=== PATIENT | male | born 1970 | race Caucasian/White ===

== ENCOUNTER → 2017-04-24 | Outpatient (REF) | payer MEDICARE ==
[~2017-04-24] MED LIST: AMLO-99 PO; AMOX500T10 PO; ASPI-1471 PO; ATOR40TA69 PO; ATR80PT PO; BUSP10TA95 PO; CITA-139 PO; DIPH0.5D21 IM; ENAL1TAB35 PO; LEVO-85 PO; LISI-374 PO; LISI20TA29 PO; LORA-1455 PO; METF-410 PO; METO25TA93 PO; OMEP-125 PO; OMEP-137 PO; ONDA4TAB PO; ONDA4TAB97 PO; OXYC-865 PO; PANT40TA65 PO; PRED20TA6 PO; RANI-324 PO; RANI150C17 PO; SUCR1TAB85 PO
[2017-04-24 21:10] LABS: PLATELET COUNT, AUTOMATED 229 K/uL (150-450)
== END ==
PROVIDERS: ATTEND Physician Assistant Medical
DX: R19.7 Diarrhea, unspecified (principal)
CPT/HCPCS: 82040; 82247; 82310; 82374; 82435; 82565; 82947; 84075; 84132; 84155; 84295; 84450; 84460; 84520; 85025

== ENCOUNTER → 2017-05-02 | Outpatient (CLI) | payer MEDICARE | LOC: RESP 19:40 | PROVIDERS: ATTEND Nurse Practitioner Primary Care | DX: G47.33 Obstructive sleep apnea (adult) (pediatric) (principal); E66.9 Obesity, unspecified ==

== ENCOUNTER → 2017-06-02 | Outpatient (CLI) | payer MEDICARE ==
[~2017-06-02] MED LIST changes: +DICL100G39 TOP; +DULO30CA6 PO
== END ==
LOC: RESP 20:12
PROVIDERS: ATTEND Nurse Practitioner Primary Care
DX: G47.33 Obstructive sleep apnea (adult) (pediatric) (principal); G47.61 Periodic limb movement disorder; E66.9 Obesity, unspecified

== ENCOUNTER → 2017-06-16 | Outpatient (CLI) | payer MEDICARE ==
[~2017-06-16] MED LIST changes: +METO-253 PO; +TRAM-420 PO
== END ==
LOC: RESP 19:46
PROVIDERS: ATTEND Nurse Practitioner Primary Care
DX: G47.33 Obstructive sleep apnea (adult) (pediatric) (principal); G47.61 Periodic limb movement disorder; E66.9 Obesity, unspecified

== ENCOUNTER 2017-06-22 19:41 | Emergency (ER) | payer MEDICARE ==
[~2017-06-22 19:41] MED LIST changes: -TRAM-420 PO
--- NOTE | 2017-06-22 19:43 | ER Report ---
History and Physical Time Seen By MD: 19:43 HPI/ROS CHIEF COMPLAINT: Back pain, chest pain HISTORY OF PRESENT ILLNESS: 46-year-old male presents ambulatory to the ER complaining of back pain and chest pain. Patient ate at [employer] this morning had a sausage and a biscuit. Patient had 3 episodes of vomiting and back pain earlier today. He developed chest pain this evening. He has no diaphoresis, shortness of breath or nausea. He was admitted down in [place] several days ago for an extensive evaluation for chest pain including a treadmill which was unremarkable. Patient denies dysuria, frequency or hematuria. Patient states she's been having diarrhea all week. He denies fever or chills. REVIEW OF SYSTEMS: Respiratory: No cough, no dyspnea. Cardiovascular: As above Gastrointestinal: As above Musculoskeletal: As above Allergies: Uncoded Allergies: raghavaise (Allergy, Unknown, 03/26/17) Home Meds Active Scripts Ondansetron Hcl (ZOFRAN) 4 Mg Tablet, 4 MG PO Q6H Y for NAUSEA/VOMITING, #12 Prov:WIL SIMMONS DO 06/22/17 Tramadol Hcl (TRAMADOL HCL) 50 Mg Tablet, 1 TAB PO Q6H Y for PAIN, #15 MG TAKE ONE TO TWO TABLETS BY MOUTH EVERY FOUR TO SIX HOURS NEEDED Prov:WIL SIMMONS DO 06/22/17 Buspirone Hcl (BUSPIRONE HCL) 10 Mg Tablet, 1 TAB PO Q8H, #90 TAB 1 Refill Prov:STEVE PEREZ DNP, FNP-BC 05/29/17 Atorvastatin (LIPITOR) 80 Mg Tab, 1 TAB PO QDAY for 90 Days, #90 TAB 1 Refill Prov:STEVE PEREZ DNP, FNP-BC 05/29/17 Duloxetine HCl (Duloxetine HCl) 30 Mg Capsule.dr, 1 CAP PO DAILY for 90 Days, # 90 CAP 0 Refills Prov:STEVE PEREZ DNP, FNP-BC 05/23/17 Diclofenac Sodium 1% Gel (VOLTAREN 1% GEL) 100 Gm Gel..gram., 4 G TOP QID Y for PAIN, #1 TUB 3 Refills Prov:STEVE PEREZ DNP, FNP-BC 05/23/17 Lisinopril (LISINOPRIL) 20 Mg Tablet, 1 TAB PO QDAY for 90 Days, #90 TAB 1 Refill Prov:STEVE PEREZ DNP, [facility] 03/26/17 Reported Medications Metoprolol Tartrate (METOPROLOL TARTRATE) 25 Mg Tablet, 100 MG PO BID, TAB 06/22/17 Ranitidine Hcl (ZANTAC) 150 Mg Tablet, 1 TAB PO BID, TAB 03/26/17 Amlodipine Besylate (AMLODIPINE BESYLATE) 10 Mg Tablet, 1 TAB PO QDAY, TAB 03/22/17 Aspirin (ASPIR 81) 81 Mg Tablet.dr, 81 MG PO QDAY, TAB 03/13/16 Discontinued Reported Medications Omeprazole (OMEPRAZOLE) 20 Mg Capsule.dr, 1 CAP PO BID, CAP 03/26/17 Discontinued Scripts Metoprolol Tartrate (METOPROLOL TARTRATE) 50 Mg Tab, 1 TAB PO BID, #90 TAB Prov:STEVE PEREZ [facility], [facility] 06/18/17 Reviewed Nurses Notes: Yes Old Medical Records Reviewed: Yes Hx Smoking: Yes (1/2 ppd) Smoking Status: Current: Every Day Smoker Hx Substance Use Disorder: Yes Hx Alcohol Use: Yes Constitutional Vital Sign - Last 24 Hours 06/22/17 06/22/17 06/22/17 06/22/17 19:41 19:45 19:45 19:56 Temp 98.2 Pulse ??? 85 79 Resp 20 16 B/P (MAP) 137/93 137/93 (108) Pulse Ox 88 93 O2 Delivery Room Air 06/22/17 06/22/17 06/22/17 06/22/17 20:00 20:11 20:26 20:30 Pulse 87 72 Resp 17 6 B/P (MAP) 118/89 (99) 128/91 (103) Pulse Ox 93 91 06/22/17 06/22/17 06/22/17 20:41 20:56 20:58 Pulse 68 72 85 Resp 13 27 16 B/P (MAP) 132/85 (101) Pulse Ox 94 95 95 O2 Delivery Room Air Physical Exam General Appearance: The patient is alert, has no immediate need for airway protection and no current signs of toxicity. Vital signs stable, afebrile, pulse ox normal HEENT: Pupils equal and round no injection. Oropharynx without redness or exudate, mucous. Membranes are moist Respiratory: Chest is non tender, lungs are clear to auscultation. No chest wall tenderness Cardiac: regular rate and rhythm Gastrointestinal: Abdomen is soft and non tender, no masses, bowel sounds normal. Musculoskeletal: Neck: Neck is supple and non tender. No lymphadenopathy, no JVD Extremities have full range of motion and are non tender. No edema, no calf tenderness Skin: No rashes or lesions. DIFFERENTIAL DIAGNOSIS: After history and physical exam differential diagnosis was considered for chest pain including but not limited to myocardial ischemia, pericarditis pulmonary embolus, chest wall pain, pleural inflammation and pulmonary infectious causes. Additionallyback pain including but not limited to muscular pain, herniated disc, spine fracture, intra-abdominal causes and urinary tract infection. Medical Decision Making Data Points Result Diagram: 06/22/17194706/22/171947 Laboratory Hematology Test 06/22/17 19:48 Red Blood Count 5.69 M/uL (4.00-5.60) Mean Corpuscular Volume 85.1 fL (80.0-96.0) Mean Corpuscular Hemoglobin 29.0 pg (26.0-33.0) Mean Corpuscular Hemoglobin Concent 34.1 g/dL (32.0-36.0) Red Cell Distribution Width 14.2 % (11.5-14.5) Mean Platelet Volume 8.1 fL (7.2-11.1) Neutrophils (%) (Auto) 50.7 % (39.4-72.5) Lymphocytes (%) (Auto) 40.5 % (17.6-49.6) Monocytes (%) (Auto) 5.6 % (4.1-12.4) Eosinophils (%) (Auto) 2.7 % (0.4-6.7) Basophils (%) (Auto) 0.5 % (0.3-1.4) Nucleated RBC Relative Count (auto) 0.1 /100WBC Neutrophils # (Auto) 3.7 K/uL (2.0-7.4) Lymphocytes # (Auto) 2.9 K/uL (1.3-3.6) Monocytes # (Auto) 0.4 K/uL (0.3-1.0) Eosinophils # (Auto) 0.2 K/uL (0.0-0.5) Basophils # (Auto) 0.0 K/uL (0.0-0.1) Nucleated RBC Absolute Count (auto) 0.01 K/uL D-Dimer Quantitative (PE/DVT) < 0.27 ug/ml (0-0.50) Sodium Level 139 mmol/L (137-145) Potassium Level 3.5 mmol/L (3.5-5.0) Chloride Level 102 mmol/L (98-107) Carbon Dioxide Level 24 mmol/L (22-30) Blood Urea Nitrogen 15 mg/dl (9-21) Creatinine 1.10 mg/dl (0.66-1.25) Glomerular Filtration Rate Calc > 60.0 Random Glucose 168 mg/dl (75-110) Calcium Level 9.4 mg/dl (8.4-10.2) Total Bilirubin 0.3 mg/dl (0.2-1.3) Aspartate Amino Transf (AST/SGOT) 29 U/L (0-35) Alanine Aminotransferase (ALT/SGPT) 76 U/L (0-56) Alkaline Phosphatase 186 U/L (0-126) Troponin I 0.013 ng/ml B-Type Natriuretic Peptide 13 pg/ml (0-100) Total Protein 8.3 gm/dl (6.3-8.2) Albumin 4.4 g/dl (3.5-5.0) Amylase Level 72 U/L (0-110) Lipase 243 U/L (23-300) Chemistry Test 06/22/17 19:48 White Blood Count 7.2 k/uL (4.5-11.0) Red Blood Count 5.69 M/uL (4.00-5.60) Hemoglobin 16.5 g/dL (14.0-18.0) Hematocrit 48.4 % (42.0-52.0) Mean Corpuscular Volume 85.1 fL (80.0-96.0) Mean Corpuscular Hemoglobin 29.0 pg (26.0-33.0) Mean Corpuscular Hemoglobin Concent 34.1 g/dL (32.0-36.0) Red Cell Distribution Width 14.2 % (11.5-14.5) Platelet Count 239 K/uL (150-450) Mean Platelet Volume 8.1 fL (7.2-11.1) Neutrophils (%) (Auto) 50.7 % (39.4-72.5) Lymphocytes (%) (Auto) 40.5 % (17.6-49.6) Monocytes (%) (Auto) 5.6 % (4.1-12.4) Eosinophils (%) (Auto) 2.7 % (0.4-6.7) Basophils (%) (Auto) 0.5 % (0.3-1.4) Nucleated RBC Relative Count (auto) 0.1 /100WBC Neutrophils # (Auto) 3.7 K/uL (2.0-7.4) Lymphocytes # (Auto) 2.9 K/uL (1.3-3.6) Monocytes # (Auto) 0.4 K/uL (0.3-1.0) Eosinophils # (Auto) 0.2 K/uL (0.0-0.5) Basophils # (Auto) 0.0 K/uL (0.0-0.1) Nucleated RBC Absolute Count (auto) 0.01 K/uL D-Dimer Quantitative (PE/DVT) < 0.27 ug/ml (0-0.50) Glomerular Filtration Rate Calc > 60.0 Calcium Level 9.4 mg/dl (8.4-10.2) Total Bilirubin 0.3 mg/dl (0.2-1.3) Aspartate Amino Transf (AST/SGOT) 29 U/L (0-35) Alanine Aminotransferase (ALT/SGPT) 76 U/L (0-56) Alkaline Phosphatase 186 U/L (0-126) Troponin I 0.013 ng/ml B-Type Natriuretic Peptide 13 pg/ml (0-100) Total Protein 8.3 gm/dl (6.3-8.2) Albumin 4.4 g/dl (3.5-5.0) Amylase Level 72 U/L (0-110) Lipase 243 U/L (23-300) Coagulation Test 06/22/17 19:48 D-Dimer Quantitative (PE/DVT) < 0.27 ug/ml EKG/Imaging EKG Interpretation 12 lead EK Rhythm: normal sinus rhythm [place]: normal QRS: normal ST segments: normal, no evidence of ischemia or dysrhythmia Imaging X-ray: Single view portable chest x-ray was obtained. I viewed the images myself on the PACS system. My interpretation of the images is: Infiltrate, no effusion, normal mediastinum. The radiologist interpretation had no clinically significant variation from this interpretation. ED Course/Re-evaluation Clinical Indication for ER IV: IV Access ED Course Patient was admitted to an examination room. H&P was done. The differential diagnoses was considered. Patient with both chest and abdominal pain. Patient was having diarrhea for a week. He now has several episodes of vomiting after eating at [employer] this morning. Patient's being followed by cardiology. Patient's treated with fentanyl, Toradol and Zofran. He feels much better. Diagnostic evaluation shows normal laboratory studies except for an elevated alkaline phosphatase goes back several months. Patient reports no right upper quadrant pain. Patient be discharged home on tramadol for pain and Zofran for nausea. He is advised to follow-up with primary care for an outpatient ultrasound of his right upper quadrant. Decision to Disposition Date: Jun 22, 2017 Decision to Disposition Time: 20:49 Depart Departure Latest Vital Signs Vital Signs Date Time Temp Pulse Resp B/P (MAP) Pulse Ox O2 Delivery O2 Flow Rate FiO2 06/22/17 20:58 85 16 132/85 (101) 95 Room Air 06/22/17 19:45 98.2 Impression: Primary Impression: Chest pain Additional Impressions: Back pain History of gastroesophageal reflux (GERD) Elevated alkaline phosphatase level Condition: Improved Disposition: HOME OR SELF-CARE Referrals: STEVE PEREZ DNP, [facility] (PCP) New Scripts Ondansetron Hcl (ZOFRAN) 4 Mg Tablet 4 MG PO Q6H Y for NAUSEA/VOMITING, #12 Prov: WIL SIMMONS DO 06/22/17 Tramadol Hcl (TRAMADOL HCL) 50 Mg Tablet 1 TAB PO Q6H Y for PAIN, #15 MG TAKE ONE TO TWO TABLETS BY MOUTH EVERY FOUR TO SIX HOURS NEEDED Prov: WIL SIMMONS DO 06/22/17 Patient Instructions: Back Pain (ED), Chest Pain (ED) Additional Instructions: Follow-up with your primary care physician for outpatient ultrasound of your right upper quadrant to rule out gallstones Problem Qualifiers Primary Impression: Chest pain Chest pain type: unspecified Qualified Codes: R07.9 - Chest pain, unspecified Additional Impressions: Back pain Back pain location: back pain in unspecified location Chronicity: acute Back pain laterality: unspecified Qualified Codes: M54.9 - Dorsalgia, unspecified WIL SIMMONS DO Jun 22, 2017 19:43
[2017-06-22] MEDS ORDERED: ONDANSETRON 4 MG/2 ML VIAL IVP ONE (19:50)
[2017-06-22] MEDS ORDERED: ASPIRIN 81 MG CHEW PO ONE (19:50)
[2017-06-22] MEDS ORDERED: KETOROLAC 30 MG/ML VIAL IVP ONE (19:50)
[2017-06-22] MEDS ORDERED: fentaNYL CITR 100 MCG/2 ML AMP IVP ONE (19:50)
[2017-06-22] MEDS ORDERED: METO25TA93 PO (19:55)
--- NOTE | 2017-06-22 19:57 | EKG ---
FACILITY: [facility] PATIENT NAME: BRAD ARITA : [id number] MR: [id number] V: [id number] EXAM DATE: ORDERING PHYSICIAN: WIL SIMMONS TECHNOLOGIST: Daniel Caraballo Reason : Blood Pressure : / mmHG Vent. Rate : 077 BPM Atrial Rate : 077 BPM P-R Int : 148 ms QRS Dur : 090 ms QT Int : 390 ms P-R-T Axes : 048 012 036 degrees QTc Int : 441 ms Normal sinus rhythm Normal ECG When compared with ECG of 07-APR-2017 17:01, Relatively unchanged Confirmed by RABIA ZHU ([id number]) on 06/23/2017 6:42:52 AM Referred By: Confirmed By:RABIA ZHU
[2017-06-22 20:01] LABS: PLATELET COUNT, AUTOMATED 239 K/uL (150-450)
--- NOTE | 2017-06-22 20:32 | RADIOLOGY IMAGING REPORT ---
FACILITY: [facility] - [place] PATIENT NAME: Alfonzo Villatoro : 1970 MR: [id number] V: [id number] EXAM DATE: ORDERING PHYSICIAN: WIL SIMMONS TECHNOLOGIST: Location: [facility] - [place] Patient: Alfonzo Villatoro : 1970 Visit/Account:[id number] Date of Sevice: 06/22/2017 CHEST SINGLE AP Indication: Chest pain.. Comparison: 04/07/2017. Findings: Cardiomediastinal silhouette and pulmonary vessels within normal limits. There is no focal infiltrate or lobar consolidation. No pneumothorax or pleural effusion. No nodule. Upper abdomen is unremarkable. No acute bony abnormality. IMPRESSION: 1. No acute cardiopulmonary process. Report Dictated By: Vasile Barroso at 06/22/2017 8:26 PM Report E-Signed By: Vasile Barroso at 06/22/2017 8:28 PM WSN:[id number]
[2017-06-22] MEDS ORDERED: ONDA4TAB97 PO (20:52)
[2017-06-22] MEDS ORDERED: TRAM-420 PO (20:52)
[2017-06-22 20:58] VITALS: BP 132/85
== END 2017-06-22 21:00 | disposition home or self-care (01) ==
LOC: ER 19:55
DX: R07.89 Other chest pain (principal); M54.9 Dorsalgia, unspecified; K21.9 Gastro-esophageal reflux disease without esophagitis; R79.89 Other specified abnormal findings of blood chemistry
CPT/HCPCS: 71045; 82150; 83690; 83880; 84484; 85025; 85379; 93005; 96374; 96375; 99284; A9270; J1885; J2405; J3010; 82040; 82247; 82310; 82374; 82435; 82565; 82947; 84075; 84132; 84155; 84295; 84450; 84460; 84520

== ENCOUNTER 2017-07-31 23:53 | Emergency (ER) | payer MEDICARE ==
[~2017-07-31 23:53] MED LIST changes: -ATOR40TA24 PO; -CLOP75TA43 PO; -NITR0.4T3 SL; -PROM-110 PO; +RANI-324 PO; -RANI-366 PO
--- NOTE | 2017-08-01 00:02 | ER Report ---
History and Physical Time Seen By MD: 00:01 Hx. of Stated Complaint: PT REPORTS CHEST PAIN THAT STARTED ABOUT 30 MINUTES AGO. PT GIVEN ASA EN ROUTE BY EMS. PT STATES THAT PAIN HAS NOT CHANGED. HPI/ROS CHIEF COMPLAINT: chest pain HISTORY OF PRESENT ILLNESS: This is a 47 year old male. He is having chest pain. Started about 1 hour ago. Has vomiting as well. He has been drinking earlier this evening, but not a large amount. Resting when he started having the chest pain. Substernal, nonradiating. No shortness of breath. No fevers or chills. He has an appointment with his mental retardation aide this week on Sunday. He has had stents in the past. He is still smoking. Allergies: Uncoded Allergies: mayonnaise (Allergy, Unknown, 03/26/17) Home Meds Active Scripts Diclofenac Sodium 1% Gel (VOLTAREN 1% GEL) 100 Gm Gel..gram., 4 G TOP QID Y for PAIN, #1 TUB 3 Refills Prov:STEVE PEREZ DNP [facility] 07/16/17 Citalopram Hydrobromide (CITALOPRAM HBR) 40 Mg Tablet, 1 TAB PO QDAY for 90 Days , #90 TAB 3 Refills Prov:STEVE PEREZ DNP [facility] 07/16/17 Tramadol Hcl (TRAMADOL HCL) 50 Mg Tablet, 1-2 TAB PO BID Y for PAIN, #120 TAB 0 Refills Prov:STEVE PEREZ DNP [facility] 07/16/17 Buspirone Hcl (BUSPIRONE HCL) 10 Mg Tablet, 1 TAB PO Q8H, #90 TAB 1 Refill Prov:STEVE PEREZ DNP [facility] 05/29/17 Atorvastatin (LIPITOR) 80 Mg Tab, 1 TAB PO QDAY for 90 Days, #90 TAB 1 Refill Prov:STEVE PEREZ DNP [facility] 05/29/17 Lisinopril (LISINOPRIL) 20 Mg Tablet, 1 TAB PO QDAY for 90 Days, #90 TAB 1 Refill Prov:STEVE PEREZ DNP [facility] 03/26/17 Reported Medications Metoprolol Tartrate (METOPROLOL TARTRATE) 25 Mg Tablet, 100 MG PO BID, TAB 3//18 Ranitidine Hcl (ZANTAC) 150 Mg Tablet, 1 TAB PO BID, TAB 03/26/17 Amlodipine Besylate (AMLODIPINE BESYLATE) 10 Mg Tablet, 1 TAB PO QDAY, TAB 03/22/17 Aspirin (ASPIR 81) 81 Mg Tablet.dr, 81 MG PO QDAY, TAB 03/13/16 Reviewed Nurses Notes: Yes Hx Smoking: Yes (1/2 ppd) Smoking Status: Current: Every Day Smoker Hx Substance Use Disorder: Yes Hx Alcohol Use: Yes Constitutional Vital Sign - Last 24 Hours 07/31/17 08/01/17 08/01/17 08/01/17 23:56 00:10 00:25 00:30 Temp 98.2 Pulse 81 83 83 84 Resp 16 9 11 11 B/P (MAP) 126/43 115/84 (94) Pulse Ox 96 97 97 98 O2 Delivery Room Air 08/01/17 08/01/17 08/01/17 08/01/17 01:00 01:15 01:30 02:00 Pulse 92 91 88 Resp 17 13 25 14 B/P (MAP) 129/90 (103) 160/106 (124) Pulse Ox 98 90 94 O2 Delivery Room Air Physical Exam General Appearance: The patient is alert. No acute distress. Eyes: Pupils are equal, round. No pallor, injection or icterus. ENT: Mucous membranes are moist. Normal oral mucosa. Posterior oropharynx is normal. Neck: Supple and non tender. Respiratory: Lungs are clear to auscultation. Cardiovascular: Regular rate and rhythm. No murmurs, gallops or rubs. Normal capillary refill. Gastrointestinal: Abdomen is soft with diffuse discomfort. Nondistended. No costovertebral angle tenderness with percussion. Neurological: Alert and oriented x3. Skin: Warm and dry. DIFFERENTIAL DIAGNOSIS: After history and physical exam, differential diagnosis was considered for chest pain including but not limited to myocardial ischemia, pericarditis pulmonary embolus, chest wall pain, pleural inflammation and pulmonary infectious causes. Medical Decision Making Data Points Result Diagram: 08/01/17 0001 08/01/17 0001 Laboratory Hematology Test 08/01/17 00:01 Red Blood Count 5.84 M/uL (4.00-5.60) Mean Corpuscular Volume 85.3 fL (80.0-96.0) Mean Corpuscular Hemoglobin 29.6 pg (26.0-33.0) Mean Corpuscular Hemoglobin Concent 34.7 g/dL (32.0-36.0) Red Cell Distribution Width 14.1 % (11.5-14.5) Mean Platelet Volume 8.2 fL (7.2-11.1) Neutrophils (%) (Auto) 65.3 % (39.4-72.5) Lymphocytes (%) (Auto) 29.2 % (17.6-49.6) Monocytes (%) (Auto) 4.9 % (4.1-12.4) Eosinophils (%) (Auto) 0.2 % (0.4-6.7) Basophils (%) (Auto) 0.4 % (0.3-1.4) Nucleated RBC Relative Count (auto) 0.0 /100WBC Neutrophils # (Auto) 6.7 K/uL (2.0-7.4) Lymphocytes # (Auto) 3.0 K/uL (1.3-3.6) Monocytes # (Auto) 0.5 K/uL (0.3-1.0) Eosinophils # (Auto) 0.0 K/uL (0.0-0.5) Basophils # (Auto) 0.0 K/uL (0.0-0.1) Nucleated RBC Absolute Count (auto) 0.00 K/uL Sodium Level 142 mmol/L (137-145) Potassium Level 3.7 mmol/L (3.5-5.0) Chloride Level 100 mmol/L (98-107) Carbon Dioxide Level 22 mmol/L (22-30) Blood Urea Nitrogen 15 mg/dl (9-21) Creatinine 1.70 mg/dl (0.66-1.25) Glomerular Filtration Rate Calc 43.1 Random Glucose 109 mg/dl (75-110) Calcium Level 9.5 mg/dl (8.4-10.2) Total Bilirubin 0.4 mg/dl (0.2-1.3) Aspartate Amino Transf (AST/SGOT) 50 U/L (0-35) Alanine Aminotransferase (ALT/SGPT) 68 U/L (0-56) Alkaline Phosphatase 202 U/L (0-126) Troponin I < 0.012 ng/ml B-Type Natriuretic Peptide 24 pg/ml (0-100) Total Protein 8.5 gm/dl (6.3-8.2) Albumin 4.7 g/dl (3.5-5.0) Amylase Level 76 U/L (0-110) Lipase 248 U/L (23-300) Chemistry Test 08/01/17 00:01 White Blood Count 10.3 k/uL (4.5-11.0) Red Blood Count 5.84 M/uL (4.00-5.60) Hemoglobin 17.3 g/dL (14.0-18.0) Hematocrit 49.8 % (42.0-52.0) Mean Corpuscular Volume 85.3 fL (80.0-96.0) Mean Corpuscular Hemoglobin 29.6 pg (26.0-33.0) Mean Corpuscular Hemoglobin Concent 34.7 g/dL (32.0-36.0) Red Cell Distribution Width 14.1 % (11.5-14.5) Platelet Count 222 K/uL (150-450) Mean Platelet Volume 8.2 fL (7.2-11.1) Neutrophils (%) (Auto) 65.3 % (39.4-72.5) Lymphocytes (%) (Auto) 29.2 % (17.6-49.6) Monocytes (%) (Auto) 4.9 % (4.1-12.4) Eosinophils (%) (Auto) 0.2 % (0.4-6.7) Basophils (%) (Auto) 0.4 % (0.3-1.4) Nucleated RBC Relative Count (auto) 0.0 /100WBC Neutrophils # (Auto) 6.7 K/uL (2.0-7.4) Lymphocytes # (Auto) 3.0 K/uL (1.3-3.6) Monocytes # (Auto) 0.5 K/uL (0.3-1.0) Eosinophils # (Auto) 0.0 K/uL (0.0-0.5) Basophils # (Auto) 0.0 K/uL (0.0-0.1) Nucleated RBC Absolute Count (auto) 0.00 K/uL Glomerular Filtration Rate Calc 43.1 Calcium Level 9.5 mg/dl (8.4-10.2) Total Bilirubin 0.4 mg/dl (0.2-1.3) Aspartate Amino Transf (AST/SGOT) 50 U/L (0-35) Alanine Aminotransferase (ALT/SGPT) 68 U/L (0-56) Alkaline Phosphatase 202 U/L (0-126) Troponin I < 0.012 ng/ml B-Type Natriuretic Peptide 24 pg/ml (0-100) Total Protein 8.5 gm/dl (6.3-8.2) Albumin 4.7 g/dl (3.5-5.0) Amylase Level 76 U/L (0-110) Lipase 248 U/L (23-300) EKG/Imaging EKG Interpretation 12 lead EKG: Rhythm: normal sinus rhythm, rate 94 [place]: normal QRS: Prolonged QT ST segments: Nonspecific, no ST elevation or depression noted. Imaging CHEST SINGLE AP 08/01/2017 00:17 hours. HISTORY: Sudden onset of chest pain. History of 4 cardiac stents. COMPARISON: 06/22/2017 and studies dating to 03/13/2016. TECHNIQUE: Portable AP view of the chest. FINDINGS: Tubes/lines/hardware: There are external chest leads. Pulmonary: Lungs are clear. There is no pneumothorax or pleural effusion. Cardiomediastinal: Cardiac and mediastinal silhouettes are within normal limits. Bones/soft tissues: No acute osseous abnormality. The visible abdomen is normal. IMPRESSION: 1. No acute cardiopulmonary process. Report Dictated By: Jerri Martinez at 08/01/2017 12:52 AM ED Course/Re-evaluation Clinical Indication for ER IV: Hydration, IV Access ED Course Gave a liter of normal saline and Zofran. Still vomiting. Gave Phenergan and vomiting is improved. His liver function tests are elevated but normal amylase and lipase. Negative troponin and no sign of heart attack. This appears to be gastritis related to his alcohol consumption tonight. He will follow-up with Cardiology later this week. Decision to Disposition Date: Aug 01, 2017 Decision to Disposition Time: 01:49 Depart Departure Latest Vital Signs Vital Signs Date Time Temp Pulse Resp B/P (MAP) Pulse Ox O2 Delivery O2 Flow Rate FiO2 08/01/17 02:00 88 14 94 Room Air 08/01/17 01:30 160/106 (124) 07/31/17 23:56 98.2 Impression: Primary Impression: Gastritis due to alcohol without hemorrhage Condition: Improved Disposition: HOME OR SELF-CARE Referrals: CHRIS,STEVE A DNP, [facility] (PCP) Patient Instructions: Diet for Stomach Ulcers and Gastritis (ED), Gastritis (ED ) Additional Instructions: Avoid alcohol. See instructions for diet associated with gastritis. Take Zofran 4mg, one every 6 hours as needed for nausea or vomiting. Take Phenergan 25mg, one every 8 hours as needed for nausea or vomiting. Please follow-up with primary care and cardiology as planned. Problem Qualifiers Primary Impression: Gastritis due to alcohol without hemorrhage Chronicity: acute Qualified Codes: K29.20 - Alcoholic gastritis without bleeding ASHANTI OCHOA MD Aug 01, 2017 00:02
[2017-08-01] MEDS ORDERED: NS(*) 0.9% 1000 ML BAG 1,000 ML IV ONE (00:17)
[2017-08-01] MEDS ORDERED: ONDANSETRON 4 MG/2 ML VIAL IVP ONE ×2 (00:20→00:40)
[2017-08-01] MEDS ORDERED: MORPHINE 4 MG/ML SDV IVP ONE (00:20)
[2017-08-01] MEDS ORDERED: ASPIRIN 81 MG CHEW PO ONE (00:20)
[2017-08-01 00:26] LABS: PLATELET COUNT, AUTOMATED 222 K/uL (150-450)
[2017-08-01] MEDS ORDERED: PROMETHAZINE 25 MG/ML 1 ML AMP IVP ONE (00:55)
--- NOTE | 2017-08-01 00:58 | RADIOLOGY IMAGING REPORT ---
FACILITY: [facility] PATIENT NAME: Alfonzo Villatoro : 1970 MR: [id number] V: [id number] EXAM DATE: ORDERING PHYSICIAN: ASHANTI OCHOA TECHNOLOGIST: Location: [facility] - [place] Patient: Alfonzo Villatoro : 1970 Visit/Account:[id number] Date of Sevice: 08/01/2017 CHEST SINGLE AP 08/01/2017 00:17 hours. HISTORY: Sudden onset of chest pain. History of 4 cardiac stents. COMPARISON: 06/22/2017 and studies dating to 03/13/2016. TECHNIQUE: Portable AP view of the chest. FINDINGS: Tubes/lines/hardware: There are external chest leads. Pulmonary: Lungs are clear. There is no pneumothorax or pleural effusion. Cardiomediastinal: Cardiac and mediastinal silhouettes are within normal limits. Bones/soft tissues: No acute osseous abnormality. The visible abdomen is normal. IMPRESSION: 1. No acute cardiopulmonary process. Report Dictated By: Jerri Martinez at 08/01/2017 12:52 AM Report E-Signed By: Jerri Martinez at 08/01/2017 12:53 AM WSN:[id number]
[2017-08-01 01:30] VITALS: BP 160/106
--- NOTE | 2017-08-01 01:31 | EKG ---
[place] [facility] [place] NAME: BRAD ARITA : [id number] MR: [id number] V: [id number] EXAM DATE: ORDERING PHYSICIAN: ASHANTI OCHOA TECHNOLOGIST: THIAGO Caraballo Reason : CARDIAC Blood Pressure : / mmHG Vent. Rate : 094 BPM Atrial Rate : 094 BPM P-R Int : 144 ms QRS Dur : 082 ms QT Int : 386 ms P-R-T Axes : 053 047 035 degrees QTc Int : 482 ms Sinus rhythm Prolonged QT Abnormal ECG When compared with ECG of 22-JUN-2017 19:44, No significant change was found Confirmed by ELISA RODRIGES ([id number]) on 08/01/2017 6:41:02 AM Referred By: Confirmed By:ELISA RODRIGES
[2017-08-01] MEDS ORDERED: ONDANSETRON 4 MG ODT TH SL ONE (01:50)
[2017-08-01] MEDS ORDERED: PROMETHAZINE HCL 25 MG TAB TH 2 TAB/BOTTLE PO ONE (01:50)
== END 2017-08-01 02:02 | disposition home or self-care (01) ==
LOC: ER 23:59
DX: K29.20 Alcoholic gastritis without bleeding (principal); R94.31 Abnormal electrocardiogram [ECG] [EKG]; F17.200 Nicotine dependence, unspecified, uncomplicated
CPT/HCPCS: 71045; 82150; 83690; 83880; 84484; 85025; 93005; 96361; 96374; 96375; 96376; 99284; J2405; J2550; J7030; Q0162; 82040; 82247; 82310; 82374; 82435; 82565; 82947; 84075; 84132; 84155; 84295; 84450; 84460; 84520; S0119

== ENCOUNTER → 2017-07-31 | Outpatient (CLI) | payer MEDICARE ==
[~2017-07-31] MED LIST changes: +ATOR40TA24 PO; +CITA-141 PO; +CLOP75TA43 PO; +NITR0.4T3 SL; +PROM-110 PO; -RANI-324 PO; +RANI-366 PO; +TRAM-420 PO
== END ==
LOC: AMB 23:33
PROVIDERS: ATTEND Nurse Practitioner
DX: R07.9 Chest pain, unspecified (principal); R06.02 Shortness of breath
CPT/HCPCS: A0425; A0427

== ENCOUNTER 2017-08-02 17:19 | Emergency (ER) | payer MEDICARE ==
[~2017-08-02 17:19] MED LIST changes: -ATOR40TA24 PO; -CLOP75TA43 PO; -NITR0.4T3 SL; -PROM-110 PO; +RANI-324 PO; -RANI-366 PO
--- NOTE | 2017-08-02 17:26 | ER Report ---
History and Physical Time Seen By MD: 17:25 HPI/ROS CHIEF COMPLAINT: Chest pain HISTORY OF PRESENT ILLNESS: 47-year-old male with an extensive history of coronary artery disease, status post 4 stents at sudden onset of chest pain 45 minutes prior to arrival. He describes a sharp substernal pain without radiation. He notes diaphoresis, nausea and shortness of breath. He was seen here 2 days ago with a similar presentation. Although his EKG and troponins were unremarkable. He was discharged home to follow-up with his corrosion engineer, Dr. Silver. EMS administered aspirin and nitroglycerin sublingual without improvement of his pain. The EKG that was transmitted by buttermaker continuous churn shows diffuse ST depression approximately 3 mm. On arrival. EKG shows similar changes. Comparison to previous EKG from [address] depression throughout the V leads and in V2 and aVF as well as ST elevation in aVR. STEMI protocol will be initiated. Call was placed to [facility] REVIEW OF SYSTEMS: Respiratory: No cough, no dyspnea. Cardiovascular: As above Gastrointestinal: No vomiting, no abdominal pain. Musculoskeletal: No back pain. Allergies: Uncoded Allergies: mayonnaise (Allergy, Unknown, 03/26/17) Home Meds Active Scripts Diclofenac Sodium 1% Gel (VOLTAREN 1% GEL) 100 Gm Gel..gram., 4 G TOP QID Y for PAIN, #1 TUB 3 Refills Prov:STEVE PEREZ DNP, FNP-BC 07/16/17 Citalopram Hydrobromide (CITALOPRAM HBR) 40 Mg Tablet, 1 TAB PO QDAY for 90 Days , #90 TAB 3 Refills Prov:STEVE PEREZ DNP, FNP-BC 07/16/17 Tramadol Hcl (TRAMADOL HCL) 50 Mg Tablet, 1-2 TAB PO BID Y for PAIN, #120 TAB 0 Refills Prov:STEVE PEREZ DNP, FNP-BC 07/16/17 Buspirone Hcl (BUSPIRONE HCL) 10 Mg Tablet, 1 TAB PO Q8H, #90 TAB 1 Refill Prov:STEVE PEREZ DNP, FNP-BC 05/29/17 Atorvastatin (LIPITOR) 80 Mg Tab, 1 TAB PO QDAY for 90 Days, #90 TAB 1 Refill Prov:STEVE PEREZ DNP, FNP-BC 05/29/17 Lisinopril (LISINOPRIL) 20 Mg Tablet, 1 TAB PO QDAY for 90 Days, #90 TAB 1 Refill Prov:STEVE PEREZ [facility] 03/26/17 Reported Medications Metoprolol Tartrate (METOPROLOL TARTRATE) 25 Mg Tablet, 100 MG PO BID, TAB 06/22/17 Ranitidine Hcl (ZANTAC) 150 Mg Tablet, 1 TAB PO BID, TAB 03/26/17 Amlodipine Besylate (AMLODIPINE BESYLATE) 10 Mg Tablet, 1 TAB PO QDAY, TAB 03/22/17 Aspirin (ASPIR 81) 81 Mg Tablet.dr, 81 MG PO QDAY, TAB 03/13/16 Past Medical/Surgical History Past Medical History Cardiovascular: Reports hx of: coronary artery disease (4 stents) hyperlipidemia hypertension Respiratory: Reports hx of: sleep apnea (CPAP) Gastrointestinal: Reports hx of: GERD Psychiatric: Reports hx of: anxiety depression panic attacks Reviewed Nurses Notes: Yes Old Medical Records Reviewed: Yes Hx Smoking: Yes (1/2 ppd) Smoking Status: Current: Every Day Smoker Hx Substance Use Disorder: Yes Hx Alcohol Use: Yes Constitutional Vital Sign - Last 24 Hours 08/02/17 08/02/17 08/02/17 08/02/17 17:19 17:20 17:24 17:28 Temp 98.9 Pulse 136 139 150 Resp 8 11 20 B/P (MAP) ???/??? (5502) 128/103 (111) Pulse Ox 98 97 97 O2 Delivery Nasal Cannula 08/02/17 08/02/17 08/02/17 08/02/17 17:28 17:29 17:33 17:34 Pulse 141 132 Resp 17 19 B/P (MAP) 87/70 (76) 102/58 (73) Pulse Ox 97 98 08/02/17 08/02/17 08/02/17 08/02/17 17:39 17:40 17:44 17:49 Pulse 121 126 114 Resp 12 16 24 B/P (MAP) 119/76 (90) Pulse Ox 97 97 99 08/02/17 08/02/17 08/02/17 08/02/17 17:50 17:54 17:59 18:00 Pulse 114 110 Resp 15 23 B/P (MAP) 126/85 (99) 123/77 (92) Pulse Ox 99 100 08/02/17 08/02/17 08/02/17 08/02/17 18:04 18:09 18:09 18:10 Pulse 116 112 Resp 10 14 B/P (MAP) 120/84 (96) Pulse Ox 100 97 O2 Flow Rate 2.0 08/02/17 08/02/17 08/02/17 08/02/17 18:14 18:19 18:23 18:24 Pulse 116 129 134 Resp 7 9 B/P (MAP) 113/77 (89) 98/77 (84) Pulse Ox 97 96 08/02/17 08/02/17 08/02/17 08/02/17 18:29 18:30 18:34 18:39 Pulse 132 135 135 Resp 11 12 10 B/P (MAP) 97/74 (82) Pulse Ox 95 95 95 08/02/17 08/02/17 08/02/17 08/02/17 18:40 18:44 18:49 18:50 Pulse 137 134 Resp 11 8 B/P (MAP) 99/67 (78) 94/79 (84) Pulse Ox 96 96 08/02/17 08/02/17 08/02/17 08/02/17 18:54 18:59 19:00 19:04 Pulse 134 132 134 Resp 10 14 6 B/P (MAP) 91/69 (76) Pulse Ox 95 97 96 08/02/17 08/02/17 08/02/17 08/02/17 19:09 19:10 19:14 19:19 Pulse 126 130 129 Resp 13 9 9 B/P (MAP) 85/46 (59) Pulse Ox 96 95 96 08/02/17 08/02/17 19:20 19:24 Pulse 131 Resp 9 B/P (MAP) 95/54 (68) Pulse Ox 95 Physical Exam General Appearance: The patient is alert, has no immediate need for airway protection and no current signs of toxicity. Moderate distress, slightly pale appearing, diaphoretic Eyes: Pupils equal and round no injection. Respiratory: Chest is non tender, lungs are clear to auscultation. No chest wall tenderness Cardiac: regular rate and rhythm Gastrointestinal: Abdomen is soft and non tender, no masses, bowel sounds normal. Musculoskeletal: Neck: Neck is supple and non tender. No JVD, no lymphadenopathy Extremities have full range of motion and are non tender. No edema, no calf tenderness Skin: No rashes or lesions. DIFFERENTIAL DIAGNOSIS: After history and physical exam differential diagnosis was considered for chest pain including but not limited to myocardial ischemia, pericarditis pulmonary embolus, chest wall pain, pleural inflammation and pulmonary infectious causes. Medical Decision Making Data Points Result Diagram: 08/02/17 1720 08/02/17 1720 Laboratory Hematology Test 08/02/17 17:20 Red Blood Count 5.82 M/uL (4.00-5.60) Mean Corpuscular Volume 84.3 fL (80.0-96.0) Mean Corpuscular Hemoglobin 29.7 pg (26.0-33.0) Mean Corpuscular Hemoglobin Concent 35.2 g/dL (32.0-36.0) Red Cell Distribution Width 14.0 % (11.5-14.5) Mean Platelet Volume 8.4 fL (7.2-11.1) Neutrophils (%) (Auto) 68.4 % (39.4-72.5) Lymphocytes (%) (Auto) 25.8 % (17.6-49.6) Monocytes (%) (Auto) 5.4 % (4.1-12.4) Eosinophils (%) (Auto) 0.1 % (0.4-6.7) Basophils (%) (Auto) 0.3 % (0.3-1.4) Nucleated RBC Relative Count (auto) 0.1 /100WBC Neutrophils # (Auto) 9.9 K/uL (2.0-7.4) Lymphocytes # (Auto) 3.7 K/uL (1.3-3.6) Monocytes # (Auto) 0.8 K/uL (0.3-1.0) Eosinophils # (Auto) 0.0 K/uL (0.0-0.5) Basophils # (Auto) 0.0 K/uL (0.0-0.1) Nucleated RBC Absolute Count (auto) 0.01 K/uL D-Dimer Quantitative (PE/DVT) 3.00 ug/ml (0-0.50) Sodium Level 141 mmol/L (137-145) Potassium Level 3.1 mmol/L (3.5-5.0) Chloride Level 99 mmol/L (98-107) Carbon Dioxide Level 21 mmol/L (22-30) Blood Urea Nitrogen 18 mg/dl (9-21) Creatinine 1.20 mg/dl (0.66-1.25) Glomerular Filtration Rate Calc > 60.0 Random Glucose 121 mg/dl (75-110) Calcium Level 9.5 mg/dl (8.4-10.2) Total Bilirubin 1.0 mg/dl (0.2-1.3) Aspartate Amino Transf (AST/SGOT) 45 U/L (0-35) Alanine Aminotransferase (ALT/SGPT) 52 U/L (0-56) Alkaline Phosphatase 219 U/L (0-126) Troponin I < 0.012 ng/ml B-Type Natriuretic Peptide 55 pg/ml (0-100) Total Protein 8.2 gm/dl (6.3-8.2) Albumin 4.4 g/dl (3.5-5.0) Chemistry Test 08/02/17 17:20 White Blood Count 14.5 k/uL (4.5-11.0) Red Blood Count 5.82 M/uL (4.00-5.60) Hemoglobin 17.3 g/dL (14.0-18.0) Hematocrit 49.1 % (42.0-52.0) Mean Corpuscular Volume 84.3 fL (80.0-96.0) Mean Corpuscular Hemoglobin 29.7 pg (26.0-33.0) Mean Corpuscular Hemoglobin Concent 35.2 g/dL (32.0-36.0) Red Cell Distribution Width 14.0 % (11.5-14.5) Platelet Count 229 K/uL (150-450) Mean Platelet Volume 8.4 fL (7.2-11.1) Neutrophils (%) (Auto) 68.4 % (39.4-72.5) Lymphocytes (%) (Auto) 25.8 % (17.6-49.6) Monocytes (%) (Auto) 5.4 % (4.1-12.4) Eosinophils (%) (Auto) 0.1 % (0.4-6.7) Basophils (%) (Auto) 0.3 % (0.3-1.4) Nucleated RBC Relative Count (auto) 0.1 /100WBC Neutrophils # (Auto) 9.9 K/uL (2.0-7.4) Lymphocytes # (Auto) 3.7 K/uL (1.3-3.6) Monocytes # (Auto) 0.8 K/uL (0.3-1.0) Eosinophils # (Auto) 0.0 K/uL (0.0-0.5) Basophils # (Auto) 0.0 K/uL (0.0-0.1) Nucleated RBC Absolute Count (auto) 0.01 K/uL D-Dimer Quantitative (PE/DVT) 3.00 ug/ml (0-0.50) Glomerular Filtration Rate Calc > 60.0 Calcium Level 9.5 mg/dl (8.4-10.2) Total Bilirubin 1.0 mg/dl (0.2-1.3) Aspartate Amino Transf (AST/SGOT) 45 U/L (0-35) Alanine Aminotransferase (ALT/SGPT) 52 U/L (0-56) Alkaline Phosphatase 219 U/L (0-126) Troponin I < 0.012 ng/ml B-Type Natriuretic Peptide 55 pg/ml (0-100) Total Protein 8.2 gm/dl (6.3-8.2) Albumin 4.4 g/dl (3.5-5.0) Coagulation Test 08/02/17 17:20 D-Dimer Quantitative (PE/DVT) 3.00 ug/ml EKG/Imaging EKG Interpretation 12 lead EKG: Rhythm: Sinus tachycardia, rate 130s Ideal: normal QRS: Normal ST segments:Diffuse ST depression of 2-3 mm throughout the V leads V2 through V6 with reciprocal ST elevation in aVR. There is ST depression in 2 and aVF, comparison to previous EKG 2 days ago for 03/10. There is significant ST changes throughout Repeat EKG 12 lead EK Rhythm: Sinus tachycardia, rate 150 bpm Ideal: normal QRS: normal ST segments: There is partial resolution of the ST depression in the V leads Repeat EKG 12 lead EK Rhythm: Sinus tachycardia, rate 134 Ideal: normal QRS: normal ST segments: Residual ST depressions still present in V2 through V6 and 2 and aVF Imaging X-ray: Single view portable chest x-ray was obtained. I viewed the images myself on the PACS system. My interpretation of the images is: Lung contreras are clear, there is no infiltrate, there is no mediastinal widening, comparison to previous chest x-ray at 0023, no significant change. The radiologist interpretation had no clinically significant variation from this interpretation. ED Course/Re-evaluation Clinical Indication for ER IV: Hydration, IV Access ED Course Patient was admitted to an examination room by EMS. H&P was done. The differential diagnoses was considered. On arrival. Patient's EKG has obvious ST changes that her not present on his previous EKG. Patient appears to be having a posterior HI with extensive ST depressions throughout V2 through V6. It's not present on his EKG from 08/01/17. Patient stated that his primary care corrosion engineer Dr. Franco had anticipated possibly doing a repeat catheterization if he continued to have chest pain. He has significant EKG changes today to treat him as a STEMI. A call was placed to cardiology phone technician at [facility]. I spoke with Dr. Wahl who advised treatment as a STEMI. Patient will be flown to their location. A portable chest x-ray was performed. Patient has no mediastinal widening to suggest aortic dissection. The checklist for contraindications for thrombolic therapy was reviewed with the patient. He's had trouble lytics before. He was started on a heparin drip, nitroglycerin drip. He was given Plavix 300 mg by mouth. He received aspirin by EMS. He'll be transported by air ambulance to [facility] for urgent evaluation by cardiology. Unfortunately, the air ambulance was unable to make it here due to bad weather and had to turn back. He was then transferred by ground ambulance with an RN from our department monitoring his strips. 08/02/2017 5:30:02 pm case was discussed with Dr. Wahl corrosion engineer at [facility] who accepts the patient for transfer to her facility. We will initiate STEMI protocol Decision to Disposition Date: Aug 02, 2017 Decision to Disposition Time: 17:37 Critical Care Time I spent a total of 60 minutes of critical care time in obtaining history, performing a physical exam, bedside monitoring of interventions, collecting and interpreting tests and discussion with consultants but not including time spent performing procedures. Depart Departure Latest Vital Signs Vital Signs Date Time Temp Pulse Resp B/P (MAP) Pulse Ox O2 Delivery O2 Flow Rate FiO2 08/02/17 19:24 131 9 95 08/02/17 19:20 95/54 (68) 08/02/17 18:09 2.0 08/02/17 17:28 98.9 Nasal Cannula Impression: Primary Impression: STEMI (ST elevation myocardial infarction) Additional Impressions: History of coronary artery disease History of coronary artery stent placement Condition: Improved Disposition: XFER TO [facility] Referrals: STEVE PEREZ DNP, SHIM PLUG CUTTER-BC (PCP) Problem Qualifiers Primary Impression: STEMI (ST elevation myocardial infarction) Involved coronary artery: unspecified coronary artery Qualified Codes: I21.3 - ST elevation (STEMI) myocardial infarction of unspecified site WIL SIMMONS DO Aug 02, 2017 17:26
[2017-08-02] MEDS ORDERED: STEMI KIT(*) 1 EA ONE (17:33)
[2017-08-02] MEDS ORDERED: MORPHINE 2 MG/ML SYR IVP ONE ×2 (17:35→23:50)
[2017-08-02] MEDS ORDERED: HEPARIN (PORC) 5000 UN/ML VIAL IVP ONE (17:35)
[2017-08-02] MEDS ORDERED: TENECTEPLASE 50 MG KIT IVP ONE (17:35)
[2017-08-02] MEDS ORDERED: CLOPIDOGREL BISULFATE 75MG TAB PO ONE (17:35)
[2017-08-02 17:41] LABS: PLATELET COUNT, AUTOMATED 229 K/uL (150-450)
[2017-08-02] MEDS ORDERED: HEPARIN* SOD/D5W 25000 U/500ML 500 ML IV ONE (17:43)
[2017-08-02] MEDS ORDERED: NITROGLYCERIN 5 MG/ML VIAL 50 MG in D5W(*) 250 ML BAG 250 ML IVPB ONE (17:50)
[2017-08-02] MEDS ORDERED: NITROGLYCERN* 50 MG/D5W 250 ML 250 ML ONE (17:52)
--- NOTE | 2017-08-02 18:06 | RADIOLOGY IMAGING REPORT ---
FACILITY: [facility] PATIENT NAME: Alfonzo Villatoro : 1970 MR: [id number] V: [id number] EXAM DATE: ORDERING PHYSICIAN: WIL SIMMONS TECHNOLOGIST: Location: [facility] [place] Patient: Alfonzo Villatoro : 1970 Visit/Account:[id number] Date of Sevice: 08/02/2017 CHEST SINGLE AP HISTORY: Chest pain for 1 hour. COMPARISON: Chest x-ray August 01, 2017. FINDINGS: Cardiomediastinal contours: The heart size is stable. Lungs and pleura: There is no new infiltrate. There is no pleural effusion or lymphadenopathy. Bones/soft tissues: Again noted is a healed rib fracture on the right side involving the seventh rib. IMPRESSION: No active disease in the chest. Report Dictated By: Byron Ornelas MD at 08/02/2017 6:02 PM Report E-Signed By: Byron Ornelas MD at 08/02/2017 6:03 PM WSN:[id number]
--- NOTE | 2017-08-02 18:10 | EKG ---
FACILITY: [facility] PATIENT NAME: BRAD ARITA : [id number] MR: [id number] V: [id number] EXAM DATE: ORDERING PHYSICIAN: WIL SIMMONS TECHNOLOGIST: TIM Test Reason : CP Blood Pressure : / mmHG Vent. Rate : 139 BPM Atrial Rate : 139 BPM P-R Int : 118 ms QRS Dur : 076 ms QT Int : 306 ms P-R-T Axes : 071 067 047 degrees QTc Int : [address] elevation aVR, ST depression chest leads as well as leads I, II and aVF Acute posterior RI Abnormal ECG No previous ECGs available Confirmed by EVETTE LEON ([id number]) on 08/02/2017 7:37:47 PM Referred By: HONORIO Confirmed By:EVETTE LEON
[2017-08-02] MEDS ORDERED: METOPROLOL TART 5 MG/5 ML VIAL IVP ONE (19:10)
[2017-08-02 19:20] VITALS: BP 95/54
[2017-08-02] MEDS ORDERED: MORPHINE 2 MG/ML SYR ONE ×2 (19:23→19:24)
--- NOTE | 2017-08-02 19:39 | EKG ---
FACILITY: [facility] PATIENT NAME: BRAD ARITA : [id number] MR: [id number] V: [id number] EXAM DATE: ORDERING PHYSICIAN: WIL SIMMONS TECHNOLOGIST: Daniel Caraballo Reason : Blood Pressure : / mmHG Vent. Rate : 134 BPM Atrial Rate : 134 BPM P-R Int : 124 ms QRS Dur : 074 ms QT Int : 308 ms P-R-T Axes : 069 069 052 degrees QTc Int : [address] elevation aVR, ST depression chest leads, lead I, II and aVF Acute posterior [place] Abnormal ECG When compared with ECG of 02-AUG-2017 17:13, No significant change was found Confirmed by EVETTE LEON ([id number]) on 08/02/2017 7:39:24 PM Referred By: Confirmed By:EVETTE LEON
--- NOTE | 2017-08-02 19:40 | EKG ---
FACILITY: [facility] - [place] PATIENT NAME: BRAD ARITA : [id number] MR: [id number] V: [id number] EXAM DATE: ORDERING PHYSICIAN: WIL SIMMONS TECHNOLOGIST: TIM Test Reason : REPAEAT Blood Pressure : / mmHG Vent. Rate : 115 BPM Atrial Rate : 115 BPM P-R Int : 124 ms QRS Dur : 078 ms QT Int : 362 ms P-R-T Axes : 067 072 055 degrees QTc Int : 500 ms Sinus tachycardia Slight ST elevation aVR, ST depression in chest leads and lead II Possible posterior ischemia Abnormal ECG No previous ECGs available Confirmed by EVETTE LEON ([id number]) on 08/02/2017 7:41:21 PM Referred By: LEONEL Confirmed By:EVETTE LEON
== END 2017-08-02 19:40 | disposition short-term general hospital (02) ==
LOC: ER 17:23
DX: I21.3 ST elevation (STEMI) myocardial infarction of unspecified site (principal); I25.810 Atherosclerosis of coronary artery bypass graft(s) without angina pectoris; I10 Essential (primary) hypertension
CPT/HCPCS: 71045; 83880; 84484; 85025; 85379; 93005; 96365; 96375; 99291; A9270; J1644; J2270; J3101; J3490; J7060; 82040; 82247; 82310; 82374; 82435; 82565; 82947; 84075; 84132; 84155; 84295; 84450; 84460; 84520; 96366; 96368; 99285

== ENCOUNTER → 2017-08-02 | Outpatient (CLI) | payer MEDICARE ==
[~2017-08-02] MED LIST changes: +ATOR40TA24 PO; +CLOP75TA43 PO; +NITR0.4T3 SL; +PROM-110 PO; -RANI-324 PO; +RANI-366 PO
== END ==
LOC: AMB 19:23
PROVIDERS: ATTEND Nurse Practitioner
DX: I21.3 ST elevation (STEMI) myocardial infarction of unspecified site (principal)
CPT/HCPCS: A0425; A0434; A0888

== ENCOUNTER → 2017-08-02 | Outpatient (CLI) | payer MEDICARE | LOC: AMB 16:48 | PROVIDERS: ATTEND Nurse Practitioner | DX: R07.89 Other chest pain (principal); R06.82 Tachypnea, not elsewhere classified; R00.0 Tachycardia, unspecified | CPT/HCPCS: A0425; A0427 ==

== ENCOUNTER 2017-08-04 20:29 | Emergency (ER) | payer MEDICARE ==
--- NOTE | 2017-08-04 20:33 | ER Report ---
History and Physical Time Seen By MD: 20:32 HPI/ROS CHIEF COMPLAINT: Chest pain and vomiting HISTORY OF PRESENT ILLNESS: 47-year-old male with an extensive history of coronary artery disease, status post 5 stents. Patient's most recent STEMI occurred a few days ago on 08/02/17. He received thrombolytics and was transferred to [facility]. He underwent coronary artery catheterization and stent placement for a posterior wall PA. Tonight. Patient developed vomiting and chest discomfort. He presents to the ER for evaluation. He thinks his symptoms are related to GERD and not his cardiac disease. He states he brother be safe than sorry. REVIEW OF SYSTEMS: Respiratory: No cough, no dyspnea. Cardiovascular: As above Gastrointestinal: As above Musculoskeletal: No back pain. Allergies: Uncoded Allergies: raghavaise (Allergy, Unknown, 03/26/17) Home Meds Active Scripts Ondansetron (ZOFRAN ODT) 4 Mg Tab.rapdis, 4 MG PO every 6 hours Y for NAUSEA/ VOMITING, #10 TAB TAKE 1 TABLET BY MOUTH EVERY 12 HOURS Prov:WIL SIMMONS DO 08/04/17 Promethazine Hcl (PROMETHAZINE HCL) 25 Mg Tablet, 25 MG PO Q4H Y for NAUSEA/ VOMITING, #14 TAB Prov:WIL SIMMONS DO 08/04/17 Oxycodone Hcl/Acetaminophen (PERCOCET 5-325 MG TABLET) 1 Each Tablet, 1 EACH PO Q4-6H Y for PAIN, #20 Prov:WIL SIMMONS DO 08/04/17 Diclofenac Sodium 1% Gel (VOLTAREN 1% GEL) 100 Gm Gel..gram., 4 G TOP QID Y for PAIN, #1 TUB 3 Refills Prov:STEVE PEREZ DNP, FNP-BC 07/16/17 Citalopram Hydrobromide (CITALOPRAM HBR) 40 Mg Tablet, 1 TAB PO QDAY for 90 Days , #90 TAB 3 Refills Prov:STEVE PEREZ DNP, FNP-BC 07/16/17 Tramadol Hcl (TRAMADOL HCL) 50 Mg Tablet, 1-2 TAB PO BID Y for PAIN, #120 TAB 0 Refills Prov:STEVE PEREZ DNP, FNP-BC 07/16/17 Buspirone Hcl (BUSPIRONE HCL) 10 Mg Tablet, 1 TAB PO Q8H, #90 TAB 1 Refill Prov:STEVE PEREZ DNP, [facility]- 05/29/17 Reported Medications Lisinopril (LISINOPRIL) 40 Mg Tablet, 40 MG PO QDAY, TAB 08/04/17 Atorvastatin Calcium (LIPITOR) 40 Mg Tablet, 1 TAB PO QDAY, TAB 08/04/17 Nitroglycerin (NITROGLYCERIN) 0.4 Mg Tab.subl, 0.4 MG SL Q5MIN 08/04/17 Clopidogrel Bisulfate (PLAVIX) 75 Mg Tablet, 1 TAB PO QDAY, TAB 08/04/17 Metoprolol Tartrate (METOPROLOL TARTRATE) 25 Mg Tablet, 100 MG PO BID, TAB 06/22/17 Ranitidine Hcl (ZANTAC) 150 Mg Tablet, 1 TAB PO BID, TAB 03/26/17 Amlodipine Besylate (AMLODIPINE BESYLATE) 10 Mg Tablet, 1 TAB PO QDAY, TAB 03/22/17 Aspirin (ASPIR 81) 81 Mg Tablet.dr, 81 MG PO QDAY, TAB 03/13/16 Discontinued Scripts Atorvastatin (LIPITOR) 80 Mg Tab, 1 TAB PO QDAY for 90 Days, #90 TAB 1 Refill Prov:STEVE PEREZ DNP, [facility]- 05/29/17 Lisinopril (LISINOPRIL) 20 Mg Tablet, 1 TAB PO QDAY for 90 Days, #90 TAB 1 Refill Prov:STEVE PEREZ DNP, [facility]- 03/26/17 Reviewed Nurses Notes: Yes Old Medical Records Reviewed: Yes Hx Smoking: Yes (1/2 ppd) Smoking Status: Current: Every Day Smoker Hx Substance Use Disorder: Yes Hx Alcohol Use: Yes Constitutional Vital Sign - Last 24 Hours 08/04/17 08/04/17 08/04/17 08/04/17 20:34 21:11 21:14 21:19 Temp 98.7 Pulse 112 80 Resp 24 11 B/P (MAP) 155/110 157/98 (117) 159/89 (112) Pulse Ox 99 95 O2 Delivery Room Air 08/04/17 08/04/17 08/04/17 08/04/17 21:29 21:30 21:35 21:40 Pulse 84 80 71 Resp 16 11 18 B/P (MAP) 165/94 (117) Pulse Ox 96 96 95 08/04/17 08/04/17 08/04/17 08/04/17 21:55 22:10 22:25 22:30 Pulse 74 75 74 71 Resp 16 21 17 16 Pulse Ox 99 96 95 97 08/04/17 08/04/17 08/04/17 08/04/17 23:03 23:15 23:20 23:35 Pulse 80 103 87 Resp 19 18 B/P (MAP) 137/101 (113) Pulse Ox 96 95 97 08/04/17 08/05/17 08/05/17 23:50 00:05 00:20 Pulse 76 72 76 Resp 20 Pulse Ox 97 94 Physical Exam General Appearance: patient is alert, has no immediate need for airway protection and no current signs of toxicity.. Vital signs stable, afebrile Eyes: Pupils equal and round no injection. Respiratory: Chest is non tender, lungs are clear to auscultation. No chest wall tenderness Cardiac: regular rate and rhythm Gastrointestinal: Abdomen is soft and non tender, no masses, bowel sounds normal. Musculoskeletal: Neck: Neck is supple and non tender. Extremities have full range of motion and are non tender. Skin: No rashes or lesions. DIFFERENTIAL DIAGNOSIS: After history and physical exam differential diagnosis was considered for chest pain including but not limited to myocardial ischemia, pericarditis pulmonary embolus, chest wall pain, pleural inflammation, Jackie syndrome and pulmonary infectious causes. Medical Decision Making Data Points Result Diagram: 08/04/17209908/04/172099 Laboratory Hematology Test 08/04/17 21:00 08/04/17 23:59 Red Blood Count 4.54 M/uL (4.00-5.60) Mean Corpuscular Volume 84.7 fL (80.0-96.0) Mean Corpuscular Hemoglobin 29.8 pg (26.0-33.0) Mean Corpuscular Hemoglobin Concent 35.2 g/dL (32.0-36.0) Red Cell Distribution Width 13.8 % (11.5-14.5) Mean Platelet Volume 8.2 fL (7.2-11.1) Neutrophils (%) (Auto) 56.9 % (39.4-72.5) Lymphocytes (%) (Auto) 35.8 % (17.6-49.6) Monocytes (%) (Auto) 5.8 % (4.1-12.4) Eosinophils (%) (Auto) 0.9 % (0.4-6.7) Basophils (%) (Auto) 0.6 % (0.3-1.4) Nucleated RBC Relative Count (auto) 0.0 /100WBC Neutrophils # (Auto) 4.6 K/uL (2.0-7.4) Lymphocytes # (Auto) 2.9 K/uL (1.3-3.6) Monocytes # (Auto) 0.5 K/uL (0.3-1.0) Eosinophils # (Auto) 0.1 K/uL (0.0-0.5) Basophils # (Auto) 0.0 K/uL (0.0-0.1) Nucleated RBC Absolute Count (auto) 0.00 K/uL Sodium Level 140 mmol/L (137-145) Potassium Level 3.0 mmol/L (3.5-5.0) Chloride Level 100 mmol/L (98-107) Carbon Dioxide Level 25 mmol/L (22-30) Blood Urea Nitrogen 17 mg/dl (9-21) Creatinine 1.00 mg/dl (0.66-1.25) Glomerular Filtration Rate Calc > 60.0 Random Glucose 120 mg/dl (75-110) Calcium Level 9.0 mg/dl (8.4-10.2) Total Bilirubin 0.5 mg/dl (0.2-1.3) Aspartate Amino Transf (AST/SGOT) 34 U/L (0-35) Alanine Aminotransferase (ALT/SGPT) 48 U/L (0-56) Alkaline Phosphatase 157 U/L (0-126) B-Type Natriuretic Peptide 34 pg/ml (0-100) Total Protein 7.3 gm/dl (6.3-8.2) Albumin 3.9 g/dl (3.5-5.0) Amylase Level < 30 U/L (0-110) Lipase 227 U/L (23-300) Troponin I 0.640 ng/ml Chemistry Test 08/04/17 21:00 08/04/17 23:59 White Blood Count 8.1 k/uL (4.5-11.0) Red Blood Count 4.54 M/uL (4.00-5.60) Hemoglobin 13.5 g/dL (14.0-18.0) Hematocrit 38.4 % (42.0-52.0) Mean Corpuscular Volume 84.7 fL (80.0-96.0) Mean Corpuscular Hemoglobin 29.8 pg (26.0-33.0) Mean Corpuscular Hemoglobin Concent 35.2 g/dL (32.0-36.0) Red Cell Distribution Width 13.8 % (11.5-14.5) Platelet Count 184 K/uL (150-450) Mean Platelet Volume 8.2 fL (7.2-11.1) Neutrophils (%) (Auto) 56.9 % (39.4-72.5) Lymphocytes (%) (Auto) 35.8 % (17.6-49.6) Monocytes (%) (Auto) 5.8 % (4.1-12.4) Eosinophils (%) (Auto) 0.9 % (0.4-6.7) Basophils (%) (Auto) 0.6 % (0.3-1.4) Nucleated RBC Relative Count (auto) 0.0 /100WBC Neutrophils # (Auto) 4.6 K/uL (2.0-7.4) Lymphocytes # (Auto) 2.9 K/uL (1.3-3.6) Monocytes # (Auto) 0.5 K/uL (0.3-1.0) Eosinophils # (Auto) 0.1 K/uL (0.0-0.5) Basophils # (Auto) 0.0 K/uL (0.0-0.1) Nucleated RBC Absolute Count (auto) 0.00 K/uL Glomerular Filtration Rate Calc > 60.0 Calcium Level 9.0 mg/dl (8.4-10.2) Total Bilirubin 0.5 mg/dl (0.2-1.3) Aspartate Amino Transf (AST/SGOT) 34 U/L (0-35) Alanine Aminotransferase (ALT/SGPT) 48 U/L (0-56) Alkaline Phosphatase 157 U/L (0-126) B-Type Natriuretic Peptide 34 pg/ml (0-100) Total Protein 7.3 gm/dl (6.3-8.2) Albumin 3.9 g/dl (3.5-5.0) Amylase Level < 30 U/L (0-110) Lipase 227 U/L (23-300) Troponin I 0.640 ng/ml EKG/Imaging EKG Interpretation 12 lead EK Rhythm: normal sinus rhythm [place]: normal QRS: normal ST segments: normal, nonspecific ST changes, prolonged QT, comparison to previous EKG dated 08/02/[address] depression in V2 through V6, reciprocal changes in the limb leads have resolved Imaging X-ray: Chest x-ray was obtained. I viewed the images myself on the PACS system. My interpretation of the images is: No infiltrate, no effusion, normal mediastinum. The radiologist interpretation had no clinically significant variation from this interpretation. ED Course/Re-evaluation Clinical Indication for ER IV: Hydration, IV Access ED Course Patient was admitted to an examination room. H&P was done. The differential diagnosis was considered. Patient status post angioplasty with stent placement 2 days ago. He also received thrombolytics. He gets discharged earlier today. His EKG shows no evidence of ischemic changes. There are some residual changes left over from his cardiac event. Patient developed vomiting and chest pain tonight. He states the pain feels different than his cardiac pain from a couple days ago. He notes no diaphoresis or shortness of breath. He has a mildly elevated troponin that I suspect is due to washout. We'll repeat a 3 hour troponin. His 3 hour troponin is slightly elevated. However, I think it is within laboratory sampling variation. Case was discussed with cardiology on- call, who agreed with low-dose ibuprofen for post ischemic syndrome inflammation. 08/05/2017 1:01:34 am case discussed with cardiology on-call, Dr. Abdi at [facility] who concurs that this is likely troponin washout. There is no evidence of new ischemia. She advises ibuprofen. A low-dose short-term for a couple of days for inflammatory pain relief. Decision to Disposition Date: Aug 04, 2017 Decision to Disposition Time: 21:08 Depart Departure Latest Vital Signs Vital Signs Date Time Temp Pulse Resp B/P (MAP) Pulse Ox O2 Delivery O2 Flow Rate FiO2 08/05/17 00:20 76 94 08/04/17 23:50 20 08/04/17 23:03 137/101 (113) 08/04/17 20:34 98.7 Room Air Impression: Primary Impression: Non-cardiac chest pain Additional Impressions: Vomiting Jackie's syndrome Condition: Improved Disposition: HOME OR SELF-CARE Referrals: CHRIS,STEVE A DNP, [facility] [employer]ER-BC (PCP) New Scripts Ondansetron (ZOFRAN ODT) 4 Mg Tab.rapdis 4 MG PO every 6 hours Y for NAUSEA/VOMITING, #10 TAB TAKE 1 TABLET BY MOUTH EVERY 12 HOURS Prov: WIL SIMMONS DO 08/04/17 Promethazine Hcl (PROMETHAZINE HCL) 25 Mg Tablet 25 MG PO Q4H Y for NAUSEA/VOMITING, #14 TAB Prov: WIL SIMMONS DO 08/04/17 Oxycodone Hcl/Acetaminophen (PERCOCET 5-325 MG TABLET) 1 Each Tablet 1 EACH PO Q4-6H Y for PAIN, #20 Prov: WIL SIMMONS DO 08/04/17 Patient Instructions: Chest Pain (ED) Additional Instructions: Do not take tramadol and Percocet with in 4 hours of each other Take ibuprofen 200 mg 2 tablets twice daily with food for only 2 days then discontinue Follow-up with your magnetic healer as planned Return to the ER for any worsening Problem Qualifiers Additional Impressions: Vomiting Vomiting type: unspecified Vomiting Intractability: unspecified Nausea presence: unspecified Qualified Codes: R11.10 - Vomiting, unspecified WIL SIMMONS DO Aug 04, 2017 20:33
[2017-08-04] MEDS ORDERED: NS(*) 0.9% 1000 ML BAG 1,000 ML IV ONE (20:34)
[2017-08-04] MEDS ORDERED: ONDANSETRON 4 MG/2 ML VIAL IVP ONE (20:35)
[2017-08-04] MEDS ORDERED: fentaNYL CITR 100 MCG/2 ML AMP IVP ONE (20:35)
--- NOTE | 2017-08-04 20:40 | EKG ---
[place] [facility] [place] NAME: BRAD ARITA : [id number] MR: [id number] V: [id number] EXAM DATE: ORDERING PHYSICIAN: WIL SIMMONS TECHNOLOGIST: Daniel Caraballo Reason : Blood Pressure : / mmHG Vent. Rate : 097 BPM Atrial Rate : 097 BPM P-R Int : 126 ms QRS Dur : 076 ms QT Int : 396 ms P-R-T Axes : 048 032 047 degrees QTc Int : 502 ms Normal sinus rhythm Nonspecific ST and T wave abnormality Prolonged QT Abnormal ECG When compared with ECG of 02-AUG-2017 18:57, Nonspecific T wave abnormality now evident in Inferior leads Confirmed by EFE BOB ([id number]) on 08/05/2017 6:34:51 AM Referred By: Confirmed By:EFE BOB
[2017-08-04] MEDS ORDERED: ATOR40TA24 PO (20:42)
[2017-08-04] MEDS ORDERED: NITR0.4T3 SL (20:42)
[2017-08-04] MEDS ORDERED: CLOP75TA43 PO (20:42)
[2017-08-04 21:09] LABS: PLATELET COUNT, AUTOMATED 184 K/uL (150-450)
[2017-08-04] MEDS ORDERED: PROMETHAZINE 25 MG/ML 1 ML AMP IVP ONE (21:10)
[2017-08-04] MEDS ORDERED: LISI-374 PO (21:36)
--- NOTE | 2017-08-04 22:17 | RADIOLOGY IMAGING REPORT ---
FACILITY: [facility] PATIENT NAME: Alfonzo Villatoro : 1970 MR: [id number] V: [id number] EXAM DATE: ORDERING PHYSICIAN: WIL SIMMONS TECHNOLOGIST: Location: [facility] Patient: Alfonzo Villatoro : 1970 Visit/Account:[id number] Date of Sevice: 08/04/2017 CHEST SINGLE AP History: Chest pain Comparison 08/02/2017. FINDINGS: Lungs are clear, no effusion. No pneumothorax. Heart size within normal limits. Mediastinal contour w ithin normal limits. IMPRESSION: No evidence of acute cardiopulmonary disease. Report Dictated By: Sravan Turner MD at 08/04/2017 10:10 PM Report E-Signed By: Sravan Turner MD at 08/04/2017 10:11 PM WSN:[id number]
[2017-08-04] MEDS ORDERED: OXYC-865 PO (22:24)
[2017-08-04] MEDS ORDERED: ONDA4TAB PO (22:24)
[2017-08-04] MEDS ORDERED: PROM-110 PO (22:24)
[2017-08-04] MEDS ORDERED: oxyCODONE/ACETAMIN 5/325MG TH 2 TAB/BOTTLE PO ONE (22:30)
[2017-08-04] MEDS ORDERED: PROMETHAZINE HCL 25 MG TAB TH 2 TAB/BOTTLE PO ONE (22:30)
[2017-08-04 23:03] VITALS: BP 137/101
== END 2017-08-05 01:04 | disposition home or self-care (01) ==
LOC: ER 20:41
DX: R07.89 Other chest pain (principal); R11.10 Vomiting, unspecified; I24.1 Dressler's syndrome; R94.31 Abnormal electrocardiogram [ECG] [EKG]
CPT/HCPCS: 36415; 71045; 82150; 83690; 83880; 84484; 85025; 93005; 99284; J2550; J3010; J7030; 82040; 82247; 82310; 82374; 82435; 82565; 82947; 84075; 84132; 84155; 84295; 84450; 84460; 84520; J2405

== ENCOUNTER 2017-09-21 10:00 | Outpatient (RCR) | payer MEDICARE ==
[2017-08-22 10:47] VITALS: BP 138/90
[2017-08-22 10:49] VITALS: BP 118/80
--- NOTE | 2017-08-22 11:40 | CARDIAC REHAB PLAN OF CARE ---
Physician: Patient is being seen: [radha REYESPBS] Therapist: [radha [email or web address]] Medical Diagnosis: Treatment Diagnosis: Date of Onset: Date of Initial Evaluation: Date patient was last seen: Number of treatments: Number of cancellations/No Shows: [*] INTERVENTIONS: SHORT TERM GOALS Short Term Goals Due Date: 09/22/17 Short Term Goals: 47 year old male phase II patient comes to cardiac rehab after an August 02, 2017 STEMI, with 1 stent placed (LAD). 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 The first stent was placed when patient was age 32. 12-lead ECG on record shows a sinus rhythm with abnormal R-wave progression, early transition, minimal ST depression in anterolateral leads and borderline prolonged QT interval. Cardiac rehab ECG exercise evaluation will take place on August 27, 2017. Previous injuries to the left knee and right ankle will alter the exercise protocol for cardiac rehab. Patient is unable to do the 6-min walk today, and his exercise protocol will include the recumbent bike and Nu-step which was tolerated well. Short term goals will be to consistently achieve 150 minutes each week of a moderate level (3.0-6.0 METs) of cardio exercise, and add in weight resistance at least twice a week. Patient also needs to adjust current diet to follow a heart healthy diet plan (education information provided). 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 Starting the exercise protocol and making the dietary changes should also encourage weight loss toward his healthy BMI max of 195 pounds. Patient is 6'2", 256 pounds. Half-Way Goals Met: Half-Way Goals Not Met Due To: PATIENT'S GOALS Patient Goals Due Date: 09/22/17 Patient Goals: Patient goals are to learn how to improve cardiac and overall health. Patient Goals Met: Patient has started by stopping smoking, and alcohol consumption. Patient Goals Not Met Due To: Cardiac Rehabilitation Plan of Care Comment: Cardiac rehab staff will monitor, record, and evaluate vitals, ECG, and exercise results to provide the best plan of care for the patient throughout the 36 visit phase II program. CR staff will motivate and educate the patient during visits for rehab. JEREMY
[2017-08-27 13:28] VITALS: BP_SYST 104; BP_SYST 122; BP_DIAS 70; BP_DIAS 88
[2017-08-29 13:48] VITALS: BP_SYST 120; BP_SYST 132; BP_DIAS 82; BP_DIAS 84
[2017-09-03 12:55] VITALS: BP_SYST 116; BP_SYST 128; BP_DIAS 71; BP_DIAS 78
[2017-09-05 13:05] VITALS: BP_SYST 116; BP_SYST 128; BP_DIAS 76
[2017-09-07 16:42] VITALS: BP 126/78
[2017-09-07 16:43] VITALS: BP 110/70
[2017-09-19 12:48] VITALS: BP_SYST 118; BP_SYST 128; BP_DIAS 80; BP_DIAS 84
[~2017-09-21 10:00] MED LIST changes: +ATOR40TA24 PO; -CITA-139 PO; +CITA-145 PO; +CLOP75TA43 PO; -DIPH0.5D21 IM; +DIPH0.5S4 IM; +HYDR-385 PO; -METF-410 PO; +METF-411 PO; +NITR0.4T3 SL; +PROM-110 PO; -RANI-324 PO; +RANI-366 PO
[2017-09-21 13:09] VITALS: BP 138/104
[2017-09-21 13:12] VITALS: BP 122/80
[2017-09-27] MEDS ORDERED: LISI20TA29 PO (16:47)
[2017-10-15] MEDS ORDERED: HYDR-385 PO ×2 (16:58→16:59)
[2017-10-15] MEDS ORDERED: METO-257 PO (17:03)
--- NOTE | 2017-10-19 17:51 | CARDIAC REHAB PLAN OF CARE ---
Physician: Linus Patient is being seen: Wayne Coreas Medical Diagnosis: STEMI, Stent x 5 Date of Initial Evaluation: August 22, 2017 SHORT TERM GOALS Short Term Goals Due Date: 11/18/17 Short Term Goals: 47 year old male phase II patient comes to cardiac rehab after an August 02, 2017 STEMI, with 1 stent placed (LAD). 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 The first stent was placed when patient was age 32. 12-lead ECG on record shows a sinus rhythm with abnormal R-wave progression, early transition, minimal ST depression in anterolateral leads and borderline prolonged QT interval. Cardiac rehab ECG exercise evaluation will take place on August 27, 2017. Previous injuries to the left knee and right ankle will alter the exercise protocol for cardiac rehab. Patient is unable to do the 6-min walk today, and his exercise protocol will include the recumbent bike and Nu-step which was tolerated well. Short term goals will be to consistently achieve 150 minutes each week of a moderate level (3.0-6.0 METs) of cardio exercise, and add in weight resistance at least twice a week. Patient also needs to adjust current diet to follow a heart healthy diet plan (education information provided). Short Term Goals Met: Patient has made 8 visits for cardiac rehab and tolerating up to 50 minutes of moderate level (3.0-6.0 METs) cardio exercise, followed by weight resistance exercise. During exericse SPO2 levels were maintained in the 90's on room air, and the home mission worker showed a NSR-ST without ectopy and rates of 85-101. Short Term Goals Not Met Due To: Patient's last visit was September 21, 2017. SHELTER GOALS Half-Way Goal Due Date: 12/19/17 Weatherseal Technician Goals: ios software engineer goals are to be consistent with achieving the exercise protocol each week, and making those dietary adjustments towards a heart healthy diet. senior living goals are also focused on remaining smoke free, and reducing alcohol consumption. Weatherseal Technician Goals Met: Patients initial 8 visits were good with progress made in starting increase intensity and duration of exercise. Weatherseal Technician Goals Not Met Due To: Patients attendance has been poor, with his last visit on September 21, 2017. PATIENT'S GOALS Patient Goals Due Date: 11/18/17 Patient Goals: Patient goals are to improve cardiac and overall health, and to remain tobacco free. Patient would also like to lose weight. Patient Goals Met: Patient has started by stopping smoking, and alcohol consumption. Patient Goals Not Met Due To: Cardiac Rehabilitation Plan of Care Comment: The cardiac rehab staff will continue to monitor, record, and evaluate vitals throughout the 36 visit phase II program. If the patient returns to the program CR staff will return to the original exercise goals with the patient. JEREMY
== END 2017-09-21 18:00 | disposition home or self-care (01) ==
LOC: CARD 10:00
PROVIDERS: ATTEND Internal Medicine Cardiovascular Disease
DX: I25.2 Old myocardial infarction (principal); Z95.5 Presence of coronary angioplasty implant and graft; F41.9 Anxiety disorder, unspecified; F33.9 Major depressive disorder, recurrent, unspecified; I10 Essential (primary) hypertension; F17.210 Nicotine dependence, cigarettes, uncomplicated
CPT/HCPCS: 93797; 93798

== ENCOUNTER 2017-09-25 17:14 | Emergency (ER) | payer MEDICARE ==
--- NOTE | 2017-09-25 17:19 | ER Report ---
History and Physical Time Seen By MD: 17:19 (ADA DAVILA DO) HPI/ROS CHIEF COMPLAINT: chest pain HISTORY OF PRESENT ILLNESS: Pt started today with chest pain at 1pm. Pt states the pain is sharp and then became dull but it is back to sharp. Pain is substernal. No change with position. No change with eating. Pain is worse with deep breath. Pt had a heart attack 08/02/2017 and had lytics and a cath with stenting. Pt states that he has had pain since the stenting but this was different. came in to be checked. pt has been using asa and plavix as prescribed. no cough. REVIEW OF SYSTEMS: Constitutional: No fever, no chills. Eyes: No discharge. ENT: No sore throat. Cardiovascular: + chest pain, no palpitations, + pleuritic chest pain Respiratory: No cough, no shortness of breath. Gastrointestinal: No abdominal pain, no vomiting. Genitourinary: No hematuria. Musculoskeletal: No back pain. Skin: No rashes. Neurological: No headache. (ADA DAVILA DO) Allergies: Uncoded Allergies: mayoaminaaise (Allergy, Unknown, 03/26/17) Home Meds Active Scripts Hydrocodone Bit/Acetaminophen (HYDROCODON-ACETAMINOPHEN 5-325) 1 Each Tablet, 1 TAB PO TID Y for PAIN, #90 TAB 0 Refills Prov:STEEV PEREZ DNP, FNP-BC 09/14/17 Buspirone Hcl (BUSPIRONE HCL) 10 Mg Tablet, 1 TAB PO Q8H, #90 TAB 5 Refills Prov:STEVE PEREZ DNP, FNP-BC 09/07/17 Diclofenac Sodium 1% Gel (VOLTAREN 1% GEL) 100 Gm Gel..gram., 4 G TOP QID Y for PAIN, #1 TUB 3 Refills Prov:STEVE PEREZ DNP, FNP-BC 07/16/17 Citalopram Hydrobromide (CITALOPRAM HBR) 40 Mg Tablet, 1 TAB PO QDAY for 90 Days , #90 TAB 3 Refills Prov:STEVE PEREZ DNP, FNP-BC 07/16/17 Reported Medications Lisinopril (LISINOPRIL) 40 Mg Tablet, 40 MG PO QDAY, TAB 08/04/17 Atorvastatin Calcium (LIPITOR) 40 Mg Tablet, 1 TAB PO QDAY, TAB 08/04/17 Nitroglycerin (NITROGLYCERIN) 0.4 Mg Tab.subl, 0.4 MG SL Q5MIN 08/04/17 Clopidogrel Bisulfate (PLAVIX) 75 Mg Tablet, 1 TAB PO QDAY, TAB 08/04/17 Metoprolol Tartrate (METOPROLOL TARTRATE) 25 Mg Tablet, 100 MG PO BID, TAB 06/22/17 Ranitidine Hcl (ZANTAC) 150 Mg Tablet, 1 TAB PO BID, TAB 03/26/17 Amlodipine Besylate (AMLODIPINE BESYLATE) 10 Mg Tablet, 1 TAB PO QDAY, TAB 03/22/17 Aspirin (ASPIR 81) 81 Mg Tablet.dr, 81 MG PO QDAY, TAB 03/13/16 Past Medical/Surgical History pmhx: anxiety, gerd, sleep apnea, cad, hyperlipid, htn, VA, depression and panic attacks Pshx: ptca (ADA DAVILA DO) Reviewed Nurses Notes: Yes Old Medical Records Reviewed: Yes (ADA DAVILA DO) Hx Smoking: Yes (1/2 ppd) Smoking Status: Current: Every Day Smoker Hx Substance Use Disorder: Yes Hx Alcohol Use: Yes (ADA DAVILA DO) Constitutional Vital Sign - Last 24 Hours 09/25/17 09/25/17 09/25/17 09/25/17 17:15 17:21 17:29 17:30 Temp 98.7 Pulse 79 78 Resp 16 17 B/P (MAP) 140/94 140/94 (109) 131/95 (107) Pulse Ox 95 94 O2 Delivery Room Air 09/25/17 09/25/17 09/25/17 09/25/17 17:44 17:59 18:00 18:20 Pulse 78 72 77 Resp 25 13 14 B/P (MAP) 129/87 (101) Pulse Ox 94 93 93 09/25/17 09/25/17 09/25/17 09/25/17 18:30 18:35 18:40 19:00 Pulse 69 63 Resp 12 12 B/P (MAP) 130/94 (106) 124/91 (102) Pulse Ox 94 94 09/25/17 09/25/17 09/25/17 09/25/17 19:10 19:25 19:30 19:40 Pulse 69 63 71 Resp 11 11 19 B/P (MAP) 121/89 (100) Pulse Ox 95 95 93 09/25/17 09/25/17 09/25/17 09/25/17 19:55 20:00 20:10 20:25 Pulse 65 72 72 B/P (MAP) 129/93 (105) Pulse Ox 94 94 95 09/25/17 09/25/17 09/25/17 09/25/17 20:30 20:35 20:50 21:00 Pulse 62 61 B/P (MAP) 137/81 (99) 142/93 (109) Pulse Ox 93 94 09/25/17 09/25/17 09/25/17 09/25/17 21:05 21:20 21:30 21:35 Pulse 71 66 67 B/P (MAP) 78/59 (65) 113/94 (100) Pulse Ox 96 95 96 (WIL MORAES DO) Physical Exam General Appearance: The patient is alert, has no immediate need for airway protection and no signs of toxicity. Eyes: Pupils equal and round no pallor or injection, EOMI ENT: no pharyngeal erythema or exudates, Mucous membranes are moist, TM are nl b/l Respiratory: There are no retractions, lungs are clear to auscultation. Cardiovascular: Regular rate and rhythm. pulses are equal and symmetrical, + anterior chest wall tenderness bl Gastrointestinal: Abdomen is soft and non tender, no masses, bowel sounds normal, no guarding, no rigidity or rebound Neurological: Cranial nerves II-XII grossly intact, no sensory or motor loss Skin: Warm and dry, no rashes. Musculoskeletal: Neck is supple non tender, no vertebral tenderness Extremities are nontender, non swollen and have full range of motion. DIFFERENTIAL DIAGNOSIS: After history and physical exam differential diagnosis was considered for pe, pleurisy, mi, cad, gerd, pud, dresslers syndrome (GIOVANNI,ADA V DO) Medical Decision Making Data Points Result Diagram: 09/25/17 1730 09/25/17 1730 Laboratory Hematology Test 09/25/17 17:30 09/25/17 21:00 Red Blood Count 5.13 M/uL (4.00-5.60) Mean Corpuscular Volume 84.3 fL (80.0-96.0) Mean Corpuscular Hemoglobin 29.1 pg (26.0-33.0) Mean Corpuscular Hemoglobin Concent 34.5 g/dL (32.0-36.0) Red Cell Distribution Width 14.2 % (11.5-14.5) Mean Platelet Volume 7.6 fL (7.2-11.1) Neutrophils (%) (Auto) 39.8 % (39.4-72.5) Lymphocytes (%) (Auto) 51.0 % (17.6-49.6) Monocytes (%) (Auto) 6.1 % (4.1-12.4) Eosinophils (%) (Auto) 2.3 % (0.4-6.7) Basophils (%) (Auto) 0.8 % (0.3-1.4) Nucleated RBC Relative Count (auto) 0.0 /100WBC Neutrophils # (Auto) 3.1 K/uL (2.0-7.4) Lymphocytes # (Auto) 3.9 K/uL (1.3-3.6) Monocytes # (Auto) 0.5 K/uL (0.3-1.0) Eosinophils # (Auto) 0.2 K/uL (0.0-0.5) Basophils # (Auto) 0.1 K/uL (0.0-0.1) Nucleated RBC Absolute Count (auto) 0.00 K/uL D-Dimer Quantitative (PE/DVT) 0.36 ug/ml (0-0.50) Sodium Level 138 mmol/L (137-145) Potassium Level 3.5 mmol/L (3.5-5.0) Chloride Level 104 mmol/L (98-107) Carbon Dioxide Level 22 mmol/L (22-30) Blood Urea Nitrogen 18 mg/dl (9-21) Creatinine 1.10 mg/dl (0.66-1.25) Glomerular Filtration Rate Calc > 60.0 Random Glucose 98 mg/dl (75-110) Calcium Level 9.2 mg/dl (8.4-10.2) Total Bilirubin 0.3 mg/dl (0.2-1.3) Aspartate Amino Transf (AST/SGOT) 32 U/L (0-35) Alanine Aminotransferase (ALT/SGPT) 54 U/L (0-56) Alkaline Phosphatase 146 U/L (0-126) Total Protein 7.6 gm/dl (6.3-8.2) Albumin 4.3 g/dl (3.5-5.0) Troponin I < 0.012 ng/ml Chemistry Test 09/25/17 17:30 09/25/17 21:00 White Blood Count 7.7 k/uL (4.5-11.0) Red Blood Count 5.13 M/uL (4.00-5.60) Hemoglobin 14.9 g/dL (14.0-18.0) Hematocrit 43.3 % (42.0-52.0) Mean Corpuscular Volume 84.3 fL (80.0-96.0) Mean Corpuscular Hemoglobin 29.1 pg (26.0-33.0) Mean Corpuscular Hemoglobin Concent 34.5 g/dL (32.0-36.0) Red Cell Distribution Width 14.2 % (11.5-14.5) Platelet Count 228 K/uL (150-450) Mean Platelet Volume 7.6 fL (7.2-11.1) Neutrophils (%) (Auto) 39.8 % (39.4-72.5) Lymphocytes (%) (Auto) 51.0 % (17.6-49.6) Monocytes (%) (Auto) 6.1 % (4.1-12.4) Eosinophils (%) (Auto) 2.3 % (0.4-6.7) Basophils (%) (Auto) 0.8 % (0.3-1.4) Nucleated RBC Relative Count (auto) 0.0 /100WBC Neutrophils # (Auto) 3.1 K/uL (2.0-7.4) Lymphocytes # (Auto) 3.9 K/uL (1.3-3.6) Monocytes # (Auto) 0.5 K/uL (0.3-1.0) Eosinophils # (Auto) 0.2 K/uL (0.0-0.5) Basophils # (Auto) 0.1 K/uL (0.0-0.1) Nucleated RBC Absolute Count (auto) 0.00 K/uL D-Dimer Quantitative (PE/DVT) 0.36 ug/ml (0-0.50) Glomerular Filtration Rate Calc > 60.0 Calcium Level 9.2 mg/dl (8.4-10.2) Total Bilirubin 0.3 mg/dl (0.2-1.3) Aspartate Amino Transf (AST/SGOT) 32 U/L (0-35) Alanine Aminotransferase (ALT/SGPT) 54 U/L (0-56) Alkaline Phosphatase 146 U/L (0-126) Total Protein 7.6 gm/dl (6.3-8.2) Albumin 4.3 g/dl (3.5-5.0) Troponin I < 0.012 ng/ml Coagulation Test 09/25/17 17:30 D-Dimer Quantitative (PE/DVT) 0.36 ug/ml (WIL MORAES DO) EKG/Imaging EKG Interpretation nsr @ [address] wave changes (ADA DAVILA DO) Imaging X-ray: Single view chest x-ray was obtained. I viewed the images myself on the PACS system. My interpretation of the images is: No infiltrate, no effusion, normal mediastinum., Comparison to previous chest x-ray , no significant change. The radiologist interpretation had no clinically significant variation from this interpretation. (WIL MORAES DO) ED Course/Re-evaluation ED Course 09/25/2017 5:57:40 pm Initial labs are stable. WIll keep pt for second troponin. PTs pain improved with fentanyl. Signed out to dr. Moraes pending the troponin (ADA DAVILA DO) ED Course Care assumed at shift change from Dr. Guzman with a 2nd. Diagnostic troponin pending at 2100. Patient with previous history of coronary artery disease, status post recent VA approximately 2 months ago. A 2nd troponin returned unremarkable. 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 He's advised ibuprofen 200 mg 3 times a day. 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 Decision to Disposition Date: Sep 25, 2017 Decision to Disposition Time: 21:26 (WIL MORAES DO) Depart Departure Latest Vital Signs Vital Signs Date Time Temp Pulse Resp B/P (MAP) Pulse Ox O2 Delivery O2 Flow Rate FiO2 09/25/17 21:35 67 113/94 (100) 96 09/25/17 19:40 19 09/25/17 17:15 98.7 Room Air (WIL MORAES DO) Impression: Primary Impression: Chest pain Additional Impressions: Jackie's syndrome History of coronary artery disease Condition: Improved Disposition: HOME OR SELF-CARE Referrals: STEVE PEREZ DNP, SHEET CUTTING OPERATOR-BC (PCP) Patient Instructions: Chest Pain (ED) Additional Instructions: Take ibuprofen 200 mg 1-2 tablets 3 times a day with food Follow-up with your railroad auditor if unimproved in 2-3 days Problem Qualifiers Primary Impression: Chest pain Chest pain type: unspecified Qualified Codes: R07.9 - Chest pain, unspecified ADA DAVILA V DO Sep 25, 2017 17:19 WIL MORAES DO Sep 25, 2017 18:33
[2017-09-25] MEDS ORDERED: fentaNYL CITR 100 MCG/2 ML AMP IVP ONE (17:25)
--- NOTE | 2017-09-25 17:33 | EKG ---
FACILITY: [facility] [place] PATIENT NAME: BRAD ARITA : [id number] MR: [id number] V: [id number] EXAM DATE: ORDERING PHYSICIAN: ADA DAVILA TECHNOLOGIST: JESSICA Caraballo Reason : CP Blood Pressure : / mmHG Vent. Rate : 079 BPM Atrial Rate : 079 BPM P-R Int : 140 ms QRS Dur : 080 ms QT Int : 388 ms P-R-T Axes : 056 035 034 degrees QTc Int : 444 ms Normal sinus rhythm Nonspecific ST abnormality Abnormal ECG When compared with ECG of 04-AUG-2017 20:31, ST no longer depressed in Anterior leads Nonspecific T wave abnormality, improved in Inferior leads QT has shortened Confirmed by EFE BOB ([id number]) on 09/26/2017 6:30:20 AM Referred By: JERMAINE BLACKWOOD Confirmed By:EFE BOB
[2017-09-25 17:37] LABS: PLATELET COUNT, AUTOMATED 228 K/uL (150-450)
[2017-09-25] MEDS ORDERED: KETOROLAC 30 MG/ML VIAL IVP ONE (18:00)
--- NOTE | 2017-09-25 18:49 | RADIOLOGY IMAGING REPORT ---
FACILITY: [facility] - [place] PATIENT NAME: Alfonzo Villatoro : 1970 MR: [id number] V: [id number] EXAM DATE: ORDERING PHYSICIAN: ADA DAVILA TECHNOLOGIST: [place] [facility] [place]: Alfonzo Villatoro : 1970 Visit/Account:[id number] Date of Sevice: 09/25/2017 CHEST SINGLE AP INDICATION: Chest Pain COMPARISON: 08/04/2017 FINDINGS: Heart size within normal limits. There is no focal infiltrate or lobar consolidation. There is no pneumothorax or pleural effusion. IMPRESSION: 1. No acute cardiopulmonary process. Report Dictated By: Alberto Doran at 09/25/2017 6:44 PM Report E-Signed By: Alberto Doran at 09/25/2017 6:45 PM WSN:[id number]
[2017-09-25] MEDS ORDERED: HYDROmorphone* 1 MG/ML 1 MG/ML ML IVP ONE (19:15)
[2017-09-25 21:35] VITALS: BP 113/94
[2017-09-27] MEDS ORDERED: LISI20TA29 PO (16:47)
== END 2017-09-25 21:41 | disposition home or self-care (01) ==
LOC: ER 17:23
DX: R07.89 Other chest pain (principal); I24.1 Dressler's syndrome; I25.10 Atherosclerotic heart disease of native coronary artery without angina pectoris; F17.210 Nicotine dependence, cigarettes, uncomplicated; R94.31 Abnormal electrocardiogram [ECG] [EKG]
CPT/HCPCS: 71045; 84484; 85025; 85379; 93005; 96374; 96375; 99284; J1170; J1885; J3010; 82040; 82247; 82310; 82374; 82435; 82565; 82947; 84075; 84132; 84155; 84295; 84450; 84460; 84520

== ENCOUNTER 2017-10-12 16:36 | Emergency (ER) | payer MEDICARE ==
--- NOTE | 2017-10-12 16:38 | ER Report ---
History and Physical Time Seen By MD: 16:37 (LEX MONTAÑO DO) HPI/ROS CHIEF COMPLAINT: Chest pain, extremity paresthesias HISTORY OF PRESENT ILLNESS: Patient is a 47-year-old male with a history of myocardial infarction here with complaints of chest pain similar to prior episodes which is located in the mid chest which started approximately 1600 hrs. patient reports that the chest pain as midsternal in origin and radiates to the left chest. He also complains of extremity paresthesias which started yesterday evening and is new and is intermittent approximately every 30 minutes. Chest pain has been constant since I'm of onset. Patient to take his medications including aspirin, beta blockers. Patient did not take nitroglycerin prior to arrival. Patient reports that he has a total of 5 stents however his 1st heart attack was in July. Patient does complain of mild shortness of breath and admits to smoking proximally half a pack a day. Denies fevers, abdominal pain, nausea, vomiting. REVIEW OF SYSTEMS: Constitutional: No fever, no chills. Eyes: No discharge. ENT: No sore throat. Cardiovascular: + severe chest pain, no palpitations. Respiratory: No cough, + shortness of breath. Gastrointestinal: No abdominal pain, no vomiting. Genitourinary: No hematuria. Musculoskeletal: No back pain. Skin: No rashes. Neurological: No headache. (LEX MONTAÑO DO) Allergies: Uncoded Allergies: mayoaminaaise (Allergy, Unknown, 03/26/17) Home Meds Active Scripts Lisinopril (LISINOPRIL) 20 Mg Tablet, 1 TAB PO QDAY, #90 TAB 2 Refills Prov:STEVE PEREZ DNP, FNP-BC 09/27/17 Hydrocodone Bit/Acetaminophen (HYDROCODON-ACETAMINOPHEN 5-325) 1 Each Tablet, 1 TAB PO TID Y for PAIN, #90 TAB 0 Refills Prov:STEVE PEREZ DNP, FNP-BC 09/14/17 Buspirone Hcl (BUSPIRONE HCL) 10 Mg Tablet, 1 TAB PO Q8H, #90 TAB 5 Refills Prov:STEVE PEREZ DNP, FNP-BC 09/07/17 Diclofenac Sodium 1% Gel (VOLTAREN 1% GEL) 100 Gm Gel..gram., 4 G TOP QID Y for PAIN, #1 TUB 3 Refills Prov:STEVE PEREZ DNP, [facility]- 07/16/17 Citalopram Hydrobromide (CITALOPRAM HBR) 40 Mg Tablet, 1 TAB PO QDAY for 90 Days , #90 TAB 3 Refills Prov:STEVE PEREZ DNP, [facility]- 07/16/17 Reported Medications Atorvastatin Calcium (LIPITOR) 40 Mg Tablet, 1 TAB PO QDAY, TAB 08/04/17 Nitroglycerin (NITROGLYCERIN) 0.4 Mg Tab.subl, 0.4 MG SL Q5MIN 08/04/17 Clopidogrel Bisulfate (PLAVIX) 75 Mg Tablet, 1 TAB PO QDAY, TAB 08/04/17 Metoprolol Tartrate (METOPROLOL TARTRATE) 25 Mg Tablet, 100 MG PO BID, TAB 06/22/17 Ranitidine Hcl (ZANTAC) 150 Mg Tablet, 1 TAB PO BID, TAB 03/26/17 Amlodipine Besylate (AMLODIPINE BESYLATE) 10 Mg Tablet, 1 TAB PO QDAY, TAB 03/22/17 Aspirin (ASPIR 81) 81 Mg Tablet.dr, 81 MG PO QDAY, TAB 03/13/16 Hx Smoking: Yes (1/2 ppd) Smoking Status: Current: Every Day Smoker Hx Substance Use Disorder: Yes Hx Alcohol Use: Yes (LEX MONTAÑO DO) Constitutional Vital Sign - Last 24 Hours 10/12/17 10/12/17 10/12/17 10/12/17 16:40 16:51 16:59 17:06 Pulse 76 80 91 Resp 8 B/P (MAP) 159/93 114/92 (99) 133/96 (108) Pulse Ox 95 99 99 O2 Delivery Room Air 10/12/17 10/12/17 10/12/17 10/12/17 17:06 17:21 17:23 17:30 Pulse 89 84 Resp 17 8 B/P (MAP) 125/77 (93) 113/70 (84) Pulse Ox 94 10/12/17 10/12/17 10/12/17 10/12/17 17:36 17:40 17:50 17:51 Pulse 90 96 Resp 14 9 B/P (MAP) 110/68 (82) 111/71 (84) Pulse Ox 94 95 10/12/17 10/12/17 10/12/17 10/12/17 18:00 18:06 18:10 18:20 Pulse 88 Resp 10 B/P (MAP) 104/82 (89) 106/84 (91) 107/73 (84) Pulse Ox 93 10/12/17 10/12/17 10/12/17 10/12/17 18:21 18:30 18:35 18:40 Pulse 83 80 Resp 15 19 B/P (MAP) 114/78 (90) 103/66 (78) Pulse Ox 93 95 10/12/17 10/12/17 10/12/17 10/12/17 18:50 19:00 19:05 19:10 Pulse 77 83 Resp 13 10 B/P (MAP) 111/74 (86) 106/81 (89) 107/75 (86) Pulse Ox 93 95 10/12/17 10/12/17 10/12/17 10/12/17 19:20 19:30 19:35 19:40 Pulse 77 77 Resp 17 17 B/P (MAP) 104/73 (83) 92/71 (78) 111/67 (82) Pulse Ox 95 94 10/12/17 10/12/17 10/12/17 10/12/17 19:50 20:00 20:05 20:10 Pulse 75 71 Resp 13 15 B/P (MAP) 109/72 (84) 105/75 (85) 109/71 (84) Pulse Ox 94 94 10/12/17 10/12/17 20:20 20:30 Pulse 71 Resp 12 B/P (MAP) 113/83 (93) 111/75 (87) Pulse Ox 92 (DONASHANTI ESCOBAR MD) Physical Exam General Appearance: The patient is alert, has no immediate need for airway protection and no signs of toxicity. Anxious appearing, moderate distress secondary to pain Eyes: Pupils equal and round no pallor or injection. ENT, Mouth: Mucous membranes are moist. Respiratory: There are no retractions, lungs are clear to auscultation. Cardiovascular: Regular rate and rhythm. Gastrointestinal: Abdomen is soft and non tender, no masses, bowel sounds normal. Neurological: No focal neurological deficits, moving all extremities spontaneously Skin: Warm and dry, no rashes. Musculoskeletal: Neck is supple non tender. Extremities are nontender, nonswollen and have full range of motion. DIFFERENTIAL DIAGNOSIS: After history and physical exam differential diagnosis was considered for chest pain including but not limited to myocardial ischemia, pericarditis pulmonary embolus, chest wall pain, pleural inflammation and pulmonary infectious causes. (LEX MONTAÑO DO) Medical Decision Making Data Points Result Diagram: 10/12/17 1644 10/12/17 1644 Laboratory Hematology Test 10/12/17 16:44 10/12/17 19:59 Red Blood Count 5.55 M/uL (4.00-5.60) Mean Corpuscular Volume 84.8 fL (80.0-96.0) Mean Corpuscular Hemoglobin 29.4 pg (26.0-33.0) Mean Corpuscular Hemoglobin Concent 34.7 g/dL (32.0-36.0) Red Cell Distribution Width 14.6 % (11.5-14.5) Mean Platelet Volume 8.0 fL (7.2-11.1) Neutrophils (%) (Auto) 53.9 % (39.4-72.5) Lymphocytes (%) (Auto) 36.7 % (17.6-49.6) Monocytes (%) (Auto) 7.7 % (4.1-12.4) Eosinophils (%) (Auto) 0.8 % (0.4-6.7) Basophils (%) (Auto) 0.9 % (0.3-1.4) Nucleated RBC Relative Count (auto) 0.0 /100WBC Neutrophils # (Auto) 5.3 K/uL (2.0-7.4) Lymphocytes # (Auto) 3.6 K/uL (1.3-3.6) Monocytes # (Auto) 0.8 K/uL (0.3-1.0) Eosinophils # (Auto) 0.1 K/uL (0.0-0.5) Basophils # (Auto) 0.1 K/uL (0.0-0.1) Nucleated RBC Absolute Count (auto) 0.00 K/uL Prothrombin Time 12.7 seconds (12.0-14.4) Prothromb Time International Ratio 0.96 Activated Partial Thromboplast Time 26 seconds (23-35) Sodium Level 140 mmol/L (137-145) Potassium Level 3.5 mmol/L (3.5-5.0) Chloride Level 103 mmol/L (98-107) Carbon Dioxide Level 22 mmol/L (22-30) Blood Urea Nitrogen 15 mg/dl (9-21) Creatinine 1.00 mg/dl (0.66-1.25) Glomerular Filtration Rate Calc > 60.0 Random Glucose 87 mg/dl (75-110) Calcium Level 9.7 mg/dl (8.4-10.2) Total Bilirubin 0.5 mg/dl (0.2-1.3) Aspartate Amino Transf (AST/SGOT) 52 U/L (0-35) Alanine Aminotransferase (ALT/SGPT) 68 U/L (0-56) Alkaline Phosphatase 164 U/L (0-126) B-Type Natriuretic Peptide 39 pg/ml (0-100) Total Protein 8.7 g/dl (6.3-8.2) Albumin 4.6 g/dl (3.5-5.0) Troponin I < 0.012 ng/ml Chemistry Test 10/12/17 16:44 10/12/17 19:59 White Blood Count 9.8 k/uL (4.5-11.0) Red Blood Count 5.55 M/uL (4.00-5.60) Hemoglobin 16.3 g/dL (14.0-18.0) Hematocrit 47.0 % (42.0-52.0) Mean Corpuscular Volume 84.8 fL (80.0-96.0) Mean Corpuscular Hemoglobin 29.4 pg (26.0-33.0) Mean Corpuscular Hemoglobin Concent 34.7 g/dL (32.0-36.0) Red Cell Distribution Width 14.6 % (11.5-14.5) Platelet Count 251 K/uL (150-450) Mean Platelet Volume 8.0 fL (7.2-11.1) Neutrophils (%) (Auto) 53.9 % (39.4-72.5) Lymphocytes (%) (Auto) 36.7 % (17.6-49.6) Monocytes (%) (Auto) 7.7 % (4.1-12.4) Eosinophils (%) (Auto) 0.8 % (0.4-6.7) Basophils (%) (Auto) 0.9 % (0.3-1.4) Nucleated RBC Relative Count (auto) 0.0 /100WBC Neutrophils # (Auto) 5.3 K/uL (2.0-7.4) Lymphocytes # (Auto) 3.6 K/uL (1.3-3.6) Monocytes # (Auto) 0.8 K/uL (0.3-1.0) Eosinophils # (Auto) 0.1 K/uL (0.0-0.5) Basophils # (Auto) 0.1 K/uL (0.0-0.1) Nucleated RBC Absolute Count (auto) 0.00 K/uL Prothrombin Time 12.7 seconds (12.0-14.4) Prothromb Time International Ratio 0.96 Activated Partial Thromboplast Time 26 seconds (23-35) Glomerular Filtration Rate Calc > 60.0 Calcium Level 9.7 mg/dl (8.4-10.2) Total Bilirubin 0.5 mg/dl (0.2-1.3) Aspartate Amino Transf (AST/SGOT) 52 U/L (0-35) Alanine Aminotransferase (ALT/SGPT) 68 U/L (0-56) Alkaline Phosphatase 164 U/L (0-126) B-Type Natriuretic Peptide 39 pg/ml (0-100) Total Protein 8.7 g/dl (6.3-8.2) Albumin 4.6 g/dl (3.5-5.0) Troponin I < 0.012 ng/ml Coagulation Test 10/12/17 16:44 Prothrombin Time 12.7 seconds Prothromb Time International Ratio 0.96 Activated Partial Thromboplast Time 26 seconds (DONASHANTI ESCOBAR MD) EKG/Imaging EKG Interpretation 12 lead EKG: Normal sinus rhythm rate 81 QT interval 476 Rhythm: normal sinus rhythm [place]: normal QRS: normal ST segments: normal Monitor Interpretation: Normal Sinus Rhythm (LEX MONTAÑO DO) ED Course/Re-evaluation ED Course Patient is a 47-year-old male here with a complaint of chest pain which started approximately one hour ago as well as all 4 extremity paresthesias which started last evening. Chest pain has been constant, is similar to prior episodes during which he had a myocardial infarction in July. His total of 5 stents placed in the past. He reports that the chest pain starts in the midsternal distribution and radiates to the left chest associated with shortness of breath. Patient has a history of hypertension hyperlipidemia, smoking. Patient did not take his nitroglycerin this morning and was given nitroglycerin tablet shortly after arrival. He was also given nebulizer treatment as well as fentanyl for symptom management. Initial troponin was undetectable (approximately) 1 hour post chest pain onset. 2nd set ordered for 1999. EKG showed now ischemic changes or ST elevations. (LEX MONTAÑO DO) ED Course Discussed this patient with Dr. Montaño at shift change. Patient was waiting on a repeat troponin which was negative. Reviewed this with the patient. He will follow-up with his primary care provider. We talked about alternatives for pain control. 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 Decision to Disposition Date: Oct 12, 2017 Decision to Disposition Time: 20:39 (ASHANTI OCHOA MD) Depart Departure Latest Vital Signs Vital Signs Date Time Temp Pulse Resp B/P (MAP) Pulse Ox O2 Delivery O2 Flow Rate FiO2 10/12/17 20:30 111/75 (87) 10/12/17 20:20 71 12 92 10/12/17 16:40 Room Air (ASHANTI OCHOA MD) Impression: Primary Impression: Chest pain Condition: Improved Disposition: HOME OR SELF-CARE Referrals: STEVE PEREZ DNP, FUEL QUALITY TECH-BC (PCP) Patient Instructions: Chest Pain (ED), Chest Wall Pain (ED) Additional Instructions: chest pain of uncertain etiology, but we were able to determine that there is no sign of a heart attack. Follow-up with your regular doctor on Sunday. No changes in your regular medications. You can try some Aleve for a few days, but would recommend no longer than this. Problem Qualifiers Primary Impression: Chest pain Chest pain type: unspecified Qualified Codes: R07.9 - Chest pain, unspecified LEX MONTAÑO DO Oct 12, 2017 16:38 ASHANTI OCHOA MD Oct 12, 2017 18:09
[2017-10-12] MEDS ORDERED: ALBUTEROL/IPRATROPIUM 3 ML NEB NEB ONE (16:50)
[2017-10-12] MEDS ORDERED: fentaNYL CITR 100 MCG/2 ML AMP IVP ONE (16:50)
[2017-10-12] MEDS ORDERED: ASPIRIN 81 MG CHEW PO ONE (16:50)
[2017-10-12 16:57] LABS: PLATELET COUNT, AUTOMATED 251 K/uL (150-450)
[2017-10-12] MEDS: NITROGLYCERIN 0.4 MG SUBL SL SCH ×3 (17:04→17:49)
[2017-10-12 17:07] LABS: INR 0.96
--- NOTE | 2017-10-12 17:17 | EKG ---
[place] [facility] [place] NAME: BRAD ARITA : [id number] MR: [id number] V: [id number] EXAM DATE: ORDERING PHYSICIAN: LEX CARO TECHNOLOGIST: MARY Caraballo Reason : CHEST PAIN Blood Pressure : / mmHG Vent. Rate : 081 BPM Atrial Rate : 081 BPM P-R Int : 140 ms QRS Dur : 084 ms QT Int : 410 ms P-R-T Axes : 049 005 024 degrees QTc Int : 476 ms Normal sinus rhythm Prolonged QT Abnormal ECG No previous ECGs available Confirmed by EFE BOB ([id number]) on 10/13/2017 6:34:49 AM Referred By: GORDO Confirmed By:EFE BOB
[2017-10-12] MEDS ORDERED: HYDROmorphone* 1 MG/ML 1 MG/ML ML IVP ONE (17:40)
--- NOTE | 2017-10-12 18:06 | RADIOLOGY IMAGING REPORT ---
FACILITY: [facility] - [place] PATIENT NAME: Alfonzo Villatoro : 1970 MR: [id number] V: [id number] EXAM DATE: ORDERING PHYSICIAN: LEX CARO TECHNOLOGIST: Location: [facility] Patient: Alfonzo Villatoro : 1970 Visit/Account:[id number] Date of Sevice: 10/12/2017 2 VIEWS CHEST INDICATION: Chest pain radiating down to the right abdomen. COMPARISON: 09/25/2017. FINDINGS: Cardiomediastinal silhouette and pulmonary vessels within normal limits. There is no focal infiltrate or lobar consolidation. There is no pneumothorax or pleural effusion. No nodule. Upper abdomen is unremarkable. No acute bony abnormality. IMPRESSION: 1. No acute cardiopulmonary process. Report Dictated By: Vasile Barroso at 10/12/2017 6:01 PM Report E-Signed By: Vasile Barroso at 10/12/2017 6:03 PM WSN:[id number]
[2017-10-12 20:30] VITALS: BP 111/75
[2017-10-15] MEDS ORDERED: HYDR-385 PO ×2 (16:58→16:59)
[2017-10-15] MEDS ORDERED: METO-257 PO (17:03)
== END 2017-10-12 20:52 | disposition home or self-care (01) ==
LOC: ER 16:43
DX: R07.89 Other chest pain (principal)
CPT/HCPCS: 71046; 83880; 84484; 85025; 85610; 85730; 93005; 94640; 99284; A9270; J1170; J3010; J7620; 82040; 82247; 82310; 82374; 82435; 82565; 82947; 84075; 84132; 84155; 84295; 84450; 84460; 84520

== ENCOUNTER → 2017-10-15 | Outpatient (CLI) | payer MEDICARE ==
[~2017-10-15] MED LIST changes: +METO-257 PO
== END ==
LOC: LAB 11:17
PROVIDERS: ATTEND Nurse Practitioner Primary Care
DX: R20.2 Paresthesia of skin (principal)
CPT/HCPCS: 36415; 82040; 82247; 82310; 82374; 82435; 82565; 82607; 82947; 84075; 84132; 84155; 84295; 84443; 84450; 84460; 84520; 85651; 86038; 86430

== ENCOUNTER 2017-10-24 17:21 | Emergency (ER) | payer MEDICARE ==
--- NOTE | 2017-10-24 17:37 | ER Report ---
History and Physical Time Seen By MD: 17:24 HPI/ROS CHIEF COMPLAINT: Chest pain HISTORY OF PRESENT ILLNESS: This is a 47-year-old male, well-known to the emergency department who presents for chest pain. Patient states about 20-30 minutes prior to [place] developed some left anterior chest pain, he states it's sharp in nature and intermittent. Patient states he took 2 nitroglycerin with no relief. Patient denies headaches. Patient states that this morning he had nausea, vomiting and diarrhea. Nobody else in the house is ill. Does have a known history of MIs and stent placement. No fevers or chills. REVIEW OF SYSTEMS: Constitutional: No fever, no chills. Eyes: No discharge. ENT: No sore throat. Cardiovascular: As above. Respiratory: As above. Gastrointestinal: As above. Genitourinary: No hematuria. Musculoskeletal: No back pain. Skin: No rashes. Neurological: No headache. Allergies: Uncoded Allergies: raghavai (Allergy, Unknown, 03/26/17) Home Meds Active Scripts Metoprolol Tartrate (METOPROLOL TARTRATE) 100 Mg Tablet, 1 TAB PO BID for 90 Days, #180 TAB 1 Refill Prov:STEVE PEREZ DNP, FNP-BC 10/15/17 Hydrocodone Bit/Acetaminophen (HYDROCODON-ACETAMINOPHEN 5-325) 1 Each Tablet, 1- 2 TAB PO BID Y for PAIN, #120 TAB 0 Refills Prov:STEVE PEREZ DNP, FNP-BC 10/15/17 Lisinopril (LISINOPRIL) 20 Mg Tablet, 1 TAB PO QDAY, #90 TAB 2 Refills Prov:STEVE PEREZ DNP, FNP-BC 09/27/17 Buspirone Hcl (BUSPIRONE HCL) 10 Mg Tablet, 1 TAB PO Q8H, #90 TAB 5 Refills Prov:STEVE PEREZ DNP, FNP-BC 09/07/17 Diclofenac Sodium 1% Gel (VOLTAREN 1% GEL) 100 Gm Gel..gram., 4 G TOP QID Y for PAIN, #1 TUB 3 Refills Prov:STEVE PEREZ DNP, FNP-BC 07/16/17 Citalopram Hydrobromide (CITALOPRAM HBR) 40 Mg Tablet, 1 TAB PO QDAY for 90 Days , #90 TAB 3 Refills Prov:STEVE PEREZ DNP, ORDNANCE HANDLER-BC 07/16/17 Reported Medications Atorvastatin Calcium (LIPITOR) 40 Mg Tablet, 1 TAB PO QDAY, TAB 08/04/17 Nitroglycerin (NITROGLYCERIN) 0.4 Mg Tab.subl, 0.4 MG SL Q5MIN 08/04/17 Clopidogrel Bisulfate (PLAVIX) 75 Mg Tablet, 1 TAB PO QDAY, TAB 08/04/17 Ranitidine Hcl (ZANTAC) 150 Mg Tablet, 1 TAB PO BID, TAB 03/26/17 Amlodipine Besylate (AMLODIPINE BESYLATE) 10 Mg Tablet, 1 TAB PO QDAY, TAB 03/22/17 Aspirin (ASPIR 81) 81 Mg Tablet.dr, 81 MG PO QDAY, TAB 03/13/16 Past Medical/Surgical History The patient has a past medical and surgical history of heart attack, angina, cardiac catheterization with stent placement, hypertension, hypercholesterolemia , arthritis in her legs, knees and ankles, left knee fracture poor dentition, multiple teeth missing, depression, panic attacks, anxiety. Reviewed Nurses Notes: Yes Hx Smoking: Yes (1/2 ppd) Smoking Status: Current: Every Day Smoker Hx Substance Use Disorder: Yes Hx Alcohol Use: Yes Constitutional Vital Sign - Last 24 Hours 10/24/17 17:24 Pulse 97 Resp 26 B/P (MAP) 106/63 Pulse Ox 96 O2 Delivery Room Air Physical Exam General Appearance: The patient is alert, has no immediate need for airway protection and no signs of toxicity. Eyes: Pupils equal and round no pallor or injection. ENT, Mouth: Mucous membranes are moist. Respiratory: There are no retractions, lungs are clear to auscultation. Cardiovascular: Regular rate and rhythm, no murmurs, clicks or rubs. Gastrointestinal: Abdomen is soft and non tender, no masses, bowel sounds normal. Neurological: Alert and oriented 4. Moving all extremities. Following all commands. No focal neuro deficits. Skin: Warm and dry, no rashes. Musculoskeletal: Neck is supple non tender. Extremities are nontender, nonswollen and have full range of motion. DIFFERENTIAL DIAGNOSIS: After history and physical exam differential diagnosis was considered for chest pain including but not limited to myocardial ischemia, pericarditis pulmonary embolus, chest wall pain, pleural inflammation and pulmonary infectious causes. Medical Decision Making Data Points Result Diagram: 10/24/17 1733 10/24/17 1733 Laboratory Hematology Test 10/24/17 17:33 10/24/17 20:36 Red Blood Count 5.55 M/uL (4.00-5.60) Mean Corpuscular Volume 84.7 fL (80.0-96.0) Mean Corpuscular Hemoglobin 29.0 pg (26.0-33.0) Mean Corpuscular Hemoglobin Concent 34.3 g/dL (32.0-36.0) Red Cell Distribution Width 14.8 % (11.5-14.5) Mean Platelet Volume 7.9 fL (7.2-11.1) Neutrophils (%) (Auto) 55.9 % (39.4-72.5) Lymphocytes (%) (Auto) 37.1 % (17.6-49.6) Monocytes (%) (Auto) 4.9 % (4.1-12.4) Eosinophils (%) (Auto) 0.9 % (0.4-6.7) Basophils (%) (Auto) 1.2 % (0.3-1.4) Nucleated RBC Relative Count (auto) 0.1 /100WBC Neutrophils # (Auto) 5.3 K/uL (2.0-7.4) Lymphocytes # (Auto) 3.5 K/uL (1.3-3.6) Monocytes # (Auto) 0.5 K/uL (0.3-1.0) Eosinophils # (Auto) 0.1 K/uL (0.0-0.5) Basophils # (Auto) 0.1 K/uL (0.0-0.1) Nucleated RBC Absolute Count (auto) 0.01 K/uL Sodium Level 138 mmol/L (137-145) Potassium Level 3.6 mmol/L (3.5-5.0) Chloride Level 101 mmol/L (98-107) Carbon Dioxide Level 22 mmol/L (22-30) Blood Urea Nitrogen 17 mg/dl (9-21) Creatinine 1.10 mg/dl (0.66-1.25) Glomerular Filtration Rate Calc > 60.0 Random Glucose 100 mg/dl (75-110) Calcium Level 9.4 mg/dl (8.4-10.2) Total Bilirubin 0.6 mg/dl (0.2-1.3) Aspartate Amino Transf (AST/SGOT) 30 U/L (0-35) Alanine Aminotransferase (ALT/SGPT) 33 U/L (0-56) Alkaline Phosphatase 158 U/L (0-126) Total Protein 8.3 g/dl (6.3-8.2) Albumin 4.6 g/dl (3.5-5.0) Troponin I < 0.012 ng/ml Chemistry Test 10/24/17 17:33 10/24/17 20:36 White Blood Count 9.5 k/uL (4.5-11.0) Red Blood Count 5.55 M/uL (4.00-5.60) Hemoglobin 16.1 g/dL (14.0-18.0) Hematocrit 47.0 % (42.0-52.0) Mean Corpuscular Volume 84.7 fL (80.0-96.0) Mean Corpuscular Hemoglobin 29.0 pg (26.0-33.0) Mean Corpuscular Hemoglobin Concent 34.3 g/dL (32.0-36.0) Red Cell Distribution Width 14.8 % (11.5-14.5) Platelet Count 257 K/uL (150-450) Mean Platelet Volume 7.9 fL (7.2-11.1) Neutrophils (%) (Auto) 55.9 % (39.4-72.5) Lymphocytes (%) (Auto) 37.1 % (17.6-49.6) Monocytes (%) (Auto) 4.9 % (4.1-12.4) Eosinophils (%) (Auto) 0.9 % (0.4-6.7) Basophils (%) (Auto) 1.2 % (0.3-1.4) Nucleated RBC Relative Count (auto) 0.1 /100WBC Neutrophils # (Auto) 5.3 K/uL (2.0-7.4) Lymphocytes # (Auto) 3.5 K/uL (1.3-3.6) Monocytes # (Auto) 0.5 K/uL (0.3-1.0) Eosinophils # (Auto) 0.1 K/uL (0.0-0.5) Basophils # (Auto) 0.1 K/uL (0.0-0.1) Nucleated RBC Absolute Count (auto) 0.01 K/uL Glomerular Filtration Rate Calc > 60.0 Calcium Level 9.4 mg/dl (8.4-10.2) Total Bilirubin 0.6 mg/dl (0.2-1.3) Aspartate Amino Transf (AST/SGOT) 30 U/L (0-35) Alanine Aminotransferase (ALT/SGPT) 33 U/L (0-56) Alkaline Phosphatase 158 U/L (0-126) Total Protein 8.3 g/dl (6.3-8.2) Albumin 4.6 g/dl (3.5-5.0) Troponin I < 0.012 ng/ml EKG/Imaging EKG Interpretation 12 lead EKG: Time of EKG 1725. Rhythm: Normal sinus rhythm, ventricular rate 85 bpm. [place]: normal QRS: normal ST segments: No ST depression or elevation identified. No significant changes from the 10/12/2017 EKG. 12 lead EKG: Time of repeat EKG 2025. Rhythm: Normal sinus rhythm, ventricular rate 77 bpm. [place]: normal QRS: normal ST segments: No ST depression or elevation identified. No changes from the 1725 EKG. Imaging Location: [facility] Patient: Alfonzo Villatoro : 1970 Visit/Account:[id number] Date of Sevice: 10/24/2017 2 VIEWS CHEST INDICATION: Chest pain, shortness breath, history of cardiac attack. History of smoking. COMPARISON: 10/12/2017. FINDINGS: Cardiomediastinal silhouette and pulmonary vessels within normal limits. Cardiac stent is visualized. There is no focal infiltrate or lobar consolidation. There is no pneumothorax or pleural effusion. No nodule. Upper abdomen is unremarkable. No acute bony abnormality. IMPRESSION: 1. No acute cardiopulmonary process. Report Dictated By: Vasile Barroso at 10/24/2017 6:04 PM Report E-Signed By: Vasile Barroso at 10/24/2017 6:06 PM WSN:[id number] ED Course/Re-evaluation Clinical Indication for ER IV: IV Access ED Course The patient was admitted to room. A history and physical were obtained. Differential diagnoses were considered. An IV was started. Patient was given 2 mg IV morphine 2. A CBC, CMP, troponin were obtained. Lab studies are unremarkable. Troponin negative. EKG showing normal sinus rhythm. Two-view chest x-ray negative for any acute cardiopulmonary process. I did review these results with patient. I did a repeat EKG showing no changes from the previous EKG. Repeat troponin was negative. I reviewed the repeat EKG and troponin results with the patient and his . Patient was relieved. Patient had no other questions or concerns at this time. Patient was pain free at this time. Patient had no other questions or concerns and was discharged home. I did encourage the patient to make a follow-up appointment with his primary care provider and/or cardiology either the end of this week or next week. Patient was encouraged to return to the ED for any other concerns or worsening symptoms. Decision to Disposition Date: Oct 24, 2017 Decision to Disposition Time: 21:10 Depart Departure Latest Vital Signs Vital Signs Date Time Temp Pulse Resp B/P (MAP) Pulse Ox O2 Delivery O2 Flow Rate FiO2 10/24/17 17:24 97 26 106/63 96 Room Air Impression: Primary Impression: Chest pain of unknown etiology Condition: Improved Disposition: HOME OR SELF-CARE Referrals: STEVE PEREZ DNP, ORDNANCE HANDLER-BC (PCP) Patient Instructions: Chest Pain (ED) Additional Instructions: I am unsure what's causing your chest pain however it does not appear that your heart is causing your discomfort today. Drink plenty of water. Get plenty of rest. Be sure to follow-up with your watch inspector for reevaluation of your chest pain , within one week. Follow-up with your primary care provider as scheduled. Return to the emergency department for any other concerns or worsening symptoms. RUTH RIVERA ORDNANCE HANDLER-BC Oct 24, 2017 17:37
[2017-10-24] MEDS ORDERED: ASPIRIN 81 MG CHEW PO ONE (17:40)
[2017-10-24] MEDS ORDERED: ONDANSETRON 4 MG/2 ML VIAL IVP ONE (17:40)
[2017-10-24 17:43] LABS: PLATELET COUNT, AUTOMATED 257 K/uL (150-450)
--- NOTE | 2017-10-24 18:04 | EKG ---
FAC[place] [facility] [place]IENT NAME: BRAD ARITA : [id number] MR: [id number] V: [id number] EXAM DATE: ORDERING PHYSICIAN: RUTH RIVERA TECHNOLOGIST: DOMINIQUE Caraballo Reason : CP Blood Pressure : / mmHG Vent. Rate : 085 BPM Atrial Rate : 085 BPM P-R Int : 134 ms QRS Dur : 078 ms QT Int : 400 ms P-R-T Axes : 059 042 035 degrees QTc Int : 476 ms Sinus rhythm Possible left atrial enlargement Nonspecific ST findings lateral leads Slightly prolonged QT interval Confirmed by ELISA RODRIGES ([id number]) on 10/25/2017 5:42:51 AM Referred By: HONORIO Confirmed By:ELISA RODRIGES
--- NOTE | 2017-10-24 18:10 | RADIOLOGY IMAGING REPORT ---
FACILITY: [facility] - [place] PATIENT NAME: Alfonzo Villatoro : 1970 MR: [id number] V: [id number] EXAM DATE: ORDERING PHYSICIAN: RUTH RIVERA TECHNOLOGIST: Location: [facility] Patient: Alfonzo Villatoro : 1970 Visit/Account:[id number] Date of Sevice: 10/24/2017 2 VIEWS CHEST INDICATION: Chest pain, shortness breath, history of cardiac attack. History of smoking. COMPARISON: 10/12/2017. FINDINGS: Cardiomediastinal silhouette and pulmonary vessels within normal limits. Cardiac stent is visualized. There is no focal infiltrate or lobar consolidation. There is no pneumothorax or pleural effusion. No nodule. Upper abdomen is unremarkable. No acute bony abnormality. IMPRESSION: 1. No acute cardiopulmonary process. Report Dictated By: Vasile Barroso at 10/24/2017 6:04 PM Report E-Signed By: Vasile Barroso at 10/24/2017 6:06 PM WSN:[id number]
[2017-10-24] MEDS ORDERED: MORPHINE 2 MG/ML SYR IVP ONE ×2 (18:25→20:25)
[2017-10-24 21:00] VITALS: BP 116/94
--- NOTE | 2017-10-24 22:00 | EKG ---
FACILITY: [facility] - [place] PATIENT NAME: BRAD ARITA : [id number] MR: [id number] V: [id number] EXAM DATE: ORDERING PHYSICIAN: RUTH RIVERA TECHNOLOGIST: THIAGO Test Reason : REPEAT EKG Blood Pressure : / mmHG Vent. Rate : 077 BPM Atrial Rate : 077 BPM P-R Int : 132 ms QRS Dur : 080 ms QT Int : 422 ms P-R-T Axes : 047 023 023 degrees QTc Int : 477 ms Sinus rhythm Possible left atrial enlargement Slightly prolonged QT interval Confirmed by ELISA RODRIGES ([id number]) on 10/25/2017 5:45:15 AM Referred By: Confirmed By:ELISA RODRIGES
== END 2017-10-24 21:22 | disposition home or self-care (01) ==
LOC: ER 17:24
DX: R07.9 Chest pain, unspecified (principal); F17.210 Nicotine dependence, cigarettes, uncomplicated
CPT/HCPCS: 36415; 71046; 84484; 85025; 93005; 96374; 96375; 96376; 99284; A9270; J2270; J2405; 82040; 82247; 82310; 82374; 82435; 82565; 82947; 84075; 84132; 84155; 84295; 84450; 84460; 84520

== ENCOUNTER 2017-11-04 05:37 | Emergency (ER) | payer MEDICARE ==
[~2017-11-04 05:37] MED LIST changes: -GABA-549 PO
--- NOTE | 2017-11-04 05:41 | ER Report ---
History and Physical Time Seen By MD: 05:38 (WIL MORAES DO) HPI/ROS CHIEF COMPLAINT: Chest pain HISTORY OF PRESENT ILLNESS: 47-year-old male with a known history of coronary artery disease, status post stenting placement 5. Patient last had an episode with a posterior wall AK and recently thrombolytics several months ago. He was transferred down to [facility]. Patient woke up with sudden onset of chest pain similar to that pain that he describes as a cardiac ischemia. He had 45 minutes of pain, which she notes is 10 out of 10 substernal and heavy in nature. EMS arrived and gave him aspirin and several nitroglycerin with little improvement of his symptoms. Patient notes no diaphoresis or shortness of breath. Patient denies leg swelling or calf pain. Patient was just seen here in the ER on October 24 with serial troponins that were negative. REVIEW OF SYSTEMS: Respiratory: No cough, no dyspnea. Cardiovascular: As above Gastrointestinal: No vomiting, no abdominal pain. Musculoskeletal: No back pain. (WIL MORAES DO) Allergies: Uncoded Allergies: mayonnaise (Allergy, Unknown, 03/26/17) Home Meds Active Scripts Metoprolol Tartrate (METOPROLOL TARTRATE) 100 Mg Tablet, 1 TAB PO BID for 90 Days, #180 TAB 1 Refill Prov:STEVE PEREZ DNP, FNP-BC 10/15/17 Hydrocodone Bit/Acetaminophen (HYDROCODON-ACETAMINOPHEN 5-325) 1 Each Tablet, 1- 2 TAB PO BID Y for PAIN, #120 TAB 0 Refills Prov:STEVE PEREZ DNP, FNP-BC 10/15/17 Lisinopril (LISINOPRIL) 20 Mg Tablet, 1 TAB PO QDAY, #90 TAB 2 Refills Prov:STEVE PEREZ DNP, FNP-BC 09/27/17 Buspirone Hcl (BUSPIRONE HCL) 10 Mg Tablet, 1 TAB PO Q8H, #90 TAB 5 Refills Prov:STEVE PREEZ DNP, FNP-BC 09/07/17 Diclofenac Sodium 1% Gel (VOLTAREN 1% GEL) 100 Gm Gel..gram., 4 G TOP QID Y for PAIN, #1 TUB 3 Refills Prov:STEVE PEREZ DNP, FNP-BC 3/26/18 Citalopram Hydrobromide (CITALOPRAM HBR) 40 Mg Tablet, 1 TAB PO QDAY for 90 Days , #90 TAB 3 Refills Prov:STEVE PEREZ [facility], BIOMEDICAL ELECTRONICS TECHNICIAN-BC 07/16/17 Reported Medications Atorvastatin Calcium (LIPITOR) 40 Mg Tablet, 1 TAB PO QDAY, TAB 08/04/17 Nitroglycerin (NITROGLYCERIN) 0.4 Mg Tab.subl, 0.4 MG SL Q5MIN 08/04/17 Clopidogrel Bisulfate (PLAVIX) 75 Mg Tablet, 1 TAB PO QDAY, TAB 08/04/17 Ranitidine Hcl (ZANTAC) 150 Mg Tablet, 1 TAB PO BID, TAB 03/26/17 Amlodipine Besylate (AMLODIPINE BESYLATE) 10 Mg Tablet, 1 TAB PO QDAY, TAB 03/22/17 Aspirin (ASPIR 81) 81 Mg Tablet.dr, 81 MG PO QDAY, TAB 03/13/16 Past Medical/Surgical History The patient has a past medical and surgical history of heart attack, angina, cardiac catheterization with stent placement 5, last stent was July 2017, hypertension, hypercholesterolemia, arthritis in her legs, knees and ankles, left knee fracture poor dentition, multiple teeth missing, depression, panic attacks, anxiety. (WIL MORAES DO) Reviewed Nurses Notes: Yes Old Medical Records Reviewed: Yes (WIL MORAES DO) Hx Smoking: Yes (1/2 ppd) Smoking Status: Current: Every Day Smoker Hx Substance Use Disorder: Yes Hx Alcohol Use: Yes (WIL MORAES DO) Constitutional Vital Sign - Last 24 Hours 11/04/17 11/04/17 11/04/17 11/04/17 05:39 05:41 05:52 06:00 Temp 98.1 Pulse 84 83 Resp 14 9 B/P (MAP) 103/64 103/64 (77) 103/72 (82) Pulse Ox 98 96 O2 Delivery Room Air 11/04/17 11/04/17 11/04/17 11/04/17 06:07 06:22 07:00 07:30 Pulse 75 74 67 72 Resp 12 12 10 13 B/P (MAP) 105/72 (83) 115/75 (88) Pulse Ox 89 95 92 94 11/04/17 11/04/17 11/04/17 11/04/17 08:00 08:30 09:00 09:30 Pulse 67 66 66 70 Resp 10 16 19 B/P (MAP) 115/75 (88) 115/71 (86) 117/76 (90) Pulse Ox 94 93 90 11/04/17 11/04/17 11/04/17 09:55 10:00 10:05 Pulse 72 73 Resp 15 11 8 B/P (MAP) 120/82 (95) Pulse Ox 87 92 92 Intake and Output 11/04/17 11/04/17 11/05/17 15:00 23:00 07:00 Intake Total 1000 ml Balance 1000 ml ([facility] Physical Exam General Appearance: The patient is alert, has no immediate need for airway protection and no current signs of toxicity. Vital signs stable, afebrile, pulse ox normal Eyes: Pupils equal and round no injection. Respiratory: Chest is non tender, lungs are clear to auscultation. No chest wall tenderness on palpation Cardiac: regular rate and rhythm, no murmur Gastrointestinal: Abdomen is soft and non tender, no masses, bowel sounds normal. Musculoskeletal: Neck: Neck is supple and non tender. Extremities have full range of motion and are non tender. Skin: No rashes or lesions. DIFFERENTIAL DIAGNOSIS: After history and physical exam differential diagnosis was considered for chest pain including but not limited to myocardial ischemia, pericarditis pulmonary embolus, chest wall pain, pleural inflammation and pulmonary infectious causes. (WIL MORAES DO) Medical Decision Making Data Points Result Diagram: 11/04/17 0540 11/04/17 0540 Laboratory Hematology Test 11/04/17 05:40 11/04/17 09:11 Red Blood Count 5.52 M/uL (4.00-5.60) Mean Corpuscular Volume 84.7 fL (80.0-96.0) Mean Corpuscular Hemoglobin 29.7 pg (26.0-33.0) Mean Corpuscular Hemoglobin Concent 35.0 g/dL (32.0-36.0) Red Cell Distribution Width 15.1 % (11.5-14.5) Mean Platelet Volume 7.9 fL (7.2-11.1) Neutrophils (%) (Auto) 44.0 % (39.4-72.5) Lymphocytes (%) (Auto) 48.8 % (17.6-49.6) Monocytes (%) (Auto) 5.7 % (4.1-12.4) Eosinophils (%) (Auto) 0.9 % (0.4-6.7) Basophils (%) (Auto) 0.6 % (0.3-1.4) Nucleated RBC Relative Count (auto) 0.1 /100WBC Neutrophils # (Auto) 3.6 K/uL (2.0-7.4) Lymphocytes # (Auto) 4.0 K/uL (1.3-3.6) Monocytes # (Auto) 0.5 K/uL (0.3-1.0) Eosinophils # (Auto) 0.1 K/uL (0.0-0.5) Basophils # (Auto) 0.1 K/uL (0.0-0.1) Nucleated RBC Absolute Count (auto) 0.01 K/uL Sodium Level 145 mmol/L (137-145) Potassium Level 3.6 mmol/L (3.5-5.0) Chloride Level 104 mmol/L (98-107) Carbon Dioxide Level 24 mmol/L (22-30) Blood Urea Nitrogen 15 mg/dl (9-21) Creatinine 1.20 mg/dl (0.66-1.25) Glomerular Filtration Rate Calc > 60.0 Random Glucose 128 mg/dl (75-110) Calcium Level 8.9 mg/dl (8.4-10.2) Total Bilirubin 0.3 mg/dl (0.2-1.3) Aspartate Amino Transf (AST/SGOT) 58 U/L (0-35) Alanine Aminotransferase (ALT/SGPT) 80 U/L (0-56) Alkaline Phosphatase 150 U/L (0-126) B-Type Natriuretic Peptide 24 pg/ml (0-100) Total Protein 8.4 g/dl (6.3-8.2) Albumin 4.8 g/dl (3.5-5.0) Troponin I < 0.012 ng/ml Chemistry Test 11/04/17 05:40 11/04/17 09:11 White Blood Count 8.2 k/uL (4.5-11.0) Red Blood Count 5.52 M/uL (4.00-5.60) Hemoglobin 16.4 g/dL (14.0-18.0) Hematocrit 46.8 % (42.0-52.0) Mean Corpuscular Volume 84.7 fL (80.0-96.0) Mean Corpuscular Hemoglobin 29.7 pg (26.0-33.0) Mean Corpuscular Hemoglobin Concent 35.0 g/dL (32.0-36.0) Red Cell Distribution Width 15.1 % (11.5-14.5) Platelet Count 251 K/uL (150-450) Mean Platelet Volume 7.9 fL (7.2-11.1) Neutrophils (%) (Auto) 44.0 % (39.4-72.5) Lymphocytes (%) (Auto) 48.8 % (17.6-49.6) Monocytes (%) (Auto) 5.7 % (4.1-12.4) Eosinophils (%) (Auto) 0.9 % (0.4-6.7) Basophils (%) (Auto) 0.6 % (0.3-1.4) Nucleated RBC Relative Count (auto) 0.1 /100WBC Neutrophils # (Auto) 3.6 K/uL (2.0-7.4) Lymphocytes # (Auto) 4.0 K/uL (1.3-3.6) Monocytes # (Auto) 0.5 K/uL (0.3-1.0) Eosinophils # (Auto) 0.1 K/uL (0.0-0.5) Basophils # (Auto) 0.1 K/uL (0.0-0.1) Nucleated RBC Absolute Count (auto) 0.01 K/uL Glomerular Filtration Rate Calc > 60.0 Calcium Level 8.9 mg/dl (8.4-10.2) Total Bilirubin 0.3 mg/dl (0.2-1.3) Aspartate Amino Transf (AST/SGOT) 58 U/L (0-35) Alanine Aminotransferase (ALT/SGPT) 80 U/L (0-56) Alkaline Phosphatase 150 U/L (0-126) B-Type Natriuretic Peptide 24 pg/ml (0-100) Total Protein 8.4 g/dl (6.3-8.2) Albumin 4.8 g/dl (3.5-5.0) Troponin I < 0.012 ng/ml ([facility]) EKG/Imaging EKG Interpretation 12 lead EK Rhythm: normal sinus rhythm Manly: normal QRS: QT prolongation ST segments: normal, comparison to previous EKG dated 11/04/79, no significant change Imaging X-ray: Single view portable chest x-ray was obtained. I viewed the images myself on the PACS system. My interpretation of the images is: No infiltrate, no effusion, normal mediastinum., Comparison to previous chest x-ray dated , no significant change. The radiologist interpretation had no clinically significant variation from this interpretation. (WIL MORAES DO) EKG Interpretation 12 lead EKG: At 08:36 hours Rhythm: normal sinus rhythm Manly: normal QRS: Prolonged QT ST segments: Nonspecific flattening, No ST elevation or depression (ASHANTI NASH MD) ED Course/Re-evaluation Clinical Indication for ER IV: IV Access ED Course 1. The differential diagnoses was considered. On arrival, patient's initial EKG shows no evidence of ischemia. Patient's well-known to me from previous visits. I did transfer him with an acute AK after thrombolytic therapy in July to [facility]. Patient's 1st troponin returns unremarkable. He is medicated with Toradol and Dilaudid. His pains under control. He has a little improvement with nitroglycerin at home. I think patient will require history are troponin and then will be cleared to go home. He was here proximal 10 days ago with similar presentation. Care is turned over to Dr. Nash at shift change (WIL MORAES DO) ED Course I assumed care of this patient at sign out this morning at shift change from Dr. Moraes. This is a 47-year-old male with history of coronary artery disease with chest pain. Initial workup is negative and initial troponin is negative. At sign out, he is currently waiting for repeat troponin. Repeat Troponin was negative. EKG unchanged, no signs of ischemia. Pain also with sharp and worsening with deep breaths. Suspect pleuritic versus chest wall pain. Decision to Disposition Date: Nov 04, 2017 Decision to Disposition Time: 09:58 (ASHANTI NASH MD) Depart Departure Latest Vital Signs Vital Signs Date Time Temp Pulse Resp B/P (MAP) Pulse Ox O2 Delivery O2 Flow Rate FiO2 11/04/17 10:05 8 120/82 (95) 92 11/04/17 10:00 73 11/04/17 05:39 98.1 Room Air (ASHANTI NASH MD) Impression: Primary Impression: Non-cardiac chest pain Condition: Improved Disposition: HOME OR SELF-CARE Referrals: STEVE PEREZ DNP, BIOMEDICAL ELECTRONICS TECHNICIAN-BC (PCP) Patient Instructions: Chest Pain (ED), Pleurisy (ED) Additional Instructions: Workup did not show any sign of heart attack, blood clot or other serious condition. We suspect that you have inflammation in the lining of the lungs called pleurisy. No changes to medications. You can try Ibuprofen 200mg over the counter tablets, take 3-4 tablets every 8 hours as needed for pain for the next 2-3 days. WIL MORAES DO Nov 04, 2017 05:41 ASHANTI NASH MD Nov 04, 2017 07:17
[2017-11-04] MEDS ORDERED: HYDROmorphone* 1 MG/ML 1 MG/ML ML IVP ONE ×2 (05:45→08:05)
[2017-11-04] MEDS ORDERED: KETOROLAC 30 MG/ML VIAL IVP ONE (05:45)
[2017-11-04] MEDS ORDERED: EMS NS 0.9%(*) 1000 ML BAG 1,000 ML IV ONE (06:05)
[2017-11-04 06:10] LABS: PLATELET COUNT, AUTOMATED 251 K/uL (150-450)
--- NOTE | 2017-11-04 06:36 | EKG ---
FACILITY: [facility] PATIENT NAME: BRAD ARITA : [id number] MR: [id number] V: [id number] EXAM DATE: ORDERING PHYSICIAN: WIL SIMMONS TECHNOLOGIST: SIA Test Reason : CHEST PAIN Blood Pressure : / mmHG Vent. Rate : 085 BPM Atrial Rate : 085 BPM P-R Int : 144 ms QRS Dur : 084 ms QT Int : 410 ms P-R-T Axes : 050 042 033 degrees QTc Int : 487 ms Normal sinus rhythm Prolonged QT Abnormal ECG Confirmed by EVETTE LEON ([id number]) on 11/04/2017 6:48:46 AM Referred By: Confirmed By:EVETTE LEON
--- NOTE | 2017-11-04 06:48 | RADIOLOGY IMAGING REPORT ---
FACILITY: [facility] PATIENT NAME: Alfonzo Villatoro : 1970 MR: [id number] V: [id number] EXAM DATE: ORDERING PHYSICIAN: WIL SIMMONS TECHNOLOGIST: Location: [facility] [place] Patient: Alfonzo Villatoro : 1970 Visit/Account:[id number] Date of Sevice: 11/04/2017 HISTORY: Chest pain DATE: 11/04/2017 5:41 AM TECHNIQUE: CHEST SINGLE AP COMPARISON: Chest radiograph October 24, 2017 FINDINGS: The cardiomediastinal silhouette is of normal size and contour. No pleural effusion. No pne umothorax. No consolidation. The lungs are adequately expanded. IMPRESSION: Normal chest. Report Dictated By: Jeanette Toscano MD at 11/04/2017 6:43 AM Report E-Signed By: Jeanette Toscano MD at 11/04/2017 6:44 AM WSN:[id number]
--- NOTE | 2017-11-04 08:42 | EKG ---
FACILITY: [facility] [place] PATIENT NAME: BRAD ARITA : [id number] MR: [id number] V: [id number] EXAM DATE: ORDERING PHYSICIAN: ASHANTI OCHOA TECHNOLOGIST: MARY Caraballo Reason : REPEAT Blood Pressure : / mmHG Vent. Rate : 067 BPM Atrial Rate : 067 BPM P-R Int : 144 ms QRS Dur : 086 ms QT Int : 460 ms P-R-T Axes : 042 020 019 degrees QTc Int : 486 ms Sinus rhythm Prolonged QT Abnormal ECG When compared with ECG of 04-NOV-2017 05:41, No significant change was found Confirmed by ELISA RODRIGES ([id number]) on 11/04/2017 5:22:04 PM Referred By: DON Confirmed By:ELISA RODRIGES
[2017-11-04 10:05] VITALS: BP 120/82
[2017-11-06] MEDS ORDERED: GABA-549 PO (14:31)
== END 2017-11-04 10:08 | disposition home or self-care (01) ==
LOC: ER 05:43
DX: R07.89 Other chest pain (principal); R94.31 Abnormal electrocardiogram [ECG] [EKG]
CPT/HCPCS: 36415; 83880; 84484; 85025; 93005; 96361; 96374; 96375; 96376; 99284; J1170; J1885; 71045; 82040; 82247; 82310; 82374; 82435; 82565; 82947; 84075; 84132; 84155; 84295; 84450; 84460; 84520

== ENCOUNTER → 2017-11-04 | Outpatient (CLI) | payer MEDICARE ==
[~2017-11-04] MED LIST changes: +GABA-549 PO
== END ==
LOC: AMB 05:27
PROVIDERS: ATTEND Nurse Practitioner
DX: R07.9 Chest pain, unspecified (principal)

== ENCOUNTER 2017-12-06 21:33 | Emergency (ER) | payer MEDICARE ==
[~2017-12-06 21:33] MED LIST changes: +GABA-549 PO
--- NOTE | 2017-12-06 21:38 | ER Report ---
History and Physical Time Seen By MD: 21:37 HPI/ROS CHIEF COMPLAINT: Chest pain HISTORY OF PRESENT ILLNESS: This is a 47 year old male. He started having chest pain about 1300 today. Had vomiting about an hour prior to coming to the hospital. Has had some diarrhea and mild lower left abdominal pain as well. No fevers noted. Pain in chest came on at rest, on the left side and left shoulder , somewhat worse with deep breaths, tight feeling with a spasming component. History of CAD with [place] earlier this year. Nothing made the pain worse or better. Out of nitro, so did not try this. Allergies: Uncoded Allergies: mayonnaise (Allergy, Unknown, 03/26/17) Home Meds Active Scripts Ondansetron (ZOFRAN ODT) 4 Mg Tab.rapdis, 4 MG PO Q6H Y for NAUSEA/VOMITING, # 20 TAB.PERRY 0 Refills Prov:ASHANTI OCHOA MD 12/07/17 Ketorolac Tromethamine (KETOROLAC TROMETHAMINE) 10 Mg Tab, 10 MG PO Q6H Y for PAIN, #12 TAB 0 Refills Prov:ASHANTI OCHOA MD 12/07/17 Hydrocodone Bit/Acetaminophen (HYDROCODON-ACETAMINOPHEN 5-325) 1 Each Tablet, 1 EACH PO Q4H Y for PAIN, #12 TAB 0 Refills Prov:ASHANTI OCHOA MD 12/07/17 Hydrocodone Bit/Acetaminophen (HYDROCODON-ACETAMINOPHEN 5-325) 1 Each Tablet, 1- 2 TAB PO BID Y for PAIN, #120 TAB 0 Refills Prov:SP CID MD 11/15/17 Gabapentin (GABAPENTIN) 300 Mg Capsule, 1 CAP PO TID, #90 CAPSULE 0 Refills Start 300 mg by mouth daily x1 day. Then 300 mg by mouth twice daily x1 day. Then 300 mg by mouth three times daily. Prov:STEVE PEREZ DNP, FNP-BC 11/06/17 Metoprolol Tartrate (METOPROLOL TARTRATE) 100 Mg Tablet, 1 TAB PO BID for 90 Days, #180 TAB 1 Refill Prov:STEVE PEREZ DNP, FNP-BC 10/15/17 Lisinopril (LISINOPRIL) 20 Mg Tablet, 1 TAB PO QDAY, #90 TAB 2 Refills Prov:STEVE PEREZ DNP, FNP-BC 09/27/17 Buspirone Hcl (BUSPIRONE HCL) 10 Mg Tablet, 1 TAB PO Q8H, #90 TAB 5 Refills Prov:CHRISSTEVE DNP [facility] 09/07/17 Diclofenac Sodium 1% Gel (VOLTAREN 1% GEL) 100 Gm Gel..gram., 4 G TOP QID Y for PAIN, #1 TUB 3 Refills Prov:CHRISSTEVE DNP [facility] 07/16/17 Citalopram Hydrobromide (CITALOPRAM HBR) 40 Mg Tablet, 1 TAB PO QDAY for 90 Days , #90 TAB 3 Refills Prov:CHRISSTEVE HUNTER DNP [facility] 07/16/17 Reported Medications Atorvastatin Calcium (LIPITOR) 40 Mg Tablet, 1 TAB PO QDAY, TAB 08/04/17 Nitroglycerin (NITROGLYCERIN) 0.4 Mg Tab.subl, 0.4 MG SL Q5MIN 08/04/17 Clopidogrel Bisulfate (PLAVIX) 75 Mg Tablet, 1 TAB PO QDAY, TAB 08/04/17 Ranitidine Hcl (ZANTAC) 150 Mg Tablet, 1 TAB PO BID, TAB 03/26/17 Amlodipine Besylate (AMLODIPINE BESYLATE) 10 Mg Tablet, 1 TAB PO QDAY, TAB 03/22/17 Aspirin (ASPIR 81) 81 Mg Tablet.dr, 81 MG PO QDAY, TAB 03/13/16 Reviewed Nurses Notes: Yes Hx Smoking: Yes (1/2 ppd) Smoking Status: Current: Every Day Smoker Hx Substance Use Disorder: Yes Hx Alcohol Use: Yes Constitutional Vital Sign - Last 24 Hours 12/06/17 12/06/17 12/06/17 12/06/17 21:35 21:48 22:09 22:13 Temp 98.1 Pulse 94 89 Resp 18 9 B/P (MAP) 130/77 111/72 (85) Pulse Ox 95 97 O2 Delivery Room Air O2 Flow Rate 2.0 12/06/17 12/06/17 12/06/17 12/06/17 22:18 22:30 22:33 22:48 Pulse 83 84 84 Resp 12 11 16 B/P (MAP) 103/75 (84) Pulse Ox 97 96 96 8/16/18 12/06/17 12/06/17 12/06/17 23:00 23:03 23:18 23:30 Pulse 91 84 Resp 11 22 B/P (MAP) 94/71 (79) 93/59 (70) Pulse Ox 96 95 12/06/17 12/06/17 12/07/17 12/07/17 23:35 23:50 00:00 00:05 Pulse 85 85 89 Resp 14 40 26 B/P (MAP) 99/66 (77) Pulse Ox 95 95 96 12/07/17 12/07/17 00:20 00:35 Pulse 86 85 Resp 12 16 B/P (MAP) 148/85 (106) Pulse Ox 93 92 O2 Delivery Room Air Physical Exam General Appearance: The patient is alert. No acute distress. Eyes: Pupils are equal, round. No pallor, injection or icterus. ENT: Mucous membranes are moist. Normal oral mucosa. Posterior oropharynx is normal. Neck: Supple and non tender. Respiratory: Lungs are clear to auscultation. Cardiovascular: Regular rate and rhythm. No murmurs, gallops or rubs. Normal capillary refill. No edema. Gastrointestinal: Abdomen is soft, tender in lower left abdomen. Nondistended. No rebound or guarding. Normal active bowel sounds. No costovertebral angle tenderness with percussion. Neurological: Alert and oriented x3. Skin: Warm and dry. No rashes. Musculoskeletal: No tenderness in palpation of the thoracic and lumbar spine. DIFFERENTIAL DIAGNOSIS: After history and physical exam, differential diagnosis was considered for chest pain including but not limited to myocardial ischemia, pericarditis pulmonary embolus, chest wall pain, pleural inflammation and pulmonary infectious causes. Medical Decision Making Data Points Result Diagram: 12/06/17214412/06/172144 Laboratory Hematology Test 12/06/17 21:45 Red Blood Count 5.27 M/uL (4.00-5.60) Mean Corpuscular Volume 83.6 fL (80.0-96.0) Mean Corpuscular Hemoglobin 29.5 pg (26.0-33.0) Mean Corpuscular Hemoglobin Concent 35.2 g/dL (32.0-36.0) Red Cell Distribution Width 15.6 % (11.5-14.5) Mean Platelet Volume 7.8 fL (7.2-11.1) Neutrophils (%) (Auto) 75.0 % (39.4-72.5) Lymphocytes (%) (Auto) 20.7 % (17.6-49.6) Monocytes (%) (Auto) 3.9 % (4.1-12.4) Eosinophils (%) (Auto) 0.0 % (0.4-6.7) Basophils (%) (Auto) 0.4 % (0.3-1.4) Nucleated RBC Relative Count (auto) 0.0 /100WBC Neutrophils # (Auto) 4.9 K/uL (2.0-7.4) Lymphocytes # (Auto) 1.4 K/uL (1.3-3.6) Monocytes # (Auto) 0.3 K/uL (0.3-1.0) Eosinophils # (Auto) 0.0 K/uL (0.0-0.5) Basophils # (Auto) 0.0 K/uL (0.0-0.1) Nucleated RBC Absolute Count (auto) 0.00 K/uL Sodium Level 140 mmol/L (137-145) Potassium Level 3.3 mmol/L (3.5-5.0) Chloride Level 103 mmol/L (98-107) Carbon Dioxide Level 20 mmol/L (22-30) Blood Urea Nitrogen 17 mg/dl (9-21) Creatinine 1.20 mg/dl (0.66-1.25) Glomerular Filtration Rate Calc > 60.0 Random Glucose 129 mg/dl (75-110) Calcium Level 9.5 mg/dl (8.4-10.2) Total Bilirubin 0.2 mg/dl (0.2-1.3) Aspartate Amino Transf (AST/SGOT) 33 U/L (0-35) Alanine Aminotransferase (ALT/SGPT) 68 U/L (0-56) Alkaline Phosphatase 111 U/L (0-126) Troponin I < 0.012 ng/ml Total Protein 7.6 g/dl (6.3-8.2) Albumin 4.6 g/dl (3.5-5.0) Chemistry Test 12/06/17 21:45 White Blood Count 6.5 k/uL (4.5-11.0) Red Blood Count 5.27 M/uL (4.00-5.60) Hemoglobin 15.5 g/dL (14.0-18.0) Hematocrit 44.1 % (42.0-52.0) Mean Corpuscular Volume 83.6 fL (80.0-96.0) Mean Corpuscular Hemoglobin 29.5 pg (26.0-33.0) Mean Corpuscular Hemoglobin Concent 35.2 g/dL (32.0-36.0) Red Cell Distribution Width 15.6 % (11.5-14.5) Platelet Count 247 K/uL (150-450) Mean Platelet Volume 7.8 fL (7.2-11.1) Neutrophils (%) (Auto) 75.0 % (39.4-72.5) Lymphocytes (%) (Auto) 20.7 % (17.6-49.6) Monocytes (%) (Auto) 3.9 % (4.1-12.4) Eosinophils (%) (Auto) 0.0 % (0.4-6.7) Basophils (%) (Auto) 0.4 % (0.3-1.4) Nucleated RBC Relative Count (auto) 0.0 /100WBC Neutrophils # (Auto) 4.9 K/uL (2.0-7.4) Lymphocytes # (Auto) 1.4 K/uL (1.3-3.6) Monocytes # (Auto) 0.3 K/uL (0.3-1.0) Eosinophils # (Auto) 0.0 K/uL (0.0-0.5) Basophils # (Auto) 0.0 K/uL (0.0-0.1) Nucleated RBC Absolute Count (auto) 0.00 K/uL Glomerular Filtration Rate Calc > 60.0 Calcium Level 9.5 mg/dl (8.4-10.2) Total Bilirubin 0.2 mg/dl (0.2-1.3) Aspartate Amino Transf (AST/SGOT) 33 U/L (0-35) Alanine Aminotransferase (ALT/SGPT) 68 U/L (0-56) Alkaline Phosphatase 111 U/L (0-126) Troponin I < 0.012 ng/ml Total Protein 7.6 g/dl (6.3-8.2) Albumin 4.6 g/dl (3.5-5.0) EKG/Imaging EKG Interpretation 12 lead EKG: Rhythm: normal sinus rhythm, rate 90 Lagrange: normal QRS: normal ST segments: normal Imaging ACUTE ABDOMEN SERIES 3 VIEW HISTORY: Chest pain and left-sided abdominal pain. History of [place] in July. COMPARISON: Most recent chest x-ray is 11/04/2017. Most recent abdominal series of 10/27/2016. TECHNIQUE: PA upright view of the chest, AP supine and AP upright views of the abdomen. Chest: There is stable linear scarring or atelectasis at the left lateral lung base. Right lung is clear. The cardiac and mediastinal silhouettes are within normal limits. Bones and soft tissues are unremarkable. Abdomen: The distribution of bowel gas is normal, with bowel in all four quadrants as well as centrally. No free air. No dilated loops of bowel. No acute osseous abnormality. IMPRESSION: 1. No acute cardiopulmonary process. 2. Unremarkable bowel gas pattern without obstruction. Report Dictated By: Jerri Martinez at 12/06/2017 11:15 PM ED Course/Re-evaluation Clinical Indication for ER IV: Hydration, IV Access ED Course Labs are unremarkable, troponin negative. EKG and chest x-ray/abdominal series negative as well. Reviewed these findings with the patient. Given of symptoms, this appears to be viral syndrome. Conservative management as instructed. Decision to Disposition Date: Dec 07, 2017 Decision to Disposition Time: 00:20 Depart Departure Latest Vital Signs Vital Signs Date Time Temp Pulse Resp B/P (MAP) Pulse Ox O2 Delivery O2 Flow Rate FiO2 12/07/17 00:35 85 16 148/85 (106) 92 Room Air 12/06/17 22:09 2.0 12/06/17 21:35 98.1 Impression: Primary Impression: Chest pain Additional Impression: Viral syndrome Condition: Improved Disposition: HOME OR SELF-CARE Referrals: STEVE PEREZ DNP, ASSISTANT PROFESSOR OF BUSINESS-BC (PCP) New Scripts Ondansetron (ZOFRAN ODT) 4 Mg Tab.rapdis 4 MG PO Q6H Y for NAUSEA/VOMITING, #20 TAB.PERRY 0 Refills Prov: ASHANTI OCHOA MD 12/07/17 Ketorolac Tromethamine (KETOROLAC TROMETHAMINE) 10 Mg Tab 10 MG PO Q6H Y for PAIN, #12 TAB 0 Refills Prov: ASHANTI OCHOA MD 12/07/17 Hydrocodone Bit/Acetaminophen (HYDROCODON-ACETAMINOPHEN 5-325) 1 Each Tablet 1 EACH PO Q4H Y for PAIN, #12 TAB 0 Refills Prov: ASHANTI OCHOA MD 12/07/17 Patient Instructions: Viral Syndrome (ED) Additional Instructions: With your chest pain associated with the cough and diarrhea, we suspect that the pain is from a viral syndrome. Rest and increase fluids. Chest pain is likely inflammatory in nature, so will have you take an anti- inflammatory called Toradol. Take Toradol 10mg, one every 6 hours as needed for pain. Take Zofran 4mg, one every 6 hours as needed for nausea. Take Lortab 5/325, one every 4 hours as needed for severe pain. Problem Qualifiers Primary Impression: Chest pain Chest pain type: unspecified Qualified Codes: R07.9 - Chest pain, unspecified ASHANTI OCHOA MD Dec 06, 2017 21:37
[2017-12-06 21:57] LABS: PLATELET COUNT, AUTOMATED 247 K/uL (150-450)
--- NOTE | 2017-12-06 22:07 | EKG ---
FACILITY: [facility] PATIENT NAME: BRAD ARITA : [id number] MR: [id number] V: [id number] EXAM DATE: ORDERING PHYSICIAN: ASHANTI OCHOA TECHNOLOGIST: JOE Caraballo Reason : Blood Pressure : / mmHG Vent. Rate : 090 BPM Atrial Rate : 090 BPM P-R Int : 138 ms QRS Dur : 084 ms QT Int : 378 ms P-R-T Axes : 050 020 020 degrees QTc Int : 462 ms Sinus rhythm Prolonged QT interval Similar to previous EKGs Confirmed by ELISA RODRIGES ([id number]) on 12/07/2017 6:38:01 AM Referred By: Confirmed By:ELISA RODRIGES
[2017-12-06] MEDS ORDERED: ONDANSETRON 4 MG/2 ML VIAL IVP ONE (22:30)
[2017-12-06] MEDS ORDERED: NS(*) 0.9% 1000 ML BAG 1,000 ML IV ONE (22:30)
[2017-12-06] MEDS ORDERED: MORPHINE 4 MG/ML SDV IVP ONE (22:30)
[2017-12-06] MEDS ORDERED: KETOROLAC 30 MG/ML VIAL IVP ONE (23:15)
--- NOTE | 2017-12-06 23:21 | RADIOLOGY IMAGING REPORT ---
FACILITY: [facility] [place] PATIENT NAME: Alfonzo Villatoro : 1970 MR: [id number] V: [id number] EXAM DATE: ORDERING PHYSICIAN: ASHANTI OCHOA TECHNOLOGIST: Location: [facility] Patient: Alfonzo Villatoro : 1970 Visit/Account:[id number] Date of Sevice: 12/06/2017 ACUTE ABDOMEN SERIES 3 VIEW HISTORY: Chest pain and left-sided abdominal pain. History of [place] in July. COMPARISON: Most recent chest x-ray is 11/04/2017. Most recent abdominal series of 10/27/2016. TECHNIQUE: PA upright view of the chest, AP supine and AP upright views of the abdomen. Chest: There is stable linear scarring or atelectasis at the left lateral lung base. Right lung is cl ear. The cardiac and mediastinal silhouettes are within normal limits. Bones and soft tissues are unr emarkable. Abdomen: The distribution of bowel gas is normal, with bowel in all four quadrants as well as central ly. No free air. No dilated loops of bowel. No acute osseous abnormality. IMPRESSION: 1. No acute cardiopulmonary process. 2. Unremarkable bowel gas pattern without obstruction. Report Dictated By: Jerri Martinez at 12/06/2017 11:15 PM Report E-Signed By: Jerri Martinez at 12/06/2017 11:17 PM WSN:[id number]
[2017-12-07] MEDS ORDERED: ACET/HYDROC 5/325MG TH ER ONLY 2 TAB/BOTTLE PO ONE (00:20)
[2017-12-07] MEDS ORDERED: ONDANSETRON 4 MG ODT TH SL ONE (00:20)
[2017-12-07] MEDS ORDERED: KETOROLAC TROM 10 MG TAB TH PO ONE (00:20)
[2017-12-07] MEDS ORDERED: LOR5/325 PO (00:23)
[2017-12-07] MEDS ORDERED: ONDA4TAB PO (00:23)
[2017-12-07] MEDS ORDERED: KET10 PO (00:23)
[2017-12-07 00:35] VITALS: BP 148/85
[2017-12-08] MEDS ORDERED: LOR5/325 PO (20:34)
[2017-12-08] MEDS ORDERED: PROM-110 PO (20:34)
== END 2017-12-07 00:32 | disposition home or self-care (01) ==
LOC: ER 21:38
DX: B34.9 Viral infection, unspecified (principal); R07.9 Chest pain, unspecified; I25.10 Atherosclerotic heart disease of native coronary artery without angina pectoris; I25.2 Old myocardial infarction; F17.200 Nicotine dependence, unspecified, uncomplicated; Z79.82 Long term (current) use of aspirin; Z79.899 Other long term (current) drug therapy
CPT/HCPCS: 74022; 84484; 85025; 93005; 96374; 96375; 99284; J1885; J2270; J2405; J7030; Q0162; 82040; 82247; 82310; 82374; 82435; 82565; 82947; 84075; 84132; 84155; 84295; 84450; 84460; 84520; S0119

== ENCOUNTER 2017-12-08 18:03 | Emergency (ER) | payer MEDICARE ==
[~2017-12-08 18:03] MED LIST changes: +KET10 PO; +LOR5/325 PO
--- NOTE | 2017-12-08 18:15 | ER Report ---
History and Physical Time Seen By MD: 18:14 Hx. of Stated Complaint: PT REPORTS L SIDED CHEST PAIN, SHOULDER AND HEAD, NAUSEA HPI/ROS CHIEF COMPLAINT: chest pain, headache HISTORY OF PRESENT ILLNESS: This is a 47 year old male. He was seen two nights ago here in the ER on my shift. I diagnosed him with a viral syndrome. He continues to have some chest pressure, dizziness, mild cough, and some diarrhea with some upset stomach. Developed a headache and the chest pressure remains. We had him taking Toradol and Zofran. The medicines have not been helping much. He has no further abdominal pain. Headache is in the temples and around the back of the head/neck area. Pain in the shoulders as well. Allergies: Uncoded Allergies: mayonnaise (Allergy, Unknown, 03/26/17) Home Meds Active Scripts Promethazine Hcl (PROMETHAZINE HCL) 25 Mg Tablet, 25 MG PO Q8H Y for NAUSEA/ VOMITING, #20 TAB 0 Refills Prov:ASHANTI OCHOA MD 12/08/17 Hydrocodone Bit/Acetaminophen (HYDROCODON-ACETAMINOPHEN 5-325) 1 Each Tablet, 1 EACH PO Q4H Y for PAIN, #12 TAB 0 Refills Prov:ASHANTI OCHOA MD 12/08/17 Ondansetron (ZOFRAN ODT) 4 Mg Tab.rapdis, 4 MG PO Q6H Y for NAUSEA/VOMITING, # 20 TAB.PERRY 0 Refills Prov:ASHANTI OCHOA MD 12/07/17 Ketorolac Tromethamine (KETOROLAC TROMETHAMINE) 10 Mg Tab, 10 MG PO Q6H Y for PAIN, #12 TAB 0 Refills Prov:ASHANTI OCHOA MD 12/07/17 Hydrocodone Bit/Acetaminophen (HYDROCODON-ACETAMINOPHEN 5-325) 1 Each Tablet, 1 EACH PO Q4H Y for PAIN, #12 TAB 0 Refills Prov:ASHANTI OCHOA MD 12/07/17 Hydrocodone Bit/Acetaminophen (HYDROCODON-ACETAMINOPHEN 5-325) 1 Each Tablet, 1- 2 TAB PO BID Y for PAIN, #120 TAB 0 Refills Prov:SP CID MD 11/15/17 Gabapentin (GABAPENTIN) 300 Mg Capsule, 1 CAP PO TID, #90 CAPSULE 0 Refills Start 300 mg by mouth daily x1 day. Then 300 mg by mouth twice daily x1 day. Then 300 mg by mouth three times daily. Prov:STEVE PEREZ DNP [facility] 11/06/17 Metoprolol Tartrate (METOPROLOL TARTRATE) 100 Mg Tablet, 1 TAB PO BID for 90 Days, #180 TAB 1 Refill Prov:CHRISSTEVE HUNTER DNP [facility] 10/15/17 Lisinopril (LISINOPRIL) 20 Mg Tablet, 1 TAB PO QDAY, #90 TAB 2 Refills Prov:STEVE PEREZ DNP [facility] 09/27/17 Buspirone Hcl (BUSPIRONE HCL) 10 Mg Tablet, 1 TAB PO Q8H, #90 TAB 5 Refills Prov:STEVE PEREZ DNP [facility] 09/07/17 Diclofenac Sodium 1% Gel (VOLTAREN 1% GEL) 100 Gm Gel..gram., 4 G TOP QID Y for PAIN, #1 TUB 3 Refills Prov:STEVE PEREZ DNP [facility] 07/16/17 Citalopram Hydrobromide (CITALOPRAM HBR) 40 Mg Tablet, 1 TAB PO QDAY for 90 Days , #90 TAB 3 Refills Prov:STEVE PEREZ DNP [facility] 07/16/17 Reported Medications Atorvastatin Calcium (LIPITOR) 40 Mg Tablet, 1 TAB PO QDAY, TAB 08/04/17 Nitroglycerin (NITROGLYCERIN) 0.4 Mg Tab.subl, 0.4 MG SL Q5MIN 08/04/17 Clopidogrel Bisulfate (PLAVIX) 75 Mg Tablet, 1 TAB PO QDAY, TAB 08/04/17 Ranitidine Hcl (ZANTAC) 150 Mg Tablet, 1 TAB PO BID, TAB 03/26/17 Amlodipine Besylate (AMLODIPINE BESYLATE) 10 Mg Tablet, 1 TAB PO QDAY, TAB 03/22/17 Aspirin (ASPIR 81) 81 Mg Tablet.dr, 81 MG PO QDAY, TAB 03/13/16 Reviewed Nurses Notes: Yes Hx Smoking: Yes (1/2 ppd) Smoking Status: Current: Every Day Smoker Hx Substance Use Disorder: Yes Hx Alcohol Use: Yes Constitutional Vital Sign - Last 24 Hours 12/08/17 12/08/17 12/08/17 12/08/17 18:03 18:08 18:18 18:30 Temp 97.8 Pulse 78 80 Resp 18 14 B/P (MAP) 130/92 130/92 (105) 135/82 (99) Pulse Ox 98 98 O2 Delivery Room Air 12/08/17 12/08/17 12/08/17 12/08/17 18:33 18:45 18:45 18:48 Pulse 74 77 77 75 Resp 16 12 12 8 Pulse Ox 96 98 98 95 12/08/17 12/08/17 12/08/17 12/08/17 19:00 19:00 19:30 19:45 Pulse 72 72 72 70 Resp 7 7 6 8 B/P (MAP) 144/87 (106) 144/87 123/99 Pulse Ox 93 93 94 96 12/08/17 12/08/17 12/08/17 12/08/17 20:00 20:15 20:30 20:45 Pulse 69 70 69 64 Resp 8 12 12 13 B/P (MAP) 133/87 133/80 Pulse Ox 94 96 94 96 12/08/17 20:49 Pulse 85 Resp 16 B/P (MAP) 133/80 (97) Pulse Ox 95 O2 Delivery Room Air Physical Exam General Appearance: The patient is alert. No acute distress. Eyes: Pupils are equal, round. No pallor, injection or icterus. ENT: Mucous membranes are moist. Normal oral mucosa. Posterior oropharynx is normal. Neck: Supple and non tender. No lymphadenopathy. Respiratory: Lungs are clear to auscultation. Cardiovascular: Regular rate and rhythm. No murmurs, gallops or rubs. Normal capillary refill. Gastrointestinal: Abdomen is soft and non tender. Nondistended. Normal active bowel sounds. Neurological: Alert and oriented x3. Skin: Warm and dry. Musculoskeletal: Reproducible discomfort with palpation of neck and base of skull. Some paraspinous muscle pain. Some pain in the shoulders/trapezius area. DIFFERENTIAL DIAGNOSIS: After history and physical exam, differential diagnosis was considered for patient with continued chest pain, appears still likely to be viral syndrome given the multiple problems he is having, now with headache and pain in the neck and shoulder areas as well. Medical Decision Making Data Points Result Diagram: 12/08/172 12/08/17 1812 Laboratory Hematology Test 12/08/17 18:12 Red Blood Count 5.88 M/uL (4.00-5.60) Mean Corpuscular Volume 83.9 fL (80.0-96.0) Mean Corpuscular Hemoglobin 29.3 pg (26.0-33.0) Mean Corpuscular Hemoglobin Concent 34.9 g/dL (32.0-36.0) Red Cell Distribution Width 15.6 % (11.5-14.5) Mean Platelet Volume 8.2 fL (7.2-11.1) Neutrophils (%) (Auto) 69.6 % (39.4-72.5) Lymphocytes (%) (Auto) 25.7 % (17.6-49.6) Monocytes (%) (Auto) 4.4 % (4.1-12.4) Eosinophils (%) (Auto) 0.1 % (0.4-6.7) Basophils (%) (Auto) 0.2 % (0.3-1.4) Nucleated RBC Relative Count (auto) 0.0 /100WBC Neutrophils # (Auto) 7.9 K/uL (2.0-7.4) Lymphocytes # (Auto) 2.9 K/uL (1.3-3.6) Monocytes # (Auto) 0.5 K/uL (0.3-1.0) Eosinophils # (Auto) 0.0 K/uL (0.0-0.5) Basophils # (Auto) 0.0 K/uL (0.0-0.1) Nucleated RBC Absolute Count (auto) 0.00 K/uL Erythrocyte Sedimentation Rate 19 mm/HOUR (0-15) D-Dimer Quantitative (PE/DVT) 0.32 ug/ml (0-0.50) Sodium Level 137 mmol/L (137-145) Potassium Level 3.3 mmol/L (3.5-5.0) Chloride Level 98 mmol/L (98-107) Carbon Dioxide Level 28 mmol/L (22-30) Blood Urea Nitrogen 21 mg/dl (9-21) Creatinine 1.00 mg/dl (0.66-1.25) Glomerular Filtration Rate Calc > 60.0 Random Glucose 128 mg/dl (75-110) Calcium Level 9.5 mg/dl (8.4-10.2) Total Bilirubin 0.5 mg/dl (0.2-1.3) Aspartate Amino Transf (AST/SGOT) 64 U/L (0-35) Alanine Aminotransferase (ALT/SGPT) 100 U/L (0-56) Alkaline Phosphatase 121 U/L (0-126) Troponin I < 0.012 ng/ml C-Reactive Protein < 0.5 mg/dl (<1.0) B-Type Natriuretic Peptide 106 pg/ml (0-100) Total Protein 8.0 g/dl (6.3-8.2) Albumin 4.6 g/dl (3.5-5.0) Chemistry Test 12/08/17 18:12 White Blood Count 11.4 k/uL (4.5-11.0) Red Blood Count 5.88 M/uL (4.00-5.60) Hemoglobin 17.2 g/dL (14.0-18.0) Hematocrit 49.4 % (42.0-52.0) Mean Corpuscular Volume 83.9 fL (80.0-96.0) Mean Corpuscular Hemoglobin 29.3 pg (26.0-33.0) Mean Corpuscular Hemoglobin Concent 34.9 g/dL (32.0-36.0) Red Cell Distribution Width 15.6 % (11.5-14.5) Platelet Count 275 K/uL (150-450) Mean Platelet Volume 8.2 fL (7.2-11.1) Neutrophils (%) (Auto) 69.6 % (39.4-72.5) Lymphocytes (%) (Auto) 25.7 % (17.6-49.6) Monocytes (%) (Auto) 4.4 % (4.1-12.4) Eosinophils (%) (Auto) 0.1 % (0.4-6.7) Basophils (%) (Auto) 0.2 % (0.3-1.4) Nucleated RBC Relative Count (auto) 0.0 /100WBC Neutrophils # (Auto) 7.9 K/uL (2.0-7.4) Lymphocytes # (Auto) 2.9 K/uL (1.3-3.6) Monocytes # (Auto) 0.5 K/uL (0.3-1.0) Eosinophils # (Auto) 0.0 K/uL (0.0-0.5) Basophils # (Auto) 0.0 K/uL (0.0-0.1) Nucleated RBC Absolute Count (auto) 0.00 K/uL Erythrocyte Sedimentation Rate 19 mm/HOUR (0-15) D-Dimer Quantitative (PE/DVT) 0.32 ug/ml (0-0.50) Glomerular Filtration Rate Calc > 60.0 Calcium Level 9.5 mg/dl (8.4-10.2) Total Bilirubin 0.5 mg/dl (0.2-1.3) Aspartate Amino Transf (AST/SGOT) 64 U/L (0-35) Alanine Aminotransferase (ALT/SGPT) 100 U/L (0-56) Alkaline Phosphatase 121 U/L (0-126) Troponin I < 0.012 ng/ml C-Reactive Protein < 0.5 mg/dl (<1.0) B-Type Natriuretic Peptide 106 pg/ml (0-100) Total Protein 8.0 g/dl (6.3-8.2) Albumin 4.6 g/dl (3.5-5.0) Coagulation Test 12/08/17 18:12 D-Dimer Quantitative (PE/DVT) 0.32 ug/ml EKG/Imaging EKG Interpretation 12 lead EKG: Rhythm: normal sinus rhythm, rate 73 [place]: normal QRS: normal ST segments: normal Imaging EXAMINATION: Head CT without intravenous contrast HISTORY: Dizziness, headache, chest pain. COMPARISON: None. TECHNIQUE: Contiguous axial images were obtained from the skull base to the vertex without intravenous contrast. Sagittal and coronal reformatted images are also submitted. One of the following dose optimization techniques was utilized in the performance of this exam: Automated exposure control; adjustment of the mA and/ or kV according to the patient's size; or use of an iterative reconstruction technique. Specific details can be referenced in the facility's radiology CT exam operational policy. FINDINGS: Brain and intracranial structures: Ventricles, sulci, and cisterns are normal in size. Weinstein-white matter differentiation is maintained. No midline shift, acute hemorrhage, acute infarct, or mass. Calvarium / scalp: Negative. Skull base / visualized face: Leftward deviation of the anterior nasal septum. Visualized sinuses / orbits: Negative. IMPRESSION: No acute intracranial abnormality. Report Dictated By: Juarez Bell MD at 12/08/2017 7:34 PM EXAMINATION: Chest radiographs 2 views HISTORY: Dizziness, headache, chest pain. COMPARISON: 11/04/2017. FINDINGS: PA and lateral views of the chest are submitted. Lines/tubes: Coronary artery stent. Lungs/pleura: No focal consolidation or pleural effusion. Pulmonary vascularity is within normal limits. No evidence of pneumothorax. Heart: Normal heart size. Mediastinum: Negative. Bony structures/body wall: Chronic healed fracture deformity of the right seventh rib. IMPRESSION: No radiographic evidence of acute cardiopulmonary disease. Report Dictated By: Juarez Bell MD at 12/08/2017 7:58 PM ED Course/Re-evaluation Clinical Indication for ER IV: Hydration, IV Access ED Course Minimal improvement in the headache and shoulder pain with morphine 4 mg IV. Nausea improved with Phenergan 12.5 mg IV. He received a liter of normal saline. Head CT and chest x-ray negative. Labs unremarkable. Still feel this is viral syndrome. Conservative management. We'll send him home with some Lortab and Phenergan in addition to Toradol and Zofran Simmons. Decision to Disposition Date: Dec 08, 2017 Decision to Disposition Time: 20:32 Depart Departure Latest Vital Signs Vital Signs Date Time Temp Pulse Resp B/P (MAP) Pulse Ox O2 Delivery O2 Flow Rate FiO2 12/08/17 20:49 85 16 133/80 (97) 95 Room Air 12/08/17 18:03 97.8 Impression: Primary Impression: Viral syndrome Additional Impression: Headache Condition: Improved Disposition: HOME OR SELF-CARE Referrals: STEVE PEREZ DNP, [employer] (PCP) New Scripts Promethazine Hcl (PROMETHAZINE HCL) 25 Mg Tablet 25 MG PO Q8H Y for NAUSEA/VOMITING, #20 TAB 0 Refills Prov: ASHANTI OCHOA MD 12/08/17 Hydrocodone Bit/Acetaminophen (HYDROCODON-ACETAMINOPHEN 5-325) 1 Each Tablet 1 EACH PO Q4H Y for PAIN, #12 TAB 0 Refills Prov: ASHANTI OCHOA MD 12/08/17 Patient Instructions: Acute Headache (ED), Viral Syndrome (ED) Additional Instructions: Rest and increase fluid intake for the next few days. You can still use the Zofran and Toradol given at the ER the other night. Lortab 5/325, one every 4 hours as needed for pain. Phenergan 25 mg, one every 6 hours as needed for nausea or headache pain. Problem Qualifiers Additional Impression: Headache Headache type: unspecified Headache chronicity pattern: acute headache Intractability: not intractable Qualified Codes: R51 - Headache ASHANTI OCHOA MD Dec 08, 2017 18:15
[2017-12-08] MEDS ORDERED: MORPHINE 4 MG/ML SDV IVP ONE (18:25)
[2017-12-08] MEDS ORDERED: NS(*) 0.9% 1000 ML BAG 1,000 ML IV ONE (18:25)
[2017-12-08] MEDS ORDERED: PROMETHAZINE 25 MG/ML 1 ML AMP IVP ONE (18:25)
--- NOTE | 2017-12-08 18:31 | EKG ---
FACILITY: [facility] PATIENT NAME: BRAD ARITA : [id number] MR: [id number] V: [id number] EXAM DATE: ORDERING PHYSICIAN: ASHANTI OCHOA TECHNOLOGIST: MARY Caraballo Reason : CHEST PAIN Blood Pressure : / mmHG Vent. Rate : 073 BPM Atrial Rate : 073 BPM P-R Int : 126 ms QRS Dur : 080 ms QT Int : 410 ms P-R-T Axes : 053 029 032 degrees QTc Int : 451 ms Normal sinus rhythm Normal ECG When compared with ECG of 06-DEC-2017 21:44, Previous ECG has undetermined rhythm, needs review Confirmed by EVETTE LEON ([id number]) on 12/09/2017 6:36:31 AM Referred By: DON Confirmed By:EVETTE LEON
[2017-12-08 18:41] LABS: PLATELET COUNT, AUTOMATED 275 K/uL (150-450)
--- NOTE | 2017-12-08 19:42 | RADIOLOGY IMAGING REPORT ---
FACILITY: [facility] [place] PATIENT NAME: Alfonzo Villatoro : 1970 MR: [id number] V: [id number] EXAM DATE: ORDERING PHYSICIAN: ASHANTI OCHOA TECHNOLOGIST: Location: [facility] Patient: Alfonzo Villatoro : 1970 Visit/Account:[id number] Date of Sevice: 12/08/2017 EXAMINATION: Head CT without intravenous contrast HISTORY: Dizziness, headache, chest pain. COMPARISON: None. TECHNIQUE: Contiguous axial images were obtained from the skull base to the vertex without intraven ous contrast. Sagittal and coronal reformatted images are also submitted. One of the following dose optimization techniques was utilized in the performance of this exam: Autom ated exposure control; adjustment of the mA and/or kV according to the patient's size; or use of an i terative reconstruction technique. Specific details can be referenced in the facility's radiology C T exam operational policy. FINDINGS: Brain and intracranial structures: Ventricles, sulci, and cisterns are normal in size. Weinstein-white ma tter differentiation is maintained. No midline shift, acute hemorrhage, acute infarct, or mass. Calvarium / scalp: Negative. Skull base / visualized face: Leftward deviation of the anterior nasal septum. Visualized sinuses / orbits: Negative. IMPRESSION: No acute intracranial abnormality. Report Dictated By: Juarez Bell MD at 12/08/2017 7:34 PM Report E-Signed By: Juarez Bell MD at 12/08/2017 7:39 PM WSN:[id number]
--- NOTE | 2017-12-08 20:03 | RADIOLOGY IMAGING REPORT ---
FACILITY: [facility] PATIENT NAME: Alfonzo Villatoro : 1970 MR: [id number] V: [id number] EXAM DATE: ORDERING PHYSICIAN: ASHANTI OCHOA TECHNOLOGIST: Location: [facility] [place] Patient: Alfonzo Villatoro : 1970 Visit/Account:[id number] Date of Sevice: 12/08/2017 EXAMINATION: Chest radiographs 2 views HISTORY: Dizziness, headache, chest pain. COMPARISON: 11/04/2017. FINDINGS: PA and lateral views of the chest are submitted. Lines/tubes: Coronary artery stent. Lungs/pleura: No focal consolidation or pleural effusion. Pulmonary vascularity is within normal patel its. No evidence of pneumothorax. Heart: Normal heart size. Mediastinum: Negative. Bony structures/body wall: Chronic healed fracture deformity of the right seventh rib. IMPRESSION: No radiographic evidence of acute cardiopulmonary disease. Report Dictated By: Juarez Bell MD at 12/08/2017 7:58 PM Report E-Signed By: Juarez Bell MD at 12/08/2017 8:00 PM WSN:[id number]
[2017-12-08] MEDS ORDERED: APAP/HYDROCODONE 325/5 TAB PO ONE (20:30)
[2017-12-08] MEDS ORDERED: LOR5/325 PO (20:34)
[2017-12-08] MEDS ORDERED: PROM-110 PO (20:34)
[2017-12-08] MEDS ORDERED: ACET/HYDROC 5/325MG TH ER ONLY 2 TAB/BOTTLE PO ONE (20:35)
[2017-12-08] MEDS ORDERED: PROMETHAZINE HCL 25 MG TAB TH 2 TAB/BOTTLE PO ONE (20:35)
[2017-12-08 20:49] VITALS: BP 133/80
== END 2017-12-08 21:02 | disposition home or self-care (01) ==
LOC: ER 18:14
DX: B34.9 Viral infection, unspecified (principal); R51 Headache; F17.210 Nicotine dependence, cigarettes, uncomplicated; R07.9 Chest pain, unspecified
CPT/HCPCS: 70450; 71046; 83880; 84484; 85025; 85379; 85651; 86140; 93005; 96361; 96374; 96375; 99284; A9270; J2270; J2550; J7030; 82040; 82247; 82310; 82374; 82435; 82565; 82947; 84075; 84132; 84155; 84295; 84450; 84460; 84520

== ENCOUNTER → 2017-12-12 | Outpatient (CLI) | payer MEDICARE | LOC: LAB 14:27 | PROVIDERS: ATTEND Nurse Practitioner Primary Care | DX: R73.01 Impaired fasting glucose (principal) | CPT/HCPCS: 36415; 83036 ==

== ENCOUNTER 2017-12-17 16:53 | Emergency (ER) | payer MEDICARE ==
[2017-12-17 16:59] VITALS: BP 103/81
--- NOTE | 2017-12-17 17:04 | ER Report ---
History and Physical Time Seen By MD: 17:05 Hx. of Stated Complaint: CHEST PAIN AND SHORTNESS OF BREATH FOR LAST COUPLE OF HOURS HPI/ROS CHIEF COMPLAINT: Chest pain HISTORY OF PRESENT ILLNESS: This is a 47-year-old male with a known history of CAD and MIs presents to the emergency department for chest pain. Patient states that he had cardiac rehabilitation this morning which went well, the only difference that he noticed today was he walked 15 laps around the small track in the cardiac rehabilitation Center other net nothing new. Patient states he felt fine after this. Then approximately 2 hours prior to arrival he began to have some left-sided anterior chest pain, the pain is now radiating to his left back. He did have some nausea no vomiting. No visual changes. Patient states he does have some diarrhea. No recent fevers or chills. No headaches. No shortness of breath. REVIEW OF SYSTEMS: Constitutional: No fever, no chills. Eyes: No discharge. ENT: No sore throat. Cardiovascular: As above. Respiratory: No cough, no shortness of breath. Gastrointestinal: No abdominal pain, no vomiting. Genitourinary: No hematuria. Musculoskeletal: No back pain. Skin: No rashes. Neurological: No headache. Allergies: Uncoded Allergies: raghavaise (Allergy, Unknown, 03/26/17) Home Meds Active Scripts Hydrocodone Bit/Acetaminophen (HYDROCODON-ACETAMINOPHEN 5-325) 1 Each Tablet, 1- 2 TAB PO BID PRN for PAIN, #120 TAB 0 Refills Prov:STEVE PEREZ DNP, FNP-BC 12/12/17 Metoprolol Tartrate (METOPROLOL TARTRATE) 100 Mg Tablet, 1 TAB PO BID for 90 Days, #180 TAB 1 Refill Prov:STEVE PEREZ DNP, FNP-BC 10/15/17 Lisinopril (LISINOPRIL) 20 Mg Tablet, 1 TAB PO QDAY, #90 TAB 2 Refills Prov:STEVE PEREZ DNP, FNP-BC 09/27/17 Buspirone Hcl (BUSPIRONE HCL) 10 Mg Tablet, 1 TAB PO Q8H, #90 TAB 5 Refills Prov:STEVE PEREZ DNP, FNP-BC 09/07/17 Diclofenac Sodium 1% Gel (VOLTAREN 1% GEL) 100 Gm Gel..gram., 4 G TOP QID PRN for PAIN, #1 TUB 3 Refills Prov:STEVE PEREZ DNP, FNP-BC 07/16/17 Citalopram Hydrobromide (CITALOPRAM HBR) 40 Mg Tablet, 1 TAB PO QDAY for 90 Days, #90 TAB 3 Refills Prov:STEVE PEREZ DNP, FNP-BC 07/16/17 Reported Medications Atorvastatin Calcium (LIPITOR) 40 Mg Tablet, 1 TAB PO QDAY, TAB 08/04/17 Nitroglycerin (NITROGLYCERIN) 0.4 Mg Tab.subl, 0.4 MG SL Q5MIN 08/04/17 Clopidogrel Bisulfate (PLAVIX) 75 Mg Tablet, 1 TAB PO QDAY, TAB 08/04/17 Ranitidine Hcl (ZANTAC) 150 Mg Tablet, 1 TAB PO BID, TAB 03/26/17 Amlodipine Besylate (AMLODIPINE BESYLATE) 10 Mg Tablet, 1 TAB PO QDAY, TAB 03/22/17 Aspirin (ASPIR 81) 81 Mg Tablet.dr, 81 MG PO QDAY, TAB 03/13/16 Discontinued Scripts Promethazine Hcl (PROMETHAZINE HCL) 25 Mg Tablet, 25 MG PO Q8H PRN for NAUSEA/VOMITING, #20 TAB 0 Refills Prov:ASHANTI OCHOA MD 12/08/17 Ondansetron (ZOFRAN ODT) 4 Mg Tab.rapdis, 4 MG PO Q6H PRN for NAUSEA/VOMITING, #20 TAB.PERRY 0 Refills Prov:ASHANTI OCHOA MD 12/07/17 Ketorolac Tromethamine (KETOROLAC TROMETHAMINE) 10 Mg Tab, 10 MG PO Q6H PRN for PAIN, #12 TAB 0 Refills Prov:ASHANTI OCHOA MD 12/07/17 Hydrocodone Bit/Acetaminophen (HYDROCODON-ACETAMINOPHEN 5-325) 1 Each Tablet, 1 EACH PO Q4H PRN for PAIN, #12 TAB 0 Refills Prov:ASHANTI OCHOA MD 12/07/17 Gabapentin (GABAPENTIN) 300 Mg Capsule, 1 CAP PO TID, #90 CAPSULE 0 Refills Start 300 mg by mouth daily x1 day. Then 300 mg by mouth twice daily x1 day. Then 300 mg by mouth three times daily. Prov:STEVE PEREZ DNP, FNP- 11/06/17 Past Medical/Surgical History The patient has a past medical and surgical history of 5 cardiac stents, heart attack, angina, hypertension, hypercholesterolemia, GERD, restless leg syndrome, arthritis, left knee fracture, multiple missing teeth, depression, anxiety and p anic disorder, Reviewed Nurses Notes: Yes Hx Smoking: Yes (1/2 ppd) Smoking Status: Current: Every Day Smoker Hx Substance Use Disorder: Yes Hx Alcohol Use: Yes Constitutional Vital Sign - Last 24 Hours 12/17/17 16:59 Temp 98.2 Pulse 85 Resp 16 B/P (MAP) 103/81 Pulse Ox 95 Physical Exam General Appearance: The patient is alert, has no immediate need for airway protection and no signs of toxicity. Eyes: Pupils equal and round no pallor or injection. ENT, Mouth: Mucous membranes are dry. Respiratory: There are no retractions, lungs are clear to auscultation. Cardiovascular: Regular rate and rhythm, no murmurs, clicks or rubs. Gastrointestinal: Abdomen is soft and non tender, no masses, bowel sounds normal. Neurological: Alert and oriented 4. Moving all extremities. Following all commands. No focal neuro deficits. Skin: Warm and dry, no rashes. Musculoskeletal: Neck is supple non tender. Extremities are nontender, nonswollen and have full range of motion. DIFFERENTIAL DIAGNOSIS: After history and physical exam differential diagnosis was considered for chest pain including but not limited to myocardial ischemia, pericarditis pulmonary embolus, chest wall pain, pleural inflammation and pulmonary infectious causes. Medical Decision Making Data Points Result Diagram: 12/17/17 1700 12/17/17 1700 Laboratory Hematology Test 12/17/17 17:00 12/17/17 20:22 Red Blood Count 5.19 M/uL (4.00-5.60) Mean Corpuscular Volume 85.2 fL (80.0-96.0) Mean Corpuscular Hemoglobin 29.8 pg (26.0-33.0) Mean Corpuscular Hemoglobin Concent 34.9 g/dL (32.0-36.0) Red Cell Distribution Width 16.1 % (11.5-14.5) Mean Platelet Volume 8.1 fL (7.2-11.1) Neutrophils (%) (Auto) 49.6 % (39.4-72.5) Lymphocytes (%) (Auto) 40.0 % (17.6-49.6) Monocytes (%) (Auto) 9.0 % (4.1-12.4) Eosinophils (%) (Auto) 0.9 % (0.4-6.7) Basophils (%) (Auto) 0.5 % (0.3-1.4) Nucleated RBC Relative Count (auto) 0.1 /100WBC Neutrophils # (Auto) 4.3 K/uL (2.0-7.4) Lymphocytes # (Auto) 3.5 K/uL (1.3-3.6) Monocytes # (Auto) 0.8 K/uL (0.3-1.0) Eosinophils # (Auto) 0.1 K/uL (0.0-0.5) Basophils # (Auto) 0.0 K/uL (0.0-0.1) Nucleated RBC Absolute Count (auto) 0.01 K/uL Sodium Level 139 mmol/L (137-145) Potassium Level 3.5 mmol/L (3.5-5.0) Chloride Level 106 mmol/L (98-107) Carbon Dioxide Level 22 mmol/L (22-30) Blood Urea Nitrogen 24 mg/dl (9-21) Creatinine 1.30 mg/dl (0.66-1.25) Glomerular Filtration Rate Calc 58.7 Random Glucose 99 mg/dl (75-110) Calcium Level 9.0 mg/dl (8.4-10.2) Total Bilirubin 0.4 mg/dl (0.2-1.3) Aspartate Amino Transf (AST/SGOT) 38 U/L (0-35) Alanine Aminotransferase (ALT/SGPT) 56 U/L (0-56) Alkaline Phosphatase 117 U/L (0-126) Total Protein 7.2 g/dl (6.3-8.2) Albumin 4.3 g/dl (3.5-5.0) Troponin I < 0.012 ng/ml Chemistry Test 12/17/17 17:00 12/17/17 20:22 White Blood Count 8.6 k/uL (4.5-11.0) Red Blood Count 5.19 M/uL (4.00-5.60) Hemoglobin 15.4 g/dL (14.0-18.0) Hematocrit 44.2 % (42.0-52.0) Mean Corpuscular Volume 85.2 fL (80.0-96.0) Mean Corpuscular Hemoglobin 29.8 pg (26.0-33.0) Mean Corpuscular Hemoglobin Concent 34.9 g/dL (32.0-36.0) Red Cell Distribution Width 16.1 % (11.5-14.5) Platelet Count 222 K/uL (150-450) Mean Platelet Volume 8.1 fL (7.2-11.1) Neutrophils (%) (Auto) 49.6 % (39.4-72.5) Lymphocytes (%) (Auto) 40.0 % (17.6-49.6) Monocytes (%) (Auto) 9.0 % (4.1-12.4) Eosinophils (%) (Auto) 0.9 % (0.4-6.7) Basophils (%) (Auto) 0.5 % (0.3-1.4) Nucleated RBC Relative Count (auto) 0.1 /100WBC Neutrophils # (Auto) 4.3 K/uL (2.0-7.4) Lymphocytes # (Auto) 3.5 K/uL (1.3-3.6) Monocytes # (Auto) 0.8 K/uL (0.3-1.0) Eosinophils # (Auto) 0.1 K/uL (0.0-0.5) Basophils # (Auto) 0.0 K/uL (0.0-0.1) Nucleated RBC Absolute Count (auto) 0.01 K/uL Glomerular Filtration Rate Calc 58.7 Calcium Level 9.0 mg/dl (8.4-10.2) Total Bilirubin 0.4 mg/dl (0.2-1.3) Aspartate Amino Transf (AST/SGOT) 38 U/L (0-35) Alanine Aminotransferase (ALT/SGPT) 56 U/L (0-56) Alkaline Phosphatase 117 U/L (0-126) Total Protein 7.2 g/dl (6.3-8.2) Albumin 4.3 g/dl (3.5-5.0) Troponin I < 0.012 ng/ml EKG/Imaging EKG Interpretation 12 lead EKG: Time of EKG 170. Rhythm: Sinus rhythm, ventricular rate 82bpm. Roby: normal QRS: normal ST segments: No ST elevation or depression identified. No significant changes from the 12/09/1999 12 lead EKG: Time of repeat EKG 2014. Rhythm: Sinus bradycardia, ventricular rate 57 bpm. Roby: normal QRS: normal ST segments: No ST depression or elevation identified however slightly different morphology and aVL and aVF, aVL showing flattened T waves, aVF showing more pronounced T-wave, no signs of ischemia. Imaging Location: [facility] - [place], [place] Patient: Alfonzo Villatoro : 1970 Visit/Account:[id number] Date of Sevice: 12/17/2017 Technique: CHEST PA AND LAT HISTORY: Chest Pain COMPARISON: Chest radiographs December 08, 2017 Findings: The lungs are clear. No pleural effusion or pneumothorax. The cardiomediastinal silhouette is unchanged. Impression: 1. No acute cardiopulmonary process. Report Dictated By: Jorge Laurent DO at 12/17/2017 6:19 PM Report E-Signed By: Jorge Laurent DO at 12/17/2017 6:20 PM [id number] ED Course/Re-evaluation Clinical Indication for ER IV: Hydration, IV Access ED Course The patient was admitted to room. A history physical obtained. Differential diagnoses were considered. IV was started. A CBC, CMP, troponin were obtained. CBC unremarkable, chemistry showing BUN 24, creatinine 1.30. 1st troponin negative. The creatinine has been elevated beyond 1.30 previously. Patient was given a 500 mL normal saline bolus. I did review the lab results with the patient. Two-view chest x-ray showing no acute cardiopulmonary process. The repeat troponin was negative, repeat EKG unchanged other than fine T waves in aVL, more pronounced T-wave in aVF however no signs of ischemia. I did review these results with the patient and his . Patient was relieved. Patient states the pain has resolved. Patient denies any other needs at this time. I did tell the patient that he does need to keep his follow-up appointment with his matcher offbearer and also talked to cardiac rehabilitation this week about the number of lapse he is currently walking. Patient expressed understanding and was discharged home. Decision to Disposition Date: Dec 17, 2017 Decision to Disposition Time: 21:04 Depart Departure Latest Vital Signs Vital Signs Date Time Temp Pulse Resp B/P (MAP) Pulse Ox O2 Delivery O2 Flow Rate FiO2 12/17/17 16:59 98.2 85 16 103/81 95 Impression: Primary Impression: Chest pain Condition: Improved Disposition: HOME OR SELF-CARE Referrals: STEVE PEREZ DNP, EDITORIAL WRITER- (PCP) Patient Instructions: Chest Pain (ED) Additional Instructions: Continue taking your current medications. Follow-up with your matcher offbearer as scheduled. Follow-up with your primary care provider as scheduled. Drink plenty of water. Get plenty of rest. Return to the emergency department for any concerns or worsening symptoms. Problem Qualifiers Primary Impression: Chest pain Chest pain type: unspecified Qualified Codes: R07.9 - Chest pain, unspecified RUTH RIVERA EDITORIAL WRITER- Dec 17, 2017 17:05
[2017-12-17] MEDS ORDERED: NS(*) 0.9% 500 ML BAG 500 ML IV ONE (17:12)
[2017-12-17] MEDS ORDERED: ONDANSETRON 4 MG/2 ML VIAL IVP ONE (17:15)
[2017-12-17] MEDS ORDERED: NITROGLYCERIN OINT 1 GM PKT TP ONE (17:15)
[2017-12-17] MEDS ORDERED: ASPIRIN 81 MG CHEW PO ONE (17:15)
--- NOTE | 2017-12-17 17:36 | EKG ---
FACILITY: [facility] [place] PATIENT NAME: BRAD ARITA : [id number] MR: [id number] V: [id number] EXAM DATE: ORDERING PHYSICIAN: RUTH RIVERA TECHNOLOGIST: DONAVON Test Reason : CHEST PAIN Blood Pressure : / mmHG Vent. Rate : 082 BPM Atrial Rate : 082 BPM P-R Int : 130 ms QRS Dur : 080 ms QT Int : 388 ms P-R-T Axes : 057 029 023 degrees QTc Int : 453 ms Normal sinus rhythm ST abnormality, possible digitalis effect Abnormal ECG When compared with ECG of 08-DEC-2017 18:06, No significant change was found Confirmed by Roger Nava ([id number]) on 12/18/2017 7:44:56 AM Referred By: MODE Confirmed By:Roger Ventura
[2017-12-17 17:48] LABS: PLATELET COUNT, AUTOMATED 222 K/uL (150-450)
[2017-12-17] MEDS ORDERED: MORPHINE 4 MG/ML SDV IVP ONE (18:10)
--- NOTE | 2017-12-17 18:23 | RADIOLOGY IMAGING REPORT ---
FACILITY: [facility] [place] PATIENT NAME: Alfonzo Villatoro : 1970 MR: [id number] V: [id number] EXAM DATE: ORDERING PHYSICIAN: RUTH RIVERA TECHNOLOGIST: Location: [facility] Patient: lAfonzo Villatoro : 1970 Visit/Account:[id number] Date of Sevice: 12/17/2017 Technique: CHEST PA AND LAT HISTORY: Chest Pain COMPARISON: Chest radiographs December 08, 2017 Findings: The lungs are clear. No pleural effusion or pneumothorax. The cardiomediastinal silhouett e is unchanged. Impression: 1. No acute cardiopulmonary process. Report Dictated By: Jorge Laurent DO at 12/17/2017 6:19 PM Report E-Signed By: Jorge Laurent DO at 12/17/2017 6:20 PM [id number]
--- NOTE | 2017-12-17 22:28 | EKG ---
FACILITY: [facility] PATIENT NAME: BRAD ARITA : [id number] MR: [id number] V: [id number] EXAM DATE: ORDERING PHYSICIAN: RUTH RIVERA TECHNOLOGIST: SIA Test Reason : CHEST PAIN Blood Pressure : / mmHG Vent. Rate : 057 BPM Atrial Rate : 057 BPM P-R Int : 134 ms QRS Dur : 082 ms QT Int : 464 ms P-R-T Axes : 062 061 061 degrees QTc Int : 451 ms Sinus bradycardia Otherwise normal ECG When compared with ECG of 17-DEC-2017 17:03, No significant change was found Confirmed by Roger Nava ([id number]) on 12/18/2017 7:46:03 AM Referred By: Confirmed By:Roger Ventura
[2017-12-19] MEDS ORDERED: AMLO-99 PO (14:21)
== END 2017-12-17 21:27 | disposition home or self-care (01) ==
LOC: ER 17:08
DX: R07.9 Chest pain, unspecified (principal); F17.210 Nicotine dependence, cigarettes, uncomplicated
CPT/HCPCS: 36415; 71046; 84484; 85025; 93005; 96361; 96374; 96375; 99284; A9270; J2270; J2405; J7040; 82040; 82247; 82310; 82374; 82435; 82565; 82947; 84075; 84132; 84155; 84295; 84450; 84460; 84520; 96360

== ENCOUNTER 2018-01-07 09:00 | Outpatient (RCR) | payer MEDICARE ==
[2017-11-26 13:18] VITALS: BP 124/84
[2017-11-26 13:19] VITALS: BP 134/80
[2017-11-28 13:21] VITALS: BP_SYST 118; BP_SYST 130; BP_DIAS 70; BP_DIAS 90
[2017-12-03 12:46] VITALS: BP 128/90
[2017-12-03 12:47] VITALS: BP 120/66
[2017-12-17 13:04] VITALS: BP 132/86
[2017-12-17 13:05] VITALS: BP 112/68
[2018-01-02 13:34] VITALS: BP 148/90
[2018-01-02 13:35] VITALS: BP 120/80
[~2018-01-07 09:00] MED LIST changes: +ACET-2031 PO; +AMLO-113 PO; -AMLO-99 PO; -METF-411 PO; +METF-450 PO
[2018-01-07 11:22] VITALS: BP 134/98
[2018-01-07 11:23] VITALS: BP 142/104
[2018-01-11] MEDS ORDERED: HYDR-389 PO (09:32)
[2018-01-11] MEDS ORDERED: PNEI IJ (10:00)
[2018-02-11] MEDS ORDERED: ONDA8TAB94 PO (08:39)
[2018-02-11] MEDS ORDERED: HYDR-389 PO (08:39)
== END 2018-02-24 ==
LOC: CARD 09:00
PROVIDERS: ATTEND Nurse Practitioner Primary Care
DX: I25.2 Old myocardial infarction (principal); I25.10 Atherosclerotic heart disease of native coronary artery without angina pectoris
CPT/HCPCS: 93798

== ENCOUNTER 2018-01-07 10:44 | Emergency (ER) | payer MEDICARE ==
[2018-01-07] MEDS ORDERED: NS(*) 0.9% 1000 ML BAG 1,000 ML IV ONE (11:02)
[2018-01-07] MEDS ORDERED: ASPIRIN 81 MG CHEW CHEW ONE (11:05)
[2018-01-07 11:10] LABS: PLATELET COUNT, AUTOMATED 292 K/uL (150-450)
[2018-01-07] MEDS ORDERED: NITROGLYCERIN OINT 1 GM PKT TP ONE (11:15)
--- NOTE | 2018-01-07 11:15 | ER Report ---
History and Physical Time Seen By MD: 11:12 Hx. of Stated Complaint: CHEST PAIN SOB DIZZY HPI/ROS CHIEF COMPLAINT: Chest pain HISTORY OF PRESENT ILLNESS: Patient is a 47-year-old male who had an heart attack with stenting in July of this year. He was initially seen here at this facility and transferred down to [place] where he was stented. Patient was in cardiac rehabilitation today riding a bicycle and developed chest pain and pressure along with some dizziness. This occurred approximately 20 minutes into his exercise. He denies any fever or infectious type symptoms. He does report mild nausea. Patient was actually seen here on December 17 for similar type situation. He was at cardiac rehabilitation and was walking and walked longer than usual developed similar symptoms. He was seen in our emergency department here and ruled out with negative delta troponins REVIEW OF SYSTEMS: Constitutional: No fever, no chills. Eyes: No discharge. ENT: No sore throat. Cardiovascular: Chest pain, no palpitations Respiratory: No cough, no shortness of breath. Gastrointestinal: No abdominal pain, no vomiting. Genitourinary: No hematuria. Musculoskeletal: No back pain. Skin: No rashes. Neurological: No headache. Dizziness Allergies: Uncoded Allergies: mayonnaise (Allergy, Unknown, 03/26/17) Home Meds Active Scripts Acetaminophen (ACETAMINOPHEN) 325 Mg Tablet, 1 TAB PO Q6H PRN for PAIN, #90 TAB 0 Refills 1 tab PO QAM prn pain. 1-2 tab PO noon prn pain. 1 tab PO QHS prn pain. Prov:STEVE PEREZ DNP, FNP-BC 12/27/17 Buspirone Hcl (BUSPIRONE HCL) 10 Mg Tablet, 1 TAB PO Q8H, #90 TAB 5 Refills Prov:STEVE PEREZ DNP, FNP-BC 12/21/17 Amlodipine Besylate (AMLODIPINE BESYLATE) 10 Mg Tablet, 1 TAB PO QDAY, #90 TAB 4 Refills Prov:STEVE PEREZ DNP, FNP-BC 12/19/17 Hydrocodone Bit/Acetaminophen (HYDROCODON-ACETAMINOPHEN 5-325) 1 Each Tablet, 1- 2 TAB PO BID PRN for PAIN, #120 TAB 0 Refills Prov:STEVE PEREZ DNP, FNP-BC 12/12/17 Metoprolol Tartrate (METOPROLOL TARTRATE) 100 Mg Tablet, 1 TAB PO BID for 90 Days, #180 TAB 1 Refill Prov:STEVE PEREZ Ching [facility] 10/15/17 Lisinopril (LISINOPRIL) 20 Mg Tablet, 1 TAB PO QDAY, #90 TAB 2 Refills Prov:STEVE PEREZ Ching [facility] 09/27/17 Diclofenac Sodium 1% Gel (VOLTAREN 1% GEL) 100 Gm Gel..gram., 4 G TOP QID PRN for PAIN, #1 TUB 3 Refills Prov:STEVE PEREZ Ching [facility] 07/16/17 Citalopram Hydrobromide (CITALOPRAM HBR) 40 Mg Tablet, 1 TAB PO QDAY for 90 Days, #90 TAB 3 Refills Prov:STEVE PEREZ Ching [facility] 07/16/17 Reported Medications Atorvastatin Calcium (LIPITOR) 40 Mg Tablet, 1 TAB PO QDAY, TAB 08/04/17 Nitroglycerin (NITROGLYCERIN) 0.4 Mg Tab.subl, 0.4 MG SL Q5MIN 08/04/17 Clopidogrel Bisulfate (PLAVIX) 75 Mg Tablet, 1 TAB PO QDAY, TAB 08/04/17 Ranitidine Hcl (ZANTAC) 150 Mg Tablet, 1 TAB PO BID, TAB 03/26/17 Aspirin (ASPIR 81) 81 Mg Tablet.dr, 81 MG PO QDAY, TAB 03/13/16 Past Medical/Surgical History The patient has a past medical and surgical history of 5 cardiac stents, heart attack, angina, hypertension, hypercholesterolemia, GERD, restless leg syndrome, arthritis, left knee fracture, multiple missing teeth, depression, anxiety and panic disorder, Hx Smoking: Yes (1/2 ppd) Smoking Status: Current: Every Day Smoker Hx Substance Use Disorder: Yes Hx Alcohol Use: Yes Constitutional Vital Sign - Last 24 Hours 01/07/18 10:49 Temp 97.9 Pulse 100 Resp 25 B/P (MAP) 181/174 Pulse Ox 98 O2 Delivery Room Air Physical Exam General/Constitutional: Patient is awake, alert, nontoxic and in no acute respiratory distress. Head: Normocephalic and atraumatic. Eyes: Conjunctival clear, Ears:External canals are clear. Tympanic membranes are clear with normal landmarks and light reflex. Nares: No rhinorrhea or bleeding. Turbinates are pink and moist. Oropharyngeal: Mucous membranes are moist. Neck: Supple, no adenopathy. Cardiovascular: Heart is regular rate and rhythm without audible murmurs, rubs or gallops. Pulmonary: Lungs are clear to auscultation bilaterally. There are no wheezes, rales, or rhonchi. Chest rise is symmetrical Abdomen: Soft, nontender, no guarding or peritoneal signs. Extremities: No gross deformities, No peripheral cyanosis. Able to move all 4 extremities. Neuro: Alert and oriented X3, Skin: No rashes, skin is warm dry and well perfused. Medical Decision Making Data Points Result Diagram: 01/07/18 1053 01/07/18 1053 Laboratory Hematology Test 01/07/18 10:53 01/07/18 16:07 Red Blood Count 5.77 M/uL (4.00-5.60) Mean Corpuscular Volume 86.6 fL (80.0-96.0) Mean Corpuscular Hemoglobin 29.6 pg (26.0-33.0) Mean Corpuscular Hemoglobin Concent 34.2 g/dL (32.0-36.0) Red Cell Distribution Width 15.8 % (11.5-14.5) Mean Platelet Volume 7.9 fL (7.2-11.1) Neutrophils (%) (Auto) 55.2 % (39.4-72.5) Lymphocytes (%) (Auto) 36.5 % (17.6-49.6) Monocytes (%) (Auto) 6.2 % (4.1-12.4) Eosinophils (%) (Auto) 0.9 % (0.4-6.7) Basophils (%) (Auto) 1.2 % (0.3-1.4) Nucleated RBC Relative Count (auto) 0.0 /100WBC Neutrophils # (Auto) 5.5 K/uL (2.0-7.4) Lymphocytes # (Auto) 3.6 K/uL (1.3-3.6) Monocytes # (Auto) 0.6 K/uL (0.3-1.0) Eosinophils # (Auto) 0.1 K/uL (0.0-0.5) Basophils # (Auto) 0.1 K/uL (0.0-0.1) Nucleated RBC Absolute Count (auto) 0.00 K/uL Prothrombin Time 12.2 seconds (12.0-14.4) Prothromb Time International Ratio 0.91 Activated Partial Thromboplast Time 25 seconds (23-35) Sodium Level 139 mmol/L (137-145) Potassium Level 3.8 mmol/L (3.5-5.0) Chloride Level 103 mmol/L (98-107) Carbon Dioxide Level 18 mmol/L (22-30) Blood Urea Nitrogen 14 mg/dl (9-21) Creatinine 1.20 mg/dl (0.66-1.25) Glomerular Filtration Rate Calc > 60.0 Random Glucose 100 mg/dl (75-110) Calcium Level 9.8 mg/dl (8.4-10.2) Total Bilirubin 0.5 mg/dl (0.2-1.3) Aspartate Amino Transf (AST/SGOT) 39 U/L (0-35) Alanine Aminotransferase (ALT/SGPT) 70 U/L (0-56) Alkaline Phosphatase 129 U/L (0-126) B-Type Natriuretic Peptide 24 pg/ml (0-100) Total Protein 8.4 g/dl (6.3-8.2) Albumin 4.7 g/dl (3.5-5.0) Troponin I < 0.012 ng/ml Chemistry Test 01/07/18 10:53 01/07/18 16:07 White Blood Count 10.0 k/uL (4.5-11.0) Red Blood Count 5.77 M/uL (4.00-5.60) Hemoglobin 17.1 g/dL (14.0-18.0) Hematocrit 49.9 % (42.0-52.0) Mean Corpuscular Volume 86.6 fL (80.0-96.0) Mean Corpuscular Hemoglobin 29.6 pg (26.0-33.0) Mean Corpuscular Hemoglobin Concent 34.2 g/dL (32.0-36.0) Red Cell Distribution Width 15.8 % (11.5-14.5) Platelet Count 292 K/uL (150-450) Mean Platelet Volume 7.9 fL (7.2-11.1) Neutrophils (%) (Auto) 55.2 % (39.4-72.5) Lymphocytes (%) (Auto) 36.5 % (17.6-49.6) Monocytes (%) (Auto) 6.2 % (4.1-12.4) Eosinophils (%) (Auto) 0.9 % (0.4-6.7) Basophils (%) (Auto) 1.2 % (0.3-1.4) Nucleated RBC Relative Count (auto) 0.0 /100WBC Neutrophils # (Auto) 5.5 K/uL (2.0-7.4) Lymphocytes # (Auto) 3.6 K/uL (1.3-3.6) Monocytes # (Auto) 0.6 K/uL (0.3-1.0) Eosinophils # (Auto) 0.1 K/uL (0.0-0.5) Basophils # (Auto) 0.1 K/uL (0.0-0.1) Nucleated RBC Absolute Count (auto) 0.00 K/uL Prothrombin Time 12.2 seconds (12.0-14.4) Prothromb Time International Ratio 0.91 Activated Partial Thromboplast Time 25 seconds (23-35) Glomerular Filtration Rate Calc > 60.0 Calcium Level 9.8 mg/dl (8.4-10.2) Total Bilirubin 0.5 mg/dl (0.2-1.3) Aspartate Amino Transf (AST/SGOT) 39 U/L (0-35) Alanine Aminotransferase (ALT/SGPT) 70 U/L (0-56) Alkaline Phosphatase 129 U/L (0-126) B-Type Natriuretic Peptide 24 pg/ml (0-100) Total Protein 8.4 g/dl (6.3-8.2) Albumin 4.7 g/dl (3.5-5.0) Troponin I < 0.012 ng/ml Coagulation Test 01/07/18 10:53 Prothrombin Time 12.2 seconds Prothromb Time International Ratio 0.91 Activated Partial Thromboplast Time 25 seconds EKG/Imaging EKG Interpretation 01/07/2018 11:35:40 am EKG shows normal sinus rhythm with no significant ST segment or T-wave abnormalities. Ventricular rate is 84 bpm. Monitor Interpretation: Normal Sinus Rhythm Imaging FACILITY: [facility] PATIENT NAME: Alfonzo Villatoro : 1970 MR: [id number] V: [id number] EXAM DATE: [id number] ORDERING PHYSICIAN: KWABENA CATALAN TECHNOLOGIST: Location: [facility] Patient: Alfonzo Villatoro : 1970 Visit/Account:[id number] Date of Sevice: 01/07/2018 Exam type: CHEST PA AND LAT History: CP Comparison: December 17, 2017. Findings: The lungs appear free of acute effusions, infiltrates or edema. There is no evidence of a pneumothorax or pneumomediastinum. The cardiac silhouette is normal in size. On the lateral view there suggestion of a coronary artery stent. There are old right-sided rib fractures. IMPRESSION: 1. No acute cardiopulmonary process is seen Report Dictated By: Marifer Houston MD at 01/07/2018 11:59 AM Report E-Signed By: Marifer Houston MD at 01/07/2018 12:01 PM [id number] ED Course/Re-evaluation ED Course 01/07/2018 11:36:01 am plan at this time will be cardiac workup with delta troponin at the 4 hour window. Patient will be given aspirin and nitroglycerin. We will monitor in the emergency department. 01/07/2018 1:14:27 pm patient doing well and pain free at this time. We will repeat cardiac enzymes at 4:00. If negative we'll likely discharge home. 01/07/2018 4:40:31 pm repeat troponin has returned and is also negative. We will discharge the patient home and have him follow-up with his primary care provider Decision to Disposition Date: Jan 07, 2018 Decision to Disposition Time: 16:40 Depart Departure Latest Vital Signs Vital Signs Date Time Temp Pulse Resp B/P (MAP) Pulse Ox O2 Delivery O2 Flow Rate FiO2 01/07/18 10:49 97.9 100 25 181/174 98 Room Air Impression: Primary Impression: Non-cardiac chest pain Condition: Improved Disposition: HOME OR SELF-CARE Referrals: STEVE PEREZ DNP, PURCHASING COORDINATOR-BC (PCP) 1 Week For recheck of chest pain Patient Instructions: Noncardiac Chest Pain (ED) Additional Instructions: If you develop chest pain, chest pain with shortness of breath at any time you should return to the emergency department for reevaluation. KWABENA CATALAN MD Jan 07, 2018 11:15
--- NOTE | 2018-01-07 11:22 | EKG ---
FACILITY: [facility] PATIENT NAME: BRAD ARITA : [id number] MR: [id number] V: [id number] EXAM DATE: ORDERING PHYSICIAN: KWABENA CATALAN TECHNOLOGIST: JESSICA Caraballo Reason : CARDIAC Blood Pressure : / mmHG Vent. Rate : 094 BPM Atrial Rate : 094 BPM P-R Int : 124 ms QRS Dur : 076 ms QT Int : 390 ms P-R-T Axes : 054 015 020 degrees QTc Int : 487 ms Normal sinus rhythm Prolonged QT Abnormal ECG When compared with ECG of 17-DEC-2017 20:15, Vent. rate has increased BY 37 BPM Confirmed by EFE BOB ([id number]) on 01/07/2018 8:15:14 PM Referred By: Confirmed By:EFE BOB
[2018-01-07 11:29] LABS: INR 0.91
--- NOTE | 2018-01-07 12:05 | RADIOLOGY IMAGING REPORT ---
FACILITY: [facility] - [place] PATIENT NAME: Alfonzo Villatoro : 1970 MR: [id number] V: [id number] EXAM DATE: [id number] ORDERING PHYSICIAN: KWABENA CATALAN TECHNOLOGIST: [place] [facility] [place] Alfonzo Villatoro : 1970 Visit/Account:[id number] Date of Sevice: 01/07/2018 Exam type: CHEST PA AND LAT History: CP Comparison: December 17, 2017. Findings: The lungs appear free of acute effusions, infiltrates or edema. There is no evidence of a pneumothor ax or pneumomediastinum. The cardiac silhouette is normal in size. On the lateral view there sugges tion of a coronary artery stent. There are old right-sided rib fractures. IMPRESSION: 1. No acute cardiopulmonary process is seen Report Dictated By: Marifer Houston MD at 01/07/2018 11:59 AM Report E-Signed By: Marifer Houston MD at 01/07/2018 12:01 PM WSN:YOLANDE
[2018-01-07] MEDS ORDERED: MORPHINE 4 MG/ML SDV IVP ONE (12:15)
[2018-01-07] MEDS ORDERED: HYDROMORPHONE HCL 1 MG/ML SYRINGE IVP ONE (13:55)
[2018-01-07 16:00] VITALS: BP 114/71
== END 2018-01-07 16:47 | disposition home or self-care (01) ==
LOC: ER 10:52
DX: R07.89 Other chest pain (principal); R94.31 Abnormal electrocardiogram [ECG] [EKG]; F17.210 Nicotine dependence, cigarettes, uncomplicated
CPT/HCPCS: 36415; 71046; 83880; 84484; 85025; 85610; 85730; 93005; 96361; 96374; 96375; 99284; A9270; J1170; J2270; J7030; 82040; 82247; 82310; 82374; 82435; 82565; 82947; 84075; 84132; 84155; 84295; 84450; 84460; 84520

== ENCOUNTER → 2018-01-16 | Outpatient (CLI) | payer MEDICARE ==
[~2018-01-16] MED LIST changes: +HYDR-389 PO; +PNEI IJ
== END ==
LOC: AUD 14:00
PROVIDERS: ATTEND Otolaryngology
DX: H91.93 Unspecified hearing loss, bilateral (principal)
CPT/HCPCS: 92557

== ENCOUNTER → 2018-02-05 | Outpatient (CLI) | payer MEDICARE ==
[2018-02-05 10:23] LABS: LDL CHOLESTEROL 50 mg/dl
== END ==
LOC: LAB 08:15
PROVIDERS: ATTEND Internal Medicine Cardiovascular Disease
DX: I25.10 Atherosclerotic heart disease of native coronary artery without angina pectoris (principal)
CPT/HCPCS: 36415; 82040; 82247; 82310; 82374; 82435; 82465; 82565; 82947; 83718; 84075; 84132; 84155; 84295; 84450; 84460; 84478; 84520

== ENCOUNTER 2018-02-08 14:21 | Emergency (ER) | payer MEDICARE ==
--- NOTE | 2018-02-08 14:31 | ER Report ---
History and Physical Time Seen By MD: 14:28 Hx. of Stated Complaint: PT REPORTS L SIDE CHEST PAIN, TOOK 3 NITRO WITH NO RELIEF. SOB. HPI/ROS CHIEF COMPLAINT: Chest pain HISTORY OF PRESENT ILLNESS: This is a 47-year-old male, with a history of CAD, stent placement who presents to emergency department for chest pain. Patient states that at 12:00 today while he was moving some boxes developed some left- sided chest pain. He took 3 nitroglycerin with no relief. Did have some shortness of breath, continues to "have some shortness of breath". Mild nausea no vomiting. No diaphoresis. No significant visual changes. He did state that he was a little bit dizzy during his "episode" however that has since then resolved. No recent fevers or chills. No headaches. No dysuria. No diarrhea. REVIEW OF SYSTEMS: Constitutional: No fever, no chills. Eyes: No discharge. ENT: No sore throat. Cardiovascular: As above. Respiratory: As above. Gastrointestinal: As above. Genitourinary: No hematuria. Musculoskeletal: No back pain. Skin: No rashes. Neurological: As above. Allergies: Uncoded Allergies: mayoaminaaise (Allergy, Unknown, 03/26/17) Home Meds Active Scripts Acetaminophen/Hydrocodone (HYDROCODON-ACETAMINOPH 7.5-325) 1 Each Ea, 1 TAB PO 3-4XD PRN for PAIN, #120 EA 0 Refills Prov:STEVE PEREZ DNP [employer]-[facility] 01/11/18 Acetaminophen (ACETAMINOPHEN) 325 Mg Tablet, 1 TAB PO Q6H PRN for PAIN, #90 TAB 0 Refills 1 tab PO QAM prn pain. 1-2 tab PO noon prn pain. 1 tab PO QHS prn pain. Prov:STEVE PEREZ DNP [employer] 12/27/17 Buspirone Hcl (BUSPIRONE HCL) 10 Mg Tablet, 1 TAB PO Q8H, #90 TAB 5 Refills Prov:STEVE PEREZ DNP [employer] 12/21/17 Amlodipine Besylate (AMLODIPINE BESYLATE) 10 Mg Tablet, 1 TAB PO QDAY, #90 TAB 4 Refills Prov:STEVE PEREZ DNP [facility] 12/19/17 Metoprolol Tartrate (METOPROLOL TARTRATE) 100 Mg Tablet, 1 TAB PO BID for 90 Days, #180 TAB 1 Refill Prov:STEVE PEREZ Ching [facility] 10/15/17 Lisinopril (LISINOPRIL) 20 Mg Tablet, 1 TAB PO QDAY, #90 TAB 2 Refills Prov:PERI PEREZChing Flower DNP, [facility] 09/27/17 Diclofenac Sodium 1% Gel (VOLTAREN 1% GEL) 100 Gm Gel..gram., 4 G TOP QID PRN for PAIN, #1 TUB 3 Refills Prov:CHRISSTEVE Flower DNP [facility] 07/16/17 Citalopram Hydrobromide (CITALOPRAM HBR) 40 Mg Tablet, 1 TAB PO QDAY for 90 Days, #90 TAB 3 Refills Prov:GEO PEREZUMBERTO Flower DNP [facility] 07/16/17 Reported Medications Atorvastatin Calcium (LIPITOR) 40 Mg Tablet, 1 TAB PO QDAY, TAB 08/04/17 Nitroglycerin (NITROGLYCERIN) 0.4 Mg Tab.subl, 0.4 MG SL Q5MIN 08/04/17 Clopidogrel Bisulfate (PLAVIX) 75 Mg Tablet, 1 TAB PO QDAY, TAB 08/04/17 Ranitidine Hcl (ZANTAC) 150 Mg Tablet, 1 TAB PO BID, TAB 03/26/17 Aspirin (ASPIR 81) 81 Mg Tablet.dr, 81 MG PO QDAY, TAB 03/13/16 Past Medical/Surgical History the patient has a past medical and surgical history of myocardial infarction, 5 stents, angina, cardiac catheterization, hypertension, hypercholesterolemia, SILVA D, C4 bone spurs, arthritis, left knee injury, missing multiple teeth, depression, panic attacks, right ankle surgery. Reviewed Nurses Notes: Yes Hx Smoking: Yes (1/2 ppd) Smoking Status: Current: Every Day Smoker Hx Substance Use Disorder: Yes Hx Alcohol Use: Yes Constitutional Vital Sign - Last 24 Hours 02/08/18 02/08/18 02/08/18 02/08/18 14:21 14:24 14:25 14:36 Pulse ??? 80 80 Resp 18 18 B/P (MAP) 118/84 118/84 (95) Pulse Ox 95 97 O2 Delivery Room Air 10/19/02/08/18 02/08/18 02/08/18 14:51 15:00 15:06 15:20 Pulse 74 72 Resp 13 8 B/P (MAP) ???/??? (1665) 107/86 (93) Pulse Ox 96 94 02/08/18 02/08/18 02/08/18 02/08/18 15:21 15:36 15:40 15:51 Pulse 70 65 68 Resp 10 17 7 B/P (MAP) 122/73 (89) Pulse Ox 94 94 95 02/08/18 02/08/18 02/08/18 02/08/18 16:03 16:06 16:11 16:20 Pulse 68 64 Resp 9 17 B/P (MAP) 114/88 (97) 126/92 (103) Pulse Ox 96 94 02/08/18 02/08/18 02/08/18 02/08/18 16:26 16:40 16:41 16:56 Pulse 66 66 67 Resp 10 15 9 B/P (MAP) 121/76 (91) Pulse Ox 95 94 97 02/08/18 02/08/18 17:00 17:11 Pulse 67 Resp 16 B/P (MAP) 123/78 (93) Pulse Ox 95 Physical Exam General Appearance: The patient is alert, has no immediate need for airway protection and no signs of toxicity. Eyes: Pupils equal and round no pallor or injection. ENT, Mouth: Mucous membranes are moist. Respiratory: There are no retractions, lungs are clear to auscultation. Cardiovascular: Regular rate and rhythm, no murmurs, clicks or rubs. Gastrointestinal: Abdomen is soft and non tender, no masses, bowel sounds normal. Neurological: Alert and oriented 4. Moving all extremities. Following all commands. No focal neuro deficits. Skin: Warm and dry, no rashes. Musculoskeletal: Neck is supple non tender. Extremities are nontender, nonswollen and have full range of motion. DIFFERENTIAL DIAGNOSIS: After history and physical exam differential diagnosis was considered for chest pain including but not limited to myocardial ischemia, pericarditis pulmonary embolus, chest wall pain, pleural inflammation and pulmonary infectious causes. Medical Decision Making Data Points Result Diagram: 02/08/18 0000 02/08/18 0000 Laboratory Hematology Test 02/08/18 00:00 02/08/18 16:03 Red Blood Count 5.19 M/uL (4.00-5.60) Mean Corpuscular Volume 87.2 fL (80.0-96.0) Mean Corpuscular Hemoglobin 30.0 pg (26.0-33.0) Mean Corpuscular Hemoglobin Concent 34.5 g/dL (32.0-36.0) Red Cell Distribution Width 15.0 % (11.5-14.5) Mean Platelet Volume 8.0 fL (7.2-11.1) Neutrophils (%) (Auto) 51.4 % (39.4-72.5) Lymphocytes (%) (Auto) 40.8 % (17.6-49.6) Monocytes (%) (Auto) 4.9 % (4.1-12.4) Eosinophils (%) (Auto) 2.0 % (0.4-6.7) Basophils (%) (Auto) 0.9 % (0.3-1.4) Nucleated RBC Relative Count (auto) 0.0 /100WBC Neutrophils # (Auto) 3.7 K/uL (2.0-7.4) Lymphocytes # (Auto) 2.9 K/uL (1.3-3.6) Monocytes # (Auto) 0.3 K/uL (0.3-1.0) Eosinophils # (Auto) 0.1 K/uL (0.0-0.5) Basophils # (Auto) 0.1 K/uL (0.0-0.1) Nucleated RBC Absolute Count (auto) 0.00 K/uL Sodium Level 139 mmol/L (137-145) Potassium Level 3.8 mmol/L (3.5-5.0) Chloride Level 105 mmol/L (98-107) Carbon Dioxide Level 24 mmol/L (22-30) Blood Urea Nitrogen 17 mg/dl (9-21) Creatinine 1.20 mg/dl (0.66-1.25) Glomerular Filtration Rate Calc > 60.0 Random Glucose 106 mg/dl (75-110) Calcium Level 9.0 mg/dl (8.4-10.2) Total Bilirubin 0.4 mg/dl (0.2-1.3) Aspartate Amino Transf (AST/SGOT) 22 U/L (0-35) Alanine Aminotransferase (ALT/SGPT) 41 U/L (0-56) Alkaline Phosphatase 115 U/L (0-126) Total Protein 7.4 g/dl (6.3-8.2) Albumin 4.1 g/dl (3.5-5.0) Troponin I < 0.012 ng/ml Chemistry Test 02/08/18 00:00 02/08/18 16:03 White Blood Count 7.1 k/uL (4.5-11.0) Red Blood Count 5.19 M/uL (4.00-5.60) Hemoglobin 15.6 g/dL (14.0-18.0) Hematocrit 45.2 % (42.0-52.0) Mean Corpuscular Volume 87.2 fL (80.0-96.0) Mean Corpuscular Hemoglobin 30.0 pg (26.0-33.0) Mean Corpuscular Hemoglobin Concent 34.5 g/dL (32.0-36.0) Red Cell Distribution Width 15.0 % (11.5-14.5) Platelet Count 238 K/uL (150-450) Mean Platelet Volume 8.0 fL (7.2-11.1) Neutrophils (%) (Auto) 51.4 % (39.4-72.5) Lymphocytes (%) (Auto) 40.8 % (17.6-49.6) Monocytes (%) (Auto) 4.9 % (4.1-12.4) Eosinophils (%) (Auto) 2.0 % (0.4-6.7) Basophils (%) (Auto) 0.9 % (0.3-1.4) Nucleated RBC Relative Count (auto) 0.0 /100WBC Neutrophils # (Auto) 3.7 K/uL (2.0-7.4) Lymphocytes # (Auto) 2.9 K/uL (1.3-3.6) Monocytes # (Auto) 0.3 K/uL (0.3-1.0) Eosinophils # (Auto) 0.1 K/uL (0.0-0.5) Basophils # (Auto) 0.1 K/uL (0.0-0.1) Nucleated RBC Absolute Count (auto) 0.00 K/uL Glomerular Filtration Rate Calc > 60.0 Calcium Level 9.0 mg/dl (8.4-10.2) Total Bilirubin 0.4 mg/dl (0.2-1.3) Aspartate Amino Transf (AST/SGOT) 22 U/L (0-35) Alanine Aminotransferase (ALT/SGPT) 41 U/L (0-56) Alkaline Phosphatase 115 U/L (0-126) Total Protein 7.4 g/dl (6.3-8.2) Albumin 4.1 g/dl (3.5-5.0) Troponin I < 0.012 ng/ml EKG/Imaging EKG Interpretation 12 lead EKG: Time of EKG 1439. Rhythm: Normal sinus rhythm, ventricular rate 76 bpm. [place]: normal QRS: normal ST segments: No ST depression or elevation identified. No significant changes from the 01/08/2000 12 lead EKG: Time a repeat EKG 1608. Rhythm: Normal sinus rhythm, ventricular rate 65 bpm. [place]: normal QRS: normal ST segments: No ST depression or elevation identified. No changes from the 1439 EKG. Imaging Location: [facility] Patient: Alfonzo Villatoro : 1970 Visit/Account:[id number] Date of Sevice: 02/08/2018 Exam type: CHEST PA AND LAT History: Chest pain Comparison: January 07, 2018. Findings: The lungs are free of acute effusions, infiltrates or edema. There is no evidence of a pneumothorax or pneumomediastinum. Cardiac silhouette is normal in size. The visualized bones are unremarkable for age. IMPRESSION: 1. No acute cardiopulmonary process is seen Report Dictated By: Marifer Houston MD at 02/08/2018 3:08 PM Report E-Signed By: Marifer Houston MD at 02/08/2018 3:10 PM WSN:[email or web address] ED Course/Re-evaluation Clinical Indication for ER IV: Hydration, IV Access ED Course The patient was admitted to room. His pupils were obtained. Torrential diagnoses were considered. An IV was started. A 500 mL normal saline bolus was given. A CBC, CMP and troponin were obtained. Studies unremarkable. Negative troponin. Negative two-view chest x-ray. EKG showing normal sinus rhythm. Repeat troponin was negative. Patient was given 4 mg IV morphine which did not relieve the pain, patient was given 30 mg IV Toradol which did relieve the discomfort. I did review all the laboratory studies, EKG and chest x-ray with the patient, I did tell him that this is likely muscular in nature due to his recent moving efforts. Patient X rest understanding. I did recommend that he follows up with his primary care provider within one week for reevaluation. Return to the ER for any concerns or worsening symptoms. Patient X rest understanding and was discharged home. 02/08/2018 5:09:10 pm the patient had a resolution of his pain with the Toradol. Decision to Disposition Date: Feb 08, 2018 Decision to Disposition Time: 17:08 Depart Departure Latest Vital Signs Vital Signs Date Time Temp Pulse Resp B/P (MAP) Pulse Ox O2 Delivery O2 Flow Rate FiO2 02/08/18 17:11 67 16 95 02/08/18 17:00 123/78 (93) 02/08/18 14:24 Room Air Impression: Primary Impression: Non-cardiac chest pain Condition: Improved Disposition: HOME OR SELF-CARE Referrals: STEVE PEREZ DNP, [employer] (PCP) 1 Week Patient Instructions: Chest Pain (ED), Chest Wall Pain (ED) Additional Instructions: Your blood work and EKG's are normal today. Your chest x-ray is normal. Continue with your current medications. Be sure to drink plenty of water. This chest pain the chair experiencing could be secondary to the recent moving activity. I do however recommend that she follow-up with your primary care provider within one to 2 weeks for reevaluation. Return to the emergency department for any other concerns worsening symptoms. RUTH RIVERA-BC Feb 08, 2018 14:31
[2018-02-08] MEDS ORDERED: ASPIRIN 81 MG CHEW PO ONE (14:35)
[2018-02-08] MEDS ORDERED: NS(*) 0.9% 500 ML BAG 500 ML IV ONE (14:35)
[2018-02-08] MEDS ORDERED: MORPHINE 4 MG/ML SDV IVP ONE (14:50)
--- NOTE | 2018-02-08 14:58 | EKG ---
FACILITY: [facility] - [place] PATIENT NAME: BRAD ARITA : [id number] MR: [id number] V: [id number] EXAM DATE: ORDERING PHYSICIAN: RUTH RIVERA TECHNOLOGIST: DONAVON Test Reason : CHEST PAIN Blood Pressure : / mmHG Vent. Rate : 076 BPM Atrial Rate : 076 BPM P-R Int : 136 ms QRS Dur : 078 ms QT Int : 422 ms P-R-T Axes : 047 021 014 degrees QTc Int : 474 ms Normal sinus rhythm Normal ECG When compared with ECG of 07-JAN-2018 10:52, No significant change was found Confirmed by EFE BOB ([id number]) on 02/08/2018 7:40:05 PM Referred By: RUTH Confirmed By:EFE BOB
[2018-02-08 15:02] LABS: PLATELET COUNT, AUTOMATED 238 K/uL (150-450)
--- NOTE | 2018-02-08 15:14 | RADIOLOGY IMAGING REPORT ---
FACILITY: [facility] PATIENT NAME: Alfonzo Villatoro : 1970 MR: [id number] V: [id number] EXAM DATE: ORDERING PHYSICIAN: RUTH RIVERA TECHNOLOGIST: Location: [facility] [place] Patient: Alfonzo Villatoro : 1970 Visit/Account:[id number] Date of Sevice: 02/08/2018 Exam type: CHEST PA AND LAT History: Chest pain Comparison: January 07, 2018. Findings: The lungs are free of acute effusions, infiltrates or edema. There is no evidence of a pneumothorax or pneumomediastinum. Cardiac silhouette is normal in size. The visualized bones are unremarkable f or age. IMPRESSION: 1. No acute cardiopulmonary process is seen Report Dictated By: Marifer Houston MD at 02/08/2018 3:08 PM Report E-Signed By: Marifer Houston MD at 02/08/2018 3:10 PM WSN:YOLANDE
--- NOTE | 2018-02-08 16:40 | EKG ---
FACILITY: [facility] PATIENT NAME: BRAD ARITA : [id number] MR: [id number] V: [id number] EXAM DATE: ORDERING PHYSICIAN: RUTH RIVERA TECHNOLOGIST: DONAVON Test Reason : CHEST PAIN Blood Pressure : / mmHG Vent. Rate : 065 BPM Atrial Rate : 065 BPM P-R Int : 140 ms QRS Dur : 082 ms QT Int : 450 ms P-R-T Axes : 051 015 012 degrees QTc Int : 468 ms Normal sinus rhythm Normal ECG When compared with ECG of 08-FEB-2018 14:39, No significant change was found Confirmed by EFE BOB ([id number]) on 02/08/2018 7:40:21 PM Referred By: GIOVANNI Confirmed By:EFE BOB
[2018-02-08] MEDS ORDERED: KETOROLAC 30 MG/ML VIAL IVP ONE (16:45)
[2018-02-08 17:00] VITALS: BP 123/78
== END 2018-02-08 17:22 | disposition home or self-care (01) ==
LOC: ER 14:32
DX: R07.89 Other chest pain (principal)
CPT/HCPCS: 36415; 71046; 84484; 85025; 93005; 96361; 96374; 96375; 99284; A9270; J1885; J2270; J7040; 82040; 82247; 82310; 82374; 82435; 82565; 82947; 84075; 84132; 84155; 84295; 84450; 84460; 84520

== ENCOUNTER 2018-04-07 20:00 | Emergency (ER) | payer MEDICARE ==
[~2018-04-07 20:00] MED LIST changes: +ONDA8TAB94 PO; +OXYC-373 PO; +SILD20TA PO
--- NOTE | 2018-04-07 20:08 | ER Report ---
History and Physical Time Seen By : 20:07 HPI/ROS CHIEF COMPLAINT: Chest pain HISTORY OF PRESENT ILLNESS: 47-year-old male presents ambulatory to the ER complaining of chest pain. Patient notes sudden onset 30 minutes prior to arrival. He describes sharp substernal chest pain without radiation. Patient with a known history of coronary artery disease, status post 5 stent placements. Patient has chronic pain syndrome. He is taking 3-4 hydrocodone per day for chronic pain relief. Patient denies GERD symptoms. She denies fever chills shortness of breath. He denies diaphoresis or nausea. Patient states his pain is dissimilar to his previous cardiac episodes. [place] patient for transfer him with a STEMI REVIEW OF SYSTEMS: Respiratory: No cough, no dyspnea. Cardiovascular: As above Gastrointestinal: No vomiting, no abdominal pain. Musculoskeletal: No back pain. Allergies: Uncoded Allergies: raghavaise (Allergy, Unknown, 03/26/17) Home Meds Active Scripts Sildenafil Citrate (SILDENAFIL) 20 Mg Tablet, 20 MG PO when necessary for 30 Days, #30 CAP 3 Refills Take 2-5 tablets orally as needed Prov:SIM FABIAN MD 04/04/18 Oxycodone Hcl/Acetaminophen (OXYCODONE-ACETAMINOPHEN 5-325) 1 Each Tablet, 1 TAB PO 3-4XD PRN for PAIN, #120 TAB 0 Refills Prov:STEVE PEREZ DNP, FNP-BC 03/13/18 Ondansetron (ZOFRAN ODT) 8 Mg Tab.rapdis, 1 TAB PO Q12H PRN for NAUSEA, #8 TAB 3 Refills Prov:STEVE PEREZ DNP, FNP-BC 02/11/18 Acetaminophen (ACETAMINOPHEN) 325 Mg Tablet, 1 TAB PO Q6H PRN for PAIN, #90 TAB 0 Refills 1 tab PO QAM prn pain. 1-2 tab PO noon prn pain. 1 tab PO QHS prn pain. Prov:STEVE PEREZ DNP, FNP-BC 12/27/17 Buspirone Hcl (BUSPIRONE HCL) 10 Mg Tablet, 1 TAB PO Q8H, #90 TAB 5 Refills Prov:STEVE PEREZ DNP, FNP-BC 12/21/17 Amlodipine Besylate (AMLODIPINE BESYLATE) 10 Mg Tablet, 1 TAB PO QDAY, #90 TAB 4 [facility] 12/19/17 Metoprolol Tartrate (METOPROLOL TARTRATE) 100 Mg Tablet, 1 TAB PO BID for 90 Days, #180 TAB 1 Refill Prov:STEVE PEREZ Ching [facility] 10/15/17 Lisinopril (LISINOPRIL) 20 Mg Tablet, 1 TAB PO QDAY, #90 TAB 2 Refills Prov:STEVE PEREZ [facility] 09/27/17 Diclofenac Sodium 1% Gel (VOLTAREN 1% GEL) 100 Gm Gel..gram., 4 G TOP QID PRN for PAIN, #1 TUB 3 Refills Prov:STEVE PEREZ [facility] 07/16/17 Citalopram Hydrobromide (CITALOPRAM HBR) 40 Mg Tablet, 1 TAB PO QDAY for 90 Day s, #90 TAB 3 Refills Prov:STEVE PEREZ [facility] 07/16/17 Reported Medications Atorvastatin Calcium (LIPITOR) 40 Mg Tablet, 1 TAB PO QDAY, TAB 08/04/17 Nitroglycerin (NITROGLYCERIN) 0.4 Mg Tab.subl, 0.4 MG SL Q5MIN 08/04/17 Clopidogrel Bisulfate (PLAVIX) 75 Mg Tablet, 1 TAB PO QDAY, TAB 08/04/17 Ranitidine Hcl (ZANTAC) 150 Mg Tablet, 1 TAB PO BID, TAB 03/26/17 Aspirin (ASPIR 81) 81 Mg Tablet.dr, 81 MG PO QDAY, TAB 03/13/16 Past Medical/Surgical History Coronary artery disease, status post stent placement 5, hyperlipidemia, hypertension, myocardial infarction 1 in July 2017, sleep apnea, GERD, anxiety, depression, panic attacks, chronic pain syndrome Reviewed Nurses Notes: Yes Old Medical Records Reviewed: Yes Hx Smoking: Yes (1/2 ppd) Smoking Status: Current: Every Day Smoker Hx Substance Use Disorder: Yes Hx Alcohol Use: Yes Constitutional Vital Sign - Last 24 Hours 04/07/18 04/07/18 04/07/18 04/07/18 20:08 20:08 20:30 21:00 Temp 97.7 Pulse 85 81 75 Resp 18 15 49 B/P (MAP) 134/97 134/97 (109) 141/93 (109) 130/86 (101) Pulse Ox 96 95 94 O2 Delivery Room Air 04/07/18 04/07/18 04/07/18 04/07/18 21:30 21:35 22:00 22:05 Pulse 72 72 70 Resp 24 25 14 B/P (MAP) 126/80 (95) 126/83 (97) Pulse Ox 94 94 92 04/07/18 04/07/18 04/07/18 04/07/18 22:30 22:35 22:40 23:00 Pulse 62 63 Resp 24 12 B/P (MAP) 115/73 (87) 113/74 (87) Pulse Ox 93 94 04/07/18 04/07/18 04/07/18 04/07/18 23:10 23:30 23:40 23:45 Pulse 59 60 60 Resp 15 21 11 B/P (MAP) 113/65 (81) Pulse Ox 93 93 93 04/08/18 04/08/18 04/08/18 00:00 00:15 00:24 Pulse 60 Resp 35 B/P (MAP) 112/67 (82) 118/76 (90) Pulse Ox 93 Physical Exam Vital signs stable, afebrile, pulse ox normal General Appearance: The patient is alert, has no immediate need for airway protection and no current signs of toxicity. HEENT: Pupils equal and round no injection. TMs normal, oropharynx without redness or exudate, mucous. Membranes are moist Respiratory: Chest is non tender, lungs are clear to auscultation. Positive chest wall tenderness on compression Cardiac: regular rate and rhythm Gastrointestinal: Abdomen is soft and non tender, no masses, bowel sounds normal. Musculoskeletal: Neck: Neck is supple and non tender. Extremities have full range of motion and are non tender. No edema, no calf tenderness Skin: No rashes or lesions. DIFFERENTIAL DIAGNOSIS: After history and physical exam differential diagnosis was considered for chest pain including but not limited to myocardial ischemia, pericarditis pulmonary embolus, chest wall pain, pleural inflammation and pulmonary infectious causes. Medical Decision Making Data Points Result Diagram: 04/07/18201904/07/182019 Laboratory Hematology Test 04/07/18 20:20 04/07/18 23:23 Red Blood Count 5.37 M/uL (4.00-5.60) Mean Corpuscular Volume 86.1 fL (80.0-96.0) Mean Corpuscular Hemoglobin 29.9 pg (26.0-33.0) Mean Corpuscular Hemoglobin Concent 34.7 g/dL (32.0-36.0) Red Cell Distribution Width 14.2 % (11.5-14.5) Mean Platelet Volume 8.1 fL (7.2-11.1) Neutrophils (%) (Auto) 55.5 % (39.4-72.5) Lymphocytes (%) (Auto) 36.2 % (17.6-49.6) Monocytes (%) (Auto) 6.3 % (4.1-12.4) Eosinophils (%) (Auto) 1.3 % (0.4-6.7) Basophils (%) (Auto) 0.7 % (0.3-1.4) Nucleated RBC Relative Count (auto) 0.0 /100WBC Neutrophils # (Auto) 4.7 K/uL (2.0-7.4) Lymphocytes # (Auto) 3.0 K/uL (1.3-3.6) Monocytes # (Auto) 0.5 K/uL (0.3-1.0) Eosinophils # (Auto) 0.1 K/uL (0.0-0.5) Basophils # (Auto) 0.1 K/uL (0.0-0.1) Nucleated RBC Absolute Count (auto) 0.00 K/uL Sodium Level 141 mmol/L (137-145) Potassium Level 3.6 mmol/L (3.5-5.0) Chloride Level 108 mmol/L (98-107) Carbon Dioxide Level 23 mmol/L (22-30) Blood Urea Nitrogen 19 mg/dl (9-21) Creatinine 1.00 mg/dl (0.66-1.25) Glomerular Filtration Rate Calc > 60.0 Random Glucose 120 mg/dl (75-110) Calcium Level 9.3 mg/dl (8.4-10.2) Total Bilirubin 0.1 mg/dl (0.2-1.3) Aspartate Amino Transf (AST/SGOT) 28 U/L (0-35) Alanine Aminotransferase (ALT/SGPT) 43 U/L (0-56) Alkaline Phosphatase 145 U/L (0-126) B-Type Natriuretic Peptide 32 pg/ml (0-100) Total Protein 7.7 g/dl (6.3-8.2) Albumin 4.2 g/dl (3.5-5.0) Troponin I < 0.012 ng/ml Chemistry Test 04/07/18 20:20 04/07/18 23:23 White Blood Count 8.4 k/uL (4.5-11.0) Red Blood Count 5.37 M/uL (4.00-5.60) Hemoglobin 16.0 g/dL (14.0-18.0) Hematocrit 46.2 % (42.0-52.0) Mean Corpuscular Volume 86.1 fL (80.0-96.0) Mean Corpuscular Hemoglobin 29.9 pg (26.0-33.0) Mean Corpuscular Hemoglobin Concent 34.7 g/dL (32.0-36.0) Red Cell Distribution Width 14.2 % (11.5-14.5) Platelet Count 221 K/uL (150-450) Mean Platelet Volume 8.1 fL (7.2-11.1) Neutrophils (%) (Auto) 55.5 % (39.4-72.5) Lymphocytes (%) (Auto) 36.2 % (17.6-49.6) Monocytes (%) (Auto) 6.3 % (4.1-12.4) Eosinophils (%) (Auto) 1.3 % (0.4-6.7) Basophils (%) (Auto) 0.7 % (0.3-1.4) Nucleated RBC Relative Count (auto) 0.0 /100WBC Neutrophils # (Auto) 4.7 K/uL (2.0-7.4) Lymphocytes # (Auto) 3.0 K/uL (1.3-3.6) Monocytes # (Auto) 0.5 K/uL (0.3-1.0) Eosinophils # (Auto) 0.1 K/uL (0.0-0.5) Basophils # (Auto) 0.1 K/uL (0.0-0.1) Nucleated RBC Absolute Count (auto) 0.00 K/uL Glomerular Filtration Rate Calc > 60.0 Calcium Level 9.3 mg/dl (8.4-10.2) Total Bilirubin 0.1 mg/dl (0.2-1.3) Aspartate Amino Transf (AST/SGOT) 28 U/L (0-35) Alanine Aminotransferase (ALT/SGPT) 43 U/L (0-56) Alkaline Phosphatase 145 U/L (0-126) B-Type Natriuretic Peptide 32 pg/ml (0-100) Total Protein 7.7 g/dl (6.3-8.2) Albumin 4.2 g/dl (3.5-5.0) Troponin I < 0.012 ng/ml ED Course/Re-evaluation ED Course Patient was admitted to an examination room. H&P was done. The differential diagnoses was considered. On conical examination. Patient with chest pain. He's immediate EKG shows no evidence of ischemic changes and no change from his previous EKG dated 02/08/18. Patient is treated with IV morphine for his pain. He is given aspirin. His diagnostic studies show normal troponin and a normal chest x-ray. Patient's observed for a repeat troponin at 3 hours. Patient was medicated for additional pain relief with Toradol 30 mg IV and morphine 4 mg IV. His repeat 3 hour troponin is unremarkable. Patient advised to follow-up with his primary care doc if unimproved early next week. Decision to Disposition Date: Apr 08, 2018 Decision to Disposition Time: 00:17 Depart Departure Latest Vital Signs Vital Signs Date Time Temp Pulse Resp B/P (MAP) Pulse Ox O2 Delivery O2 Flow Rate FiO2 04/08/18 00:24 118/76 (90) 04/08/18 00:15 60 35 93 04/07/18 20:08 97.7 Room Air Impression: Primary Impression: Non-cardiac chest pain Additional Impressions: HTN (hypertension) Hyperlipemia Condition: Improved Disposition: HOME OR SELF-CARE Referrals: STEVE PEREZ DNP, [employer] (PCP) Patient Instructions: Chest Wall Pain (ED) Additional Instructions: Follow-up with primary care if chest pain persists early next week Problem Qualifiers Additional Impressions: HTN (hypertension) Hypertension type: unspecified Qualified Codes: I10 - Essential (primary) hypertension Hyperlipemia Hyperlipidemia type: unspecified Qualified Codes: E78.5 - Hyperlipidemia, unspecified WIL SIMMONS DO Apr 07, 2018 20:08
[2018-04-07] MEDS ORDERED: ASPIRIN 81 MG CHEW PO ONE (20:10)
[2018-04-07] MEDS ORDERED: MORPHINE 4 MG/ML SDV IVP ONE ×2 (20:10→21:00)
[2018-04-07 20:30] LABS: PLATELET COUNT, AUTOMATED 221 K/uL (150-450)
--- NOTE | 2018-04-07 20:54 | RADIOLOGY IMAGING REPORT ---
FACILITY: [facility] [place] PATIENT NAME: Alfonzo Villatoro : 1970 MR: [id number] V: [id number] EXAM DATE: ORDERING PHYSICIAN: WIL SIMMONS TECHNOLOGIST: Location: [facility] Patient: Alfonzo Villatoro : 1970 Visit/Account:[id number] Date of Sevice: 04/07/2018 2 VIEWS CHEST INDICATION: Chest pain. COMPARISON: February 08, 2018 FINDINGS: The lungs are clear and appear mildly hyperinflated. No focal infiltrate. No effusion or pneumothorax is seen. Heart size and mediastinal contours are normal. Coronary artery stent is noted. IMPRESSION: 1. No radiographic evidence of active disease. Report Dictated By: Wes Tripp at 04/07/2018 8:49 PM Report E-Signed By: Wes Tripp at 04/07/2018 8:51 PM WSN:[id number]
[2018-04-07] MEDS ORDERED: KETOROLAC 30 MG/ML VIAL IVP ONE (21:00)
--- NOTE | 2018-04-07 21:47 | EKG ---
[place] [facility] [place] NAME: BRAD ARITA : [id number] MR: [id number] V: [id number] EXAM DATE: ORDERING PHYSICIAN: WIL SIMMONS TECHNOLOGIST: SIA Test Reason : CHEST PAIN Blood Pressure : / mmHG Vent. Rate : 079 BPM Atrial Rate : 079 BPM P-R Int : 134 ms QRS Dur : 082 ms QT Int : 402 ms P-R-T Axes : 048 038 042 degrees QTc Int : 460 ms Sinus rhythm with premature atrial complexes Nonspecific ST findings Slightly prolonged QTc Confirmed by ELISA RODRIGES ([id number]) on 04/08/2018 6:31:45 AM Referred By: Confirmed By:ELISA RODRIGES
[2018-04-08 00:24] VITALS: BP 118/76
[2018-04-09] MEDS ORDERED: OXYC-373 PO (08:56)
[2018-04-09] MEDS ORDERED: DICL100G39 TOP (08:56)
== END 2018-04-08 00:29 | disposition home or self-care (01) ==
LOC: ER 20:10
DX: R07.89 Other chest pain (principal); I10 Essential (primary) hypertension; E78.5 Hyperlipidemia, unspecified
CPT/HCPCS: 36415; 71046; 83880; 84484; 85025; 93005; 96374; 96375; 96376; 99284; A9270; J1885; J2270; 82040; 82247; 82310; 82374; 82435; 82565; 82947; 84075; 84132; 84155; 84295; 84450; 84460; 84520

== ENCOUNTER 2018-04-28 19:28 | Emergency (ER) | payer MEDICARE ==
--- NOTE | 2018-04-28 19:36 | ER Report ---
History and Physical Time Seen By MD: 19:36 HPI/ROS CHIEF COMPLAINT: chest pain HISTORY OF PRESENT ILLNESS: This is a 47 year old male. He had a little shortness of breath yesterday. Today developed pain in chest at about 1500. Describes radiation to back and mid abdomen with a throbbing quality. Has had a heart attack in the past, and was concerned that this was the cause. He went home and rested, to see if the pain would go away. No fevers or chills noted. No nausea or vomiting. No cough and breathing easily at this time. Nothing really makes the pain worse or better, pain is rated 9 on a 1-10 scale. Allergies: Uncoded Allergies: mayonnaise (Allergy, Unknown, 03/26/17) Home Meds Active Scripts Oxycodone Hcl/Acetaminophen (OXYCODONE-ACETAMINOPHEN 5-325) 1 Each Tablet, 1 TAB PO 3-4XD PRN for PAIN, #120 TAB 0 Refills Prov:STEVE PEREZ DNP, FNP-BC 04/09/18 Diclofenac Sodium 1% Gel (VOLTAREN 1% GEL) 100 Gm Gel..gram., 4 G TOP QID PRN for PAIN, #1 TUB 3 Refills Prov:STEVE PEREZ DNP, FNP-BC 04/09/18 Sildenafil Citrate (SILDENAFIL) 20 Mg Tablet, 20 MG PO when necessary for 30 Days, #30 CAP 3 Refills Take 2-5 tablets orally as needed Prov:SIM FABIAN MD 04/04/18 Ondansetron (ZOFRAN ODT) 8 Mg Tab.rapdis, 1 TAB PO Q12H PRN for NAUSEA, #8 TAB 3 Refills Prov:STEVE PEREZ DNP, FNP- 02/11/18 Acetaminophen (ACETAMINOPHEN) 325 Mg Tablet, 1 TAB PO Q6H PRN for PAIN, #90 TAB 0 Refills 1 tab PO QAM prn pain. 1-2 tab PO noon prn pain. 1 tab PO QHS prn pain. Prov:STEVE PEREZ DNP, FNP-BC 12/27/17 Buspirone Hcl (BUSPIRONE HCL) 10 Mg Tablet, 1 TAB PO Q8H, #90 TAB 5 Refills Prov:STEVE PEREZ DNP, FNP-BC 12/21/17 Amlodipine Besylate (AMLODIPINE BESYLATE) 10 Mg Tablet, 1 TAB PO QDAY, #90 TAB 4 Ref[facility] Prov[facility] 12/19/17 Metoprolol Tartrate (METOPROLOL TARTRATE) 100 Mg Tablet, 1 TAB PO BID for 90 Days, #180 TAB 1 Refill Prov:[facility] 10/15/17 Lisinopril (LISINOPRIL) 20 Mg Tablet, 1 TAB PO QDAY, #90 TAB 2 Refills Prov:[facility] 09/27/17 Citalopram Hydrobromide (CITALOPRAM HBR) 40 Mg Tablet, 1 TAB PO QDAY for 90 Days, #90 TAB 3 Refills Prov:[facility] 07/16/17 Reported Medications Atorvastatin Calcium (LIPITOR) 40 Mg Tablet, 1 TAB PO QDAY, TAB 08/04/17 Nitroglycerin (NITROGLYCERIN) 0.4 Mg Tab.subl, 0.4 MG SL Q5MIN 08/04/17 Clopidogrel Bisulfate (PLAVIX) 75 Mg Tablet, 1 TAB PO QDAY, TAB 08/04/17 Ranitidine Hcl (ZANTAC) 150 Mg Tablet, 1 TAB PO BID, TAB 03/26/17 Aspirin (ASPIR 81) 81 Mg Tablet.dr, 81 MG PO QDAY, TAB 03/13/16 Reviewed Nurses Notes: Yes Hx Smoking: Yes (1/2 ppd) Smoking Status: Current: Every Day Smoker Hx Substance Use Disorder: Yes Hx Alcohol Use: Yes Constitutional Vital Sign - Last 24 Hours 04/28/18 04/28/18 04/28/18 04/28/18 19:28 19:31 19:32 19:34 Temp 98.8 Pulse ??? 90 Resp 16 B/P (MAP) 116/104 (108) 125/88 (100) 125/88 Pulse Ox 94 O2 Delivery Room Air 04/28/18 04/28/18 04/28/18 04/28/18 19:43 19:45 19:58 20:00 Pulse 82 78 Resp 13 15 B/P (MAP) 124/91 (102) 135/67 (89) Pulse Ox 94 93 04/28/18 04/28/18 04/28/18 04/28/18 20:13 20:15 20:28 20:30 Pulse 81 ??? Resp 13 B/P (MAP) 128/85 (99) 111/77 (88) Pulse Ox 95 04/28/18 04/28/18 04/28/18 04/28/18 20:43 20:45 20:58 21:00 Pulse 79 79 Resp 16 14 B/P (MAP) 126/76 (93) 114/96 (102) Pulse Ox 92 93 04/28/18 04/28/18 04/28/18 04/28/18 21:13 21:18 21:30 21:33 Pulse 80 73 73 Resp 8 13 16 B/P (MAP) 133/88 (103) Pulse Ox 92 91 92 04/28/18 04/28/18 04/28/18 04/28/18 21:45 21:48 22:00 22:03 Pulse 76 74 Resp 37 12 B/P (MAP) 132/87 (102) 124/81 (95) Pulse Ox 91 88 04/28/18 04/28/18 04/28/18 04/28/18 22:15 22:18 22:30 22:33 Pulse 72 68 Resp 23 16 B/P (MAP) 128/76 (93) 135/80 (98) Pulse Ox 93 92 04/28/18 04/28/18 04/28/18 04/28/18 22:45 22:48 22:53 23:00 Pulse 70 71 Resp 15 19 B/P (MAP) 133/93 (106) 134/95 (108) Pulse Ox 91 91 04/28/18 04/28/18 04/28/18 23:08 23:15 23:23 Pulse 76 74 Resp 22 9 B/P (MAP) 128/81 (97) Pulse Ox 95 90 Intake and Output 04/28/18 04/28/18 04/29/18 15:00 23:00 07:00 Intake Total 1000 ml Balance 1000 ml Physical Exam General Appearance: The patient is alert. No acute distress. Eyes: Pupils are equal, round. No pallor, injection or icterus. ENT: Mucous membranes are moist. Normal oral mucosa. Posterior oropharynx is normal. Neck: Supple and non tender. Respiratory: Lungs are clear to auscultation. Cardiovascular: Regular rate and rhythm. No murmurs, gallops or rubs. Normal capillary refill. Gastrointestinal: Abdomen is soft and non tender. Nondistended. Normal active bowel sounds. Neurological: Alert and oriented x3. Skin: Warm and dry. Musculoskeletal: Extremities are nontender. No tenderness in palpation of the back/spine. Not able to reproduce chest pain with palpation. DIFFERENTIAL DIAGNOSIS: After history and physical exam, differential diagnosis was considered for chest pain including but not limited to myocardial ischemia, dissection or aneurysm, pleural inflammation and pulmonary infectious causes. Medical Decision Making Data Points Result Diagram: 04/28/18193604/28/181936 Laboratory Hematology Test 04/28/18 19:37 04/28/18 22:26 Red Blood Count 5.76 M/uL (4.00-5.60) Mean Corpuscular Volume 86.0 fL (80.0-96.0) Mean Corpuscular Hemoglobin 29.5 pg (26.0-33.0) Mean Corpuscular Hemoglobin Concent 34.3 g/dL (32.0-36.0) Red Cell Distribution Width 14.5 % (11.5-14.5) Mean Platelet Volume 8.0 fL (7.2-11.1) Neutrophils (%) (Auto) 53.2 % (39.4-72.5) Lymphocytes (%) (Auto) 37.4 % (17.6-49.6) Monocytes (%) (Auto) 7.7 % (4.1-12.4) Eosinophils (%) (Auto) 1.1 % (0.4-6.7) Basophils (%) (Auto) 0.6 % (0.3-1.4) Nucleated RBC Relative Count (auto) 0.1 /100WBC Neutrophils # (Auto) 4.9 K/uL (2.0-7.4) Lymphocytes # (Auto) 3.5 K/uL (1.3-3.6) Monocytes # (Auto) 0.7 K/uL (0.3-1.0) Eosinophils # (Auto) 0.1 K/uL (0.0-0.5) Basophils # (Auto) 0.1 K/uL (0.0-0.1) Nucleated RBC Absolute Count (auto) 0.01 K/uL Sodium Level 141 mmol/L (137-145) Potassium Level 4.0 mmol/L (3.5-5.0) Chloride Level 104 mmol/L (98-107) Carbon Dioxide Level 26 mmol/L (22-30) Blood Urea Nitrogen 18 mg/dl (9-21) Creatinine 1.30 mg/dl (0.66-1.25) Glomerular Filtration Rate Calc 58.7 Random Glucose 89 mg/dl (75-110) Calcium Level 9.7 mg/dl (8.4-10.2) Total Bilirubin 0.3 mg/dl (0.2-1.3) Aspartate Amino Transf (AST/SGOT) 37 U/L (0-35) Alanine Aminotransferase (ALT/SGPT) 50 U/L (0-56) Alkaline Phosphatase 139 U/L (0-126) B-Type Natriuretic Peptide 34 pg/ml (0-100) Total Protein 8.1 g/dl (6.3-8.2) Albumin 4.5 g/dl (3.5-5.0) Troponin I < 0.012 ng/ml Amylase Level 76 U/L (0-110) Lipase 313 U/L (23-300) Chemistry Test 04/28/18 19:37 04/28/18 22:26 White Blood Count 9.2 k/uL (4.5-11.0) Red Blood Count 5.76 M/uL (4.00-5.60) Hemoglobin 17.0 g/dL (14.0-18.0) Hematocrit 49.6 % (42.0-52.0) Mean Corpuscular Volume 86.0 fL (80.0-96.0) Mean Corpuscular Hemoglobin 29.5 pg (26.0-33.0) Mean Corpuscular Hemoglobin Concent 34.3 g/dL (32.0-36.0) Red Cell Distribution Width 14.5 % (11.5-14.5) Platelet Count 249 K/uL (150-450) Mean Platelet Volume 8.0 fL (7.2-11.1) Neutrophils (%) (Auto) 53.2 % (39.4-72.5) Lymphocytes (%) (Auto) 37.4 % (17.6-49.6) Monocytes (%) (Auto) 7.7 % (4.1-12.4) Eosinophils (%) (Auto) 1.1 % (0.4-6.7) Basophils (%) (Auto) 0.6 % (0.3-1.4) Nucleated RBC Relative Count (auto) 0.1 /100WBC Neutrophils # (Auto) 4.9 K/uL (2.0-7.4) Lymphocytes # (Auto) 3.5 K/uL (1.3-3.6) Monocytes # (Auto) 0.7 K/uL (0.3-1.0) Eosinophils # (Auto) 0.1 K/uL (0.0-0.5) Basophils # (Auto) 0.1 K/uL (0.0-0.1) Nucleated RBC Absolute Count (auto) 0.01 K/uL Glomerular Filtration Rate Calc 58.7 Calcium Level 9.7 mg/dl (8.4-10.2) Total Bilirubin 0.3 mg/dl (0.2-1.3) Aspartate Amino Transf (AST/SGOT) 37 U/L (0-35) Alanine Aminotransferase (ALT/SGPT) 50 U/L (0-56) Alkaline Phosphatase 139 U/L (0-126) B-Type Natriuretic Peptide 34 pg/ml (0-100) Total Protein 8.1 g/dl (6.3-8.2) Albumin 4.5 g/dl (3.5-5.0) Troponin I < 0.012 ng/ml Amylase Level 76 U/L (0-110) Lipase 313 U/L (23-300) EKG/Imaging EKG Interpretation 12 lead EKG: Rhythm: normal sinus rhythm, rate 86 [place]: normal QRS: normal ST segments: normal Imaging CHEST SINGLE AP Indication: Chest pain.. Comparison: 04/07/2018. Findings: Cardiomediastinal silhouette and pulmonary vessels within normal limits. There is no focal infiltrate or lobar consolidation. No pneumothorax or pleural effusion. No nodule. Upper abdomen is unremarkable. No acute bony normality. Old right rib fractures. IMPRESSION: 1. No acute cardiopulmonary process. Report Dictated By: Vasile Barroso at 04/28/2018 9:[address] angiogram chest abdomen and pelvis without and with IV contrast. INDICATION: Chest, abdomen and back pain. Evaluate for dissection. COMPARISON: CTA of the chest on 03/16/2017. CT scan pelvis on 10/27/2016. Technique: Axial CT images are obtained through the chest abdomen and pelvis prior to and after administration of 145 mL Isovue-370 IV contrast. Reformatted coronal and sagittal images were reviewed. Coronal MIP images were also obtained One of the following dose optimization techniques was utilized in the p erformance of this exam: Automated exposure control; adjustment of the mA and/or kV according to the patient's size; or use of an iterative reconstruction technique. Specific details can be referenced in the facility's radiology CT exam operational policy. FINDINGS: CT Chest: The aorta shows no aneurysm or dissection. Heart is normal size without pericardial effusion. Coronary artery calcif ications are present. The pulmonary arteries are grossly normal. The mediastinum and hilar regions show a few small lymph nodes without any enlarged lymph nodes or abnormal density. Lungs show no consolidation, pleural effusion, pneumothorax, discrete nodule or focal interstitial opacities. Airways are clear. Bony structures show no acute fractures. Old right rib fractures. No aggressive bony lesions. The chest wall shows no enlarged axillary lymph nodes or masses. CT Abdomen and Pelvis: Aorta shows mild atherosclerotic us of changes without aneurysm or dissection. The iliac and femoral arteries show no aneurysm or dissection with minimal atherosclerotic calcific changes. The mesenteric vessels are patent without focal abnormality. Single bilateral renal arteries show no focal abnormality. The liver, gallbladder, biliary system, pancreas, spleen, adrenal glands and kidneys are within normal limits. There are diverticula along the descending and sigmoid colon without pericolonic inflammation. The colon shows no other focal abnormality. Short appendix is visualized and is normal. Small bowel shows no focal normality or obstruction. The stomach is unremarkable. No free air, free fluid, fluid collections or areas of inflammation. No adenopathy. Pelvic structures visualized within normal limits. Stable anterior spinal listhesis of L5 over S1 of 10 mm due to bilateral pars defects and degenerative changes. No acute bony abnormality or aggressive bony lesion. IMPRESSION: 1. Aorta shows no aneurysm or dissection. 2. No acute cardiopulmonary disease. 3. No acute abnormality to the abdomen and pelvis. 4. Diverticulosis without radiographic indication diverticulitis. 5. Other chronic stable findings as above. Report Dictated By: Vasile Barroso at 04/28/2018 8:54 PM ED Course/Re-evaluation Clinical Indication for ER IV: Hydration, IV Access ED Course The patient was given Morphine and Zofran initially. Chest x-ray and labs negative. CTA chest/abdomen/pelvis obtained to rule out dissection or aneurysm, which was negative. Dilaudid given for pain. Lipase mild elevation. Based on labs and negative imaging, mild pancreatitis versus esophagitis would be the likely cause of pain. Recommended bland diet and rest. Continued use of his Percocet at home for pain. Decision to Disposition Date: Apr 28, 2018 Decision to Disposition Time: 23:21 Depart Departure Latest Vital Signs Vital Signs Date Time Temp Pulse Resp B/P (MAP) Pulse Ox O2 Delivery O2 Flow Rate FiO2 04/28/18 23:23 74 9 90 04/28/18 23:15 128/81 (97) 04/28/18 19:34 98.8 Room Air Impression: Primary Impression: Pancreatitis Condition: Improved Disposition: HOME OR SELF-CARE Referrals: STEVE PEREZ DNP, PACK ROOM OPERATOR-BC (PCP) Patient Instructions: Pancreatitis (ED) Additional Instructions: Mild pancreatitis or esophagitis appears to be the cause of your pain. The EKG and cardiac labs were normal. The CT scan did not show signs of problems with the great vessels in the chest and abdomen. Rest and increase fluid intake. [place] or BRAT diet, low fat diet. Take your Percocet as needed for pain. Problem Qualifiers Primary Impression: Pancreatitis Chronicity: acute Pancreatitis type: unspecified pancreatitis type Acute pancreatitis complication: no infection or necrosis Qualified Codes: K85.9 0 - Acute pancreatitis without necrosis or infection, unspecified ASHANTI OCHOA MD Apr 28, 2018 19:36
[2018-04-28] MEDS ORDERED: ASPIRIN 81 MG CHEW PO ONE (19:45)
--- NOTE | 2018-04-28 19:49 | EKG ---
FACILITY: [facility] PATIENT NAME: BRAD ARITA : [id number] MR: [id number] V: [id number] EXAM DATE: ORDERING PHYSICIAN: ASHANTI OCHOA TECHNOLOGIST: HENRIETTA Test Reason : Blood Pressure : / mmHG Vent. Rate : 086 BPM Atrial Rate : 086 BPM P-R Int : 128 ms QRS Dur : 080 ms QT Int : 388 ms P-R-T Axes : 058 033 029 degrees QTc Int : 464 ms Normal sinus rhythm Normal ECG When compared with ECG of 07-APR-2018 20:15, premature atrial complexes are no longer present Confirmed by RABIA ZHU ([id number]) on 04/28/2018 8:18:21 PM Referred By: Confirmed By:RABIA ZHU
[2018-04-28 19:55] LABS: PLATELET COUNT, AUTOMATED 249 K/uL (150-450)
[2018-04-28] MEDS ORDERED: ONDANSETRON 4 MG/2 ML VIAL IVP ONE (19:55)
[2018-04-28] MEDS ORDERED: MORPHINE 4 MG/ML SDV IVP ONE (19:55)
[2018-04-28] MEDS ORDERED: NS(*) 0.9% 50 ML BAG 50 ML ONE (20:11)
[2018-04-28] MEDS ORDERED: IOPAMIDOL 76% 75 ML INFUS BTL 0 ML ONE (20:11)
[2018-04-28] MEDS ORDERED: IOPAMIDOL 76% 150 ML INFUS BTL 150 ML ONE (20:21)
[2018-04-28] MEDS ORDERED: HYDROMORPHONE HCL 1 MG/ML SYRINGE IVP ONE ×2 (21:10→23:10)
--- NOTE | 2018-04-28 21:16 | RADIOLOGY IMAGING REPORT ---
FACILITY: [facility] PATIENT NAME: Alfonzo Villatoro : 1970 MR: [id number] V: [id number] EXAM DATE: ORDERING PHYSICIAN: ASHANTI OCHOA TECHNOLOGIST: Location: [facility] [place] Patient: Alfonzo Villatoro : 1970 Visit/Account:[id number] Date of Sevice: 04/28/2018 CT angiogram chest abdomen and pelvis without and with IV contrast. INDICATION: Chest, abdomen and back pain. Evaluate for dissection. COMPARISON: CTA of the chest on 03/16/2017. CT scan pelvis on 10/27/2016. Technique: Axial CT images are obtained through the chest abdomen and pelvis prior to and after admin istration of 145 mL Isovue-370 IV contrast. Reformatted coronal and sagittal images were reviewed. [place] MIP images were also obtained One of the following dose optimization techniques was utilized in the performance of this exam: Autom ated exposure control; adjustment of the mA and/or kV according to the patient's size; or use of an i terative reconstruction technique. Specific details can be referenced in the facility's radiology C T exam operational policy. FINDINGS: CT Chest: The aorta shows no aneurysm or dissection. Heart is normal size without pericardial effusion. Coronary artery calcifications are present. The pulmonary arteries are grossly normal. The mediastinum and hilar regions show a few small lymph node s without any enlarged lymph nodes or abnormal density. Lungs show no consolidation, pleural effusion, pneumothorax, discrete nodule or focal interstitial op acities. Airways are clear. Bony structures show no acute fractures. Old right rib fractures. No aggressive bony lesions. The chest wall shows no enlarged axillary lymph nodes or masses. CT Abdomen and Pelvis: Aorta shows mild atherosclerotic us of changes without aneurysm or dissection. The iliac and femoral arteries show no aneurysm or dissection with minimal atherosclerotic calcific changes. The mesenter ic vessels are patent without focal abnormality. Single bilateral renal arteries show no focal abnor mality. The liver, gallbladder, biliary system, pancreas, spleen, adrenal glands and kidneys are within meena l limits. There are diverticula along the descending and sigmoid colon without pericolonic inflammation. The c olon shows no other focal abnormality. Short appendix is visualized and is normal. Small bowel show s no focal normality or obstruction. The stomach is unremarkable. No free air, free fluid, fluid co llections or areas of inflammation. No adenopathy. Pelvic structures visualized within normal limit s. Stable anterior spinal listhesis of L5 over S1 of 10 mm due to bilateral pars defects and degenerativ e changes. No acute bony abnormality or aggressive bony lesion. IMPRESSION: 1. Aorta shows no aneurysm or dissection. 2. No acute cardiopulmonary disease. 3. No acute abnormality to the abdomen and pelvis. 4. Diverticulosis without radiographic indication diverticulitis. 5. Other chronic stable findings as above. Report Dictated By: Vasile Barroso at 04/28/2018 8:54 PM Report E-Signed By: Vasile Barroso at 04/28/2018 9:11 PM WSN:[id number]
--- NOTE | 2018-04-28 21:19 | RADIOLOGY IMAGING REPORT ---
FACILITY: [facility] - [place] PATIENT NAME: Alfonzo Villatoro : 1970 MR: [id number] V: [id number] EXAM DATE: ORDERING PHYSICIAN: ASHANTI OCHOA TECHNOLOGIST: [place] [facility] [place]fonzo Villatoro : 1970 Visit/Account:[id number] Date of Sevice: 04/28/2018 CHEST SINGLE AP Indication: Chest pain.. Comparison: 04/07/2018. Findings: Cardiomediastinal silhouette and pulmonary vessels within normal limits. There is no focal infiltrate or lobar consolidation. No pneumothorax or pleural effusion. No nodule. Upper abdomen is unremarkable. No acute bony normality. Old right rib fractures. IMPRESSION: 1. No acute cardiopulmonary process. Report Dictated By: Vasile Barroso at 04/28/2018 9:15 PM Report E-Signed By: Vasile Barroso at 04/28/2018 9:16 PM WSN:[id number]
[2018-04-28] MEDS ORDERED: NS(*) 0.9% 1000 ML BAG 1,000 ML IV ONE (21:30)
[2018-04-28 23:15] VITALS: BP 128/81
== END 2018-04-28 23:30 | disposition home or self-care (01) ==
LOC: ER 19:41
DX: K85.90 Acute pancreatitis without necrosis or infection, unspecified (principal)
CPT/HCPCS: 36415; 71045; 71275; 74174; 82150; 83690; 83880; 84484; 85025; 93005; 96374; 96375; 96376; 99285; A9270; J1170; J2270; J2405; J7030; J7050; Q9967; 82040; 82247; 82310; 82374; 82435; 82565; 82947; 84075; 84132; 84155; 84295; 84450; 84460; 84520

== ENCOUNTER 2018-05-03 03:46 | Emergency (ER) | payer MEDICARE ==
[~2018-05-03 03:46] MED LIST changes: -AMLO-113 PO; +AMLO-127 PO
--- NOTE | 2018-05-03 03:48 | ER Report ---
History and Physical Time Seen By MD: 03:48 HPI/ROS CHIEF COMPLAINT: Abdominal pain, vomiting HISTORY OF PRESENT ILLNESS: 47-year-old male was seen here approximately 5 days ago with abdominal pain. He was diagnosed with pancreatitis. His lipase is only mildly elevated to 313. He was having diarrhea at that time. He was discharged home and now. He's not had a bowel movement in 4 days. He is sharp, crampy lower abdominal pain in both lower quadrants. He's had continued vomiting. His symptoms of only gotten worse. He denies chest pain. He does have a history of coronary artery disease with 5 stent placements. He notes the pain radiates to his back. REVIEW OF SYSTEMS: Respiratory: No cough, no dyspnea. Cardiovascular: No chest pain, no palpitations. Gastrointestinal: As above Musculoskeletal: As above Allergies: Uncoded Allergies: mayonnaise (Allergy, Unknown, 03/26/17) Home Meds Active Scripts Ondansetron Hcl (ZOFRAN) 4 Mg Tablet, 4 MG PO Q6H PRN for NAUSEA/VOMITING, #15 Prov:WIL SIMMONS DO 05/03/18 Oxycodone Hcl/Acetaminophen (OXYCODONE-ACETAMINOPHEN 5-325) 1 Each Tablet, 1 TAB PO 3-4XD PRN for PAIN, #120 TAB 0 Refills Prov:STEVE PEREZ DNP [facility] [place] 04/09/18 Diclofenac Sodium 1% Gel (VOLTAREN 1% GEL) 100 Gm Gel..gram., 4 G TOP QID PRN for PAIN, #1 TUB 3 Refills Prov:STEVE PEREZ DNP [facility] [place] 04/09/18 Sildenafil Citrate (SILDENAFIL) 20 Mg Tablet, 20 MG PO when necessary for 30 Days, #30 CAP 3 Refills Take 2-5 tablets orally as needed Prov:SIM FABIAN MD 04/04/18 Ondansetron (ZOFRAN ODT) 8 Mg Tab.rapdis, 1 TAB PO Q12H PRN for NAUSEA, #8 TAB 3 Refills Prov:STEVE PEREZ DNP [facility] [place] 02/11/18 Acetaminophen (ACETAMINOPHEN) 325 Mg Tablet, 1 TAB PO Q6H PRN for PAIN, #90 TAB 0 Refills 1 tab PO QAM prn pain. 1-2 tab PO noon prn pain. 1 tab PO QHS prn pain. Prov:[facility] 12/27/17 Buspirone Hcl (BUSPIRONE HCL) 10 Mg Tablet, 1 TAB PO Q8H, #90 TAB 5 Refills Prov:STEVE PEREZ LAVELL, [facility] [place] 12/21/17 Amlodipine Besylate (AMLODIPINE BESYLATE) 10 Mg Tablet, 1 TAB PO QDAY, #90 TAB 4 Refills Prov:[facility] 12/19/17 Metoprolol Tartrate (METOPROLOL TARTRATE) 100 Mg Tablet, 1 TAB PO BID for 90 Days, #180 TAB 1 Refill Prov:[facility] 10/15/17 Lisinopril (LISINOPRIL) 20 Mg Tablet, 1 TAB PO QDAY, #90 TAB 2 Refills Prov:STEVE PEREZ [facility] 09/27/17 Citalopram Hydrobromide (CITALOPRAM HBR) 40 Mg Tablet, 1 TAB PO QDAY for 90 Days, #90 TAB 3 Refills Prov:[facility] 07/16/17 Reported Medications Atorvastatin Calcium (LIPITOR) 40 Mg Tablet, 1 TAB PO QDAY, TAB 08/04/17 Nitroglycerin (NITROGLYCERIN) 0.4 Mg Tab.subl, 0.4 MG SL Q5MIN 08/04/17 Clopidogrel Bisulfate (PLAVIX) 75 Mg Tablet, 1 TAB PO QDAY, TAB 08/04/17 Ranitidine Hcl (ZANTAC) 150 Mg Tablet, 1 TAB PO BID, TAB 03/26/17 Aspirin (ASPIR 81) 81 Mg Tablet.dr, 81 MG PO QDAY, TAB 03/13/16 Past Medical/Surgical History Past Medical History Cardiovascular: Reports hx of: coronary artery disease (5 stents) hyperlipidemia hypertension myocardial infarction (x1, July 2017) Respiratory: Reports hx of: sleep apnea (CPAP) Gastrointestinal: Reports hx of: GERD Psychiatric: Reports hx of: anxiety depression panic attacks Past Surgical History Cardiovascular: Reports hx of: coronary stent (5 stents placed) Family History Reviewed Nurses Notes: Yes Old Medical Records Reviewed: Yes Hx Smoking: Yes (1/2 ppd) Smoking Status: Current: Every Day Smoker Hx Substance Use Disorder: Yes Hx Alcohol Use: Yes Constitutional Vital Sign - Last 24 Hours 05/03/18 05/03/18 05/03/18 05/03/18 03:50 03:56 04:00 04:01 Temp 98.2 Pulse 96 93 91 Resp 20 20 B/P (MAP) 130/91 104/79 (87) Pulse Ox 95 96 94 O2 Delivery Room Air 05/03/18 05/03/18 05/03/18 05/03/18 04:06 04:11 04:15 04:16 Pulse 90 87 87 Resp 11 13 9 B/P (MAP) 107/79 (88) Pulse Ox 91 93 91 05/03/18 05/03/18 05/03/18 05/03/18 04:21 04:26 04:41 04:45 Pulse 97 86 Resp 23 8 B/P (MAP) 106/75 (85) 104/76 (85) Pulse Ox 92 90 05/03/18 05/03/18 05/03/18 05/03/18 04:46 05:00 05:15 05:16 Pulse 85 81 Resp 16 11 B/P (MAP) 108/79 (89) 109/82 (91) Pulse Ox 90 90 05/03/18 05/03/18 05:30 05:31 Pulse 82 Resp 13 B/P (MAP) 96/66 (76) Physical Exam General Appearance: The patient is alert, has no immediate need for airway protection and no current signs of toxicity. Slightly pale appearing, skin warm and dry, vital signs stable, afebrile Eyes: Pupils equal and round no injection. Respiratory: Chest is non tender, lungs are clear to auscultation. Cardiac: regular rate and rhythm Gastrointestinal: Abdomen is soft. Mild bilateral lower quadrant tenderness, no rebound or guarding, no masses, bowel sounds normal. Musculoskeletal: Neck: Neck is supple and non tender. Extremities have full range of motion and are non tender. Skin: No rashes or lesions. DIFFERENTIAL DIAGNOSIS: After history and physical exam differential diagnosis was considered for abdominal pain including but not limited to appendicitis, cholecystitis, gastritis and urinary tract infection. Medical Decision Making Data Points Result Diagram: 05/03/18 0355 05/03/18 0355 Laboratory Hematology Test 05/03/18 03:55 05/03/18 04:52 Red Blood Count 6.15 M/uL (4.00-5.60) Mean Corpuscular Volume 86.3 fL (80.0-96.0) Mean Corpuscular Hemoglobin 29.6 pg (26.0-33.0) Mean Corpuscular Hemoglobin Concent 34.3 g/dL (32.0-36.0) Red Cell Distribution Width 14.1 % (11.5-14.5) Mean Platelet Volume 8.0 fL (7.2-11.1) Neutrophils (%) (Auto) 57.8 % (39.4-72.5) Lymphocytes (%) (Auto) 32.3 % (17.6-49.6) Monocytes (%) (Auto) 8.9 % (4.1-12.4) Eosinophils (%) (Auto) 0.2 % (0.4-6.7) Basophils (%) (Auto) 0.8 % (0.3-1.4) Nucleated RBC Relative Count (auto) 0.0 /100WBC Neutrophils # (Auto) 6.3 K/uL (2.0-7.4) Lymphocytes # (Auto) 3.6 K/uL (1.3-3.6) Monocytes # (Auto) 1.0 K/uL (0.3-1.0) Eosinophils # (Auto) 0.0 K/uL (0.0-0.5) Basophils # (Auto) 0.1 K/uL (0.0-0.1) Nucleated RBC Absolute Count (auto) 0.01 K/uL Sodium Level 134 mmol/L (137-145) Potassium Level 3.1 mmol/L (3.5-5.0) Chloride Level 96 mmol/L (98-107) Carbon Dioxide Level 24 mmol/L (22-30) Blood Urea Nitrogen 20 mg/dl (9-21) Creatinine 1.30 mg/dl (0.66-1.25) Glomerular Filtration Rate Calc 58.7 Random Glucose 113 mg/dl (75-110) Calcium Level 9.8 mg/dl (8.4-10.2) Total Bilirubin 1.1 mg/dl (0.2-1.3) Aspartate Amino Transf (AST/SGOT) 31 U/L (0-35) Alanine Aminotransferase (ALT/SGPT) 28 U/L (0-56) Alkaline Phosphatase 163 U/L (0-126) Troponin I < 0.012 ng/ml Total Protein 8.6 g/dl (6.3-8.2) Albumin 4.7 g/dl (3.5-5.0) Amylase Level 64 U/L (0-110) Lipase 197 U/L (23-300) Urine Color Yellow Urine Clarity Slightly-cloudy Urine pH 5.0 pH (4.8-9.5) Urine Specific [place] >1.060 Urine Protein 30 mg/dL (NEGATIVE) Urine Glucose (UA) Negative mg/dL (NEGATIVE) Urine Ketones Trace mg/dL (NEGATIVE) Urine Blood Negative (NEGATIVE) Urine Nitrite Negative (NEGATIVE) Urine Bilirubin Negative (NEGATIVE) Urine Urobilinogen 2.0 mg/dL (0.2-1.9) Urine Leukocyte Esterase Negative (NEGATIVE) Urine RBC 2 /HPF (0-2/HPF) Urine WBC 1 /HPF (0-5/HPF) Urine Squamous Epithelial Cells Few /LPF (</=FEW) Urine Bacteria Negative /HPF (NONE-FEW) Urine Mucus Few /HPF (NONE-FEW) Chemistry Test 05/03/18 03:55 05/03/18 04:52 White Blood Count 11.0 k/uL (4.5-11.0) Red Blood Count 6.15 M/uL (4.00-5.60) Hemoglobin 18.2 g/dL (14.0-18.0) Hematocrit 53.1 % (42.0-52.0) Mean Corpuscular Volume 86.3 fL (80.0-96.0) Mean Corpuscular Hemoglobin 29.6 pg (26.0-33.0) Mean Corpuscular Hemoglobin Concent 34.3 g/dL (32.0-36.0) Red Cell Distribution Width 14.1 % (11.5-14.5) Platelet Count 309 K/uL (150-450) Mean Platelet Volume 8.0 fL (7.2-11.1) Neutrophils (%) (Auto) 57.8 % (39.4-72.5) Lymphocytes (%) (Auto) 32.3 % (17.6-49.6) Monocytes (%) (Auto) 8.9 % (4.1-12.4) Eosinophils (%) (Auto) 0.2 % (0.4-6.7) Basophils (%) (Auto) 0.8 % (0.3-1.4) Nucleated RBC Relative Count (auto) 0.0 /100WBC Neutrophils # (Auto) 6.3 K/uL (2.0-7.4) Lymphocytes # (Auto) 3.6 K/uL (1.3-3.6) Monocytes # (Auto) 1.0 K/uL (0.3-1.0) Eosinophils # (Auto) 0.0 K/uL (0.0-0.5) Basophils # (Auto) 0.1 K/uL (0.0-0.1) Nucleated RBC Absolute Count (auto) 0.01 K/uL Glomerular Filtration Rate Calc 58.7 Calcium Level 9.8 mg/dl (8.4-10.2) Total Bilirubin 1.1 mg/dl (0.2-1.3) Aspartate Amino Transf (AST/SGOT) 31 U/L (0-35) Alanine Aminotransferase (ALT/SGPT) 28 U/L (0-56) Alkaline Phosphatase 163 U/L (0-126) Troponin I < 0.012 ng/ml Total Protein 8.6 g/dl (6.3-8.2) Albumin 4.7 g/dl (3.5-5.0) Amylase Level 64 U/L (0-110) Lipase 197 U/L (23-300) Urine Color Yellow Urine Clarity Slightly-cloudy Urine pH 5.0 pH (4.8-9.5) Urine Specific [place] >1.060 Urine Protein 30 mg/dL (NEGATIVE) Urine Glucose (UA) Negative mg/dL (NEGATIVE) Urine Ketones Trace mg/dL (NEGATIVE) Urine Blood Negative (NEGATIVE) Urine Nitrite Negative (NEGATIVE) Urine Bilirubin Negative (NEGATIVE) Urine Urobilinogen 2.0 mg/dL (0.2-1.9) Urine Leukocyte Esterase Negative (NEGATIVE) Urine RBC 2 /HPF (0-2/HPF) Urine WBC 1 /HPF (0-5/HPF) Urine Squamous Epithelial Cells Few /LPF (</=FEW) Urine Bacteria Negative /HPF (NONE-FEW) Urine Mucus Few /HPF (NONE-FEW) Urinalysis Test 05/03/18 04:52 Urine Color Yellow Urine Clarity Slightly-cloudy Urine pH 5.0 pH (4.8-9.5) Urine Specific [place] >1.060 Urine Protein 30 mg/dL (NEGATIVE) Urine Glucose (UA) Negative mg/dL (NEGATIVE) Urine Ketones Trace mg/dL (NEGATIVE) Urine Blood Negative (NEGATIVE) Urine Nitrite Negative (NEGATIVE) Urine Bilirubin Negative (NEGATIVE) Urine Urobilinogen 2.0 mg/dL (0.2-1.9) Urine Leukocyte Esterase Negative (NEGATIVE) Urine RBC 2 /HPF (0-2/HPF) Urine WBC 1 /HPF (0-5/HPF) Urine Squamous Epithelial Cells Few /LPF (</=FEW) Urine Bacteria Negative /HPF (NONE-FEW) Urine Mucus Few /HPF (NONE-FEW) EKG/Imaging EKG Interpretation 12 lead EK 353 Rhythm: normal sinus rhythm [place]: normal QRS: normal ST segments: normal, comparison to previous EKG dated 04/28/18, no significant change Imaging Results: CT scan of the abdomen and pelvis with IV contrast was obtained. The results of the study are CT ABDOMEN PELVIS W/ CON HISTORY: Severe lower abdominal pain. COMPARISON: CTA chest, abdomen, and pelvis 04/28/2017. Prior CT abdomen pelvis 10/27/2016. TECHNIQUE: Axial images were obtained from the lung bases through the symphysis pubis with intravenous contrast. Sagittal and coronal reformats were performed. One of the following dose optimization techniques was utilized in the performance of this exam: Automated exposure control; adjustment of the mA and/or kV according to the patient's size; or use of an iterative reconstruction technique. Specific details can be referenced in the facility's radiology CT exam operational policy. CONTRAST: 75 mL IV [id number]. FINDINGS: Lower chest: There is coronary artery calcification. There are coronary stents. Liver: Liver is diffusely decreased in attenuation, compatible with hepatic steatosis. Liver measures 18.0 cm in size. Gallbladder/biliary: Normal. Pancreas: Normal. Spleen: Normal. Adrenals: Normal. Kidneys/ureters/bladder: Stable too small to characterize subcentimeter low attenuating lesion of the left superior renal cortex is statistically likely to represent a benign cyst. The right kidney, ureters, and the bladder are normal. GI/mesentery/peritoneal cavity: There is no bowel obstruction. There is no wall thickening or pericolonic stranding. The appendix is normal. There is sigmoid and descending colon diverticulosis without diverticulitis. There is no free air or free fluid. Vessels: There is mild to moderate atherosclerotic disease, advanced for age. No aneurysm. No dissection. Nodes: Normal. Pelvis: There are phleboliths. Bones/vertebra/soft tissues: Healed eighth and ninth posterolateral right rib fractures. There are bilateral L5 pars defects. There is 1 cm anterolisthesis of L5 compared to S1 and 4 mm anterolisthesis of L5 compared to L4, unchanged. There is partial bony fusion across the L5-S1 disc space. There are 3 mm retrolistheses of L1 compared to L2, of L2 compared to L3, and of L3 compared to L4. There is wedge compression of the superior endplates of T11 and T12, unchanged, and potentially physiologic. There is slight leftward curvature of the lumbar spine. There is mild degenerative change of the hips. IMPRESSION: 1. No findings in the abdomen or pelvis to account for the patient's symptoms. 2. Diverticulosis without diverticulitis. 3. Hepatic steatosis. It can progress to steatohepatitis and eventual cirrhosis. 4. Coronary artery calcification with coronary stents. In addition, there is mild to moderate atherosclerosis of the aorta and its branches, advanced for patient age. The study was read by the radiologist. I viewed the images myself on the PACS system. ED Course/Re-evaluation Clinical Indication for ER IV: Hydration, IV Access ED Course Patient was admitted to an examination room. H&P was done. The differential diagnoses was considered. Patient with worsening abdominal pain. He's had multiple episodes of vomiting. Patient was diagnosed with low-grade pancreatitis. 4 days ago. He returns with worsening symptoms. Repeat diagnostic studies are ordered. Patient's treated with Zofran and Dilaudid IV. He is hydrated with fluid. He continues to have significant abdominal pain. A CT scan of the abdomen and pelvis is ordered and completed. It is unremarkable for acute pathology. The results are discussed with the patient. He's advised a clear liquid diet for several days. He is given a prescription for Zofran. He is provided opiate pain relievers by his primary care provider. Patient advi sed to follow-up with his primary care provider if unimproved in 3-5 days. Decision to Disposition Date: May 03, 2018 Decision to Disposition Time: 05:13 Depart Departure Latest Vital Signs Vital Signs Date Time Temp Pulse Resp B/P (MAP) Pulse Ox O2 Delivery O2 Flow Rate FiO2 05/03/18 05:31 82 13 05/03/18 05:30 96/66 (76) 05/03/18 05:16 90 05/03/18 03:50 98.2 Room Air Impression: Primary Impression: Abdominal pain of unknown etiology Condition: Improved Disposition: HOME OR SELF-CARE Referrals: STEVE PEREZ DNP, [facility]OPH[facility] OBSERVER-[facility] (PCP) New Scripts Ondansetron Hcl (ZOFRAN) 4 Mg Tablet 4 MG PO Q6H PRN for NAUSEA/VOMITING, #15 Prov: WIL SIMMONS DO 05/03/18 Patient Instructions: Abdominal Pain (ED), Clear Liquid Diet (ED) Additional Instructions: Follow clear liquid diet for 24-48 hours, then advance to [place] diet Follow-up with primary care if unimproved in 3-5 days WIL SIMMONS DO May 03, 2018 03:48
[2018-05-03] MEDS ORDERED: HYDROMORPHONE HCL 1 MG/ML SYRINGE IVP ONE (03:55)
[2018-05-03] MEDS ORDERED: ONDANSETRON 4 MG/2 ML VIAL IVP ONE (03:55)
[2018-05-03 04:06] LABS: PLATELET COUNT, AUTOMATED 309 K/uL (150-450)
[2018-05-03] MEDS ORDERED: IOPAMIDOL 76% 75 ML INFUS BTL 75 ML ONE (04:22)
--- NOTE | 2018-05-03 04:25 | EKG ---
FACILITY: [facility] - [place] PATIENT NAME: BRAD ARITA : [id number] MR: [id number] V: [id number] EXAM DATE: ORDERING PHYSICIAN: WIL SIMMONS TECHNOLOGIST: SIA Test Reason : CHEST PAIN Blood Pressure : / mmHG Vent. Rate : 101 BPM Atrial Rate : 101 BPM P-R Int : 128 ms QRS Dur : 080 ms QT Int : 378 ms P-R-T Axes : 058 047 041 degrees QTc Int : 490 ms Sinus tachycardia Baseline artifact makes interpretation difficult Prolonged QT interval Abnormal ECG Confirmed by ELISA RODRIGES ([id number]) on 05/03/2018 6:05:20 AM Referred By: Confirmed By:ELISA RODRIGES
--- NOTE | 2018-05-03 05:14 | RADIOLOGY IMAGING REPORT ---
FACILITY: [facility] - [place] PATIENT NAME: Alfonzo Villatoro : 1970 MR: [id number] V: [id number] EXAM DATE: ORDERING PHYSICIAN: WIL SIMMONS TECHNOLOGIST: Location: [facility] - [place] Patient: Alfonzo Villatoro : 1970 Visit/Account:[id number] Date of Sevice: 05/03/2018 CT ABDOMEN PELVIS W/ CON HISTORY: Severe lower abdominal pain. COMPARISON: CTA chest, abdomen, and pelvis 04/28/2017. Prior CT abdomen pelvis 10/27/2016. TECHNIQUE: Axial images were obtained from the lung bases through the symphysis pubis with intravenou s contrast. Sagittal and coronal reformats were performed. One of the following dose optimization techniques was utilized in the performance of this exam: Autom ated exposure control; adjustment of the mA and/or kV according to the patient's size; or use of an i terative reconstruction technique. Specific details can be referenced in the facility's radiology CT exam operational policy. CONTRAST: 75 mL IV [id number]. FINDINGS: Lower chest: There is coronary artery calcification. There are coronary stents. Liver: Liver is diffusely decreased in attenuation, compatible with hepatic steatosis. Liver measures 18.0 cm in size. Gallbladder/biliary: Normal. Pancreas: Normal. Spleen: Normal. Adrenals: Normal. Kidneys/ureters/bladder: Stable too small to characterize subcentimeter low attenuating lesion of the left superior renal cortex is statistically likely to represent a benign cyst. The right kidney, ure ters, and the bladder are normal. GI/mesentery/peritoneal cavity: There is no bowel obstruction. There is no wall thickening or pericol onic stranding. The appendix is normal. There is sigmoid and descending colon diverticulosis without diverticulitis. There is no free air or free fluid. Vessels: There is mild to moderate atherosclerotic disease, advanced for age. No aneurysm. No dissect ion. Nodes: Normal. Pelvis: There are phleboliths. Bones/vertebra/soft tissues: Healed eighth and ninth posterolateral right rib fractures. There are bi lateral L5 pars defects. There is 1 cm anterolisthesis of L5 compared to S1 and 4 mm anterolisthesis of L5 compared to L4, unchanged. There is partial bony fusion across the L5-S1 disc space. There are 3 mm retrolistheses of L1 compared to L2, of L2 compared to L3, and of L3 compared to L4. There is we dge compression of the superior endplates of T11 and T12, unchanged, and potentially physiologic. The re is slight leftward curvature of the lumbar spine. There is mild degenerative change of the hips. IMPRESSION: 1. No findings in the abdomen or pelvis to account for the patient's symptoms. 2. Diverticulosis without diverticulitis. 3. Hepatic steatosis. It can progress to steatohepatitis and eventual cirrhosis. 4. Coronary artery calcification with coronary stents. In addition, there is mild to moderate atheros clerosis of the aorta and its branches, advanced for patient age. These findings were discussed by phone with WIL SIMMONS on 05/03/2018 5:04 AM. Report Dictated By: Jerri Martinez at 05/03/2018 4:52 AM Report E-Signed By: Jerri Martinez at 05/03/2018 5:09 AM WSN:[id number]
[2018-05-03] MEDS ORDERED: ONDA4TAB97 PO (05:17)
[2018-05-03 05:30] VITALS: BP 96/66
== END 2018-05-03 05:45 | disposition home or self-care (01) ==
LOC: ER 04:06
DX: R10.31 Right lower quadrant pain (principal); R10.32 Left lower quadrant pain
CPT/HCPCS: 74177; 81001; 82150; 83690; 84484; 85025; 93005; 96374; 96375; 99284; J1170; J2405; Q9967; 82040; 82247; 82310; 82374; 82435; 82565; 82947; 84075; 84132; 84155; 84295; 84450; 84460; 84520

== ENCOUNTER 2018-06-02 19:35 | Emergency (ER) | payer MEDICARE ==
[~2018-06-02 19:35] MED LIST changes: +ATOR10TA65 PO; +MELO-205 PO
--- NOTE | 2018-06-02 19:39 | ER Report ---
History and Physical Time Seen By MD: 19:38 HPI/ROS CHIEF COMPLAINT: Chest pain HISTORY OF PRESENT ILLNESS: This is a 47-year-old male, with a history of CAD, stent placement who presents to emergency department for chest pain. The patient states that today while walking around [facility], he developed some anterior chest pain around 12:00, has had stabbing pain since then, his increased in intensity. Patient decided to come to the emergency department for further evaluation. Patient has had intermittent nausea no vomiting. Has had diarrhea over the last several days as well however this is improving. No fevers or chills. No shortness of breath. No rashes or headaches. REVIEW OF SYSTEMS: Constitutional: No fever, no chills. Eyes: No discharge. ENT: No sore throat. Cardiovascular: As above. Respiratory: No cough, no shortness of breath. Gastrointestinal: As above. Genitourinary: No hematuria. Musculoskeletal: No back pain. Skin: No rashes. Neurological: No headache. Allergies: Uncoded Allergies: raghavaise (Allergy, Unknown, 03/26/17) Home Meds Active Scripts Meloxicam (MELOXICAM) 7.5 Mg Tablet, 1 TAB PO QDAY for 30 Days, #30 TAB 0 Refills Prov:STEVE PEREZ DNP, FNP-BC 05/08/18 Oxycodone Hcl/Acetaminophen (OXYCODONE-ACETAMINOPHEN 5-325) 1 Each Tablet, 1 TAB PO 3-4XD PRN for PAIN, #120 TAB 0 Refills Prov:STEVE PEREZ DNP, FNP-BC 05/08/18 Diclofenac Sodium 1% Gel (VOLTAREN 1% GEL) 100 Gm Gel..gram., 4 G TOP QID PRN for PAIN, #1 TUB 3 Refills Prov:STEVE PEREZ DNP, FNP-BC 04/09/18 Sildenafil Citrate (SILDENAFIL) 20 Mg Tablet, 20 MG PO when necessary for 30 Days, #30 CAP 3 Refills Take 2-5 tablets orally as needed Prov:SIM FABIAN MD 04/04/18 Ondansetron (ZOFRAN ODT) 8 Mg Tab.rapdis, 1 TAB PO Q12H PRN for NAUSEA, #8 TAB 3 Refills Prov:STEVE PEREZ DNP, FNP-BC 02/11/18 Acetaminophen (ACETAMINOPHEN) 325 Mg Tablet, 1 TAB PO Q6H PRN for PAIN, #90 TAB 0 Refills 1 tab PO QAM prn pain. 1-2 tab PO noon prn pain. 1 tab PO QHS prn pain. Prov:[facility] 12/27/17 Buspirone Hcl (BUSPIRONE HCL) 10 Mg Tablet, 1 TAB PO Q8H, #90 TAB 5 Refills Prov:[facility] 12/21/17 Amlodipine Besylate (AMLODIPINE BESYLATE) 10 Mg Tablet, 1 TAB PO QDAY, #90 TAB 4 Refills Prov:[facility] 12/19/17 Metoprolol Tartrate (METOPROLOL TARTRATE) 100 Mg Tablet, 1 TAB PO BID for 90 Days, #180 TAB 1 Refill Prov:[facility] 10/15/17 Lisinopril (LISINOPRIL) 20 Mg Tablet, 1 TAB PO QDAY, #90 TAB 2 Refills Prov:[facility] 09/27/17 Citalopram Hydrobromide (CITALOPRAM HBR) 40 Mg Tablet, 1 TAB PO QDAY for 90 Days, #90 TAB 3 Refills Prov:[facility] 07/16/17 Reported Medications Atorvastatin Calcium (ATORVASTATIN CALCIUM) 10 Mg Tablet, 1 TAB PO QDAY, TAB 05/13/18 Nitroglycerin (NITROGLYCERIN) 0.4 Mg Tab.subl, 0.4 MG SL Q5MIN 08/04/17 Clopidogrel Bisulfate (PLAVIX) 75 Mg Tablet, 1 TAB PO QDAY, TAB 08/04/17 Ranitidine Hcl (ZANTAC) 150 Mg Tablet, 1 TAB PO BID, TAB 03/26/17 Aspirin (ASPIR 81) 81 Mg Tablet.dr, 81 MG PO QDAY, TAB 03/13/16 Past Medical/Surgical History The patient has a past medical and surgical history of myocardial infarction, 5 stents placed, angina, hypercholesterolemia, arthritis, left knee fracture, poor dentition, missing multiple teeth, depression, panic disorder, right ankle and left knee surgery. Reviewed Nurses Notes: Yes Hx Smoking: Yes (1/2 ppd) Smoking Status: Current: Every Day Smoker Hx Substance Use Disorder: Yes Hx Alcohol Use: Yes Constitutional Vital Sign - Last 24 Hours 06/02/18 06/02/18 06/02/18 06/02/18 19:47 19:50 20:00 20:04 Temp 98.0 Pulse 90 91 Resp 18 10 B/P (MAP) 130/90 125/105 (112) 116/105 (109) Pulse Ox 95 96 O2 Delivery Room Air 06/02/18 06/02/18 06/02/18 06/02/18 20:05 20:20 20:50 21:00 Pulse 94 86 85 Resp 12 19 B/P (MAP) 131/99 (110) Pulse Ox 87 94 92 06/02/18 06/02/18 06/02/18 06/02/18 21:05 21:10 21:15 21:20 Pulse 86 81 82 82 Resp 7 18 11 14 Pulse Ox 92 93 94 93 06/02/18 21:25 Pulse 79 Resp 15 Pulse Ox 94 Physical Exam General Appearance: The patient is alert, has no immediate need for airway protection and no signs of toxicity. Eyes: Pupils equal and round no pallor or injection. ENT, Mouth: Mucous membranes are moist. Respiratory: There are no retractions, lungs are clear to auscultation. Cardiovascular: Regular rate and rhythm, no murmurs, clicks or rubs. Gastrointestinal: Abdomen is round, soft and non tender, no masses, bowel sounds normal. Neurological: Alert and oriented 4. Moving all tremors. Following all commands. No focal neuro deficits. Skin: Warm and dry, no rashes. Musculoskeletal: Neck is supple non tender. Extremities are nontender, nonswollen and have full range of motion. DIFFERENTIAL DIAGNOSIS: After history and physical exam differential diagnosis was considered for chest pain including but not limited to myocardial ischemia, pericarditis pulmonary embolus, chest wall pain, pleural inflammation and pulmonary infectious causes. Medical Decision Making Data Points Result Diagram: 06/02/18199906/02/181999 Laboratory Hematology Test 06/02/18 20:00 Red Blood Count 5.57 M/uL (4.00-5.60) Mean Corpuscular Volume 86.1 fL (80.0-96.0) Mean Corpuscular Hemoglobin 29.2 pg (26.0-33.0) Mean Corpuscular Hemoglobin Concent 33.9 g/dL (32.0-36.0) Red Cell Distribution Width 14.4 % (11.5-14.5) Mean Platelet Volume 8.1 fL (7.2-11.1) Neutrophils (%) (Auto) 53.7 % (39.4-72.5) Lymphocytes (%) (Auto) 36.6 % (17.6-49.6) Monocytes (%) (Auto) 6.3 % (4.1-12.4) Eosinophils (%) (Auto) 2.3 % (0.4-6.7) Basophils (%) (Auto) 1.1 % (0.3-1.4) Nucleated RBC Relative Count (auto) 0.1 /100WBC Neutrophils # (Auto) 4.6 K/uL (2.0-7.4) Lymphocytes # (Auto) 3.2 K/uL (1.3-3.6) Monocytes # (Auto) 0.5 K/uL (0.3-1.0) Eosinophils # (Auto) 0.2 K/uL (0.0-0.5) Basophils # (Auto) 0.1 K/uL (0.0-0.1) Nucleated RBC Absolute Count (auto) 0.01 K/uL Sodium Level 138 mmol/L (137-145) Potassium Level 3.4 mmol/L (3.5-5.0) Chloride Level 109 mmol/L (98-107) Carbon Dioxide Level 22 mmol/L (22-30) Blood Urea Nitrogen 19 mg/dl (9-21) Creatinine 1.20 mg/dl (0.66-1.25) Glomerular Filtration Rate Calc > 60.0 Random Glucose 147 mg/dl (75-110) Calcium Level 9.3 mg/dl (8.4-10.2) Total Bilirubin 0.2 mg/dl (0.2-1.3) Aspartate Amino Transf (AST/SGOT) 33 U/L (0-35) Alanine Aminotransferase (ALT/SGPT) 53 U/L (0-56) Alkaline Phosphatase 158 U/L (0-126) Troponin I < 0.012 ng/ml Total Protein 7.9 g/dl (6.3-8.2) Albumin 4.5 g/dl (3.5-5.0) Chemistry Test 06/02/18 20:00 White Blood Count 8.6 k/uL (4.5-11.0) Red Blood Count 5.57 M/uL (4.00-5.60) Hemoglobin 16.3 g/dL (14.0-18.0) Hematocrit 47.9 % (42.0-52.0) Mean Corpuscular Volume 86.1 fL (80.0-96.0) Mean Corpuscular Hemoglobin 29.2 pg (26.0-33.0) Mean Corpuscular Hemoglobin Concent 33.9 g/dL (32.0-36.0) Red Cell Distribution Width 14.4 % (11.5-14.5) Platelet Count 252 K/uL (150-450) Mean Platelet Volume 8.1 fL (7.2-11.1) Neutrophils (%) (Auto) 53.7 % (39.4-72.5) Lymphocytes (%) (Auto) 36.6 % (17.6-49.6) Monocytes (%) (Auto) 6.3 % (4.1-12.4) Eosinophils (%) (Auto) 2.3 % (0.4-6.7) Basophils (%) (Auto) 1.1 % (0.3-1.4) Nucleated RBC Relative Count (auto) 0.1 /100WBC Neutrophils # (Auto) 4.6 K/uL (2.0-7.4) Lymphocytes # (Auto) 3.2 K/uL (1.3-3.6) Monocytes # (Auto) 0.5 K/uL (0.3-1.0) Eosinophils # (Auto) 0.2 K/uL (0.0-0.5) Basophils # (Auto) 0.1 K/uL (0.0-0.1) Nucleated RBC Absolute Count (auto) 0.01 K/uL Glomerular Filtration Rate Calc > 60.0 Calcium Level 9.3 mg/dl (8.4-10.2) Total Bilirubin 0.2 mg/dl (0.2-1.3) Aspartate Amino Transf (AST/SGOT) 33 U/L (0-35) Alanine Aminotransferase (ALT/SGPT) 53 U/L (0-56) Alkaline Phosphatase 158 U/L (0-126) Troponin I < 0.012 ng/ml Total Protein 7.9 g/dl (6.3-8.2) Albumin 4.5 g/dl (3.5-5.0) EKG/Imaging EKG Interpretation 12 lead EKG: Time of EKG 1947. Rhythm: Sinus rhythm, ventricular rate 92 bpm. [place]: [normal] QRS: Prolonged QT, QTC 484. ST segments: No ST depression or elevation identified. In changes from the 05/03/2018 EKG. Imaging Location: [facility] Patient: Alfonzo Villatoro : 1970 Visit/Account:[id number] Date of Sevice: 06/02/2018 CHEST PA AND LAT HISTORY: Chest pain COMPARISON: 04/28/2018 FINDINGS: Cardiomediastinal contours: Normal Lungs and pleura: Normal Bones/soft tissues: Normal Other findings: None significant IMPRESSION: 1. Normal chest. No change. Report Dictated By: Preston Plummer MD at 06/02/2018 8:43 PM Report E-Signed By: Preston Plummer MD at 06/02/2018 8:43 PM WSN:[id number] ED Course/Re-evaluation Clinical Indication for ER IV: Hydration, IV Access ED Course The patient was admitted to room. A history and physical were obtained. Differential diagnoses were considered. An IV was started. A CBC, CMP, troponin were obtained. EKG showing normal sinus rhythm, no ST depression or elevation and no significant changes from previous EKGs. A 500 mL normal saline bolus was given. 4 mg IV Zofran, Nitropaste was administered. Negative two-view chest x- ray. Laboratory studies unremarkable, blood sugar 147. No change in the patien t's discomforts after the Nitropaste. Patient was given 30 mg IV Norflex, I did tell him that the pain today is not cardiac in nature as his troponin was negative, unremarkable EKG and negative chest x-ray. Patient has a follow-up appointment scheduled with his primary care provider, he will follow-up as scheduled. Patient was in agreement with this plan care and discharged home. Decision to Disposition Date: Jun 02, 2018 Decision to Disposition Time: 21:15 Depart Departure Latest Vital Signs Vital Signs Date Time Temp Pulse Resp B/P (MAP) Pulse Ox O2 Delivery O2 Flow Rate FiO2 06/02/18 21:25 79 15 94 06/02/18 21:00 131/99 (110) 06/02/18 19:47 98.0 Room Air Impression: Primary Impression: Non-cardiac chest pain Condition: Improved Disposition: HOME OR SELF-CARE Referrals: STEVE PEREZ DNP, KEYONNA-BC (PCP) 1 Week Patient Instructions: Chest Pain (ED) Additional Instructions: There were no concerning findings on the EKG, chest x-ray or the laboratory studies today. I'm unsure what is causing the chest pain however it does not appear to be your heart. Please continue drinking plenty of water. Get plenty of rest. Please follow-up with Steve Perez as scheduled this week for reevaluation. Return to ER for any other concerns or worsening symptoms. RUTH RIVERA-BC Jun 02, 2018 19:39
[2018-06-02] MEDS ORDERED: ASPIRIN 81 MG CHEW PO ONE (20:05)
[2018-06-02 20:10] LABS: PLATELET COUNT, AUTOMATED 252 K/uL (150-450)
[2018-06-02] MEDS ORDERED: NS(*) 0.9% 500 ML BAG 500 ML IV ONE (20:10)
[2018-06-02] MEDS ORDERED: NITROGLYCERIN OINT 1 GM PKT TP ONE (20:10)
[2018-06-02] MEDS ORDERED: ONDANSETRON 4 MG/2 ML VIAL IVP ONE (20:10)
--- NOTE | 2018-06-02 20:48 | RADIOLOGY IMAGING REPORT ---
FACILITY: [facility] PATIENT NAME: Alfonzo Villatoro : 1970 MR: [id number] V: [id number] EXAM DATE: ORDERING PHYSICIAN: RUTH RIVERA TECHNOLOGIST: [place] [facility] [place] Patient: Alfonzo Villatoro : 1970 Visit/Account:[id number] Date of Sevice: 06/02/2018 CHEST PA AND LAT HISTORY: Chest pain COMPARISON: 04/28/2018 FINDINGS: Cardiomediastinal contours: Normal Lungs and pleura: Normal Bones/soft tissues: Normal Other findings: None significant IMPRESSION: 1. Normal chest. No change. Report Dictated By: Preston Plummer MD at 06/02/2018 8:43 PM Report E-Signed By: Preston Plummer MD at 06/02/2018 8:43 PM WSN:[id number]
[2018-06-02 21:00] VITALS: BP 131/99
[2018-06-02] MEDS ORDERED: ORPHENADRINE 60MG/2ML INJ IVP ONE (21:15)
--- NOTE | 2018-06-02 21:46 | EKG ---
[place] [facility] [place] NAME: BRAD ARITA : [id number] MR: [id number] V: [id number] EXAM DATE: ORDERING PHYSICIAN: RUTH RIVERA TECHNOLOGIST: SIA Test Reason : CHEST PAIN Blood Pressure : / mmHG Vent. Rate : 092 BPM Atrial Rate : 092 BPM P-R Int : 000 ms QRS Dur : 082 ms QT Int : 392 ms P-R-T Axes : 058 048 048 degrees QTc Int : 484 ms Sinus rhythm Prolonged QT Abnormal ECG When compared with ECG of 03-MAY-2018 03:52, No significant change. Confirmed by EVETTE LEON ([id number]) on 06/03/2018 1:21:48 AM Referred By: Confirmed By:EVETTE LEON
== END 2018-06-02 21:37 | disposition home or self-care (01) ==
LOC: ER 19:57
DX: R07.9 Chest pain, unspecified (principal)
CPT/HCPCS: 71046; 84484; 85025; 93005; 96361; 96374; 96375; 99284; A9270; J2360; J2405; J7040; 82040; 82247; 82310; 82374; 82435; 82565; 82947; 84075; 84132; 84155; 84295; 84450; 84460; 84520

== ENCOUNTER 2018-06-16 00:14 | Emergency (ER) | payer MEDICARE ==
[~2018-06-16 00:14] MED LIST changes: +ONDA8TAB91 PO; +UBID100C48 PO
[2018-06-16] MEDS ORDERED: LORazepam 2 MG/ML VIAL IVP ONE (00:20)
--- NOTE | 2018-06-16 00:22 | ER Report ---
History and Physical Time Seen By MD: 00:19 Hx. of Stated Complaint: CHEST PAIN THAT STARTED 06/15 AT 2300 HPI/ROS CHIEF COMPLAINT: Chest pain HISTORY OF PRESENT ILLNESS: 48-year-old male with a known history of coronary artery disease, status post numerous stent placements the last occurred 08/02/17. Patient notes onset of chest pain one hour prior to arrival. He describes a dull ache across his anterior chest with nausea, mild shortness of breath and dizziness, but denies diaphoresis. Patient states his anxieties been up all day. He thinks it may potentially be an anxiety attack. Patient denies recent infectious symptoms except he notes his eyes have been watering a lot today. Patient denies leg swelling. Chin admits this feels different than his previous last heart attack. REVIEW OF SYSTEMS: Respiratory: No cough, no dyspnea. Cardiovascular: No chest pain, no palpitations. Gastrointestinal: No vomiting, no abdominal pain. Musculoskeletal: No back pain. Allergies: Uncoded Allergies: bannerai (Allergy, Unknown, 03/26/17) Home Meds Active Scripts Ondansetron Hcl (ZOFRAN) 8 Mg Tablet, 8 MG PO Q12H PRN for NAUSEA, #8 TAB 5 Refills Prov:STEVE PEREZ DNP, FNP- 06/10/18 Oxycodone Hcl/Acetaminophen (OXYCODONE-ACETAMINOPHEN 5-325) 1 Each Tablet, 1 TAB PO 3-4XD PRN for PAIN, #120 TAB 0 Refills Prov:STEVE PEREZ DNP [facility]- 06/10/18 Diclofenac Sodium 1% Gel (VOLTAREN 1% GEL) 100 Gm Gel..gram., 4 G TOP QID PRN for PAIN, #1 TUB 3 Refills Prov:STEVE PEREZ DNP [employer]- 04/09/18 Sildenafil Citrate (SILDENAFIL) 20 Mg Tablet, 20 MG PO when necessary for 30 Days, #30 CAP 3 Refills Take 2-5 tablets orally as needed Prov:SIM FABIAN MD 04/04/18 Acetaminophen (ACETAMINOPHEN) 325 Mg Tablet, 1 TAB PO Q6H PRN for PAIN, #90 TAB 0 Refills 1 tab PO QAM prn pain. 1-2 tab PO noon prn pain. 1 tab PO QHS prn pain. Prov:STEVE PEREZ DNP, [facility] 12/27/17 Buspirone Hcl (BUSPIRONE HCL) 10 Mg Tablet, 1 TAB PO Q8H, #90 TAB 5 Refills Prov:STEVE PEREZ DNP, [facility] 12/21/17 Amlodipine Besylate (AMLODIPINE BESYLATE) 10 Mg Tablet, 1 TAB PO QDAY, #90 TAB 4 Refills Prov:STEVE PEREZ DNP, [facility] 12/19/17 Metoprolol Tartrate (METOPROLOL TARTRATE) 100 Mg Tablet, 1 TAB PO BID for 90 Days, #180 TAB 1 Refill Prov:STEVE PEREZ DNP, [facility] 10/15/17 Lisinopril (LISINOPRIL) 20 Mg Tablet, 1 TAB PO QDAY, #90 TAB 2 Refills Prov:STEVE PEREZ DNP, [facility] 09/27/17 Citalopram Hydrobromide (CITALOPRAM HBR) 40 Mg Tablet, 1 TAB PO QDAY for 90 Days, #90 TAB 3 Refills Prov:STEVE PEREZ DNP, [facility] 07/16/17 Reported Medications Ubidecarenone (COQ-10) 100 Mg Capsule, PO, CAPSULE 06/10/18 Atorvastatin Calcium (ATORVASTATIN CALCIUM) 10 Mg Tablet, 1 TAB PO QDAY, TAB 05/13/18 Nitroglycerin (NITROGLYCERIN) 0.4 Mg Tab.subl, 0.4 MG SL Q5MIN 08/04/17 Clopidogrel Bisulfate (PLAVIX) 75 Mg Tablet, 1 TAB PO QDAY, TAB 08/04/17 Ranitidine Hcl (ZANTAC) 150 Mg Tablet, 1 TAB PO BID, TAB 03/26/17 Aspirin (ASPIR 81) 81 Mg Tablet.dr, 81 MG PO QDAY, TAB 03/13/16 Discontinued Scripts Meloxicam (MELOXICAM) 7.5 Mg Tablet, 1 TAB PO QDAY for 30 Days, #30 TAB 0 Refills Prov:STEVE PEREZ DNP, [facility] 05/08/18 Ondansetron (ZOFRAN ODT) 8 Mg Tab.rapdis, 1 TAB PO Q12H PRN for NAUSEA, #8 TAB 3 Refills Prov:STEVE PEREZ DNP, [employer] [facility] 02/11/18 Past Medical/Surgical History Past Medical History Cardiovascular: Reports hx of: coronary artery disease (5 stents) hyperlipidemia hypertension myocardial infarction (x1, July 2017) Respiratory: Reports hx of: sleep apnea (CPAP) Gastrointestinal: Reports hx of: GERD Psychiatric: Reports hx of: anxiety depression panic attacks Past Surgical History Cardiovascular: Reports hx of: coronary stent (5 stents placed) Reviewed Nurses Notes: Yes Old Medical Records Reviewed: Yes Hx Smoking: Yes (1/2 ppd) Smoking Status: Current: Every Day Smoker Hx Substance Use Disorder: Yes Hx Alcohol Use: Yes Physical Exam General Appearance: The patient is alert, has no immediate need for airway protection and no current signs of toxicity. Vital signs stable, afebrile HEENT: Pupils equal and round no injection. Oropharynx without redness or exudate, mucous. Membranes are moist Respiratory: Chest is non tender, lungs are clear to auscultation. Cardiac: regular rate and rhythm Gastrointestinal: Abdomen is soft and non tender, no masses, bowel sounds normal. Musculoskeletal: Neck: Neck is supple and non tender. Extremities have full range of motion and are non tender. Skin: No rashes or lesions. DIFFERENTIAL DIAGNOSIS: After history and physical exam differential diagnosis was considered for chest pain including but not limited to myocardial ischemia, pericarditis pulmonary embolus, chest wall pain, pleural inflammation and pulmonary infectious causes. Medical Decision Making Data Points Result Diagram: 06/16/18 0024 06/16/18 0024 Laboratory Hematology Test 06/16/18 00:24 Red Blood Count 5.06 M/uL (4.00-5.60) Mean Corpuscular Volume 87.0 fL (80.0-96.0) Mean Corpuscular Hemoglobin 30.2 pg (26.0-33.0) Mean Corpuscular Hemoglobin Concent 34.7 g/dL (32.0-36.0) Red Cell Distribution Width 14.5 % (11.5-14.5) Mean Platelet Volume 8.2 fL (7.2-11.1) Neutrophils (%) (Auto) 42.3 % (39.4-72.5) Lymphocytes (%) (Auto) 44.1 % (17.6-49.6) Monocytes (%) (Auto) 6.6 % (4.1-12.4) Eosinophils (%) (Auto) 5.6 % (0.4-6.7) Basophils (%) (Auto) 1.4 % (0.3-1.4) Nucleated RBC Relative Count (auto) 0.1 /100WBC Neutrophils # (Auto) 3.0 K/uL (2.0-7.4) Lymphocytes # (Auto) 3.1 K/uL (1.3-3.6) Monocytes # (Auto) 0.5 K/uL (0.3-1.0) Eosinophils # (Auto) 0.4 K/uL (0.0-0.5) Basophils # (Auto) 0.1 K/uL (0.0-0.1) Nucleated RBC Absolute Count (auto) 0.01 K/uL Sodium Level 139 mmol/L (137-145) Potassium Level 3.7 mmol/L (3.5-5.0) Chloride Level 105 mmol/L (98-107) Carbon Dioxide Level 26 mmol/L (22-30) Blood Urea Nitrogen 17 mg/dl (9-21) Creatinine 1.00 mg/dl (0.66-1.25) Glomerular Filtration Rate Calc > 60.0 Random Glucose 101 mg/dl (75-110) Calcium Level 8.9 mg/dl (8.4-10.2) Total Bilirubin 0.1 mg/dl (0.2-1.3) Aspartate Amino Transf (AST/SGOT) 24 U/L (0-35) Alanine Aminotransferase (ALT/SGPT) 29 U/L (0-56) Alkaline Phosphatase 158 U/L (0-126) Troponin I < 0.012 ng/ml B-Type Natriuretic Peptide 134 pg/ml (0-100) Total Protein 7.5 g/dl (6.3-8.2) Albumin 4.2 g/dl (3.5-5.0) Chemistry Test 06/16/18 00:24 White Blood Count 7.1 k/uL (4.5-11.0) Red Blood Count 5.06 M/uL (4.00-5.60) Hemoglobin 15.3 g/dL (14.0-18.0) Hematocrit 44.0 % (42.0-52.0) Mean Corpuscular Volume 87.0 fL (80.0-96.0) Mean Corpuscular Hemoglobin 30.2 pg (26.0-33.0) Mean Corpuscular Hemoglobin Concent 34.7 g/dL (32.0-36.0) Red Cell Distribution Width 14.5 % (11.5-14.5) Platelet Count 229 K/uL (150-450) Mean Platelet Volume 8.2 fL (7.2-11.1) Neutrophils (%) (Auto) 42.3 % (39.4-72.5) Lymphocytes (%) (Auto) 44.1 % (17.6-49.6) Monocytes (%) (Auto) 6.6 % (4.1-12.4) Eosinophils (%) (Auto) 5.6 % (0.4-6.7) Basophils (%) (Auto) 1.4 % (0.3-1.4) Nucleated RBC Relative Count (auto) 0.1 /100WBC Neutrophils # (Auto) 3.0 K/uL (2.0-7.4) Lymphocytes # (Auto) 3.1 K/uL (1.3-3.6) Monocytes # (Auto) 0.5 K/uL (0.3-1.0) Eosinophils # (Auto) 0.4 K/uL (0.0-0.5) Basophils # (Auto) 0.1 K/uL (0.0-0.1) Nucleated RBC Absolute Count (auto) 0.01 K/uL Glomerular Filtration Rate Calc > 60.0 Calcium Level 8.9 mg/dl (8.4-10.2) Total Bilirubin 0.1 mg/dl (0.2-1.3) Aspartate Amino Transf (AST/SGOT) 24 U/L (0-35) Alanine Aminotransferase (ALT/SGPT) 29 U/L (0-56) Alkaline Phosphatase 158 U/L (0-126) Troponin I < 0.012 ng/ml B-Type Natriuretic Peptide 134 pg/ml (0-100) Total Protein 7.5 g/dl (6.3-8.2) Albumin 4.2 g/dl (3.5-5.0) EKG/Imaging EKG Interpretation 12 lead EK Rhythm: normal sinus rhythm [place]: normal QRS: normal ST segments: normal, comparison to previous EKG dated 06/02/18, no significant change. Actually appears more normal with less appearance of T-wave flattening Imaging X-ray: Single view chest x-ray was obtained. I viewed the images myself on the PACS system. My interpretation of the images is: No infiltrate, no effusion, normal mediastinum., Comparison to old chest x-ray 06/02/18, no significant change. The radiologist interpretation had no clinically significant variation from this interpretation. ED Course/Re-evaluation ED Course Patient was admitted to an examination room. H&P was done. The differential diagnoses was considered. On clinical examination. She has chest wall tenderness, he is also having pain panic symptoms. She's initial EKG is unremarkable. Diagnostic studies are ordered. His troponin returned unremarkable. BNP slightly elevated. He is treated with Ativan 1 mg IV. On reevaluation, he is much improved. His chest x-rays unremarkable as well as a remainder of his laboratory studies. Patient's advised to follow-up with his primary care physician this next week if his symptoms persist. Decision to Disposition Date: Jun 16, 2018 Decision to Disposition Time: 01:05 Depart Departure Impression: Primary Impression: Chest pain of unknown etiology Additional Impression: Panic attack Condition: Improved Disposition: HOME OR SELF-CARE Referrals: STEVE PEREZ DNP, [employer] [facility]-BC (PCP) Patient Instructions: Chest Pain (ED), Panic Attack (ED) Additional Instructions: Follow-up with your primary care if her symptoms persist this next week Problem Qualifiers WIL SIMMONS DO Jun 16, 2018 00:22
[2018-06-16 00:52] LABS: PLATELET COUNT, AUTOMATED 229 K/uL (150-450)
--- NOTE | 2018-06-16 00:54 | EKG ---
FACILITY: [facility] PATIENT NAME: BRAD ARITA : [id number] MR: [id number] V: [id number] EXAM DATE: ORDERING PHYSICIAN: WIL SIMMONS TECHNOLOGIST: SIA Test Reason : CHEST PAIN Blood Pressure : / mmHG Vent. Rate : 069 BPM Atrial Rate : 069 BPM P-R Int : 138 ms QRS Dur : 084 ms QT Int : 432 ms P-R-T Axes : 056 040 043 degrees QTc Int : 462 ms Sinus rhythm with PAC No acute appearing findings When compared with ECG of 02-JUN-2018 19:48, No significant change was found Confirmed by ELISA RODRIGES ([id number]) on 06/16/2018 1:11:55 AM Referred By: Confirmed By:ELISA RODRIGES
--- NOTE | 2018-06-16 00:57 | RADIOLOGY IMAGING REPORT ---
FACILITY: [facility] - [place] PATIENT NAME: Alfonzo Villatoro : 1970 MR: [id number] V: [id number] EXAM DATE: ORDERING PHYSICIAN: WIL SIMMONS TECHNOLOGIST: Location: [facility] - [place] Patient: Alfonzo Villatoro : 1970 Visit/Account:[id number] Date of Sevice: 06/16/2018 CHEST SINGLE AP COMPARISONS: 2 view chest dated June 02, 2018 ADDITIONAL PERTINENT HISTORY: Chest pain FINDINGS: Cardiomediastinal silhouette: Negative. Pulmonary vasculature: Negative. Lung contreras: Negative. Pleural spaces: Negative. Osseous structures: Negative. Surrounding soft tissues: Negative. IMPRESSION: No evidence of acute cardiopulmonary disease. Report Dictated By: Leo Diaz MD at 06/16/2018 12:52 AM Report E-Signed By: Leo Diaz MD at 06/16/2018 12:53 AM WSN:[id number]
[2018-06-16 01:00] VITALS: BP 103/84
== END 2018-06-16 01:16 | disposition home or self-care (01) ==
LOC: ER 00:27
DX: R07.9 Chest pain, unspecified (principal); F41.0 Panic disorder [episodic paroxysmal anxiety]
CPT/HCPCS: 71045; 83880; 84484; 85025; 93005; 96374; 99284; J2060; 82040; 82247; 82310; 82374; 82435; 82565; 82947; 84075; 84132; 84155; 84295; 84450; 84460; 84520

== ENCOUNTER 2018-06-22 03:27 | Emergency (ER) | payer MEDICARE ==
--- NOTE | 2018-06-22 03:33 | ER Report ---
History and Physical Time Seen By MD: 03:32 HPI/ROS CHIEF COMPLAINT: Chest pain, left upper sternal border HISTORY OF PRESENT ILLNESS: 48-year-old male with a known history of coronary artery disease was seen here approximately a week ago and evaluated for an anxiety, panic attack and chest pain. He was seen 2 days ago. Yesterday at [facility] where he was admitted overnight and then had a nuclear treadmill test. The next morning, which he was not informed of the results. Patient woke up out of a sleep 2 hours ago complaining of chest discomfort he describes as a sharp stabbing pain in the right upper sternal margin. He notes no shortness of breath, no diaphoresis or nausea. Patient notes no leg swelling or calf pain. REVIEW OF SYSTEMS: Respiratory: No cough, no dyspnea. Cardiovascular: As above Gastrointestinal: No vomiting, no abdominal pain. Musculoskeletal: No back pain. Allergies: Uncoded Allergies: mayonnaise (Allergy, Unknown, 03/26/17) Home Meds Active Scripts Oxycodone Hcl/Acetaminophen (OXYCODONE-ACETAMINOPHEN 5-325) 1 Each Tablet, 1 TAB PO 3-4XD PRN for PAIN, #120 TAB 0 Refills Prov:STEVE PEREZ DNP, FNP- 06/10/18 Diclofenac Sodium 1% Gel (VOLTAREN 1% GEL) 100 Gm Gel..gram., 4 G TOP QID PRN for PAIN, #1 TUB 3 Refills Prov:STEVE PEREZ DNP, FNP-BC 04/09/18 Sildenafil Citrate (SILDENAFIL) 20 Mg Tablet, 20 MG PO when necessary for 30 Days, #30 CAP 3 Refills Take 2-5 tablets orally as needed Prov:SIM FABIAN MD 04/04/18 Acetaminophen (ACETAMINOPHEN) 325 Mg Tablet, 1 TAB PO Q6H PRN for PAIN, #90 TAB 0 Refills 1 tab PO QAM prn pain. 1-2 tab PO noon prn pain. 1 tab PO QHS prn pain. Prov:STEVE PEREZ DNP, FNP-BC 12/27/17 Buspirone Hcl (BUSPIRONE HCL) 10 Mg Tablet, 1 TAB PO Q8H, #90 TAB 5 Refills Prov:STEVE PEREZ DNP, FNP-BC 12/21/17 Amlodipine Besylate (AMLODIPINE BESYLATE) 10 Mg Tablet, 1 TAB PO QDAY, #90 TAB 4 Refills Prov:STEVE PEREZ Ching MONTE, [facility] 12/19/17 Metoprolol Tartrate (METOPROLOL TARTRATE) 100 Mg Tablet, 1 TAB PO BID for 90 Days, #180 TAB 1 [facility] 10/15/17 Lisinopril (LISINOPRIL) 20 Mg Tablet, 1 TAB PO QDAY, #90 TAB 2 Refills Prov:[facility] 09/27/17 Citalopram Hydrobromide (CITALOPRAM HBR) 40 Mg Tablet, 1 TAB PO QDAY for 90 Days, #90 TAB 3 Refills Prov:CHRISSTEVE Flower DNP, [facility] 07/16/17 Reported Medications Ubidecarenone (COQ-10) 100 Mg Capsule, PO, CAPSULE 06/10/18 Atorvastatin Calcium (ATORVASTATIN CALCIUM) 10 Mg Tablet, 1 TAB PO QDAY, TAB 05/13/18 Nitroglycerin (NITROGLYCERIN) 0.4 Mg Tab.subl, 0.4 MG SL Q5MIN 08/04/17 Clopidogrel Bisulfate (PLAVIX) 75 Mg Tablet, 1 TAB PO QDAY, TAB 08/04/17 Ranitidine Hcl (ZANTAC) 150 Mg Tablet, 1 TAB PO BID, TAB 03/26/17 Aspirin (ASPIR 81) 81 Mg Tablet.dr, 81 MG PO QDAY, TAB 03/13/16 Discontinued Scripts Ondansetron Hcl (ZOFRAN) 8 Mg Tablet, 8 MG PO Q12H PRN for NAUSEA, #8 TAB 5 Refills Prov:CHRISSTEVE Flower DNP, [facility] 06/10/18 Past Medical/Surgical History Past Medical History Cardiovascular: Reports hx of: coronary artery disease (5 stents) hyperlipidemia hypertension myocardial infarction (x1, July 2017) Respiratory: Reports hx of: sleep apnea (CPAP) Gastrointestinal: Reports hx of: GERD Psychiatric: Reports hx of: anxiety depression panic attacks Past Surgical History Cardiovascular: Reports hx of: coronary stent (5 stents placed) Reviewed Nurses Notes: Yes Old Medical Records Reviewed: Yes Hx Smoking: Yes (1/2 ppd) Smoking Status: Current: Every Day Smoker Hx Substance Use Disorder: Yes Hx Alcohol Use: Yes Constitutional Vital Sign - Last 24 Hours 06/22/18 06/22/18 06/22/18 06/22/18 03:31 03:34 03:42 03:57 Temp 98.4 Pulse 69 72 68 Resp 14 16 24 B/P (MAP) 127/92 127/92 (104) Pulse Ox 90 93 92 O2 Delivery Room Air 06/22/18 06/22/18 06/22/18 06/22/18 04:00 04:12 04:27 04:30 Pulse 69 68 Resp 8 19 B/P (MAP) 128/83 (98) 95/88 (90) Pulse Ox 92 90 06/22/18 06/22/18 06/22/18 04:35 04:50 04:55 Pulse 67 68 68 Resp 17 18 21 Pulse Ox 92 90 93 Physical Exam General Appearance: The patient is alert, has no immediate need for airway protection and no current signs of toxicity. Vital signs stable, afebrile, p ulse ox normal Eyes: Pupils equal and round no injection. Respiratory: Chest is non tender, lungs are clear to auscultation. There is mild chest wall tenderness on palpation of the right costal sternal margin Cardiac: regular rate and rhythm, no murmur or rub Gastrointestinal: Abdomen is soft and non tender, no masses, bowel sounds normal. Musculoskeletal: Neck: Neck is supple and non tender. No lymphadenopathy, no JVD Extremities have full range of motion and are non tender. No edema, no calf tenderness Skin: No rashes or lesions. DIFFERENTIAL DIAGNOSIS: After history and physical exam differential diagnosis was considered for chest pain including but not limited to myocardial ischemia, pericarditis pulmonary embolus, chest wall pain, pleural inflammation and pulmonary infectious causes. Medical Decision Making Data Points Result Diagram: 06/22/18 0345 06/22/18 0345 Laboratory Hematology Test 06/22/18 03:45 Red Blood Count 4.88 M/uL (4.00-5.60) Mean Corpuscular Volume 86.9 fL (80.0-96.0) Mean Corpuscular Hemoglobin 29.9 pg (26.0-33.0) Mean Corpuscular Hemoglobin Concent 34.4 g/dL (32.0-36.0) Red Cell Distribution Width 14.3 % (11.5-14.5) Mean Platelet Volume 7.9 fL (7.2-11.1) Neutrophils (%) (Auto) 37.9 % (39.4-72.5) Lymphocytes (%) (Auto) 45.1 % (17.6-49.6) Monocytes (%) (Auto) 7.4 % (4.1-12.4) Eosinophils (%) (Auto) 8.3 % (0.4-6.7) Basophils (%) (Auto) 1.3 % (0.3-1.4) Nucleated RBC Relative Count (auto) 0.0 /100WBC Neutrophils # (Auto) 2.5 K/uL (2.0-7.4) Lymphocytes # (Auto) 2.9 K/uL (1.3-3.6) Monocytes # (Auto) 0.5 K/uL (0.3-1.0) Eosinophils # (Auto) 0.5 K/uL (0.0-0.5) Basophils # (Auto) 0.1 K/uL (0.0-0.1) Nucleated RBC Absolute Count (auto) 0.00 K/uL Sodium Level 138 mmol/L (137-145) Potassium Level 3.9 mmol/L (3.5-5.0) Chloride Level 105 mmol/L (98-107) Carbon Dioxide Level 25 mmol/L (22-30) Blood Urea Nitrogen 17 mg/dl (9-21) Creatinine 1.00 mg/dl (0.66-1.25) Glomerular Filtration Rate Calc > 60.0 Random Glucose 90 mg/dl (75-110) Calcium Level 8.9 mg/dl (8.4-10.2) Total Bilirubin 0.1 mg/dl (0.2-1.3) Aspartate Amino Transf (AST/SGOT) 19 U/L (0-35) Alanine Aminotransferase (ALT/SGPT) 26 U/L (0-56) Alkaline Phosphatase 139 U/L (0-126) Troponin I < 0.012 ng/ml Total Protein 7.0 g/dl (6.3-8.2) Albumin 4.1 g/dl (3.5-5.0) Chemistry Test 06/22/18 03:45 White Blood Count 6.5 k/uL (4.5-11.0) Red Blood Count 4.88 M/uL (4.00-5.60) Hemoglobin 14.6 g/dL (14.0-18.0) Hematocrit 42.4 % (42.0-52.0) Mean Corpuscular Volume 86.9 fL (80.0-96.0) Mean Corpuscular Hemoglobin 29.9 pg (26.0-33.0) Mean Corpuscular Hemoglobin Concent 34.4 g/dL (32.0-36.0) Red Cell Distribution Width 14.3 % (11.5-14.5) Platelet Count 215 K/uL (150-450) Mean Platelet Volume 7.9 fL (7.2-11.1) Neutrophils (%) (Auto) 37.9 % (39.4-72.5) Lymphocytes (%) (Auto) 45.1 % (17.6-49.6) Monocytes (%) (Auto) 7.4 % (4.1-12.4) Eosinophils (%) (Auto) 8.3 % (0.4-6.7) Basophils (%) (Auto) 1.3 % (0.3-1.4) Nucleated RBC Relative Count (auto) 0.0 /100WBC Neutrophils # (Auto) 2.5 K/uL (2.0-7.4) Lymphocytes # (Auto) 2.9 K/uL (1.3-3.6) Monocytes # (Auto) 0.5 K/uL (0.3-1.0) Eosinophils # (Auto) 0.5 K/uL (0.0-0.5) Basophils # (Auto) 0.1 K/uL (0.0-0.1) Nucleated RBC Absolute Count (auto) 0.00 K/uL Glomerular Filtration Rate Calc > 60.0 Calcium Level 8.9 mg/dl (8.4-10.2) Total Bilirubin 0.1 mg/dl (0.2-1.3) Aspartate Amino Transf (AST/SGOT) 19 U/L (0-35) Alanine Aminotransferase (ALT/SGPT) 26 U/L (0-56) Alkaline Phosphatase 139 U/L (0-126) Troponin I < 0.012 ng/ml Total Protein 7.0 g/dl (6.3-8.2) Albumin 4.1 g/dl (3.5-5.0) EKG/Imaging EKG Interpretation 12 lead EK Rhythm: normal sinus rhythm [place]: normal QRS: normal ST segments: normal, comparison to previous EKG 06/16/18, no significant change ED Course/Re-evaluation ED Course Patient was admitted to an examination room. H&P was done. The differential diagnoses was considered. Patient woke up with sharp chest pain. He has no associated symptoms. He has a known cardiac history including 5 stents. Patient was seen yesterday at [facility] where he was admitted overnight and ruled out. He subsequently had a nuclear medicine treadmill, which apparently was unremarkable, as he was discharged home. He does not really know the results. Records were attempted to be obtained, but unsuccessfully. Patient had an EKG which showed no evidence of ischemia or changes from his previous EKG done approximately one week ago. Patient's troponin was unremarkable. Patient was treated with Toradol 30 mg IV. He chest wall pain. He was advised to conservative treatment plan. He's advised to use ibuprofen 200 mg 2 tablets 3 times a day with food. Patient advised to follow-up with his primary care or cardiology next week if he is unimproved after a short course of NSAIDs. Patient chronically on opiate pain relievers. Decision to Disposition Date: Jun 22, 2018 Decision to Disposition Time: 04:27 Depart Departure Latest Vital Signs Vital Signs Date Time Temp Pulse Resp B/P (MAP) Pulse Ox O2 Delivery O2 Flow Rate FiO2 06/22/18 04:55 68 21 93 06/22/18 04:30 95/88 (90) 06/22/18 03:31 98.4 Room Air Impression: Primary Impression: Non-cardiac chest pain Condition: Improved Disposition: HOME OR SELF-CARE Referrals: STEVE PEREZ DNP, [employer] (PCP) Patient Instructions: Chest Wall Pain (ED) Additional Instructions: Take ibuprofen 200 mg 2-3 tablets 3 times a day with food for 3-5 days Apply heating pad to your chest wall Follow-up with primary care in 2-3 days if unimproved WIL SIMMONS DO Jun 22, 2018 03:33
[2018-06-22] MEDS ORDERED: KETOROLAC 30 MG/ML VIAL IVP ONE (03:40)
[2018-06-22 04:06] LABS: PLATELET COUNT, AUTOMATED 215 K/uL (150-450)
[2018-06-22 04:30] VITALS: BP 95/88
--- NOTE | 2018-06-22 04:46 | EKG ---
FAC[place] [facility] [place]IENT NAME: BRAD ARITA : [id number] MR: [id number] V: [id number] EXAM DATE: ORDERING PHYSICIAN: WIL SIMMONS TECHNOLOGIST: JOE Caraballo Reason : Blood Pressure : / mmHG Vent. Rate : 067 BPM Atrial Rate : 067 BPM P-R Int : 148 ms QRS Dur : 080 ms QT Int : 422 ms P-R-T Axes : 047 019 012 degrees QTc Int : 445 ms Normal sinus rhythm Normal ECG When compared with ECG of 16-JUN-2018 00:22, Relatively unchanged Confirmed by RABIA ZHU ([id number]) on 06/22/2018 6:35:37 AM Referred By: Confirmed By:RABIA ZHU
== END 2018-06-22 05:02 | disposition home or self-care (01) ==
LOC: ER 03:41
DX: R07.9 Chest pain, unspecified (principal)
CPT/HCPCS: 84484; 85025; 93005; 96374; 99283; J1885; 82040; 82247; 82310; 82374; 82435; 82565; 82947; 84075; 84132; 84155; 84295; 84450; 84460; 84520

== ENCOUNTER 2018-07-13 03:21 | Emergency (ER) | payer MEDICARE ==
--- NOTE | 2018-07-13 03:24 | ER Report ---
History and Physical Time Seen By MD: 03:23 HPI/ROS CHIEF COMPLAINT: Chest pain HISTORY OF PRESENT ILLNESS: 48-year-old male with a known history of coronary artery disease, status post angioplasty and stent placement 5. His last was in July 2017. The patient woke up with chest pain tonight and diaphoresis. Patient describes a sharp pain, substernal in nature without radiation. He notes no exacerbating or alleviating factors. Patient is on chronic pain treatment takes oxycodone 3 times daily. Patient states compliant on medication . Patient was just seen by primary care 07/08/18. Patient with heavy odor of cigarette smoke. REVIEW OF SYSTEMS: Respiratory: No cough, no dyspnea. Cardiovascular: No chest pain, no palpitations. Gastrointestinal: No vomiting, no abdominal pain. Musculoskeletal: No back pain. Allergies: Uncoded Allergies: mayoaminaaise (Allergy, Unknown, 03/26/17) Home Meds Active Scripts Oxycodone Hcl/Acetaminophen (OXYCODONE-ACETAMINOPHEN 5-325) 1 Each Tablet, 1 TAB PO 3-4XD PRN for PAIN, #120 TAB 0 Refills Prov:STEVE PEREZ DNP, FNP- 07/08/18 Lisinopril (LISINOPRIL) 20 Mg Tablet, 1 TAB PO QDAY, #90 TAB 4 Refills Prov:STEVE PEREZ DNP, FNP- 06/27/18 Diclofenac Sodium 1% Gel (VOLTAREN 1% GEL) 100 Gm Gel..gram., 4 G TOP QID PRN for PAIN, #1 TUB 3 Refills Prov:STEVE PEREZ DNP, FNP-BC 04/09/18 Sildenafil Citrate (SILDENAFIL) 20 Mg Tablet, 20 MG PO when necessary for 30 Da ys, #30 CAP 3 Refills Take 2-5 tablets orally as needed Prov:SIM FABIAN MD 04/04/18 Acetaminophen (ACETAMINOPHEN) 325 Mg Tablet, 1 TAB PO Q6H PRN for PAIN, #90 TAB 0 Refills 1 tab PO QAM prn pain. 1-2 tab PO noon prn pain. 1 tab PO QHS prn pain. Prov:STEVE PEREZ DNP, FNP-BC 12/27/17 Buspirone Hcl (BUSPIRONE HCL) 10 Mg Tablet, 1 TAB PO Q8H, #90 TAB 5 Refills Prov:STEVE PEREZ LAVELL, [facility] 12/21/17 Amlodipine Besylate (AMLODIPINE BESYLATE) 10 Mg Tablet, 1 TAB PO QDAY, #90 TAB 4 Refills Prov:[facility] [place] 12/19/17 Metoprolol Tartrate (METOPROLOL TARTRATE) 100 Mg Tablet, 1 TAB PO BID for 90 Days, #180 TAB 1 Refill Prov:STEVE PEREZ [facility] [place] 10/15/17 Citalopram Hydrobromide (CITALOPRAM HBR) 40 Mg Tablet, 1 TAB PO QDAY for 90 Days, #90 TAB 3 Refills Prov:STEVE PEREZ [facility] [place] 07/16/17 Reported Medications Ubidecarenone (COQ-10) 100 Mg Capsule, PO, CAPSULE 06/10/18 Atorvastatin Calcium (ATORVASTATIN CALCIUM) 10 Mg Tablet, 1 TAB PO QDAY, TAB 05/13/18 Nitroglycerin (NITROGLYCERIN) 0.4 Mg Tab.subl, 0.4 MG SL Q5MIN 08/04/17 Clopidogrel Bisulfate (PLAVIX) 75 Mg Tablet, 1 TAB PO QDAY, TAB 08/04/17 Ranitidine Hcl (ZANTAC) 150 Mg Tablet, 1 TAB PO BID, TAB 03/26/17 Aspirin (ASPIR 81) 81 Mg Tablet.dr, 81 MG PO QDAY, TAB 03/13/16 Past Medical/Surgical History Past Medical History Cardiovascular: Reports hx of: coronary artery disease (5 stents) hyperlipidemia hypertension myocardial infarction (x1, July 2017) Respiratory: Reports hx of: sleep apnea (CPAP) Gastrointestinal: Reports hx of: GERD Psychiatric: Reports hx of: anxiety depression panic attacks Past Surgical History Cardiovascular: Reports hx of: coronary stent (5 stents placed) Reviewed Nurses Notes: Yes Old Medical Records Reviewed: Yes Hx Smoking: Yes (1/2 ppd) Smoking Status: Current: Every Day Smoker Hx Substance Use Disorder: Yes Hx Alcohol Use: Yes Constitutional Vital Sign - Last 24 Hours 07/13/18 07/13/18 07/13/18 07/13/18 03:25 03:26 03:30 03:36 Temp 97.7 Pulse 76 70 Resp 18 7 B/P (MAP) 110/80 110/80 (90) 126/87 (100) Pulse Ox 94 93 O2 Delivery Room Air 07/13/18 07/13/18 07/13/18 07/13/18 03:51 04:00 04:06 04:21 Pulse 67 67 66 Resp 16 17 14 B/P (MAP) 121/88 (99) Pulse Ox 94 92 93 07/13/18 07/13/18 04:30 04:35 B/P (MAP) 127/95 (106) 125/99 (108) Physical Exam General Appearance: The patient is alert, has no immediate need for airway protection and no current signs of toxicity. Mild distress, skin warm, dry, pink, vital signs stable HEENT: Pupils equal and round no injection. Oropharynx no redness or exudate Respiratory: Chest is non tender, lungs are clear to auscultation. No chest wall tenderness Cardiac: regular rate and rhythm Gastrointestinal: Abdomen is soft and non tender, no masses, bowel sounds meena l. Musculoskeletal: Neck: Neck is supple and non tender. Extremities have full range of motion and are non tender. Trace edema bilaterally Skin: No rashes or lesions. DIFFERENTIAL DIAGNOSIS: After history and physical exam differential diagnosis was considered for chest pain including but not limited to myocardial ischemia, pericarditis pulmonary embolus, chest wall pain, pleural inflammation and pulmonary infectious causes. Medical Decision Making Data Points Result Diagram: 07/13/1833707/13/18 0338 Laboratory Hematology Test 07/13/18 03:38 Red Blood Count 5.01 M/uL (4.00-5.60) Mean Corpuscular Volume 88.1 fL (80.0-96.0) Mean Corpuscular Hemoglobin 29.2 pg (26.0-33.0) Mean Corpuscular Hemoglobin Concent 33.1 g/dL (32.0-36.0) Red Cell Distribution Width 14.4 % (11.5-14.5) Mean Platelet Volume 7.7 fL (7.2-11.1) Neutrophils (%) (Auto) 30.0 % (39.4-72.5) Lymphocytes (%) (Auto) 51.8 % (17.6-49.6) Monocytes (%) (Auto) 8.2 % (4.1-12.4) Eosinophils (%) (Auto) 9.0 % (0.4-6.7) Basophils (%) (Auto) 1.0 % (0.3-1.4) Nucleated RBC Relative Count (auto) 0.0 /100WBC Neutrophils # (Auto) 2.1 K/uL (2.0-7.4) Lymphocytes # (Auto) 3.6 K/uL (1.3-3.6) Monocytes # (Auto) 0.6 K/uL (0.3-1.0) Eosinophils # (Auto) 0.6 K/uL (0.0-0.5) Basophils # (Auto) 0.1 K/uL (0.0-0.1) Nucleated RBC Absolute Count (auto) 0.00 K/uL Sodium Level 139 mmol/L (137-145) Potassium Level 3.6 mmol/L (3.5-5.0) Chloride Level 105 mmol/L (98-107) Carbon Dioxide Level 26 mmol/L (22-30) Blood Urea Nitrogen 17 mg/dl (9-21) Creatinine 1.10 mg/dl (0.66-1.25) Glomerular Filtration Rate Calc > 60.0 Random Glucose 91 mg/dl (75-110) Calcium Level 8.9 mg/dl (8.4-10.2) Total Bilirubin 0.3 mg/dl (0.2-1.3) Aspartate Amino Transf (AST/SGOT) 16 U/L (0-35) Alanine Aminotransferase (ALT/SGPT) 30 U/L (0-56) Alkaline Phosphatase 124 U/L (0-126) Troponin I < 0.012 ng/ml B-Type Natriuretic Peptide 65 pg/ml (0-100) Total Protein 7.3 g/dl (6.3-8.2) Albumin 4.2 g/dl (3.5-5.0) Chemistry Test 07/13/18 03:38 White Blood Count 7.0 k/uL (4.5-11.0) Red Blood Count 5.01 M/uL (4.00-5.60) Hemoglobin 14.6 g/dL (14.0-18.0) Hematocrit 44.2 % (42.0-52.0) Mean Corpuscular Volume 88.1 fL (80.0-96.0) Mean Corpuscular Hemoglobin 29.2 pg (26.0-33.0) Mean Corpuscular Hemoglobin Concent 33.1 g/dL (32.0-36.0) Red Cell Distribution Width 14.4 % (11.5-14.5) Platelet Count 241 K/uL (150-450) Mean Platelet Volume 7.7 fL (7.2-11.1) Neutrophils (%) (Auto) 30.0 % (39.4-72.5) Lymphocytes (%) (Auto) 51.8 % (17.6-49.6) Monocytes (%) (Auto) 8.2 % (4.1-12.4) Eosinophils (%) (Auto) 9.0 % (0.4-6.7) Basophils (%) (Auto) 1.0 % (0.3-1.4) Nucleated RBC Relative Count (auto) 0.0 /100WBC Neutrophils # (Auto) 2.1 K/uL (2.0-7.4) Lymphocytes # (Auto) 3.6 K/uL (1.3-3.6) Monocytes # (Auto) 0.6 K/uL (0.3-1.0) Eosinophils # (Auto) 0.6 K/uL (0.0-0.5) Basophils # (Auto) 0.1 K/uL (0.0-0.1) Nucleated RBC Absolute Count (auto) 0.00 K/uL Glomerular Filtration Rate Calc > 60.0 Calcium Level 8.9 mg/dl (8.4-10.2) Total Bilirubin 0.3 mg/dl (0.2-1.3) Aspartate Amino Transf (AST/SGOT) 16 U/L (0-35) Alanine Aminotransferase (ALT/SGPT) 30 U/L (0-56) Alkaline Phosphatase 124 U/L (0-126) Troponin I < 0.012 ng/ml B-Type Natriuretic Peptide 65 pg/ml (0-100) Total Protein 7.3 g/dl (6.3-8.2) Albumin 4.2 g/dl (3.5-5.0) EKG/Imaging EKG Interpretation 12 lead EK Rhythm: normal sinus rhythm [place]: normal QRS: normal ST segments: normal, comparison to previous EKG dated 06/22/18. There is T- wave flattening in aVL, otherwise no ischemic injury is noted Imaging X-ray: Single view portable chest x-ray was obtained. I viewed the images myself on the PACS system. My interpretation of the images is: No infiltrate, no effusion, normal mediastinum., Comparison to previous chest x-ray 06/16/18, no significant change. The radiologist interpretation had no clinically significant variation from this interpretation. ED Course/Re-evaluation ED Course Patient was admitted to an examination room. H&P was done. The differential diagnosis was considered. On clinical examination. Patient has chest wall tenderness and chest pain. He does have history of cardiac disease. His initial EKG is unremarkable for evidence of ischemia. It is unchanged from pre vious. Patient's evaluated with troponin. Other diagnostic studies. His chest x-ray is unremarkable. Patient's treated with Toradol 30 mg IV for pain. Patient on chronic pain management with oxycodone. Patient just received a refill on 07/08/18 by primary care. Patient's advised to follow-up with primary care if his chest pain persists. He is advised to come back to the ER should he have any associated symptoms, shortness of breath, dizziness, nausea and diaphoresis. Decision to Disposition Date: Jul 13, 2018 Decision to Disposition Time: 03:52 Depart Departure Latest Vital Signs Vital Signs Date Time Temp Pulse Resp B/P (MAP) Pulse Ox O2 Delivery O2 Flow Rate FiO2 07/13/18 04:35 125/99 (108) 07/13/18 04:21 66 14 93 07/13/18 03:25 97.7 Room Air Impression: Primary Impression: Chest pain of uncertain etiology Additional Impression: History of coronary artery disease Condition: Improved Disposition: HOME OR SELF-CARE Referrals: STEVE PEREZ DNP, [employer] (PCP) Patient Instructions: Chest Pain (ED) Problem Qualifiers WIL SIMMONS DO Jul 13, 2018 03:24
[2018-07-13 03:52] LABS: PLATELET COUNT, AUTOMATED 241 K/uL (150-450)
[2018-07-13] MEDS ORDERED: KETOROLAC 30 MG/ML VIAL IVP ONE (04:00)
--- NOTE | 2018-07-13 04:12 | RADIOLOGY IMAGING REPORT ---
FACILITY: [facility] PATIENT NAME: Alfonzo Villatoro : 1970 MR: [id number] V: [id number] EXAM DATE: ORDERING PHYSICIAN: WIL SIMMONS TECHNOLOGIST: Location: [facility] - [place] Patient: Alfonzo Villatoro : 1970 Visit/Account:[id number] Date of Sevice: 07/13/2018 CHEST SINGLE AP 07/13/2018 04:05 hours. HISTORY: Chest pain. Myocardial infarct in July 2017. COMPARISON: 06/16/2018 and studies dating to 03/13/2016. TECHNIQUE: Portable AP view of the chest. FINDINGS: Tubes/lines/hardware: There are external chest leads. There is right coronary stent. Pulmonary/pleura: Lungs are clear. There is no pneumothorax or pleural effusion. Cardiomediastinal: Cardiac and mediastinal silhouettes are within normal limits. Bones/soft tissues: No acute osseous abnormality. There are healed lateral/posterolateral sixth and s eventh right rib fractures, unchanged. There is a mild rightward curvature of the thoracic spine. The visible abdomen is normal. IMPRESSION: 1. No acute cardiopulmonary process. Report Dictated By: Jerri Martinez at 07/13/2018 4:06 AM Report E-Signed By: Jerri Martinez at 07/13/2018 4:08 AM WSN:[id number]
--- NOTE | 2018-07-13 04:14 | EKG ---
FACILITY: [facility] - [place] PATIENT NAME: BRAD ARITA : [id number] MR: [id number] V: [id number] EXAM DATE: ORDERING PHYSICIAN: WIL SIMMONS TECHNOLOGIST: SIA Test Reason : CHEST PAIN Blood Pressure : / mmHG Vent. Rate : 068 BPM Atrial Rate : 068 BPM P-R Int : 144 ms QRS Dur : 082 ms QT Int : 434 ms P-R-T Axes : 054 040 048 degrees QTc Int : 461 ms Normal sinus rhythm Normal ECG Confirmed by EVETTE LEON ([id number]) on 07/13/2018 6:30:36 AM Referred By: Confirmed By:EVETTE LEON
[2018-07-13 04:35] VITALS: BP 125/99
== END 2018-07-13 04:40 | disposition home or self-care (01) ==
LOC: ER 03:25
DX: R07.9 Chest pain, unspecified (principal); I25.10 Atherosclerotic heart disease of native coronary artery without angina pectoris
CPT/HCPCS: 71045; 83880; 84484; 85025; 93005; 96374; 99284; J1885; 82040; 82247; 82310; 82374; 82435; 82565; 82947; 84075; 84132; 84155; 84295; 84450; 84460; 84520

== ENCOUNTER 2018-07-18 05:26 | Emergency (ER) | payer MEDICARE ==
--- NOTE | 2018-07-18 05:28 | ER Report ---
History and Physical Time Seen By MD: 05:28 HPI/ROS CHIEF COMPLAINT: Chest pain HISTORY OF PRESENT ILLNESS: 48-year-old male with a known history of coronary artery disease, status post angioplasty 5 his last stent placement was 08/08. This is similar to patient's previous multiple presentations with a.m. morning awakening with chest pain. He notes a little bit of diaphoresis. He notes no shortness of breath or nausea. Patient states he felt fine when he retired to bed. He notes a mild tiredness. He states he walked yesterday without any chest pain with exertion. REVIEW OF SYSTEMS: Respiratory: No cough, no dyspnea. Cardiovascular: As above Gastrointestinal: No vomiting, no abdominal pain. Musculoskeletal: No back pain. Allergies: Uncoded Allergies: mayoaminaaise (Allergy, Unknown, 03/26/17) Home Meds Active Scripts Oxycodone Hcl/Acetaminophen (OXYCODONE-ACETAMINOPHEN 5-325) 1 Each Tablet, 1 TAB PO 3-4XD PRN for PAIN, #120 TAB 0 Refills Prov:STEVE PEREZ DNP, FNP-OPAL 07/08/18 Lisinopril (LISINOPRIL) 20 Mg Tablet, 1 TAB PO QDAY, #90 TAB 4 Refills Prov:STEVE PEREZ DNP, FNP-BC 06/27/18 Diclofenac Sodium 1% Gel (VOLTAREN 1% GEL) 100 Gm Gel..gram., 4 G TOP QID PRN for PAIN, #1 TUB 3 Refills Prov:STEVE PEREZ DNP, FNP-BC 04/09/18 Sildenafil Citrate (SILDENAFIL) 20 Mg Tablet, 20 MG PO when necessary for 30 Days, #30 CAP 3 Refills Take 2-5 tablets orally as needed Prov:SIM FABIAN MD 04/04/18 Acetaminophen (ACETAMINOPHEN) 325 Mg Tablet, 1 TAB PO Q6H PRN for PAIN, #90 TAB 0 Refills 1 tab PO QAM prn pain. 1-2 tab PO noon prn pain. 1 tab PO QHS prn pain. Prov:STEVE PEREZ DNP, FNP-BC 12/27/17 Buspirone Hcl (BUSPIRONE HCL) 10 Mg Tablet, 1 TAB PO Q8H, #90 TAB 5 Refills Prov:STEVE PEREZ DNP, FNP-BC 12/21/17 Amlodipine Besylate (AMLODIPINE BESYLATE) 10 Mg Tablet, 1 TAB PO QDAY, #90 TAB 4 Refills [facility] 12/19/17 Metoprolol Tartrate (METOPROLOL TARTRATE) 100 Mg Tablet, 1 TAB PO BID for 90 Days, #180 TAB 1 Refill Prov:[facility] 10/15/17 Citalopram Hydrobromide (CITALOPRAM HBR) 40 Mg Tablet, 1 TAB PO QDAY for 90 Days , #90 TAB 3 Refills Prov:[facility] 07/16/17 Reported Medications Ubidecarenone (COQ-10) 100 Mg Capsule, PO, CAPSULE 06/10/18 Atorvastatin Calcium (ATORVASTATIN CALCIUM) 10 Mg Tablet, 1 TAB PO QDAY, TAB 05/13/18 Nitroglycerin (NITROGLYCERIN) 0.4 Mg Tab.subl, 0.4 MG SL Q5MIN 08/04/17 Clopidogrel Bisulfate (PLAVIX) 75 Mg Tablet, 1 TAB PO QDAY, TAB 08/04/17 Ranitidine Hcl (ZANTAC) 150 Mg Tablet, 1 TAB PO BID, TAB 03/26/17 Aspirin (ASPIR 81) 81 Mg Tablet.dr, 81 MG PO QDAY, TAB 03/13/16 Past Medical/Surgical History Past Medical History Cardiovascular: Reports hx of: coronary artery disease (5 stents) hyperlipidemia hypertension myocardial infarction (x1, July 2017) Respiratory: Reports hx of: sleep apnea (CPAP) Gastrointestinal: Reports hx of: GERD Psychiatric: Reports hx of: anxiety depression panic attacks Past Surgical History Cardiovascular: Reports hx of: coronary stent (5 stents placed) Hx Smoking: Yes (1/2 ppd) Smoking Status: Current: Every Day Smoker Hx Substance Use Disorder: Yes Hx Alcohol Use: Yes Constitutional Vital Sign - Last 24 Hours 07/18/18 07/18/18 07/18/18 07/18/18 05:30 05:30 05:41 05:56 Temp 98.2 Pulse 74 69 68 Resp 20 15 16 B/P (MAP) 122/74 122/74 (90) Pulse Ox 91 96 94 O2 Delivery Room Air 07/18/18 07/18/18 06:00 06:11 Pulse 68 Resp 21 B/P (MAP) 120/82 (95) Pulse Ox 94 Physical Exam General Appearance: The patient is alert, has no immediate need for airway protection and no current signs of toxicity. Vital signs stable, afebrile, pulse ox normal HEENT: Pupils equal and round no injection. Oropharynx without redness or exudate, mucous. Membranes are moist Respiratory: Chest is non tender, lungs are clear to auscultation. Cardiac: regular rate and rhythm Gastrointestinal: Abdomen is soft and non tender, no masses, bowel sounds normal. Musculoskeletal: Neck: Neck is supple and non tender. Extremities have full range of motion and are non tender. No edema Skin: No rashes or lesions. DIFFERENTIAL DIAGNOSIS: After history and physical exam differential diagnosis was considered for chest pain including but not limited to myocardial ischemia, pericarditis pulmonary embolus, chest wall pain, pleural inflammation and pulmonary infectious causes. Medical Decision Making Data Points Result Diagram: 07/18/18 0535 07/18/18 0535 Laboratory Hematology Test 07/18/18 05:35 Red Blood Count 5.09 M/uL (4.00-5.60) Mean Corpuscular Volume 87.6 fL (80.0-96.0) Mean Corpuscular Hemoglobin 29.9 pg (26.0-33.0) Mean Corpuscular Hemoglobin Concent 34.2 g/dL (32.0-36.0) Red Cell Distribution Width 14.3 % (11.5-14.5) Mean Platelet Volume 7.5 fL (7.2-11.1) Neutrophils (%) (Auto) 39.9 % (39.4-72.5) Lymphocytes (%) (Auto) 45.3 % (17.6-49.6) Monocytes (%) (Auto) 5.9 % (4.1-12.4) Eosinophils (%) (Auto) 8.1 % (0.4-6.7) Basophils (%) (Auto) 0.8 % (0.3-1.4) Nucleated RBC Relative Count (auto) 0.0 /100WBC Neutrophils # (Auto) 3.4 K/uL (2.0-7.4) Lymphocytes # (Auto) 3.8 K/uL (1.3-3.6) Monocytes # (Auto) 0.5 K/uL (0.3-1.0) Eosinophils # (Auto) 0.7 K/uL (0.0-0.5) Basophils # (Auto) 0.1 K/uL (0.0-0.1) Nucleated RBC Absolute Count (auto) 0.00 K/uL Sodium Level 138 mmol/L (137-145) Potassium Level 3.3 mmol/L (3.5-5.0) Chloride Level 104 mmol/L (98-107) Carbon Dioxide Level 26 mmol/L (22-30) Blood Urea Nitrogen 14 mg/dl (9-21) Creatinine 1.10 mg/dl (0.66-1.25) Glomerular Filtration Rate Calc > 60.0 Random Glucose 104 mg/dl (75-110) Calcium Level 8.9 mg/dl (8.4-10.2) Total Bilirubin 0.2 mg/dl (0.2-1.3) Aspartate Amino Transf (AST/SGOT) 20 U/L (0-35) Alanine Aminotransferase (ALT/SGPT) 26 U/L (0-56) Alkaline Phosphatase 115 U/L (0-126) Troponin I < 0.012 ng/ml Total Protein 7.3 g/dl (6.3-8.2) Albumin 4.2 g/dl (3.5-5.0) Chemistry Test 07/18/18 05:35 White Blood Count 8.4 k/uL (4.5-11.0) Red Blood Count 5.09 M/uL (4.00-5.60) Hemoglobin 15.2 g/dL (14.0-18.0) Hematocrit 44.6 % (42.0-52.0) Mean Corpuscular Volume 87.6 fL (80.0-96.0) Mean Corpuscular Hemoglobin 29.9 pg (26.0-33.0) Mean Corpuscular Hemoglobin Concent 34.2 g/dL (32.0-36.0) Red Cell Distribution Width 14.3 % (11.5-14.5) Platelet Count 231 K/uL (150-450) Mean Platelet Volume 7.5 fL (7.2-11.1) Neutrophils (%) (Auto) 39.9 % (39.4-72.5) Lymphocytes (%) (Auto) 45.3 % (17.6-49.6) Monocytes (%) (Auto) 5.9 % (4.1-12.4) Eosinophils (%) (Auto) 8.1 % (0.4-6.7) Basophils (%) (Auto) 0.8 % (0.3-1.4) Nucleated RBC Relative Count (auto) 0.0 /100WBC Neutrophils # (Auto) 3.4 K/uL (2.0-7.4) Lymphocytes # (Auto) 3.8 K/uL (1.3-3.6) Monocytes # (Auto) 0.5 K/uL (0.3-1.0) Eosinophils # (Auto) 0.7 K/uL (0.0-0.5) Basophils # (Auto) 0.1 K/uL (0.0-0.1) Nucleated RBC Absolute Count (auto) 0.00 K/uL Glomerular Filtration Rate Calc > 60.0 Calcium Level 8.9 mg/dl (8.4-10.2) Total Bilirubin 0.2 mg/dl (0.2-1.3) Aspartate Amino Transf (AST/SGOT) 20 U/L (0-35) Alanine Aminotransferase (ALT/SGPT) 26 U/L (0-56) Alkaline Phosphatase 115 U/L (0-126) Troponin I < 0.012 ng/ml Total Protein 7.3 g/dl (6.3-8.2) Albumin 4.2 g/dl (3.5-5.0) EKG/Imaging EKG Interpretation 12 lead EK Rhythm: normal sinus rhythm [place]: normal QRS: normal ST segments: normal, no evidence of ischemia or dysrhythmia ED Course/Re-evaluation Clinical Indication for ER IV: IV Access ED Course Patient was admitted to an examination room. H&P was done. The differential diagnoses was considered. An immediate EKG was performed, is negative for evidence of ischemia or dysrhythmia. Patient had diagnostic laboratory studies sent off. Patient keeps having a.m. awakening with severe pain in his chest. I am now suspicious that it is GERD. We've done a trial of NSAIDs without improvement. His other studies are unremarkable except for low potassium 3.3. Patient's advised to take Prilosec 20 g per day for 2 weeks. He's advised to follow-up with primary care and cardiology regarding this recurring chest pain. Decision to Disposition Date: Jul 18, 2018 Decision to Disposition Time: 06:15 Depart Departure Latest Vital Signs Vital Signs Date Time Temp Pulse Resp B/P (MAP) Pulse Ox O2 Delivery O2 Flow Rate FiO2 07/18/18 06:11 68 21 94 07/18/18 06:00 120/82 (95) 07/18/18 05:30 98.2 Room Air Impression: Primary Impression: Chest pain of unknown etiology Additional Impressions: GERD (gastroesophageal reflux disease) Coronary artery disease Status post percutaneous transluminal angioplasty (FISHER GILL NET) with stent placement Condition: Improved Disposition: HOME OR SELF-CARE Referrals: STEVE PEREZ DNP, MAINTENANCE PAINTER-BC (PCP) Patient Instructions: Chest Pain (ED) Additional Instructions: Take Prilosec 20 mg per day for 2 weeks. You can stop your ranitidine Follow-up with your primary care and your biometrics head within the next week. Problem Qualifiers Additional Impressions: GERD (gastroesophageal reflux disease) Esophagitis presence: esophagitis presence not specified Qualified Codes: K21.9 - Gastro-esophageal reflux disease without esophagitis Coronary artery disease Coronary Disease-Associated Artery/Lesion type: unspecified vessel or lesion type [place] vs. transplanted heart: [place] heart Associated angina: a ngina presence unspecified Qualified Codes: I25.10 - Atherosclerotic heart disease of [place] coronary artery without angina pectoris WIL SIMMONS DO Jul 18, 2018 05:28
[2018-07-18] MEDS ORDERED: ASPIRIN 81 MG CHEW PO ONE (05:35)
--- NOTE | 2018-07-18 05:51 | EKG ---
FACILITY: [facility] [place] PATIENT NAME: BRAD ARITA : [id number] MR: [id number] V: [id number] EXAM DATE: ORDERING PHYSICIAN: WIL SIMMONS TECHNOLOGIST: Test Reason : CHEST PAIN Blood Pressure : / mmHG Vent. Rate : 070 BPM Atrial Rate : 070 BPM P-R Int : 146 ms QRS Dur : 086 ms QT Int : 430 ms P-R-T Axes : 049 035 032 degrees QTc Int : 464 ms Normal sinus rhythm Normal ECG When compared with ECG of 13-JUL-2018 03:29, No significant change was found Confirmed by Roger Nava ([id number]) on 07/18/2018 6:49:19 AM Referred By: WIL SIMMONS Confirmed By:Roger Ventura
[2018-07-18 05:59] LABS: PLATELET COUNT, AUTOMATED 231 K/uL (150-450)
[2018-07-18 06:00] VITALS: BP 120/82
== END 2018-07-18 06:23 | disposition home or self-care (01) ==
LOC: ER 05:49
DX: R07.9 Chest pain, unspecified (principal); K21.9 Gastro-esophageal reflux disease without esophagitis; I25.10 Atherosclerotic heart disease of native coronary artery without angina pectoris
CPT/HCPCS: 84484; 85025; 93005; 99283; A9270; 82040; 82247; 82310; 82374; 82435; 82565; 82947; 84075; 84132; 84155; 84295; 84450; 84460; 84520

== ENCOUNTER 2018-08-07 06:53 | Emergency (ER) | payer MEDICARE ==
[2018-08-07] MEDS ORDERED: ASPIRIN 81 MG CHEW PO ONE (07:00)
[2018-08-07 07:01] VITALS: BP 155/100
--- NOTE | 2018-08-07 07:02 | EKG ---
FACILITY: [facility] [place] PATIENT NAME: BRAD ARITA : [id number] MR: [id number] V: [id number] EXAM DATE: ORDERING PHYSICIAN: GENARO OLMEDO TECHNOLOGIST: JESSICA Caraballo Reason : Blood Pressure : / mmHG Vent. Rate : 113 BPM Atrial Rate : 113 BPM P-R Int : 128 ms QRS Dur : 078 ms QT Int : 360 ms P-R-T Axes : 060 047 024 degrees QTc Int : 493 ms Sinus tachycardia Nonspecific ST abnormality Abnormal ECG Confirmed by ELISA RODRIGES ([id number]) on 08/08/2018 4:44:14 AM Referred By: Confirmed By:ELISA RODRIGES
[2018-08-07 07:10] LABS: PLATELET COUNT, AUTOMATED 307 K/uL (150-450)
--- NOTE | 2018-08-07 07:24 | ER Report ---
History and Physical Time Seen By MD: 07:00 Hx. of Stated Complaint: woke up to severe chest pain and nausea. vomitted "a lot". states he has had an LA before and this is "much worse" HPI/ROS CHIEF COMPLAINT: Chest pain HISTORY OF PRESENT ILLNESS: 48-year-old male comes emergency Department today with a complaint of chest pain parasternal woke with this morning he is been here on multiple occasions for similar complaints does have a significant history of 5 stents placed hyperlipidemia hypertension still a smoker. Patient states he awoke with his usual chest discomfort parasternal radiating a little to the left side was recently diagnosed with acid reflux she's been on a proton pump inhibitor was some benefit. Patient denies shortness of breath mild nausea which is chronic patient said he is just sitting watching TV last night and awoke this morning with the discomfort. This is exactly the same as is been on multiple presentations to the emergency department states "I want to be careful". REVIEW OF SYSTEMS: Respiratory: No cough, no dyspnea. Cardiovascular: Chest pain no palpitations Gastrointestinal: No vomiting, no abdominal pain. Musculoskeletal: No back pain. Remainder of the 14 system rev: Yes Allergies: Uncoded Allergies: mayonnaise (Allergy, Unknown, 03/26/17) Home Meds Active Scripts Oxycodone Hcl/Acetaminophen (OXYCODONE-ACETAMINOPHEN 5-325) 1 Each Tablet, 1 TAB PO 3-4XD PRN for PAIN, #120 TAB 0 Refills Prov:STEVE PEREZ DNP, FNP-BC 07/08/18 Lisinopril (LISINOPRIL) 20 Mg Tablet, 1 TAB PO QDAY, #90 TAB 4 Refills Prov:STEVE PEREZ DNP, FNP-BC 06/27/18 Diclofenac Sodium 1% Gel (VOLTAREN 1% GEL) 100 Gm Gel..gram., 4 G TOP QID PRN for PAIN, #1 TUB 3 Refills Prov:STEVE PEREZ DNP, FNP-BC 04/09/18 Sildenafil Citrate (SILDENAFIL) 20 Mg Tablet, 20 MG PO when necessary for 30 Days, #30 CAP 3 Refills Take 2-5 tablets orally as needed Prov:SIM FABIAN MD 04/04/18 Acetaminophen (ACETAMINOPHEN) 325 Mg Tablet, 1 TAB PO Q6H PRN for PAIN, #90 TAB 0 Refills 1 tab PO QAM prn pain. 1-2 tab PO noon prn pain. 1 tab PO QHS prn pain. Prov:STEVE PEREZ Ching [facility] 12/27/17 Buspirone Hcl (BUSPIRONE HCL) 10 Mg Tablet, 1 TAB PO Q8H, #90 TAB 5 Refills Prov:CHRISSTEVE [facility]ing [facility] [place] 12/21/17 Amlodipine Besylate (AMLODIPINE BESYLATE) 10 Mg Tablet, 1 TAB PO QDAY, #90 TAB 4 Refills Prov:CHRISSTEVE DNPSELECT [facility]ICAL [facility] [place] 12/19/17 Metoprolol Tartrate (METOPROLOL TARTRATE) 100 Mg Tablet, 1 TAB PO BID for 90 Days, #180 TAB 1 Refill Prov:CHRISSTEVE DNPSELECT [facility]ICAL [facility] [place] 10/15/17 Citalopram Hydrobromide (CITALOPRAM HBR) 40 Mg Tablet, 1 TAB PO QDAY for 90 Days, #90 TAB 3 Refills Prov:CHRISGEOSTEVE A DNPSELECT [facility]ICAL [facility] [place] 07/16/17 Reported Medications Ubidecarenone (COQ-10) 100 Mg Capsule, PO, CAPSULE 06/10/18 Atorvastatin Calcium (ATORVASTATIN CALCIUM) 10 Mg Tablet, 1 TAB PO QDAY, TAB 05/13/18 Nitroglycerin (NITROGLYCERIN) 0.4 Mg Tab.subl, 0.4 MG SL Q5MIN 08/04/17 Clopidogrel Bisulfate (PLAVIX) 75 Mg Tablet, 1 TAB PO QDAY, TAB 08/04/17 Ranitidine Hcl (ZANTAC) 150 Mg Tablet, 1 TAB PO BID, TAB 03/26/17 Aspirin (ASPIR 81) 81 Mg Tablet.dr, 81 MG PO QDAY, TAB 03/13/16 Reviewed Nurses Notes: Yes Old Medical Records Reviewed: Yes Hx Smoking: Yes (1/2 ppd) Smoking Status: Current: Every Day Smoker Hx Substance Use Disorder: Yes Hx Alcohol Use: Yes Constitutional Vital Sign - Last 24 Hours 08/07/18 08/07/18 08/07/18 08/07/18 06:58 07:00 07:01 07:30 Temp 98.1 Pulse 110 104 116 Resp 20 10 22 B/P (MAP) 138/92 155/100 (118) Pulse Ox 92 95 96 O2 Delivery Room Air 08/07/18 08/07/18 08:00 08:15 Pulse 99 103 Resp 20 24 Pulse Ox 94 93 Physical Exam General Appearance: [The patient is alert, has no immediate need for airway protection and no current signs of toxicity.] [ ] Eyes: Pupils equal and round no injection. Respiratory: Chest is non tender, lungs are clear to auscultation. Cardiac: regular rate and rhythm [ ] Gastrointestinal: Abdomen is soft and non tender, no masses, bowel sounds normal. Musculoskeletal: Neck: Neck is supple and non tender. Extremities have full range of motion and are non tender. Skin: No rashes or lesions. [ ] DIFFERENTIAL DIAGNOSIS: After history and physical exam differential diagnosis was considered for atypical chest pain microinfarction pulmonary emboli acid reflux mussy skeletal chest pain Medical Decision Making Data Points Result Diagram: 08/07/18 0700 08/07/18 0700 Laboratory Hematology Test 08/07/18 07:00 Red Blood Count 5.57 M/uL (4.00-5.60) Mean Corpuscular Volume 87.3 fL (80.0-96.0) Mean Corpuscular Hemoglobin 29.4 pg (26.0-33.0) Mean Corpuscular Hemoglobin Concent 33.6 g/dL (32.0-36.0) Red Cell Distribution Width 14.4 % (11.5-14.5) Mean Platelet Volume 7.4 fL (7.2-11.1) Neutrophils (%) (Auto) 74.3 % (39.4-72.5) Lymphocytes (%) (Auto) 19.2 % (17.6-49.6) Monocytes (%) (Auto) 5.1 % (4.1-12.4) Eosinophils (%) (Auto) 0.4 % (0.4-6.7) Basophils (%) (Auto) 1.0 % (0.3-1.4) Nucleated RBC Relative Count (auto) 0.0 /100WBC Neutrophils # (Auto) 12.3 K/uL (2.0-7.4) Lymphocytes # (Auto) 3.2 K/uL (1.3-3.6) Monocytes # (Auto) 0.8 K/uL (0.3-1.0) Eosinophils # (Auto) 0.1 K/uL (0.0-0.5) Basophils # (Auto) 0.2 K/uL (0.0-0.1) Nucleated RBC Absolute Count (auto) 0.00 K/uL Peripheral Blood Smear No Y/N D-Dimer Quantitative (PE/DVT) 0.63 ug/ml (0-0.50) Sodium Level 138 mmol/L (137-145) Potassium Level 3.9 mmol/L (3.5-5.0) Chloride Level 103 mmol/L (98-107) Carbon Dioxide Level 19 mmol/L (22-30) Blood Urea Nitrogen 12 mg/dl (9-21) Creatinine 1.10 mg/dl (0.66-1.25) Glomerular Filtration Rate Calc > 60.0 Random Glucose 111 mg/dl (75-110) Calcium Level 9.5 mg/dl (8.4-10.2) Total Bilirubin 0.4 mg/dl (0.2-1.3) Aspartate Amino Transf (AST/SGOT) 23 U/L (0-35) Alanine Aminotransferase (ALT/SGPT) 28 U/L (0-56) Alkaline Phosphatase 133 U/L (0-126) Troponin I < 0.012 ng/ml Total Protein 8.4 g/dl (6.3-8.2) Albumin 4.9 g/dl (3.5-5.0) Chemistry Test 08/07/18 07:00 White Blood Count 16.6 k/uL (4.5-11.0) Red Blood Count 5.57 M/uL (4.00-5.60) Hemoglobin 16.3 g/dL (14.0-18.0) Hematocrit 48.6 % (42.0-52.0) Mean Corpuscular Volume 87.3 fL (80.0-96.0) Mean Corpuscular Hemoglobin 29.4 pg (26.0-33.0) Mean Corpuscular Hemoglobin Concent 33.6 g/dL (32.0-36.0) Red Cell Distribution Width 14.4 % (11.5-14.5) Platelet Count 307 K/uL (150-450) Mean Platelet Volume 7.4 fL (7.2-11.1) Neutrophils (%) (Auto) 74.3 % (39.4-72.5) Lymphocytes (%) (Auto) 19.2 % (17.6-49.6) Monocytes (%) (Auto) 5.1 % (4.1-12.4) Eosinophils (%) (Auto) 0.4 % (0.4-6.7) Basophils (%) (Auto) 1.0 % (0.3-1.4) Nucleated RBC Relative Count (auto) 0.0 /100WBC Neutrophils # (Auto) 12.3 K/uL (2.0-7.4) Lymphocytes # (Auto) 3.2 K/uL (1.3-3.6) Monocytes # (Auto) 0.8 K/uL (0.3-1.0) Eosinophils # (Auto) 0.1 K/uL (0.0-0.5) Basophils # (Auto) 0.2 K/uL (0.0-0.1) Nucleated RBC Absolute Count (auto) 0.00 K/uL Peripheral Blood Smear No Y/N D-Dimer Quantitative (PE/DVT) 0.63 ug/ml (0-0.50) Glomerular Filtration Rate Calc > 60.0 Calcium Level 9.5 mg/dl (8.4-10.2) Total Bilirubin 0.4 mg/dl (0.2-1.3) Aspartate Amino Transf (AST/SGOT) 23 U/L (0-35) Alanine Aminotransferase (ALT/SGPT) 28 U/L (0-56) Alkaline Phosphatase 133 U/L (0-126) Troponin I < 0.012 ng/ml Total Protein 8.4 g/dl (6.3-8.2) Albumin 4.9 g/dl (3.5-5.0) Coagulation Test 08/07/18 07:00 D-Dimer Quantitative (PE/DVT) 0.63 ug/ml ED Course/Re-evaluation ED Course ED course 48-year-old male comes emergency Department today with complaint of chest pain negative at labs negative enzymes he does have a CT angiogram 2nd or 2 and elevated d-dimer negative for pulmonary emboli but does show some thickening the esophageal wall most likely esophagitis which is what is been diagnosed with in the past he is on proton pump he still smoking he is been somewhat noncompliant with medication was advised to decrease spicy foods taken proton palpable decrease if not eliminate smoking 9today esophagitis Decision to Disposition Date: Aug 07, 2018 Decision to Disposition Time: 08:26 Depart Departure Latest Vital Signs Vital Signs Date Time Temp Pulse Resp B/P (MAP) Pulse Ox O2 Delivery O2 Flow Rate FiO2 08/07/18 08:15 103 24 93 08/07/18 07:01 155/100 (118) 08/07/18 06:58 98.1 Room Air Impression: Primary Impression: Esophagitis, acute Condition: Improved Disposition: HOME OR SELF-CARE Referrals: STEVE PEREZ DNP, STREETCAR DISPATCHER-BC (PCP) 5 Days Patient Instructions: Esophagitis (DC) GENARO OLMEDO MD Aug 07, 2018 07:24
[2018-08-07] MEDS ORDERED: ONDANSETRON 4 MG/2 ML VIAL IVP ONE ×2 (07:30→08:20)
[2018-08-07] MEDS ORDERED: IOPAMIDOL 76% 150 ML INFUS BTL 150 ML ONE (07:53)
[2018-08-07] MEDS ORDERED: NS(*) 0.9% 50 ML BAG 50 ML ONE (07:53)
--- NOTE | 2018-08-07 08:16 | RADIOLOGY IMAGING REPORT ---
FACILITY: [facility] PATIENT NAME: Alfonzo Villatoro : 1970 MR: [id number] V: [id number] EXAM DATE: ORDERING PHYSICIAN: GENARO OLMEDO TECHNOLOGIST: Location: [facility] Patient: Alfonzo Villatoro : 1970 Visit/Account:[id number] Date of Sevice: 08/07/2018 CHEST PA LAT INDICATION: Chest pain COMPARISON: 07/13/2018 FINDINGS: Heart size within normal limits. There is no focal infiltrate or lobar consolidation. There is no pneumothorax or pleural effusion. IMPRESSION: 1. No acute cardiopulmonary process. Report Dictated By: Alberto Doran at 08/07/2018 8:11 AM Report E-Signed By: Alberto Doran at 08/07/2018 8:12 AM WSN:[email or web address]
--- NOTE | 2018-08-07 08:21 | RADIOLOGY IMAGING REPORT ---
FACILITY: [facility] PATIENT NAME: Alfonzo Villatoro : 1970 MR: [id number] V: [id number] EXAM DATE: ORDERING PHYSICIAN: GENARO OLMEDO TECHNOLOGIST: [place] [facility] [place] [place] Villator[place] : 1970 Visit/Account:[id number] Date of Sevice: 08/07/2018 CT CTA CHEST W & W/O CON HISTORY: ELEVATED D DIMER, CP ADDITIONAL HISTORY: None. TECHNIQUE: CTA chest with intravenous contrast. Axial imaging acquired following administration of IV contrast timed for maximum opacification of the pulmonary arterial vasculature. Slab 3-D MIP yanna nstructed images were also created for further evaluation and interpretation. Reconstruction of the [facility] data set includes multiplanar 2-D in the sagittal and coronal planes and 3-D reconstructed hanh nal slab MIP series. 3-D images were created by the technologist.Dose Lowering Technique One of the following dose optimization techniques was utilized in the performance of this exam: Autom ated exposure control; adjustment of the mA and/or kV according to the patient's size; or use of an i terative reconstruction technique. Specific details can be referenced in the facility's radiology C T exam operational policy. CONTRAST: 25 mL Isovue-370 COMPARISON: April 28, 2018 FINDINGS: Lungs/pleura: Negative. Heart/vessels: Negative. There are no filling defects seen in the pulmonary arteries worrisome for a pulmonary embolus. Incidentally noted are calcifications in the coronary arteries Mediastinum/lymph nodes: The esophageal wall appears diffusely thickened Visualized upper abdomen: Negative. Bones/soft tissues: Gentle scoliosis of the thoracic spine. Old right rib fractures Additional findings: None IMPRESSION: No evidence of pulmonary emboli No evidence of pulmonary consolidation There is diffuse thickening of the esophageal wall. This may be related to esophagitis although clin ical correlation needed Report Dictated By: Marifer Houston MD at 08/07/2018 8:09 AM Report E-Signed By: Marifer Houston MD at 08/07/2018 8:17 AM WSN:[email or web address]
[2018-08-07] MEDS ORDERED: OXYC-373 PO (08:51)
== END 2018-08-07 08:31 | disposition home or self-care (01) ==
LOC: ER 07:01
DX: K20.9 Esophagitis, unspecified (principal); F17.210 Nicotine dependence, cigarettes, uncomplicated
CPT/HCPCS: 71046; 71275; 84484; 85025; 85379; 93005; 96374; 96376; 99284; A9270; J2405; J7050; Q9967; 82040; 82247; 82310; 82374; 82435; 82565; 82947; 84075; 84132; 84155; 84295; 84450; 84460; 84520

== ENCOUNTER 2018-08-13 08:26 | Emergency (ER) | payer MEDICARE ==
--- NOTE | 2018-08-13 08:39 | ER Report ---
History and Physical Time Seen By MD: 08:39 Hx. of Stated Complaint: MID CHEST PAIN CONSTANT SINCE WAKING UP HPI/ROS CHIEF COMPLAINT: Chest pain HISTORY OF PRESENT ILLNESS: Patient is a 48-year-old male here with complaints of chest pain since waking up this morning approximately 1.5 hours prior to arrival. Patient does have a history significant for coronary artery disease with 5 prior stent placements. Patient reports that his current pain is similar to prior episodes. He does have associated shortness breath, however is currently hemodynamically stable, afebrile in no acute distress. Denies abdominal pain, nausea, vomiting, headache, blurry vision, neck pain. REVIEW OF SYSTEMS: Constitutional: No fever, no chills. Eyes: No discharge. ENT: No sore throat. Cardiovascular: + Midsternal chest pain, no palpitations. Respiratory: No cough, no shortness of breath. Gastrointestinal: No abdominal pain, no vomiting. Genitourinary: No hematuria. Musculoskeletal: No back pain. Skin: No rashes. Neurological: No headache. Allergies: Uncoded Allergies: raghavaise (Allergy, Unknown, 03/26/17) Home Meds Active Scripts Cyclobenzaprine Hcl (CYCLOBENZAPRINE HCL) 10 Mg Tablet, 0.5-1 TAB PO TID PRN for muscle pain, #12 TAB 0 Refills Prov:STEVE PEREZ DNP, FNP-OPAL 08/19/18 Oxycodone Hcl/Acetaminophen (OXYCODONE-ACETAMINOPHEN 5-325) 1 Each Tablet, 1 TAB PO 3-4XD PRN for PAIN, #120 TAB 0 Refills Prov:STEVE PREEZ DNP, FNP-BC 08/07/18 Lisinopril (LISINOPRIL) 20 Mg Tablet, 1 TAB PO QDAY, #90 TAB 4 Refills Prov:STEVE PEREZ DNP, FNP-OPAL 06/27/18 Diclofenac Sodium 1% Gel (VOLTAREN 1% GEL) 100 Gm Gel..gram., 4 G TOP QID PRN for PAIN, #1 TUB 3 Refills Prov:STEVE PEREZ DNP, FNP-BC 04/09/18 Sildenafil Citrate (SILDENAFIL) 20 Mg Tablet, 20 MG PO when necessary for 30 Days, #30 CAP 3 Refills Take 2-5 tablets orally as needed Prov:SIM FABIAN MD 04/04/18 Acetaminophen (ACETAMINOPHEN) 325 Mg Tablet, 1 TAB PO Q6H PRN for PAIN, #90 TAB 0 Refills 1 tab PO QAM prn pain. 1-2 tab PO noon prn pain. 1 tab PO QHS prn pain. Prov:STEVE PEREZ DNP, [facility] 12/27/17 Buspirone Hcl (BUSPIRONE HCL) 10 Mg Tablet, 1 TAB PO Q8H, #90 TAB 5 [facility] 12/21/17 Amlodipine Besylate (AMLODIPINE BESYLATE) 10 Mg Tablet, 1 TAB PO QDAY, #90 TAB 4 Refills Prov:[facility] 12/19/17 Metoprolol Tartrate (METOPROLOL TARTRATE) 100 Mg Tablet, 1 TAB PO BID for 90 Days, #180 TAB 1 Refill Prov:[facility] 10/15/17 Citalopram Hydrobromide (CITALOPRAM HBR) 40 Mg Tablet, 1 TAB PO QDAY for 90 Days, #90 TAB 3 Refills Prov:[facility] 07/16/17 Reported Medications Ubidecarenone (COQ-10) 100 Mg Capsule, PO, CAPSULE 06/10/18 Atorvastatin Calcium (ATORVASTATIN CALCIUM) 10 Mg Tablet, 1 TAB PO QDAY, TAB 05/13/18 Ranitidine Hcl (ZANTAC) 150 Mg Tablet, 1 TAB PO BID, TAB 03/26/17 Aspirin (ASPIR 81) 81 Mg Tablet.dr, 81 MG PO QDAY, TAB 03/13/16 Discontinued Reported Medications Nitroglycerin (NITROGLYCERIN) 0.4 Mg Tab.subl, 0.4 MG SL Q5MIN 08/04/17 Clopidogrel Bisulfate (PLAVIX) 75 Mg Tablet, 1 TAB PO QDAY, TAB 08/04/17 Hx Smoking: Yes (1/2 ppd) Smoking Status: Current: Every Day Smoker Hx Substance Use Disorder: No Hx Alcohol Use: Yes (OCC) Constitutional Physical Exam General Appearance: The patient is alert, has no immediate need for airway protection and no signs of toxicity. [ ] Eyes: Pupils equal and round no pallor or injection. ENT, Mouth: Mucous membranes are moist. Respiratory: There are no retractions, lungs are clear to auscultation. Cardiovascular: Regular rate and rhythm. Gastrointestinal: Abdomen is soft and non tender, no masses, bowel sounds normal. Neurological: No focal neurological findings Skin: Warm and dry, no rashes. Musculoskeletal: Neck is supple non tender. Extremities are nontender, nonswollen and have full range of motion. DIFFERENTIAL DIAGNOSIS: After history and physical exam differential diagnosis was considered for chest pain including but not limited to myocardial ischemia, pericarditis pulmonary embolus, chest wall pain, pleural inflammation and pulmonary infectious causes. Medical Decision Making Data Points Laboratory Hematology Test 08/13/18 08:40 08/13/18 10:45 Red Blood Count 4.78 M/uL (4.00-5.60) Mean Corpuscular Volume 88.5 fL (80.0-96.0) Mean Corpuscular Hemoglobin 30.1 pg (26.0-33.0) Mean Corpuscular Hemoglobin Concent 34.1 g/dL (32.0-36.0) Red Cell Distribution Width 14.3 % (11.5-14.5) Mean Platelet Volume 7.6 fL (7.2-11.1) Neutrophils (%) (Auto) 46.2 % (39.4-72.5) Lymphocytes (%) (Auto) 43.2 % (17.6-49.6) Monocytes (%) (Auto) 5.8 % (4.1-12.4) Eosinophils (%) (Auto) 4.1 % (0.4-6.7) Basophils (%) (Auto) 0.7 % (0.3-1.4) Nucleated RBC Relative Count (auto) 0.1 /100WBC Neutrophils # (Auto) 3.4 K/uL (2.0-7.4) Lymphocytes # (Auto) 3.1 K/uL (1.3-3.6) Monocytes # (Auto) 0.4 K/uL (0.3-1.0) Eosinophils # (Auto) 0.3 K/uL (0.0-0.5) Basophils # (Auto) 0.1 K/uL (0.0-0.1) Nucleated RBC Absolute Count (auto) 0.01 K/uL D-Dimer Quantitative (PE/DVT) 0.40 ug/ml (0-0.50) Sodium Level 137 mmol/L (137-145) Potassium Level 3.9 mmol/L (3.5-5.0) Chloride Level 102 mmol/L (98-107) Carbon Dioxide Level 26 mmol/L (22-30) Blood Urea Nitrogen 14 mg/dl (9-21) Creatinine 1.10 mg/dl (0.66-1.25) Glomerular Filtration Rate Calc > 60.0 Random Glucose 94 mg/dl (75-110) Calcium Level 9.0 mg/dl (8.4-10.2) Total Bilirubin 0.3 mg/dl (0.2-1.3) Aspartate Amino Transf (AST/SGOT) 16 U/L (0-35) Alanine Aminotransferase (ALT/SGPT) 17 U/L (0-56) Alkaline Phosphatase 108 U/L (0-126) Total Protein 7.2 g/dl (6.3-8.2) Albumin 4.1 g/dl (3.5-5.0) Troponin I < 0.012 ng/ml Chemistry Test 08/13/18 08:40 08/13/18 10:45 White Blood Count 7.3 k/uL (4.5-11.0) Red Blood Count 4.78 M/uL (4.00-5.60) Hemoglobin 14.4 g/dL (14.0-18.0) Hematocrit 42.3 % (42.0-52.0) Mean Corpuscular Volume 88.5 fL (80.0-96.0) Mean Corpuscular Hemoglobin 30.1 pg (26.0-33.0) Mean Corpuscular Hemoglobin Concent 34.1 g/dL (32.0-36.0) Red Cell Distribution Width 14.3 % (11.5-14.5) Platelet Count 229 K/uL (150-450) Mean Platelet Volume 7.6 fL (7.2-11.1) Neutrophils (%) (Auto) 46.2 % (39.4-72.5) Lymphocytes (%) (Auto) 43.2 % (17.6-49.6) Monocytes (%) (Auto) 5.8 % (4.1-12.4) Eosinophils (%) (Auto) 4.1 % (0.4-6.7) Basophils (%) (Auto) 0.7 % (0.3-1.4) Nucleated RBC Relative Count (auto) 0.1 /100WBC Neutrophils # (Auto) 3.4 K/uL (2.0-7.4) Lymphocytes # (Auto) 3.1 K/uL (1.3-3.6) Monocytes # (Auto) 0.4 K/uL (0.3-1.0) Eosinophils # (Auto) 0.3 K/uL (0.0-0.5) Basophils # (Auto) 0.1 K/uL (0.0-0.1) Nucleated RBC Absolute Count (auto) 0.01 K/uL D-Dimer Quantitative (PE/DVT) 0.40 ug/ml (0-0.50) Glomerular Filtration Rate Calc > 60.0 Calcium Level 9.0 mg/dl (8.4-10.2) Total Bilirubin 0.3 mg/dl (0.2-1.3) Aspartate Amino Transf (AST/SGOT) 16 U/L (0-35) Alanine Aminotransferase (ALT/SGPT) 17 U/L (0-56) Alkaline Phosphatase 108 U/L (0-126) Total Protein 7.2 g/dl (6.3-8.2) Albumin 4.1 g/dl (3.5-5.0) Troponin I < 0.012 ng/ml Coagulation Test 08/13/18 08:40 D-Dimer Quantitative (PE/DVT) 0.40 ug/ml EKG/Imaging EKG Interpretation PATIENT NAME: ALFONZO ARITA : [id number] MR: [id number] V: [id number] EXAM DATE: ORDERING PHYSICIAN: LEX CARO TECHNOLOGIST: DOMINIQUE Caraballo Reason : CP Blood Pressure : / mmHG Vent. Rate : 077 BPM Atrial Rate : 077 BPM P-R Int : 134 ms QRS Dur : 080 ms QT Int : 408 ms P-R-T Axes : 043 023 029 degrees QTc Int : 461 ms Normal sinus rhythm Normal ECG When compared with ECG of 07-AUG-2018 06:56, No significant change was found Confirmed by RABIA ZHU ([id number]) on 08/14/2018 12:06:09 AM Referred By: ER Confirmed By:RABIA ZHU Imaging PATIENT NAME: Alfonzo Arita : 1970 MR: [id number] V: [id number] EXAM DATE: [id number] ORDERING PHYSICIAN: LEX CARO TECHNOLOGIST: Location: Patient: Alfonzo Arita : 1970 Visit/Account:[id number] Date of Sevice: 08/13/2018 2 VIEWS CHEST INDICATION: Chest pain. COMPARISON: X-ray examination chest August 07, 2018. CT examinations same date FINDINGS: Heart size within normal limits. Lungs are clear without new focal infiltrate or consolidation. No acute bony finding. There is no pneumothorax or pleural effusion. IMPRESSION: 1. No acute cardiopulmonary process. ED Course/Re-evaluation ED Course Patient is a 48-year-old male here with complaints of midsternal chest pain with prior history of CAD, stent placements. Pain started approximately 1.5 hours prior to arrival. Labs, initial troponin was negative, repeat troponin was completed 4 hours post-onset and was also found be negative, d-dimer was unremarkable, chest x-ray was clear, EKG showed no acute arrhythmias come ischemic findings. Recommend close PCP follow-up in the next 24-48 hours, return precautions provided. Decision to Disposition Date: Aug 13, 2018 Decision to Disposition Time: 11:25 Depart Departure Latest Vital Signs Impression: Primary Impression: Chest pain Condition: Improved Disposition: HOME OR SELF-CARE Referrals: STEVE PEREZ DNP, [facility] (PCP) Patient Instructions: Chest Pain (DC) Additional Instructions: Please follow-up with your family doctor in the next 24-48 hours. Please return promptly if you develop fevers, worsening chest pain, shortness of breath, nausea, vomiting LEX CARO DO Aug 13, 2018 08:39
--- NOTE | 2018-08-13 08:50 | EKG ---
FACILITY: [facility] PATIENT NAME: BRAD ARITA : [id number] MR: [id number] V: [id number] EXAM DATE: ORDERING PHYSICIAN: LEX CARO TECHNOLOGIST: DOMINIQUE Caraballo Reason : CP Blood Pressure : / mmHG Vent. Rate : 077 BPM Atrial Rate : 077 BPM P-R Int : 134 ms QRS Dur : 080 ms QT Int : 408 ms P-R-T Axes : 043 023 029 degrees QTc Int : 461 ms Normal sinus rhythm Normal ECG When compared with ECG of 07-AUG-2018 06:56, No significant change was found Confirmed by RABIA ZHU ([id number]) on 08/14/2018 12:06:09 AM Referred By: ER Confirmed By:RABIA ZHU
[2018-08-13 08:54] LABS: PLATELET COUNT, AUTOMATED 229 K/uL (150-450)
[2018-08-13] MEDS ORDERED: NITROGLYCERIN 0.4 MG SUBL SL ONE (09:25)
--- NOTE | 2018-08-13 09:30 | RADIOLOGY IMAGING REPORT ---
FACILITY: [facility] [place] PATIENT NAME: Alfonzo Villatoro : 1970 MR: [id number] V: [id number] EXAM DATE: ORDERING PHYSICIAN: LEX CARO TECHNOLOGIST: Location: [facility] Patient: Alfonzo Villatoro : 1970 Visit/Account:[id number] Date of Sevice: 08/13/2018 2 VIEWS CHEST INDICATION: Chest pain. COMPARISON: X-ray examination chest August 07, 2018. CT examinations same date FINDINGS: Heart size within normal limits. Lungs are clear without new focal infiltrate or consolidation. No acute bony finding. There is no pneumothorax or pleural effusion. IMPRESSION: 1. No acute cardiopulmonary process. Report Dictated By: Jonathan Barfield MD at 08/13/2018 9:23 AM Report E-Signed By: Jonathan Barfield MD at 08/13/2018 9:24 AM WSN:[id number]
[2018-08-13] MEDS ORDERED: fentaNYL CITR 100 MCG/2 ML AMP IVP ONE (10:05)
[2018-08-13 11:30] VITALS: BP 120/96
[2018-08-19] MEDS ORDERED: CYCL10TA29 PO (17:13)
== END 2018-08-13 11:36 | disposition home or self-care (01) ==
LOC: ER 08:43
DX: R07.9 Chest pain, unspecified (principal)
CPT/HCPCS: 36415; 71046; 84484; 85025; 85379; 93005; 96374; 99284; J3010; 82040; 82247; 82310; 82374; 82435; 82565; 82947; 84075; 84132; 84155; 84295; 84450; 84460; 84520

== ENCOUNTER → 2018-08-19 | Outpatient (CLI) | payer MEDICARE ==
[~2018-08-19] MED LIST changes: +CYCL10TA29 PO
--- NOTE | 2018-08-19 16:53 | RADIOLOGY IMAGING REPORT ---
FACILITY: [facility] [place] PATIENT NAME: Alfonzo Villatoro : 1970 MR: [id number] V: [id number] EXAM DATE: ORDERING PHYSICIAN: STEVE PEREZ TECHNOLOGIST: Location: [facility] [place] Patient: Alfonzo Villatoro : 1970 Visit/Account:[id number] Date of Sevice: 08/19/2018 Technique: SHOULDER MIN 2 VIEWS LEFT HISTORY: Acute left shoulder pain Comparison studies: None FINDINGS: There is no acute fracture. The alignment of the left shoulder is preserved. Soft tissues are unremarkable. IMPRESSION: 1. Normal left shoulder radiographs. Report Dictated By: Jorge Laurent DO at 08/19/2018 4:46 PM Report E-Signed By: Jorge Laurent DO at 08/19/2018 4:50 PM WSN:[id number]
== END ==
LOC: RAD 15:46
PROVIDERS: ATTEND Nurse Practitioner Primary Care
DX: M25.512 Pain in left shoulder (principal)

== ENCOUNTER 2018-08-28 01:46 | Day surgery (SDC) | payer MEDICARE ==
[~2018-08-28] VITALS: Ht 188 cm; Wt 117.9 kg
[2018-08-28 06:16] VITALS: BP 127/85
[2018-08-28] MEDS ORDERED: NORMOSOL R SOLN(*) 1000 ML BAG 1,000 ML IV PRN (06:30)
[2018-08-28] MEDS ORDERED: LIDOCAINE/SOD BICARB 8.4% SYR ID ONE (06:30)
[2018-08-28] MEDS ORDERED: PROPOFOL EMUL(*) 10MG/ML 20 ML 20 ML ONE ×2 (07:10→07:32)
[2018-08-28 08:01] VITALS: BP 110/76
--- NOTE | 2018-08-28 08:13 | NUR ---
0801-pt arrives to sd room on cart [id number]. vss.sbar report bedside 0805-pt given coke to drink per request and to bedside. dr starks talking to and pt at this time
--- NOTE | 2018-08-28 08:22 | Short(Outpt) Discharge Summary ---
Discharge Summary Reason for Hosp/Final Diag: (1) History of colon polyps Status: Chronic Hospital Course & Plan: Colonoscopy with polypectomy x2 completed without problems. Departure Discharge to: Home, Self Care Discharge Instructions Home Meds Active Scripts Cyclobenzaprine Hcl (CYCLOBENZAPRINE HCL) 10 Mg Tablet, 0.5-1 TAB PO TID PRN for muscle pain, #12 TAB 0 Refills Prov:STEVE PEREZ DNP [facility] 08/19/18 Oxycodone Hcl/Acetaminophen (OXYCODONE-ACETAMINOPHEN 5-325) 1 Each Tablet, 1 TAB PO 3-4XD PRN for PAIN, #120 TAB 0 Refills Prov:STEVE PEREZ DNP [facility] 08/07/18 Lisinopril (LISINOPRIL) 20 Mg Tablet, 1 TAB PO QDAY, #90 TAB 4 Refills Prov:STEVE PEREZ DNP [facility] 06/27/18 Diclofenac Sodium 1% Gel (VOLTAREN 1% GEL) 100 Gm Gel..gram., 4 G TOP QID PRN for PAIN, #1 TUB 3 Refills Prov:STEVE PEREZ DNP [facility] 04/09/18 Sildenafil Citrate (SILDENAFIL) 20 Mg Tablet, 20 MG PO when necessary for 30 Days, #30 CAP 3 Refills Take 2-5 tablets orally as needed Prov:SIM FABIAN MD 04/04/18 Acetaminophen (ACETAMINOPHEN) 325 Mg Tablet, 1 TAB PO Q6H PRN for PAIN, #90 TAB 0 Refills 1 tab PO QAM prn pain. 1-2 tab PO noon prn pain. 1 tab PO QHS prn pain. Prov:STEVE PEREZ DNP [facility] 12/27/17 Buspirone Hcl (BUSPIRONE HCL) 10 Mg Tablet, 1 TAB PO Q8H, #90 TAB 5 Refills Prov:STEVE PEREZ DNP [facility] 12/21/17 Amlodipine Besylate (AMLODIPINE BESYLATE) 10 Mg Tablet, 1 TAB PO QDAY, #90 TAB 4 Refills Prov:STEVE PEREZ DNP [facility] 12/19/17 Metoprolol Tartrate (METOPROLOL TARTRATE) 100 Mg Tablet, 1 TAB PO BID for 90 Days, #180 TAB 1 Refill Prov:STEVE PEREZ DNP, [employer] 10/15/17 Citalopram Hydrobromide (CITALOPRAM HBR) 40 Mg Tablet, 1 TAB PO QDAY for 90 Days, #90 TAB 3 Refills Prov:STEVE PEREZ LAVELL, [employer] 07/16/17 Reported Medications Ubidecarenone (COQ-10) 100 Mg Capsule, PO, CAPSULE 06/10/18 Atorvastatin Calcium (ATORVASTATIN CALCIUM) 10 Mg Tablet, 1 TAB PO QDAY, TAB 05/13/18 Ranitidine Hcl (ZANTAC) 150 Mg Tablet, 1 TAB PO BID, TAB 03/26/17 Aspirin (ASPIR 81) 81 Mg Tablet.dr, 81 MG PO QDAY, TAB 03/13/16 Diet: Regular Activity: As Tolerated Special Instructions: Your colonoscopy was completed without any problems and your prep was excellent (Good Job!!). I removed 2 small polyps from your colon and they were sent to pathology. My office will call you in the next week or two and let you know what the polyps are and when your next colonoscopy should be (either 5 or 10 years) depending on pathology results. EFE PARTIDA MD August 28, 2018 08:22
[2018-08-28 08:30] VITALS: BP 125/85
[2018-08-28 08:35] VITALS: BP_SYST 125; BP_SYST 135; BP_DIAS 85; BP_DIAS 98
[2018-09-03] MEDS ORDERED: OXYC-373 PO (09:02)
[2018-09-03] MEDS ORDERED: CITA-141 PO (09:03)
== END 2018-08-28 08:46 | disposition home or self-care (01) ==
LOC: OR 01:46
PROVIDERS: ATTEND Surgery
DX: Z12.11 Encounter for screening for malignant neoplasm of colon (principal); D12.2 Benign neoplasm of ascending colon; K62.1 Rectal polyp; Z86.010 Personal history of colon polyps
CPT/HCPCS: 00811; 45380; 45385; 88305; J2704

== ENCOUNTER → 2018-09-30 | Emergency (ER) | payer MEDICARE ==
[~2018-09-30] MED LIST changes: +ASPIRIN 81 MG CHEW PO ONE; +IOPAMIDOL 76% 100 ML INFUS BTL 100 ML ONE; +KETOROLAC TROM 10 MG TAB TH PO ONE; +MORPHINE 4 MG/ML SDV IVP ONE; +NITROGLYCERIN 0.4 MG SUBL SL SCH; +NS(*) 0.9% 1000 ML BAG 1,000 ML IV ONE; +NS(*) 0.9% 50 ML BAG 50 ML ONE; -OMEP-125 PO; +OMEP-126 PO; -RANI-366 PO; +RANI-54 PO
--- NOTE | 2018-09-30 16:52 | ER Report ---
History and Physical Time Seen By MD: 16:52 (ADA DAVILA DO) HPI/ROS CHIEF COMPLAINT: chest pain HISTORY OF PRESENT ILLNESS: PT states that he was lying down and suddenly developed left sided chest pain. States pain is sharp. Pt is concerned due to has hx of Mi. Pt states his pain was sharp with his heart attack. PT has had a cough a few days ago which was non productive. pt does not feel sob. + nausea. no vomiting. Pt is s/p left knee replacement 3 weeks out. Pt states he would have used his nitro sublinguals but ran out of the+ REVIEW OF SYSTEMS: Constitutional: No fever, no chills. Eyes: No discharge. ENT: No sore throat. Cardiovascular: No chest pain, no palpitations, + pleuritic chest pain Respiratory: No cough, no shortness of breath. Gastrointestinal: No abdominal pain, no vomiting. Genitourinary: No hematuria. Musculoskeletal: No back pain. Skin: No rashes. Neurological: No headache. (ADA DAVILA DO) Allergies: Uncoded Allergies: mayonnaise (Allergy, Unknown, 03/26/17) Home Meds Active Scripts Ketorolac Tromethamine (KETOROLAC TROMETHAMINE) 10 Mg Tab, 10 MG PO Q6H PRN for PAIN, #12 TAB 0 Refills Prov:ASHANTI NASH MD 09/30/18 Buspirone Hcl (BUSPIRONE HCL) 10 Mg Tablet, 1 TAB PO Q8H, #90 TAB 5 Refills Prov:STEVE PEREZ DNP, FNP-BC 09/18/18 Citalopram Hydrobromide (CITALOPRAM HBR) 40 Mg Tablet, 1 TAB PO QDAY for 90 Days, #90 TAB 3 Refills Prov:STEVE PEREZ DNP, FNP-BC 09/03/18 Oxycodone Hcl/Acetaminophen (OXYCODONE-ACETAMINOPHEN 5-325) 1 Each Tablet, 1 TAB PO 3-4XD PRN for PAIN, #120 TAB 0 Refills Prov:STEVE PEREZ DNP, FNP-BC 09/03/18 Lisinopril (LISINOPRIL) 20 Mg Tablet, 1 TAB PO QDAY, #90 TAB 4 Refills Prov:STEVE PEREZ DNP, FNP-BC 06/27/18 Sildenafil Citrate (SILDENAFIL) 20 Mg Tablet, 20 MG PO when necessary for 30 Days, #30 CAP 3 Refills Take 2-5 tablets orally as needed Prov:SIM FABIAN MD 04/04/18 Acetaminophen (ACETAMINOPHEN) 325 Mg Tablet, 1 TAB PO Q6H PRN for PAIN, #90 TAB 0 Refills 1 tab PO QAM prn pain. 1-2 tab PO noon prn pain. 1 tab PO QHS prn pain. Prov:STEVE PEREZ DNP, [facility] 12/27/17 Amlodipine Besylate (AMLODIPINE BESYLATE) 10 Mg Tablet, 1 TAB PO QDAY, #90 TAB 4 Refills Prov:STEVE PEREZ DNP, [facility] 12/19/17 Metoprolol Tartrate (METOPROLOL TARTRATE) 100 Mg Tablet, 1 TAB PO BID for 90 Days, #180 TAB 1 Refill Prov:STEVE PEREZ DNP [facility] 10/15/17 Reported Medications Ubidecarenone (COQ-10) 100 Mg Capsule, PO, CAPSULE 06/10/18 Atorvastatin Calcium (ATORVASTATIN CALCIUM) 10 Mg Tablet, 1 TAB PO QDAY, TAB 05/13/18 Ranitidine Hcl (ZANTAC) 150 Mg Tablet, 1 TAB PO BID, TAB 03/26/17 Aspirin (ASPIR 81) 81 Mg Tablet.dr, 325 MG PO BID, TAB 03/13/16 Discontinued Scripts Cyclobenzaprine Hcl (CYCLOBENZAPRINE HCL) 10 Mg Tablet, 0.5-1 TAB PO TID PRN for muscle pain, #12 TAB 0 Refills Prov:STEVE PEREZ DNP [facility] 08/19/18 Diclofenac Sodium 1% Gel (VOLTAREN 1% GEL) 100 Gm Gel..gram., 4 G TOP QID PRN for PAIN, #1 TUB 3 Refills Prov:STEVE PEREZ DNP, [facility] 04/09/18 Past Medical/Surgical History pmhx: sleep apnea, cad, hyperlipid, htn, mi, gerd, anxiety, depression, panic attacks, chronic knee and anklepain Pshx: CABG, total knee replacement on L (ADA DAVILA DO) Reviewed Nurses Notes: Yes Old Medical Records Reviewed: Yes (ADA DAVILA V ) Hx Smoking: Yes (1/2 ppd X2) Smoking Status: Current: Every Day Smoker Hx Substance Use Disorder: No Hx Alcohol Use: Yes (OCC) (ADA DAVILA DO) Constitutional Vital Sign - Last 24 Hours 09/30/18 09/30/18 09/30/18 09/30/18 16:51 16:53 16:58 17:01 Temp 98.2 Pulse 81 81 84 Resp 16 18 22 B/P (MAP) 133/82 133/82 (99) Pulse Ox 93 94 95 O2 Delivery Room Air 09/30/18 09/30/18 09/30/18 09/30/18 17:03 17:08 17:13 17:18 Pulse 80 79 78 80 Resp 11 20 16 17 Pulse Ox 95 94 91 92 09/30/18 09/30/18 09/30/18 09/30/18 17:21 17:23 17:28 17:30 Pulse 79 82 Resp 14 22 B/P (MAP) 118/77 (91) 116/78 (91) Pulse Ox 92 92 09/30/18 09/30/18 09/30/18 09/30/18 17:33 17:36 17:38 17:43 Pulse 77 79 79 Resp 19 18 12 B/P (MAP) 121/79 (93) Pulse Ox 92 92 94 09/30/18 09/30/18 09/30/18 09/30/18 17:48 17:53 17:58 18:00 Pulse 73 76 ??? Resp 14 19 B/P (MAP) ???/??? (7987) Pulse Ox 95 90 09/30/18 09/30/18 09/30/18 09/30/18 18:03 18:08 18:13 18:18 Pulse ? 09/30/18 09/30/18 09/30/18 09/30/18 18:23 18:28 18:30 18:33 Pulse ? B/P (MAP) ???/??? (3880) 09/30/18 09/30/18 09/30/18 09/30/18 18:38 18:43 18:48 18:53 Pulse ??? 74 75 74 Resp 25 9 24 Pulse Ox 96 97 96 09/30/18 09/30/18 09/30/18 09/30/18 18:58 19:03 19:08 19:13 Pulse 79 73 69 71 Resp 15 10 22 22 Pulse Ox 95 96 95 95 09/30/18 09/30/18 09/30/18 09/30/18 19:18 19:23 19:28 19:30 Pulse 73 77 73 Resp 23 10 13 B/P (MAP) 124/73 (90) Pulse Ox 95 95 96 09/30/18 09/30/18 09/30/18 09/30/18 19:33 19:38 19:42 19:43 Pulse 77 71 71 Resp 13 11 10 B/P (MAP) 126/70 (88) Pulse Ox 96 94 97 09/30/18 09/30/18 09/30/18 09/30/18 19:48 19:53 19:58 20:00 Pulse 70 78 71 Resp 20 21 23 B/P (MAP) 132/70 (90) Pulse Ox 95 94 96 09/30/18 09/30/18 09/30/18 09/30/18 20:03 20:08 20:13 20:18 Pulse 73 72 75 72 Resp 14 17 17 11 Pulse Ox 96 96 96 94 09/30/18 09/30/18 09/30/18 09/30/18 20:23 20:28 20:30 20:33 Pulse 71 84 78 Resp 9 17 18 B/P (MAP) 137/81 (99) Pulse Ox 94 96 93 09/30/18 09/30/18 09/30/18 09/30/18 20:38 20:43 20:48 20:53 Pulse 74 78 76 76 Resp 15 19 9 22 Pulse Ox 93 93 93 93 09/30/18 09/30/18 09/30/18 09/30/18 20:58 21:00 21:05 21:10 Pulse 77 75 81 Resp 23 20 17 B/P (MAP) 139/84 (102) Pulse Ox 93 94 95 09/30/18 09/30/18 09/30/18 09/30/18 21:15 21:20 21:25 21:30 Pulse 76 76 77 73 Resp 17 14 7 9 B/P (MAP) 132/82 (99) Pulse Ox 94 93 94 94 09/30/18 09/30/18 09/30/18 09/30/18 21:35 21:40 21:45 21:50 Pulse 81 75 75 73 Resp 7 11 11 10 Pulse Ox 94 94 92 94 09/30/18 09/30/18 09/30/18 09/30/18 21:55 22:00 22:05 22:10 Pulse 79 ? Resp 20 B/P (MAP) ???/??? (0885) Pulse Ox 94 09/30/18 22:15 Pulse ??? Intake and Output 09/30/18 09/30/18 10/01/18 15:00 23:00 07:00 Intake Total 2000 ml Balance 2000 ml (ASHANTI NASH MD) Physical Exam General Appearance: The patient is alert, has no immediate need for airway protection and no signs of toxicity. Eyes: Pupils equal and round no pallor or injection, EOMI ENT: no pharyngeal erythema or exudates, Mucous membranes are moist Respiratory: There are no retractions, lungs are clear to auscultation. Cardiovascular: Regular rate and rhythm. pulses are equal and symmetrical Gastrointestinal: Abdomen is soft and non tender, no masses, bowel sounds normal, no guarding, no rigidity or rebound Neurological: Cranial nerves II-XII grossly intact, no sensory or motor loss Skin: Warm and dry, no rashes, knee incision closed and dry Musculoskeletal: Neck is supple non tender, no vertebral tenderness Upper Extremities are non tender, nonswollen and have full range of motion. Lower extremities: + tenderness to left calf with swelling to knee and calf however post op and pt states it is improved; + FROM of b/l lower extremities DIFFERENTIAL DIAGNOSIS: After history and physical exam differential diagnosis was considered for PE, DVT, acs, nonstemi (LAURORA,ADA V DO) Medical Decision Making Data Points Result Diagram: 09/30/18 1700 09/30/18 1700 Laboratory Hematology Test 09/30/18 17:00 09/30/18 20:52 Red Blood Count 4.99 M/uL (4.00-5.60) Mean Corpuscular Volume 87.0 fL (80.0-96.0) Mean Corpuscular Hemoglobin 29.6 pg (26.0-33.0) Mean Corpuscular Hemoglobin Concent 34.0 g/dL (32.0-36.0) Red Cell Distribution Width 14.7 % (11.5-14.5) Mean Platelet Volume 7.4 fL (7.2-11.1) Neutrophils (%) (Auto) 57.0 % (39.4-72.5) Lymphocytes (%) (Auto) 34.4 % (17.6-49.6) Monocytes (%) (Auto) 5.0 % (4.1-12.4) Eosinophils (%) (Auto) 2.6 % (0.4-6.7) Basophils (%) (Auto) 1.0 % (0.3-1.4) Nucleated RBC Relative Count (auto) 0.1 /100WBC Neutrophils # (Auto) 3.6 K/uL (2.0-7.4) Lymphocytes # (Auto) 2.2 K/uL (1.3-3.6) Monocytes # (Auto) 0.3 K/uL (0.3-1.0) Eosinophils # (Auto) 0.2 K/uL (0.0-0.5) Basophils # (Auto) 0.1 K/uL (0.0-0.1) Nucleated RBC Absolute Count (auto) 0.00 K/uL Prothrombin Time 12.7 seconds (12.0-14.4) Prothromb Time International Ratio 0.95 Activated Partial Thromboplast Time 30 seconds (23-35) D-Dimer Quantitative (PE/DVT) 5.12 ug/ml (0-0.50) Sodium Level 140 mmol/L (137-145) Potassium Level 3.9 mmol/L (3.5-5.0) Chloride Level 103 mmol/L (98-107) Carbon Dioxide Level 24 mmol/L (22-30) Blood Urea Nitrogen 17 mg/dl (9-21) Creatinine 1.00 mg/dl (0.66-1.25) Glomerular Filtration Rate Calc > 60.0 Random Glucose 177 mg/dl (75-110) Calcium Level 9.7 mg/dl (8.4-10.2) Total Bilirubin 0.3 mg/dl (0.2-1.3) Aspartate Amino Transf (AST/SGOT) 23 U/L (0-35) Alanine Aminotransferase (ALT/SGPT) 36 U/L (0-56) Alkaline Phosphatase 124 U/L (0-126) Total Protein 7.8 g/dl (6.3-8.2) Albumin 4.3 g/dl (3.5-5.0) Troponin I < 0.012 ng/ml Chemistry Test 09/30/18 17:00 09/30/18 20:52 White Blood Count 6.3 k/uL (4.5-11.0) Red Blood Count 4.99 M/uL (4.00-5.60) Hemoglobin 14.8 g/dL (14.0-18.0) Hematocrit 43.4 % (42.0-52.0) Mean Corpuscular Volume 87.0 fL (80.0-96.0) Mean Corpuscular Hemoglobin 29.6 pg (26.0-33.0) Mean Corpuscular Hemoglobin Concent 34.0 g/dL (32.0-36.0) Red Cell Distribution Width 14.7 % (11.5-14.5) Platelet Count 346 K/uL (150-450) Mean Platelet Volume 7.4 fL (7.2-11.1) Neutrophils (%) (Auto) 57.0 % (39.4-72.5) Lymphocytes (%) (Auto) 34.4 % (17.6-49.6) Monocytes (%) (Auto) 5.0 % (4.1-12.4) Eosinophils (%) (Auto) 2.6 % (0.4-6.7) Basophils (%) (Auto) 1.0 % (0.3-1.4) Nucleated RBC Relative Count (auto) 0.1 /100WBC Neutrophils # (Auto) 3.6 K/uL (2.0-7.4) Lymphocytes # (Auto) 2.2 K/uL (1.3-3.6) Monocytes # (Auto) 0.3 K/uL (0.3-1.0) Eosinophils # (Auto) 0.2 K/uL (0.0-0.5) Basophils # (Auto) 0.1 K/uL (0.0-0.1) Nucleated RBC Absolute Count (auto) 0.00 K/uL Prothrombin Time 12.7 seconds (12.0-14.4) Prothromb Time International Ratio 0.95 Activated Partial Thromboplast Time 30 seconds (23-35) D-Dimer Quantitative (PE/DVT) 5.12 ug/ml (0-0.50) Glomerular Filtration Rate Calc > 60.0 Calcium Level 9.7 mg/dl (8.4-10.2) Total Bilirubin 0.3 mg/dl (0.2-1.3) Aspartate Amino Transf (AST/SGOT) 23 U/L (0-35) Alanine Aminotransferase (ALT/SGPT) 36 U/L (0-56) Alkaline Phosphatase 124 U/L (0-126) Total Protein 7.8 g/dl (6.3-8.2) Albumin 4.3 g/dl (3.5-5.0) Troponin I < 0.012 ng/ml Coagulation Test 09/30/18 17:00 Prothrombin Time 12.7 seconds Prothromb Time International Ratio 0.95 Activated Partial Thromboplast Time 30 seconds D-Dimer Quantitative (PE/DVT) 5.12 ug/ml (ASHANTI NASH MD) EKG/Imaging EKG Interpretation NSR @ 80 with no acute changes of intervals or segments, similar to prior [id number] (ADA DAVILA DO) ED Course/Re-evaluation Clinical Indication for ER IV: IV Access ED Course 09/30/2018 5:24:57 pm Pt was given one nitro and had no change in symptoms but did have a drop in systolic blood pressure from 133 to 118. I will hold off on the next dosage since ekg does not show stemi 09/30/2018 5:44:28 pm + d-dimer, will cancel chest xray and obtain a ct of chest to look closer for PE as well as other cardiac/pulmonary anomaly 09/30/2018 6:06:46 pm signed out to Dr. Nash. (ADA DAVILA DO) ED Course I assumed care of this patient at shift change from Dr. Davila. Patient is a 48 year old male with chest pain of sudden onset at rest about 1 hour prior to arrival in the ER. Negative initial troponin. Unrelieved with nitroglycerin, with a drop in systolic pressure, so only one dose given. Has history of CABG and risk factors. Also recent surgery, and with some leg pain, Venous ultrasound and CTA chest obtained. These are negative for DVT or PE or other acute cardiopulmonary process. Repeat troponin was obtained at 2100 hrs. and was negative. Decision to Disposition Date: Sep 30, 2018 Decision to Disposition Time: 21:39 (ASHANTI NASH MD) Depart Departure Latest Vital Signs Vital Signs Date Time Temp Pulse Resp B/P (MAP) Pulse Ox O2 Delivery O2 Flow Rate FiO2 09/30/18 22:15 ??? 09/30/18 22:00 ???/??? (2200) 09/30/18 21:55 20 94 09/30/18 16:51 98.2 Room Air (ASHANTI NASH MD) Impression: Primary Impression: Chest pain of uncertain etiology Condition: Improved Disposition: HOME OR SELF-CARE Referrals: STEVE EPREZ DNP, [facility] [facility] [facility] (PCP) New Scripts Ketorolac Tromethamine (KETOROLAC TROMETHAMINE) 10 Mg Tab 10 MG PO Q6H PRN for PAIN, #12 TAB 0 Refills Prov: ASHANTI NASH MD 09/30/18 Patient Instructions: Chest Pain (ED) Additional Instructions: We did not find a cause for your chest pain tonight. This will most likely be inflammation in the soft tissue of the chest wall or lining of the lungs. No sign of heart attack, pneumonia, or blood clots. Use Toradol 10mg, one every 6 hours as needed forpain. Follow-up with your regular doctor this week. ADA DAVILA DO Sep 30, 2018 16:52 ASHANTI NASH MD Sep 30, 2018 18:15
[2018-09-30 17:10] LABS: PLATELET COUNT, AUTOMATED 346 K/uL (150-450)
[2018-09-30 17:22] LABS: INR 0.95
--- NOTE | 2018-09-30 17:36 | EKG ---
FACILITY: [facility] PATIENT NAME: BRAD ARITA : [id number] MR: [id number] V: [id number] EXAM DATE: ORDERING PHYSICIAN: ADA DAVILA TECHNOLOGIST: HENRIETTA Test Reason : CP Blood Pressure : / mmHG Vent. Rate : 081 BPM Atrial Rate : 081 BPM P-R Int : 142 ms QRS Dur : 080 ms QT Int : 396 ms P-R-T Axes : 071 065 058 degrees QTc Int : 460 ms Normal sinus rhythm Normal ECG When compared with ECG of 13-AUG-2018 08:37, No significant change was found Confirmed by ESSENCE CORONA ([id number]) on 09/30/2018 7:04:25 PM Referred By: Confirmed By:ESSENCE CORONA
--- NOTE | 2018-09-30 18:48 | RADIOLOGY IMAGING REPORT ---
FACILITY: [facility] [place] PATIENT NAME: Alfonzo Villatoro : 1970 MR: [id number] V: [id number] EXAM DATE: ORDERING PHYSICIAN: ADA DAVILA TECHNOLOGIST: Location: [facility] Patient: Alfonzo Villatoro : 1970 Visit/Account:[id number] Date of Sevice: 09/30/2018 CT CTA CHEST W & W/O CON COMPARISONS: August 07, 2018 ADDITIONAL PERTINENT HISTORY: Chest pain with elevated d-dimer. TECHNIQUE: Multiple axial images are obtained from the lung apices through the upper abdomen during t he IV administration of contrast material. 2-D and 3-D reformatted images were obtained off the axial source data. One of the following dose optimization techniques was utilized in the performance of t his exam: Automated exposure control; adjustment of the mA and/or kV according to the patient's size; or use of an iterative reconstruction technique. Specific details can be referenced in the [facility]'s radiology CT exam operational policy. CONTRAST: 95mL of Isovue-370 FINDINGS: Lung parenchyma: Negative. Pleural spaces: Negative. Heart, mediastinum and klaudia: Negative. Cardiopulmonary vasculature: Pulmonary arterial structures are well opacified with contrast material and demonstrate no evidence of underlying pulmonary emboli. Thoracic aorta demonstrates minimal ather osclerotic disease. Otherwise negative Central airways: Negative Thyroid, supra- clavicular, axillary regions: Negative. Surrounding soft tissues: Negative. Upper abdominal structures: Negative. Osseous structures: Healed fracture of the right lateral sixth and seventh ribs. No acute appearing b alexis abnormalities. IMPRESSION: 1. No evidence of acute cardiopulmonary disease. 2. No evidence of underlying pulmonary emboli. Report Dictated By: Leo Diaz MD at 09/30/2018 6:41 PM Report E-Signed By: Leo Diaz MD at 09/30/2018 6:45 PM WSN:[id number]
--- NOTE | 2018-09-30 19:03 | RADIOLOGY IMAGING REPORT ---
FACILITY: [facility] PATIENT NAME: Alfonzo Villatoro : 1970 MR: [id number] V: [id number] EXAM DATE: ORDERING PHYSICIAN: ADA DAVILA TECHNOLOGIST: Location: [facility] [place] Patient: Alfonzo Villatoro : 1970 Visit/Account:[id number] Date of Sevice: 09/30/2018 US VENOUS LOWER EXT LT ADDITIONAL PERTINENT HISTORY: 3 weeks postop knee replacement. COMPARISON STUDIES: None. FINDINGS: Grayscale compression, duplex and color Doppler interrogation of the left lower extremity deep veins from common femoral vein to proximal calf was performed. The greater saphenous vein in the ipsilatera l proximal thigh was evaluated using similar technique. Left lower extremity: Common femoral vein: Negative. Femoral vein: Negative. Deep femoral vein: Negative. Popliteal vein: Negative. Visualized deep calf veins Negative. Greater saphenous vein in the proximal thigh: Negative. Popliteal fossa: negative IMPRESSION: 1. No evidence of deep venous thrombosis involving the left lower extremity. Report Dictated By: Leo Diaz MD at 09/30/2018 6:58 PM Report E-Signed By: Leo Diaz MD at 09/30/2018 6:59 PM WSN:[id number]
== END ==
LOC: ER 16:55
DX: R07.9 Chest pain, unspecified (principal); F17.210 Nicotine dependence, cigarettes, uncomplicated
CPT/HCPCS: 71275; 84484; 85025; 85379; 85610; 85730; 93005; 93971; 96361; 96374; 99284; A9270; J2270; J7030; J7050; Q9967; 82040; 82247; 82310; 82374; 82435; 82565; 82947; 84075; 84132; 84155; 84295; 84450; 84460; 84520

== ENCOUNTER 2018-10-02 19:15 | Emergency (ER) | payer MEDICARE ==
[~2018-10-02 19:15] MED LIST changes: -ASPIRIN 81 MG CHEW PO ONE; -IOPAMIDOL 76% 100 ML INFUS BTL 100 ML ONE; -KETOROLAC TROM 10 MG TAB TH PO ONE; -MORPHINE 4 MG/ML SDV IVP ONE; -NITROGLYCERIN 0.4 MG SUBL SL SCH; -NS(*) 0.9% 1000 ML BAG 1,000 ML IV ONE; -NS(*) 0.9% 50 ML BAG 50 ML ONE
--- NOTE | 2018-10-02 19:18 | ER Report ---
History and Physical Time Seen By MD: 19:17 HPI/ROS CHIEF COMPLAINT: Left knee pain HISTORY OF PRESENT ILLNESS: 48-year-old male 3 weeks status post total left knee replacement, tonight he stood up straight and had a popping sensation and now notes pain superior to the knee and inferior to the knee. He states he's been doing physical therapy and he said good range of motion. She's not had any problems. His incision is intact without redness or warmth. Patient denies chest pain or shortness of breath. REVIEW OF SYSTEMS: Respiratory: No cough, no dyspnea. Cardiovascular: No chest pain, no palpitations. Gastrointestinal: No vomiting, no abdominal pain. Musculoskeletal: As above Allergies: Uncoded Allergies: mayonnaise (Allergy, Unknown, 03/26/17) Home Meds Active Scripts Ketorolac Tromethamine (KETOROLAC TROMETHAMINE) 10 Mg Tab, 10 MG PO Q6H PRN for PAIN, #12 TAB 0 Refills Prov:ASHANTI OCHOA MD 09/30/18 Buspirone Hcl (BUSPIRONE HCL) 10 Mg Tablet, 1 TAB PO Q8H, #90 TAB 5 Refills Prov:STEVE PEREZ DNP, [facility]- 09/18/18 Citalopram Hydrobromide (CITALOPRAM HBR) 40 Mg Tablet, 1 TAB PO QDAY for 90 Days, #90 TAB 3 Refills Prov:STEVE PEREZ DNP [facility]- 09/03/18 Oxycodone Hcl/Acetaminophen (OXYCODONE-ACETAMINOPHEN 5-325) 1 Each Tablet, 1 TAB PO 3-4XD PRN for PAIN, #120 TAB 0 Refills Prov:STEVE PEREZ DNP [facility]- 09/03/18 Lisinopril (LISINOPRIL) 20 Mg Tablet, 1 TAB PO QDAY, #90 TAB 4 Refills Prov:STEVE PEREZ DNP [facility]- 06/27/18 Sildenafil Citrate (SILDENAFIL) 20 Mg Tablet, 20 MG PO when necessary for 30 Days, #30 CAP 3 Refills Take 2-5 tablets orally as needed Prov:SIM FABIAN MD 04/04/18 Acetaminophen (ACETAMINOPHEN) 325 Mg Tablet, 1 TAB PO Q6H PRN for PAIN, #90 TAB 0 Refills 1 tab PO QAM prn pain. 1-2 tab PO noon prn pain. 1 tab PO QHS prn pain. Prov:STEVE PEREZ DNP [facility] 12/27/17 Amlodipine Besylate (AMLODIPINE BESYLATE) 10 Mg Tablet, 1 TAB PO QDAY, #90 TAB 4 Refills Prov:STEVE PEREZ DNP [facility] 12/19/17 Metoprolol Tartrate (METOPROLOL TARTRATE) 100 Mg Tablet, 1 TAB PO BID for 90 Days, #180 TAB 1 Refill Prov[facility] 10/15/17 Reported Medications Ubidecarenone (COQ-10) 100 Mg Capsule, PO, CAPSULE 06/10/18 Atorvastatin Calcium (ATORVASTATIN CALCIUM) 10 Mg Tablet, 1 TAB PO QDAY, TAB 05/13/18 Ranitidine Hcl (ZANTAC) 150 Mg Tablet, 1 TAB PO BID, TAB 03/26/17 Aspirin (ASPIR 81) 81 Mg Tablet.dr, 325 MG PO BID, TAB 03/13/16 Discontinued Scripts Cyclobenzaprine Hcl (CYCLOBENZAPRINE HCL) 10 Mg Tablet, 0.5-1 TAB PO TID PRN for muscle pain, #12 TAB 0 Refills Prov:[facility] 08/19/18 Diclofenac Sodium 1% Gel (VOLTAREN 1% GEL) 100 Gm Gel..gram., 4 G TOP QID PRN for PAIN, #1 TUB 3 Refills Prov:[facility] 04/09/18 Past Medical/Surgical History Past Medical History Cardiovascular: Reports hx of: coronary artery disease (5 stents) hyperlipidemia hypertension myocardial infarction (x1, July 2017) Respiratory: Reports hx of: sleep apnea (CPAP) Gastrointestinal: Reports hx of: GERD Psychiatric: Reports hx of: anxiety depression panic attacks Past Surgical History Cardiovascular: Reports hx of: coronary stent (5 stents placed) Total knee replacement 09/07/18 Reviewed Nurses Notes: Yes Old Medical Records Reviewed: Yes Hx Smoking: Yes (1/2 ppd X2) Smoking Status: Current: Every Day Smoker Hx Substance Use Disorder: No Hx Alcohol Use: Yes (OCC) Constitutional Vital Sign - Last 24 Hours 10/02/18 10/02/18 10/02/18 19:20 19:30 19:45 Temp 99.1 Pulse 95 94 90 Resp 16 B/P (MAP) 126/97 Pulse Ox 94 94 94 O2 Delivery Room Air Physical Exam Vital signs stable, afebrile, General appearance: Alert no distress. Respiratory: Chest is non tender, lungs are clear to auscultation. Cardiac: Regular rate and rhythm Extremities: Examination of the left lower extremity reveals a neurovascularly intact foot. Examination of the knee shows intact ligaments., There is an intact incision down the midline, consistent with his surgical history. There is no erythema, warmth. He has since or induration noted on palpation. DIFFERENTIAL DIAGNOSIS: After history and physical exam differential diagnosis was considered for sprain, strain, fracture, dislocation, Medical Decision Making EKG/Imaging Imaging X-ray: Three-view left knee was obtained. I viewed the images myself on the PACS system. My interpretation of the images is: Prosthetic appears intact with normal alignment. There is no separation or malalignment noted.. The radiologist interpretation had no clinically significant variation from this interpretation. ED Course/Re-evaluation ED Course Patient was admitted to an examination room. H&P was done. The differential diagnoses was considered. On clinical examination. Patient has an intact left knee incision. His ligaments appear intact. There is pain on palpation. Diagnostic x-rays are performed and are unremarkable. Patient's reassured that there is likely nothing wrong other than he tore some scar tissue loose. He's advised to continue on with his physical therapy. Follow-up with his orthopedic surgeon. Decision to Disposition Date: Oct 02, 2018 Decision to Disposition Time: 19:47 Depart Departure Latest Vital Signs Vital Signs Date Time Temp Pulse Resp B/P (MAP) Pulse Ox O2 Delivery O2 Flow Rate FiO2 10/02/18 19:45 90 94 10/02/18 19:20 99.1 16 126/97 Room Air Impression: Primary Impression: Left anterior knee pain Additional Impression: Status post total knee replacement Condition: Improved Disposition: HOME OR SELF-CARE Referrals: STEVE PEREZ DNP, [employer] (PCP) Patient Instructions: Knee Sprain (ED) Additional Instructions: Continue current treatment plan. Follow-up with your orthopedic surgeon that did her surgery 3 weeks ago if unimproved in 2-3 days Problem Qualifiers Additional Impression: Status post total knee replacement Laterality: left Qualified Codes: Z96.652 - Presence of left artificial knee joint WIL SIMMONS DO Oct 02, 2018 19:18
[2018-10-02 19:20] VITALS: BP 126/97
--- NOTE | 2018-10-02 19:55 | RADIOLOGY IMAGING REPORT ---
FACILITY: [facility] PATIENT NAME: Alfonzo Villatoro : 1970 MR: [id number] V: [id number] EXAM DATE: ORDERING PHYSICIAN: WIL SIMMONS TECHNOLOGIST: [place] [facility] [place] [place]fonzo Villator[place] : 1970 Visit/Account:[id number] Date of Sevice: 10/02/2018 Examination: KNEE 3 VIEW LEFT Comparison: None. History: 3 week S/P TKR, popping and pain Findings: Left total knee arthroplasty alignment is within normal limits. No fracture or periprosthet ic lucency. Small nonspecific joint effusion. Mild soft tissue swelling. IMPRESSION: 1. Left knee arthroplasty alignment is within normal limits. 2. No fracture. 3. Small nonspecific joint effusion. Report Dictated By: Pramod Alcantar MD at 10/02/2018 7:50 PM Report E-Signed By: Pramod Alcantar MD at 10/02/2018 7:52 PM WSN:[id number]
[2018-10-04] MEDS ORDERED: OXYC-373 PO (09:01)
[2018-10-04] MEDS ORDERED: PANT20TA27 PO (10:07)
== END 2018-10-02 19:58 | disposition home or self-care (01) ==
LOC: ER 19:52
DX: M25.562 Pain in left knee (principal); Z96.652 Presence of left artificial knee joint
CPT/HCPCS: 99283

== ENCOUNTER 2018-11-08 07:00 | Outpatient (RCR) | payer MEDICARE ==
--- NOTE | 2018-09-11 16:59 | PT INITIAL EVALUATION ---
MEDICAL DIAGNOSIS: Left TKA TREATMENT DIAGNOSIS: Left TKA DATE OF ONSET: 09/07/18 SUBJECTIVE: Alfonzo is a 48 year old male presenting to physical therapy following recent Left TKA on September 07, 2018. Pt reports that following the surgery he has been doing pretty good without too much pain. Pt was given some exercises which he occasionally performs at home. Pt reports that he has a history of a R ankle injury and that he is on disability from that. Previously pt reports walking with SPC on the L side for decreased loading on the R ankle. REHAB PROBLEM LIST: Increased Pain Decreased ROM Impaired Bed Mobility Decreased Strength Impaired Transfers Decreased Endurance Decreased Balance Decreased Function Decreased ADL's Decreased Mobility Decreased Gait PREVIOUS MEDICAL HISTORY: History of Cardiac problems, See EMR OCCUPATION: On Disability OBJECTIVE: Incision is located the length of the L knee. No redness or warmth is noted with minimal drainage on bandage. [place] are present along the length ROM: Knee ROM (L,R): 13-110, 8-0-135 Strength: LE MMT (L,R): Hip: flexion: 4-/5, 5-/5, Abd: 4+/5, 5/5, add: B 5/5,Ext: 4-/5, 5-/5. Knee: Ext: L not tested, 5/5, Flexion: L not tested, 5/5, Ankle: DF: 4+/5 B, PF: 5/5, 5-/5. Quad lag on L at 13 degrees Gait: Pt ambulates with FWW with decreased stance phase on the L LE shortened step length B. ASSESSMENT: Pt shows signs and symptoms consistent with s/p L TKA. Physical therapy is indicated for this patient to address the above listed deficits to improve function with ADL's. Short Term Goals In 3 weeks pt will improve L knee ROM to equal to that of the contralateral limb for improved function with ADL's. In 4 weeks pt will improve SLR to 0 degrees quad lag for improved function with ADL's. In 6 weeks pt will increase L LE strength as tested by MMT to equal to that of the R LE for improved function with ADL's. In 6 weeks pt will be able to ambulate 3 laps around the track using a SPC on the L side for improved community and household ambulation. Patient's Goals Return to PLOF with full ROM and strength on L side. PLAN: Patient to be seen for Manual Therapy/STM/MET Strengthening/condition Ice/Heat Range of Motion Ultrasound Stretching Iontophoresis Neuromuscular Re-ed Closed Chain Program Electrical Stim Posture/Body mechanics Gait Trg/Balance Trg Biofeedback Home Exercise Program Mech./Manual Traction Therapeutic Activities 3x/Week for 6 Weeks If you have any questions, comments, or concerns about this report or plan, please contact me at . Thank you, Marlena Norris, PT, DPT, CLT Referring Provider Signature: Date: MTDD
--- NOTE | 2018-10-07 10:19 | PT PLAN OF CARE ---
Physician: Lukasz Quiros MD Patient is being seen: 2-3x/Week Therapist: Marlena Norris, PT, DPT, CLT Medical Diagnosis: Left TKA Treatment Diagnosis: Left TKA Date of Onset: 09/07/18 Date of Initial Evaluation: 09/11/18 Date patient was last seen: 10/07/18 Number of treatments: 10 Number of cancellations/No shows: 2 INTERVENTIONS: Manual Therapy/STM/MET Strengthening/condition Ice/Heat Range of Motion Ultrasound Stretching Iontophoresis Neuromuscular Re-ed Closed Chain Program Electrical Stim Posture/Body mechanics Gait Trg/Balance Trg Biofeedback Home Exercise Program Mech./Manual Traction Therapeutic Activities GOALS: In 3 weeks pt will improve L knee ROM to equal to that of the contralateral limb for improved function with ADL's. MET In 4 weeks pt will improve SLR to 0 degrees quad lag for improved function with ADL's. MET In 6 weeks pt will increase L LE strength as tested by MMT to equal to that of the R LE for improved function with ADL's. In Progress In 6 weeks pt will be able to ambulate 3 laps around the track using a SPC on the L side for improved community and household ambulation. MET PATIENT'S GOAL: Return to PLOF with full ROM and strength on L side. Status of Patient's Goals: 3/4 MET, 1/4 In Progress Patient Compliance: Good Prognosis: Good Reasons for continuing therapy: Alfonzo shows excellent progress with good achievement of ROM quickly and gradual transition towards strengthening. Pt maintains to have moderate swelling with pt occasionally "over doing it" with excessive walking while grocery shopping or on the weekends. Despite swelling pt shows good muscular activation with progress towards quad strengthening. Pt is able to ambulate with SPC for support of R ankle without pain on L knee. Further PT to continue with strength gains while managing swelling and inflammation. ROM: Knee ROM (L,R): 5-0-140, 8-0-140 Strength: LE MMT (L,R): Hip: flexion: 5/5, 5/5, Abd: 5-/5, 5/5, add: B /5,Ext: 5/5, 5-/5. Knee: Ext: L not tested, /5, Flexion: L not tested, /5, Ankle: DF: 4+/5 B, PF: 5/5, 5-/5. Quad lag on L at 0 degrees If you have any questions, please feel free to contact me at [phone]. Thank you, Marlena Norris PT, DPT, CLT Referring provider signature: Date: MTDD
[~2018-11-08 07:00] MED LIST changes: +ISOS5TAB PO; +ONDA8TAB98 PO; +PANT20TA27 PO
--- NOTE | 2018-11-08 08:16 | PT PLAN OF CARE ---
Physician: Lukasz Quiros MD Patient is being seen: 2-3x/Week Therapist: Marlena Norris, PT, DPT, CLT Medical Diagnosis: Left TKA Treatment Diagnosis: Left TKA Date of Onset: 09/07/18 Date of Initial Evaluation: 09/11/18 Date patient was last seen: 11/08/18 Number of treatments: 16 Number of cancellations/No shows: 0 INTERVENTIONS: Manual Therapy/STM/MET Strengthening/condition Ice/Heat Range of Motion Ultrasound Stretching Iontophoresis Neuromuscular Re-ed Closed Chain Program Electrical Stim Posture/Body mechanics Gait Trg/Balance Trg Biofeedback Home Exercise Program Mech./Manual Traction Therapeutic Activities GOALS: In 3 weeks pt will improve L knee ROM to equal to that of the contralateral limb for improved function with ADL's. MET In 4 weeks pt will improve SLR to 0 degrees quad lag for improved function with ADL's. MET In 6 weeks pt will increase L LE strength as tested by MMT to equal to that of the R LE for improved function with ADL's. MET In 6 weeks pt will be able to ambulate 3 laps around the track using a SPC on the L side for improved community and household ambulation. MET PATIENT'S GOAL: Return to PLOF with full ROM and strength on L side. Status of Patient's Goals: 07/25 MET Patient Compliance: Good Prognosis: Good Reasons for discharge from therapy: Alfonzo is to discharge from physical therapy at this time secondary to completion of all of his functional goals. Pt ROM is now equal to the contralateral limb with good mobility throughout. Additionally functional strength shows significant improvements with pt able to ambulate stairs without use of HR with good mechanics. Upon discharge pt is to continue with HEP for maintenance and further progression towards functional strength. ROM: Knee ROM (L,R): 5-0-140, 8-0-140 Strength: LE MMT (L,R): Hip: flexion: 5/5, 5/5, Abd: 5/5, 5/5, add: B 5/5,Ext: 5-/5, 5-/5. Knee: Ext: 5/5, 5/5, Flexion: 5-/5, 5/5, Ankle: DF: 5/5, 5-/5, PF: 5/5, 5-/5. Quad lag on L at 0 degrees If you have any questions, please feel free to contact me at [phone]. Thank you, Marlena Norris PT, LAWRENCET, TANYAT Referring provider signature: Date: MTDD
== END 2018-11-08 15:30 | disposition home or self-care (01) ==
LOC: PT 07:00
PROVIDERS: ATTEND Orthopaedic Surgery Adult Reconstructive Orthopaedic Surgery
DX: Z47.1 Aftercare following joint replacement surgery (principal); Z96.652 Presence of left artificial knee joint
CPT/HCPCS: 97010; 97110; 97140; 97161; G0283

== ENCOUNTER 2018-12-06 06:26 | Emergency (ER) | payer MEDICARE ==
--- NOTE | 2018-12-06 06:28 | ER Report ---
History and Physical Time Seen By : 06:24 HPI/ROS CHIEF COMPLAINT: Panic attack HISTORY OF PRESENT ILLNESS: 48-year-old male presents ambulatory to the ER stating he hasn't slept well last 2 days. This morning he woke up having a panic attack. Been a long time since he has a panic attack. Patient has an extensive history of coronary artery disease, status post 5 stents. He continues to smoke. He also recently underwent a total knee replacement. He's been stepping down on his opiate pain relievers from 4 day to 3 a day and just recently at his internal medicine appointment 2 days ago they decreased it to twice daily. Which may be a contributor being factor for his panic attack. Patient notes no chest pain, no shortness of breath, no nausea. Patient states that since he's been placed on long-acting Imdur, nitroglycerin his chest pain has become much less frequent. REVIEW OF SYSTEMS: Respiratory: No cough, no dyspnea. Cardiovascular: No chest pain, no palpitations. Gastrointestinal: No vomiting, no abdominal pain. Musculoskeletal: No back pain. Allergies: Uncoded Allergies: mayoaminaai (Allergy, Unknown, 03/26/17) Home Meds Active Scripts Lorazepam (ATIVAN) 1 Mg Tablet, 1 MG PO Q6-8H PRN for ANXIETY, #10 Prov:WIL SIMMONS DO 12/06/18 Amlodipine Besylate (AMLODIPINE BESYLATE) 10 Mg Tablet, 1 TAB PO QDAY, #90 TAB 4 Refills Prov:STEVE PEREZ DNP [facility] 12/04/18 Metoprolol Tartrate (METOPROLOL TARTRATE) 100 Mg Tablet, 1 TAB PO BID for 90 Days, #180 TAB 1 Refill Prov:STEVE PEREZ DNP [facility] 12/04/18 Gabapentin (GABAPENTIN) 300 Mg Capsule, 1 CAP PO TID, #90 CAPSULE 0 Refills Prov:STEVE PEREZ DNP, FNP-BC 12/04/18 Oxycodone Hcl/Acetaminophen (OXYCODONE-ACETAMINOPHEN 5-325) 1 Each Tablet, 1 TAB PO BID PRN for PAIN, #60 TAB 0 Refills Prov:STEVE PEREZ DNP [facility] 12/04/18 Pantoprazole Sodium (PANTOPRAZOLE SODIUM) 20 Mg Tablet.dr, 1 TAB PO QDAY for 90 Days, #90 TAB.SR 4 Refills Prov:STEVE PEREZ DNP [facility] 11/26/18 Ondansetron (ONDANSETRON ODT) 8 Mg Tab.rapdis, 1 TAB PO Q12H PRN for NAUSEA, #30 TAB 5 Refills Prov:STEVE PEREZ DNP, [facility] 11/04/18 Ketorolac Tromethamine (KETOROLAC TROMETHAMINE) 10 Mg Tab, 10 MG PO Q6H PRN for PAIN, #12 TAB 0 Refills Prov:ASHANTI OCHOA MD 09/30/18 Buspirone Hcl (BUSPIRONE HCL) 10 Mg Tablet, 1 TAB PO Q8H, #90 TAB 5 Refills Prov:STEVE PEREZ DNP [facility] 09/18/18 Citalopram Hydrobromide (CITALOPRAM HBR) 40 Mg Tablet, 1 TAB PO QDAY for 90 Days, #90 TAB 3 Refills Prov:STEVE PEREZ DNP [facility] 09/03/18 Lisinopril (LISINOPRIL) 20 Mg Tablet, 1 TAB PO QDAY, #90 TAB 4 Refills Prov:STEVE PEREZ DNP [facility] 06/27/18 Sildenafil Citrate (SILDENAFIL) 20 Mg Tablet, 20 MG PO when necessary for 30 Days, #30 CAP 3 Refills Take 2-5 tablets orally as needed Prov:SIM FABIAN MD 04/04/18 Acetaminophen (ACETAMINOPHEN) 325 Mg Tablet, 1 TAB PO Q6H PRN for PAIN, #90 TAB 0 Refills 1 tab PO QAM prn pain. 1-2 tab PO noon prn pain. 1 tab PO QHS prn pain. Prov:STEVE PEREZ DNP [facility] 12/27/17 Reported Medications Isosorbide Dinitrate (ISOSORBIDE DINITRATE) Unknown Strength Tablet, 60 MG PO DAILY for 30 Days, #30 11/04/18 Ubidecarenone (COQ-10) 100 Mg Capsule, PO, CAPSULE 06/10/18 Atorvastatin Calcium (ATORVASTATIN CALCIUM) 10 Mg Tablet, 1 TAB PO QDAY, TAB 05/13/18 Ranitidine Hcl (ZANTAC) 150 Mg Tablet, 1 TAB PO BID, TAB 03/26/17 Aspirin (ASPIR 81) 81 Mg Tablet.dr, 325 MG PO BID, TAB 03/13/16 Past Medical/Surgical History Past Medical History Cardiovascular: Reports hx of: coronary artery disease (5 stents) hyperlipidemia hypertension myocardial infarction (x1, July 2017) Respiratory: Reports hx of: sleep apnea (CPAP) Gastrointestinal: Reports hx of: GERD Psychiatric: Reports hx of: anxiety depression panic attacks Past Surgical History Cardiovascular: Reports hx of: coronary stent (5 stents placed) Reviewed Nurses Notes: Yes Old Medical Records Reviewed: Yes Hx Smoking: Yes (1/2 ppd X2) Smoking Status: Current: Every Day Smoker Hx Substance Use Disorder: No Hx Alcohol Use: Yes (OCC) Constitutional Vital Sign - Last 24 Hours 12/06/18 12/06/18 12/06/18 12/06/18 06:26 06:30 06:33 06:46 Temp 97.7 Pulse 78 74 73 Resp 16 4 B/P (MAP) 125/101 (109) 125/101 Pulse Ox 95 90 O2 Delivery Room Air 12/06/18 12/06/18 07:00 07:06 Pulse 75 Resp 18 B/P (MAP) 114/83 (93) Pulse Ox 85 Physical Exam Vital signs stable, afebrile, pulse ox normal General Appearance: The patient is alert, has no immediate need for airway protection and no current signs of toxicity. Anxious-appearing Eyes: Pupils equal and round no injection. Oropharynx without redness or exudate Respiratory: Chest is non tender, lungs are clear to auscultation. Cardiac: regular rate and rhythm, no murmur Gastrointestinal: Abdomen is soft and non tender, no masses, bowel sounds normal. Musculoskeletal: Neck: Neck is supple and non tender. Extremities have full range of motion and are non tender. Skin: No rashes or lesions. DIFFERENTIAL DIAGNOSIS: After history and physical exam differential diagnosis was considered for depression including functional and major depression, situational depression, medication side effect, medication withdrawal side effect, anxiety attack, panic attack drugs and alcohol abuse. Medical Decision Making Data Points Result Diagram: 12/06/18 0635 12/06/18 0635 Laboratory Hematology Test 12/06/18 06:35 White Blood Count 7.9 k/uL (4.5-11.0) Red Blood Count 5.39 M/uL (4.00-5.60) Hemoglobin 15.2 g/dL (14.0-18.0) Hematocrit 45.3 % (42.0-52.0) Mean Corpuscular Volume 84.1 fL (80.0-96.0) Mean Corpuscular Hemoglobin 28.2 pg (26.0-33.0) Mean Corpuscular Hemoglobin Concent 33.6 g/dL (32.0-36.0) Red Cell Distribution Width 14.7 % (11.5-14.5) H Platelet Count 251 K/uL (150-450) Mean Platelet Volume 7.5 fL (7.2-11.1) Neutrophils (%) (Auto) 49.1 % (39.4-72.5) Lymphocytes (%) (Auto) 40.0 % (17.6-49.6) Monocytes (%) (Auto) 6.9 % (4.1-12.4) Eosinophils (%) (Auto) 3.1 % (0.4-6.7) Basophils (%) (Auto) 0.9 % (0.3-1.4) Nucleated RBC Relative Count (auto) 0.1 /100WBC Neutrophils # (Auto) 3.9 K/uL (2.0-7.4) Lymphocytes # (Auto) 3.2 K/uL (1.3-3.6) Monocytes # (Auto) 0.5 K/uL (0.3-1.0) Eosinophils # (Auto) 0.2 K/uL (0.0-0.5) Basophils # (Auto) 0.1 K/uL (0.0-0.1) Nucleated RBC Absolute Count (auto) 0.01 K/uL Chemistry Test 12/06/18 06:35 Sodium Level 135 mmol/L (137-145) Potassium Level 3.8 mmol/L (3.5-5.0) Chloride Level 101 mmol/L (98-107) Carbon Dioxide Level 24 mmol/L (22-30) Blood Urea Nitrogen 15 mg/dl (9-21) Creatinine 1.00 mg/dl (0.66-1.25) Glomerular Filtration Rate Calc > 60.0 Random Glucose 92 mg/dl (75-110) Calcium Level 9.4 mg/dl (8.4-10.2) Total Bilirubin 0.4 mg/dl (0.2-1.3) Aspartate Amino Transf (AST/SGOT) 22 U/L (0-35) Alanine Aminotransferase (ALT/SGPT) 31 U/L (0-56) Alkaline Phosphatase 138 U/L (0-126) Troponin I < 0.012 ng/ml B-Type Natriuretic Peptide 143 pg/ml (0-100) Total Protein 8.2 g/dl (6.3-8.2) Albumin 4.5 g/dl (3.5-5.0) EKG/Imaging EKG Interpretation 12 lead EK 645 Rhythm: normal sinus rhythm [place]: normal QRS: normal ST segments: normal, comparison to previous EKG dated 09/30/18, no significant change ED Course/Re-evaluation ED Course Patient was minute to an examination room. H&P was done. The differential diagnoses was considered. Patient with acute panic attack. Patient is a presents with chest pain. He's been on extended release, Imdur, nitroglycerin and his chest pain, intervals of significantly increased. He's been weaning off of his opiate pain relievers. He's gone from 3 pills down to 2 pills. In that occurred 2 days ago that may be the factor that he is anxious. Patient denies withdrawal symptoms. Patient reports she has not slept for the last 2 nights. Patient's medicated with Ativan 1 mg. His EKG is unchanged. Troponin returns normal and unchanged. Patient is discharged home with a limited supply of Ativan 1 mg for temporary anxiety relief. He is advised to follow-up with his primary care doctor next week. Decision to Disposition Date: Dec 06, 2018 Decision to Disposition Time: 06:47 Depart Departure Latest Vital Signs Vital Signs Date Time Temp Pulse Resp B/P (MAP) Pulse Ox O2 Delivery O2 Flow Rate FiO2 12/06/18 07:06 75 18 85 12/06/18 07:00 114/83 (93) 12/06/18 06:33 97.7 Room Air Impression: Primary Impression: Anxiety attack Additional Impression: History of coronary artery disease Condition: Improved Disposition: HOME OR SELF-CARE Referrals: STEVE PEREZ DNP, DESIGN ASSISTANT-BC (PCP) New Scripts Lorazepam (ATIVAN) 1 Mg Tablet 1 MG PO Q6-8H PRN for ANXIETY, #10 Prov: WIL SIMMONS DO 12/06/18 Patient Instructions: Panic Attack (ED) Problem Qualifiers WIL SIMMONS DO Dec 06, 2018 06:28
[2018-12-06] MEDS ORDERED: LORazepam 2 MG/ML VIAL IVP ONE (06:40)
[2018-12-06] MEDS ORDERED: LORA-1456 PO (06:48)
[2018-12-06 06:52] LABS: PLATELET COUNT, AUTOMATED 251 K/uL (150-450)
[2018-12-06 07:00] VITALS: BP 114/83
--- NOTE | 2018-12-06 08:45 | EKG ---
[place] [facility] [place] NAME: BRAD ARITA : [id number] MR: [id number] V: [id number] EXAM DATE: ORDERING PHYSICIAN: WIL SIMMONS TECHNOLOGIST: JESSICA Caraballo Reason : Blood Pressure : / mmHG Vent. Rate : 072 BPM Atrial Rate : 072 BPM P-R Int : 138 ms QRS Dur : 084 ms QT Int : 422 ms P-R-T Axes : 042 031 034 degrees QTc Int : 462 ms Normal sinus rhythm Normal ECG When compared with ECG of 30-SEP-2018 16:55, No significant change was found Confirmed by Roger Nava [id number]) on 12/06/2018 9:02:10 PM Referred By: TROY Confirmed By:Roger Ventura
== END 2018-12-06 07:30 | disposition home or self-care (01) ==
LOC: ER 06:56
DX: F41.9 Anxiety disorder, unspecified (principal); I25.10 Atherosclerotic heart disease of native coronary artery without angina pectoris
CPT/HCPCS: 83880; 84484; 85025; 93005; 96374; 99283; J2060; 82040; 82247; 82310; 82374; 82435; 82565; 82947; 84075; 84132; 84155; 84295; 84450; 84460; 84520